=== PATIENT | female | born 1940 | race Caucasian/White ===

== ENCOUNTER 2017-12-15 16:22 | Inpatient (IN) | payer MEDICARE, SELFPAY ==
[2017-12-15] VITALS (8 sets, daily range): BP systolic 99–135; BP diastolic 55–122; PULSE 64–86; RESP 16–24; TEMP 37–38.5; O2SAT 93–96; BMI 28.8
--- NOTE | 2017-12-15 16:41 | CT_ITS ---
STUDY: CT BRAIN WITHOUT CONTRAST REASON FOR EXAM: Female, 77 years old. Altered mental status, tremors RADIATION DOSAGE (If Supplied By Facility): CTDIvol = ( 44.99 ) mGy, DLP = ( 762.36 ) mGycm TECHNIQUE: Transaxial CT imaging of the brain was performed without administration of intravenous contrast material. Individualized dose optimization techniques were used for this CT. COMPARISON: Previous study of June 01, 2017 FINDINGS: Normal soft tissue structures. There is mild hyperostosis frontalis interna of the inferior frontal bones. There is mild cerebral atrophy with widening of the extra-axial spaces and ventricular dilatation. There are areas of decreased attenuation within the white matter tracts of the supratentorial brain, consistent with microvascular disease changes. Normal basal ganglia and thalami. Normal brainstem. Normal cerebellum. There is no intracranial hemorrhage. There are no findings of an acute ischemic infarction. 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 CT/Brain/Head without Contrast IMPRESSION: Chronic involutional changes of the brain. 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 Findings are stable in the interval. Electronically Signed: Reinaldo Bloom MD at 17:43 EST , Service support ,
[2017-12-15] MEDS: 0.9% Normal Saline 1,000 ML 150 ML IV (16:54)
[2017-12-15] MEDS: DiphenhydrAMINE 50 MG/ML Syringe 25 MG IV ×2 (16:54→17:52)
[2017-12-15 17:26] LABS: Absolute Lymphocyte Count 1.43 X10^3/ul (0.83-4.51); Absolute Neutrophil Count 5.3 X10^3/uL (2.0-7.7); Basophil# 0.01 X10^3/uL; Basophil% 0.1 % (0-1); Hematocrit 39.8 % (37-47); Hemoglobin 13.2 g/dl (12.0-15.0); Lymphocyte # 1.43 X10^3/ul (4.0); Lymphocyte % 17.6 % (19-41); Mean Corp Hgb Conc 33.2 g/gl (32-36); Mean Corpuscular Hgb 29.9 pg (27.0-32.0); Mean Platelet Vol. 11.1 fl (6.2-12.0); Monocyte# 1.35 X10^3/uL; Monocyte% 16.6 % (0-10); Neutrophil # 5.32 X10^3/uL (2.7-7.7); Neutrophil % 65.6 % (47-70); Platelet Count 162 K/mm3 (150-450); RBC Distribution Width CV 14.6 % (11.6-14.6); RBC Distribution Width SD 47.9 fl (35.1-43.9); Red Blood Count 4.42 M/mm3 (4.2-5.4); White Blood Count 8.1 K/mm3 (4.4-11.0)
[2017-12-15 17:28] LABS: POSITIVE COUNT NO; POSITIVE DIFFERENTIAL NO; POSITIVE MORPHOLOGY NO
[2017-12-15 17:32] LABS: International Normalized Ratio 1.1; Partial Thromboplast Time 35.2 Seconds (24.1-36.2); Prothrombin Time (Protime)PT. 13.9 SECONDS (11.7-14.9)
[2017-12-15 17:39] LABS: Bacteria 0 SEEN /hpf (None Seen); Mucous, Urine 0 SEEN /hpf (<or=2+); Red Blood Cells-Urine 0 SEEN /hpf (0-5)
[2017-12-15 17:43] LABS: Color, Urine Yellow (Yellow); Glucose, Dipstick Normal (Normal); Ketone-Dipstick Negative (Negative); Leukocyte Esterase-Dipstick Negative /ul (Negative); Nitrite-Dipstick Negative (Negative); Occult Blood-Urine 10 /ul (Negative); Protein-Dipstick 15 mg/dl (Negative); Urine Bilirubin Dipstick Negative (Negative); Urine Clarity Clear (Clear); Urine Urobilinogen Normal (Normal)
[2017-12-15 17:49] LABS: ALB/GLOB Ratio 0.9 RATIO (0.9-2.4); AST(SGOT) 40 U/L (15-37); Alanine Aminotransfer ALT/SGPT 29 U/L (13-56); Albumin, Serum 3.4 g/dL (3.2-5.0); Alkaline Phosphatase 56 U/L (45-117); Anion Gap 11 (5-15); BUN 29 mg/dL (7-18); BUN/Creat Ratio 18.5 RATIO (10-20); Calcium,Total 9.1 mg/dL (8.5-10.1); Chloride 105 mmol/L (98-107); Creatinine, Serum 1.57 mg/dL (0.55-1.02); EST Glomerular Filtration Rate 34 mL/min (>60); Est Glom Filt Rate - Afr Amer 41 mL/min (>60); Estimated Creatinine Clearance 21.55 ml/min; Globulin 3.9 g/dL (2.2-4.2); Glucose 88 mg/dL (74-106); Potassium 3.6 mmol/L (3.5-5.1); Protein, Total 7.3 g/dL (6.4-8.2); Sodium Level 139 mmol/L (136-145); Thyroid Stim Hormone (TSH) 0.12 uIU/mL (0.358-3.74)
[2017-12-15 17:53] LABS: Squamous Epithelial Cells - UA 0-5 SEEN /hpf (5-10); White Blood Cells 0-5 SEEN /hpf (0-5)
[2017-12-15 18:03] LABS: Amphetamine Urine VISTA NEGATIVE (<1000 ng/mL); Barbiturate Urine VISTA NEGATIVE (< 200 ng/mL); Benzodiazepine Urine VISTA NEGATIVE (< 200 ng/mL); Cocaine Urine VISTA NEGATIVE (< 300 ng/mL); Ecstacy Urine VISTA NEGATIVE (< 500 ng/mL); Methadone Urine VISTA NEGATIVE (< 300 ng/mL); PCP Urine VISTA NEGATIVE (< 25 ng/mL); THC Urine VISTA NEGATIVE (< 50 ng/mL); Vista UDS pH Range 5
[2017-12-15 18:12] LABS: Alcohol, Blood (Medical)-Serum < 3.0 mg/dL
[2017-12-15 18:13] LABS: Lactic Acid 1.1 mmol/L (0.4-2.0)
[2017-12-15] MEDS: Ibuprofen 200 MG Tablet 800 MG PO (21:07)
--- NOTE | 2017-12-15 21:12 | ED.RN ---
POSITIVE FLU PER LAB. NOTIFIED.
[2017-12-15] MEDS: Oseltamivir Phosphate 75 MG Capsule PO (21:20)
[2017-12-15 21:40] LABS: Acetaminophen (Tylenol) Level < 2.0 ug/mL (10.0-30.0); Salicylate 2.5 mg/dL (2.8-20.0)
--- NOTE | 2017-12-15 21:43 | ED.VISSUMM ---
- ER Visit Summary Date of Service: 12/15/17 Chief Complaint: Sore throat History of Present Illness: The patient is a 77 F who states that she has had a sore throat for the past 2-3 days. Patient lives alone and today went to her neighbor's house to see if she can be taken to the doctor. The neighbor tells me she felt that she should come to the emergency room but they went to her primary care physician. After being seen at the primary care physician's office she was sent to the emergency department. Patient is unsure of her medications but does have a piece of paper with it listed. She adamantly denies any inrm-jyx-qzjeqgs medications. When family arrives and they adamantly deny that she has been taken any tswf-ogb-lbwllyh medicines. Patient was asked a total of 4 times if she takes any exhz-dzz-gykqjcf medications. It was not until over 4 hours into their stay and then they start mentioning that she has been taking a lot of aspirin. I asked if there has been any other rtca-bpm-ygmrexk medications and they say no. At the doctor's office the patient was noted to have significantly abnormal extrapyramidal like movements of the arms and legs. Physical Examination: Temperature 99 heart rate 126 respirations are 18 pulse ox 94% on room air blood pressure in triage was not accurate Gen: Well-nourished well-developed Head: Normocephalic atraumatic Eyes: Perrl EOMI ENT: TMs clear nasal congestion moist mucous membranes Neck: Supple no lymphadenopathy no JVD nontender no meningitic signs CVS: Regular rate rhythm no murmurs normal S1-S2 Respiratory: No distress clear to auscultation bilaterally chest nontender Abdomen: Soft nontender nondistended normal bowel sounds no masses Back: Nontender Extremity: Nontender no edema Skin: Normal color no rash Neuro: alert patient states that is 1918. She gets the wrong day of the week. She knows that it is December where she is at. Patient has jerking motion of the arms and legs independent of each other. She has occasional uncontrollable movement of her head. There is not appear to be any dystonia of the face of the neck. These movements do not appear to represent Rigors. Test Results: White count 8.1 creatinine 1.57 the BUN is 29 TSH 0.12 troponin negative liver enzymes total bili 1.2 normal coags urinalysis normal alcohol urine drugs abuse negative. CT of the brain negative influenza a positive. Salicylate 2.5. Acetaminophen less than 2 Emergency Department Course and Treatment: Patient received Benadryl which did not relieve her symptoms. She was given a milligram of Ativan and she fell asleep. When she woke patient was febrile at 101. She received Motrin Tamiflu was administered after she was influenza A positive identified. She is also been receiving IV fluids. After being notified that she has been taking significant amounts of aspirin salicylates and acetaminophen were added. Plan is admission. Impression: 1. Influenza A 2. Extraparametal movements-unknown etiology This note was generated with [employer] dictation software. It may contain incorrect words, spelling, and punctuation that were not noted in review of the chart prior to signing ED Disposition - Plan for ED Patient: Chief Complaint: General Illness Referrals: Tuan Luo DO [Primary Care Provider] -
--- NOTE | 2017-12-15 21:51 | ED.DCSUM_ITS ---
- ER Visit Summary Date of Service: 12/15/17 Chief Complaint: Sore throat History of Present Illness: The patient is a 77 F who states that she has had a sore throat for the past 2-3 days. Patient lives alone and today went to her neighbor's house to see if she can be taken to the doctor. The neighbor tells me she felt that she should come to the emergency room but they went to her primary care physician. After being seen at the primary care physician's office she was sent to the emergency department. Patient is unsure of her medications but does have a piece of paper with it listed. She adamantly denies any hjmb-mbz-hvvhrlu medications. When family arrives and they adamantly deny that she has been taken any kdyx-svp-rfvizhk medicines. Patient was asked a total of 4 times if she takes any bhyu-uvu-mhqtwpw medications. It was not until over 4 hours into their stay and then they start mentioning that she has been taking a lot of aspirin. I asked if there has been any other over- the-counter medications and they say no. At the doctor's office the patient was noted to have significantly abnormal extrapyramidal like movements of the arms and legs. Physical Examination: Temperature 99 heart rate 126 respirations are 18 pulse ox 94% on room air blood pressure in triage was not accurate Gen: Well-nourished well-developed Head: Normocephalic atraumatic Eyes: Perrl EOMI ENT: TMs clear nasal congestion moist mucous membranes Neck: Supple no lymphadenopathy no JVD nontender no meningitic signs CVS: Regular rate rhythm no murmurs normal S1-S2 Respiratory: No distress clear to auscultation bilaterally chest nontender Abdomen: Soft nontender nondistended normal bowel sounds no masses Back: Nontender Extremity: Nontender no edema Skin: Normal color no rash Neuro: alert patient states that is 1918. She gets the wrong day of the week. She knows that it is December where she is at. Patient has jerking motion of the arms and legs independent of each other. She has occasional uncontrollable movement of her head. There is not appear to be any dystonia of the face of the neck. These movements do not appear to represent Rigors. Test Results: White count 8.1 creatinine 1.57 the BUN is 29 TSH 0.12 troponin negative liver enzymes total bili 1.2 normal coags urinalysis normal alcohol urine drugs abuse negative. CT of the brain negative influenza a positive. Salicylate 2.5. Acetaminophen less than 2 Emergency Department Course and Treatment: Patient received Benadryl which did not relieve her symptoms. She was given a milligram of Ativan and she fell asleep. When she woke patient was febrile at 101. She received Motrin Tamiflu was administered after she was influenza A positive identified. She is also been receiving IV fluids. After being notified that she has been taking significant amounts of aspirin salicylates and acetaminophen were added. Plan is admission. Impression: 1. Influenza A 2. Extraparametal movements-unknown etiology This note was generated with [employer] dictation software. It may contain incorrect words, spelling, and punctuation that were not noted in review of the chart prior to signing ED Disposition - Plan for ED Patient: Chief Complaint: General Illness Referrals: Tuan Luo DO [Primary Care Provider] -
--- NOTE | 2017-12-15 22:23 | PCM.HP.STD ---
Problem List (1) HTN (hypertension) Status: Chronic (2) Abnormal involuntary movement Status: Acute (3) Influenza Status: Acute History of Present Illness Date of Admission: 12/15/17 Chief Complaint: Influenza A The patient is a 77 year old female w/ h/o HTN is admitted for influenza A. She is a poor historian. She had sore throat several days ago and went to neighbor's house to ask if the neighbor can take her to a doctor's office. She last spoke to her son last night and he said that she felt ill. Family noted abnormal extrapyramidal like movement this AM. Nothing appeared to make it movement better or worse. The movement was constant. She denies taking anything over the counter. Past Medical History Past Medical History (Chronic Problems): Chronic Problems HTN (hypertension) (Chronic) Allergies amlodipine besylate [From Norvasc] Adverse Reaction (Verified 12/15/17 16:28) Other clonidine Adverse Reaction (Verified 12/15/17 16:28) Unknown hydrochlorothiazide [From Zestoretic] Adverse Reaction (Verified 12/15/17 16:28) Other lisinopril [From Zestoretic] Adverse Reaction (Verified 12/15/17 16:28) Other prednisone Adverse Reaction (Verified 12/15/17 16:28) Other Home Medications: Ambulatory Orders Medication Instructions Recorded Aspirin [Aspirin, Baby] 81 mg PO DAILY@0800 06/01/17 Calcitriol [Rocaltrol] 0.25 mcg PO DAILY 06/01/17 Hydrochlorothiazide [Hctz] 12.5 mg PO DAILY 06/01/17 Levothyroxine [Synthroid] 88 mcg PO DAILY 06/01/17 Losartan Potassium [Cozaar] 100 mg PO DAILY 06/01/17 Pravastatin Sodium [Pravachol] 10 mg PO QHS 06/01/17 C,E,Zinc,Copper 11/Cthpa7i/Lut 1 each PO DAILY 12/15/17 [Ocuvite Adult 50 Plus Softgel] Multivitamin [Multiple Vitamins] 1 each PO DAILY 12/15/17 Lives: Alone Smoking Status: Never smoker Alcohol: None Drugs: None - *Family History Maternal History Items: No pertinent history Review of Systems Constitutional: Denies: Chills, Fever, Weight Change HEENT: Denies: Head Aches, Sinus Congestion, Sinus Drainage Cardiovascular: Denies: Chest Pain, Palpitations Respiratory: Reports: Shortness of Breath. Denies: Cough, Shortness of breath at rest, Sputum production Gastrointestinal: Denies: Abdominal Pain, Nausea, Vomiting Genitourinary: Denies: Dysuria Musculoskeletal: Denies: Joint Pain, Joint Tenderness Skin: Denies: Rash, Wounds Neurological: Reports: -. Denies: Focal weakness, Numbness, Tingling Psychiatric: Denies: Anxiety, Depression, Homicidal Ideations, Suicidal Ideations Hematologic/ Lymphatic: Denies: Easy Bruising, Easy Bleeding Comment: abnormal extrapyramidal like movement VTE Information - Inpt Only VTE Present on Admission: No VTE Mechan Device Prophylaxis: SCD's VTE Pharm Prophylaxis ordered?: Yes Patient Problems: Active and Suspected Problems Abnormal involuntary movement (Acute) Influenza (Acute) - Physical Exam General: Alert, Oriented x3, Cooperative HEENT: Atraumatic, PERRLA, EOMI, Normocephalic Neck: Supple, No JVD, Negative Carotid Bruits Lungs: Clear to auscultation, Normal air movement Cardiovascular: Regular rate, No murmurs Abdomen: Bowel Sounds Present, Soft, Non Tender Extremities: No edema, Capillary Refill Less than 3 Seconds Skin: No rashes, No breakdown Musculoskeletal: No Tenderness to Palpation of Joints or Extremities Neurological: Cranial nerves II-XII grossly intact, - - abnormal extrapyramidal like movement Psych/Mental Status: Normal Affect, Appropriate Vital Signs Temp Pulse Resp BP Pulse Ox 99.5 F H 80 16 114/59 L 96 12/15/17 22:14 12/15/17 21:07 12/15/17 21:07 12/15/17 20:51 12/15/17 21:07 Oxygen Flow Rate 2 Oxygen Delivery Method Room Air Weight: 67.1 kg Body Mass Index (BMI) 28.8 Finger Stick Blood Glucose 96 Microbiology Past 72 Hours 12/15/17 20:40 Influenza Types A,B Direct FA (JOVANY) - Final Mucosa - Nasopharyngeal Influenzae A Laboratory Tests Past 24 Hrs 12/15/17 12/15/17 12/15/17 16:57 16:57 16:57 WBC 8.1 RBC 4.42 Hgb 13.2 Hct 39.8 MCV 90.0 MCH 29.9 MCHC 33.2 RDW 14.6 RDW Differential 47.9 H Plt Count 162 MPV 11.1 Immature Gran % (Auto) 0.100 Neut % (Auto) 65.6 Lymph % (Auto) 17.6 L [place] % (Auto) 16.6 H Eos % (Auto) 0.0 Baso % (Auto) 0.1 Absolute Neuts (auto) 5.3 Absolute Lymphs (auto) 1.43 Total Counted Not Reportable PT 13.9 INR 1.1 APTT 35.2 Sodium 139 Potassium 3.6 Chloride 105 Carbon Dioxide 23.0 Anion Gap 11 BUN 29 H Creatinine 1.57 H Estim Creat Clear Calc 21.55 Est GFR (MDRD) Af Amer 41 L Est GFR (MDRD) Non-Af 34 L BUN/Creatinine Ratio 18.5 Glucose 88 Lactic Acid Calcium 9.1 Total Bilirubin 1.20 H AST 40 H ALT 29 Alkaline Phosphatase 56 Troponin I < 0.02 Total Protein 7.3 Albumin 3.4 Globulin 3.9 Albumin/Globulin Ratio 0.9 TSH 0.12 L Urine Color Urine Clarity Urine pH Ur Specific [place] Urine Protein Urine Glucose (UA) Urine Ketones Urine Occult Blood Urine Nitrite Urine Bilirubin Urine Urobilinogen Ur Leukocyte Esterase Urine RBC Urine WBC Ur Squamous Epith Cells Urine Bacteria Urine Mucus Salicylates Urine Opiates Screen Urine Methadone Screen Acetaminophen Ur Barbiturates Screen Ur Phencyclidine Scrn Ur Amphetamines Screen U Methamphetamin-MDMA U Benzodiazepines Scrn Urine Cocaine Screen U Cannabinoids Screen Ur Drug Screen Comment Ethyl Alcohol 12/15/17 12/15/17 12/15/17 16:57 16:57 16:59 WBC RBC Hgb Hct MCV MCH MCHC RDW RDW Differential Plt Count MPV Immature Gran % (Auto) Neut % (Auto) Lymph % (Auto) [place] % (Auto) Eos % (Auto) Baso % (Auto) Absolute Neuts (auto) Absolute Lymphs (auto) Total Counted PT INR APTT Sodium Potassium Chloride Carbon Dioxide Anion Gap BUN Creatinine Estim Creat Clear Calc Est GFR (MDRD) Af Amer Est GFR (MDRD) Non-Af BUN/Creatinine Ratio Glucose Lactic Acid 1.1 Calcium Total Bilirubin AST ALT Alkaline Phosphatase Troponin I Total Protein Albumin Globulin Albumin/Globulin Ratio TSH Urine Color Urine Clarity Urine pH Ur Specific [place] Urine Protein Urine Glucose (UA) Urine Ketones Urine Occult Blood Urine Nitrite Urine Bilirubin Urine Urobilinogen Ur Leukocyte Esterase Urine RBC Urine WBC Ur Squamous Epith Cells Urine Bacteria Urine Mucus Salicylates 2.5 L Urine Opiates Screen Urine Methadone Screen Acetaminophen < 2.0 L Ur Barbiturates Screen Ur Phencyclidine Scrn Ur Amphetamines Screen U Methamphetamin-MDMA U Benzodiazepines Scrn Urine Cocaine Screen U Cannabinoids Screen Ur Drug Screen Comment Ethyl Alcohol < 3.0 12/15/17 12/15/17 17:28 17:28 WBC RBC Hgb Hct MCV MCH MCHC RDW RDW Differential Plt Count MPV Immature Gran % (Auto) Neut % (Auto) Lymph % (Auto) [place] % (Auto) Eos % (Auto) Baso % (Auto) Absolute Neuts (auto) Absolute Lymphs (auto) Total Counted PT INR APTT Sodium Potassium Chloride Carbon Dioxide Anion Gap BUN Creatinine Estim Creat Clear Calc Est GFR (MDRD) Af Amer Est GFR (MDRD) Non-Af BUN/Creatinine Ratio Glucose Lactic Acid Calcium Total Bilirubin AST ALT Alkaline Phosphatase Troponin I Total Protein Albumin Globulin Albumin/Globulin Ratio TSH Urine Color Yellow Urine Clarity Clear Urine pH 5.0 Ur Specific [place] 1.020 Urine Protein 15 H Urine Glucose (UA) Normal Urine Ketones Negative Urine Occult Blood 10 H Urine Nitrite Negative Urine Bilirubin Negative Urine Urobilinogen Normal Ur Leukocyte Esterase Negative Urine RBC 0 SEEN Urine WBC 0-5 SEEN Ur Squamous Epith Cells 0-5 SEEN Urine Bacteria 0 SEEN Urine Mucus 0 SEEN Salicylates Urine Opiates Screen NEGATIVE Urine Methadone Screen NEGATIVE Acetaminophen Ur Barbiturates Screen NEGATIVE Ur Phencyclidine Scrn NEGATIVE Ur Amphetamines Screen NEGATIVE U Methamphetamin-MDMA NEGATIVE U Benzodiazepines Scrn NEGATIVE Urine Cocaine Screen NEGATIVE U Cannabinoids Screen NEGATIVE Ur Drug Screen Comment Ethyl Alcohol Assessment/Plan Active and Suspected Problems Abnormal involuntary movement (Acute) Influenza (Acute) 77 year old female w/ h/o HTN is admitted for influenza A. 1) Influenza A: Will start tamiflu. Will also cover with ceftriaxone and azithromycin concerning for bacteria infection. Low suspicion for resistant organism. Cultures pending. 2) Abnormal extrapyramidal like movement: CT negative. Will get B12, folate, ammonia, and RPR. Will also consult neuro. Will defer further workup to neuro. 3) HTN: Resume home meds. Monitor. 4) Prophylaxis: Heparin.
[2017-12-16] VITALS: O2SAT 94
[2017-12-16] MEDS: 0.9% Normal Saline 1,000 ML 100 ML IV ×3 (00:18→23:07)
[2017-12-16] MEDS: Ceftriaxone 1 GM/50 ML BAG IV (00:18)
[2017-12-16 01:01] LABS: Thyroid Stim Hormone (TSH) 0.11 uIU/mL (0.358-3.74)
[2017-12-16 03:54] LABS: Color, Urine Yellow (Yellow); Glucose, Dipstick Normal (Normal); Ketone-Dipstick 5 mg/dl (Negative); Leukocyte Esterase-Dipstick 100 /ul (Negative); Nitrite-Dipstick Negative (Negative); Occult Blood-Urine Negative /ul (Negative); Protein-Dipstick Negative (Negative); Specific Gravity, Urine 1.015 (1.002-1.030); Urine Bilirubin Dipstick Negative (Negative); Urine Clarity Clear (Clear); Urine Urobilinogen Normal (Normal)
[2017-12-16 04:00] VITALS: BP 117/69; PULSE 55; RESP 16; TEMP 36.6; O2SAT 95
[2017-12-16 07:30] LABS: Absolute Lymphocyte Count 1.59 X10^3/ul (0.83-4.51); Basophil# 0.02 X10^3/uL; Basophil% 0.3 % (0-1); Eosinophil# 0.04 X10^3/uL; Eosinophils% 0.7 % (0-5); Hematocrit 39.6 % (37-47); Lymphocyte # 1.59 X10^3/ul (4.0); Lymphocyte % 26.1 % (19-41); Mean Corp Hgb Conc 32.8 g/gl (32-36); Mean Corpuscular Volume 91.2 fL (81-99); Mean Platelet Vol. 11.4 fl (6.2-12.0); Monocyte# 1.46 X10^3/uL; Neutrophil # 2.96 X10^3/uL (2.7-7.7); Neutrophil % 48.6 % (47-70); Platelet Count 149 K/mm3 (150-450); RBC Distribution Width CV 15.1 % (11.6-14.6); RBC Distribution Width SD 49.2 fl (35.1-43.9); Red Blood Count 4.34 M/mm3 (4.2-5.4); White Blood Count 6.1 K/mm3 (4.4-11.0)
[2017-12-16 07:33] LABS: POSITIVE COUNT NO; POSITIVE DIFFERENTIAL NO; POSITIVE MORPHOLOGY NO
[2017-12-16 08:02] VITALS: BP 129/68; PULSE 55; RESP 18; TEMP 37; O2SAT 94
[2017-12-16 08:02] LABS: ALB/GLOB Ratio 0.8 RATIO (0.9-2.4); AST(SGOT) 47 U/L (15-37); Alanine Aminotransfer ALT/SGPT 29 U/L (13-56); Albumin, Serum 2.8 g/dL (3.2-5.0); Alkaline Phosphatase 46 U/L (45-117); Anion Gap 8 (5-15); BUN 33 mg/dL (7-18); BUN/Creat Ratio 21.2 RATIO (10-20); Calcium,Total 8.4 mg/dL (8.5-10.1); Chloride 110 mmol/L (98-107); Creatinine, Serum 1.56 mg/dL (0.55-1.02); EST Glomerular Filtration Rate 34 mL/min (>60); Est Glom Filt Rate - Afr Amer 41 mL/min (>60); Estimated Creatinine Clearance 21.69 ml/min; Globulin 3.5 g/dL (2.2-4.2); Glucose 78 mg/dL (74-106); Potassium 3.5 mmol/L (3.5-5.1); Protein, Total 6.3 g/dL (6.4-8.2); Sodium Level 143 mmol/L (136-145)
[2017-12-16] MEDS: Multivitamins,Therapeutic Tablet 1 TABLET PO (08:06)
[2017-12-16] MEDS: Aspirin 81 MG TAB.CHEW PO (08:06)
--- NOTE | 2017-12-16 08:38 | RAD_ITS ---
STUDY: X-RAY CHEST REASON FOR EXAM: Female, 77 years old. Cough TECHNIQUE: PA and lateral views of the chest. COMPARISON: 02/12/2013 FINDINGS: The lungs are clear and expanded. There is no demonstrated pleural abnormality. Normal size heart. Normal mediastinum and larisa. Normal visualized pulmonary arteries. There is mild calcification of the aortic arch. There are diffuse degenerative changes of the visualized thoracic spine. Normal visualized ribs, clavicles, and shoulders. Surgical clips project over the right side of the neck. There is no demonstrated abnormality of the visualized soft tissue structures of the upper abdomen. RAD/Chest PA and Lateral IMPRESSION: Degenerative changes, as described above. No demonstrated acute cardiopulmonary process. Electronically Signed: Alfredo Celis DO at 9:46 EST Tel , Service support ,
--- NOTE | 2017-12-16 09:24 | PN_ITS ---
Patient Problems: Active and Suspected Problems Abnormal involuntary movement (Acute) Influenza (Acute) Subjective: Patient notes feeling improved since initial presentation with less body aches, no marked dyspnea and less coughing. Upon initial evaluation she was noted to have abnormal movements however since admission to the floor nursing has not witnessed any irregularities. During examination patient also did not exhibit any irregular movements of the upper extremities. Patient denies fevers, chills , nausea, emesis, abdominal pain, chest pain or dyspnea. Objective: Physical Examination: General: awake, alert, oriented x 3 and cooperative, seated upright in bed in no apparent distress. Skin: normal color, turgor, no icterus, cyanosis. HEENT: AT/NC, EOMI, PERRLA, improved less dry MM. Lungs: Diminished bases, occasional expiratory wheeze, L>R mid-base, mild effort , some coughing but minimal. Heart: Regular rate and rhythm; no gallop, rub audible. Abdomen: soft, NTTP, ND, normal BS. Extremities: no cyanosis, clubbing, or edema. Neurological: patient awake, alert, oriented x 3; cognitive function intact; pupils equally reactive to light and accomodation; cranial nerves II-XII grossly normal, moving all 4 extremities, no focal deficits, strength moderately globally decreased, no abnormal extremity movements. Psychiatric: affect appears fatigued, no acute evidence of depressive or anxiety feelings. Vitals/I&O's: Vital Signs Temp Pulse Resp BP Pulse Ox 98.6 F 55 L 18 129/68 H 94 12/16/17 08:02 12/16/17 08:02 12/16/17 08:02 12/16/17 08:02 12/16/17 08:02 Oxygen Delivery Method Room Air Weight: 147 lb 6 oz Body Mass Index (BMI) 28.8 Intake and Output for Last 24 Hours 12/14/17 12/15/17 12/16/17 23:59 23:59 23:59 Intake Total 810 / 810 Output Total 300 / 300 Balance 510 / 510 Microbiology Past 72 Hours 12/16/17 02:50 Urine, Clean Catch Legionella Antigen - Final 12/16/17 02:50 Urine, Clean Catch Streptococcus pneumoniae Antigen (M - Final Laboratory Results 12/15/17 23:23: Vitamin B12 Pending, Cortisol Pending 12/15/17 23:23: Folate 74.40 H, TSH 0.11 L 12/15/17 23:23: Ammonia 12.0 12/15/17 23:23: RPR Pending 12/16/17 02:50: Urine Color Yellow, Urine Clarity Clear, Urine pH 6.0, Ur Specific [place] 1.015, Urine Protein Negative, Urine Glucose (UA) Normal, Urine Ketones 5 H, Urine Occult Blood Negative, Urine Nitrite Negative, Urine Bilirubin Negative, Urine Urobilinogen Normal, Ur Leukocyte Esterase 100 H 12/16/17 07:08: WBC 6.1, RBC 4.34, Hgb 13.0, Hct 39.6, MCV 91.2, MCH 30.0, MCHC 32.8, RDW 15.1 H, RDW Differential 49.2 H, Plt Count 149 L, MPV 11.4, Immature Gran % (Auto) 0.300, Neut % (Auto) 48.6, Lymph % (Auto) 26.1, [place] % (Auto) 24.0 H, Eos % (Auto) 0.7, Baso % (Auto) 0.3, Absolute Neuts (auto) 3.0, Absolute Lymphs (auto) 1.59, Total Counted Not Reportable 12/16/17 07:08: Sodium 143, Potassium 3.5, Chloride 110 H, Carbon Dioxide 25.0, Anion Gap 8, BUN 33 H, Creatinine 1.56 H, Estim Creat Clear Calc 21.69, Est GFR (MDRD) Af Amer 41 L, Est GFR (MDRD) Non-Af 34 L, BUN/Creatinine Ratio 21.2 H, Glucose 78, Calcium 8.4 L, Total Bilirubin 1.00, AST 47 H, ALT 29, Alkaline Phosphatase 46, Total Protein 6.3 L, Albumin 2.8 L, Globulin 3.5, Albumin/ Globulin Ratio 0.8 L Current Medications Aspirin (Aspirin, Baby) 81 mg PO DAILY@0800 [facility] Last Admin: 12/16/17 08:06 Dose: 81 mg Calcitriol (Rocaltrol) 0.25 mcg PO DAILY [facility] Diphenhydramine HCl (Benadryl) 25 mg IV Q4H PRN PRN PRN Reason: AGITATION Heparin Sodium (Porcine) (Heparin Na) 5,000 unit SC Q8 [facility] Last Admin: 12/16/17 05:08 Dose: 5,000 units Sodium Chloride () 1,000 mls @ 100 mls/hr IV .Q10H [facility] Last Admin: 12/16/17 00:18 Dose: 100 mls/hr Ceftriaxone Sodium (Rocephin) 1 gm in 50 mls @ 100 mls/hr IV Q24 [facility] Last Admin: 12/16/17 00:18 Dose: 100 mls/hr Azithromycin 500 mg/ Dextrose 255 mls @ 250 mls/hr IV Q24 [facility] Stop: 12/17/17 11:02 Last Admin: 12/16/17 01:21 Dose: 250 mls/hr Levothyroxine Sodium (Synthroid) 88 mcg PO DAILY@0600 [facility] Losartan Potassium (Cozaar) 100 mg PO DAILY [facility] Multivitamins (Multivitamin) 1 tablet PO DAILY@0800 [facility] Last Admin: 12/16/17 08:06 Dose: 1 tablet Multivitamins/Minerals (Ocuvite) 1 tablet PO DAILYCM [facility] Last Admin: 12/16/17 08:06 Dose: 1 tablet Pravastatin Sodium (Pravachol) 10 mg PO QHS [facility] Sodium Chloride () 5 - 30 ml IV UD PRN PRN Reason: SALINE FLUSH Assessment/Plan Active and Suspected Problems Abnormal involuntary movement (Acute) Influenza (Acute) The patient is a 77 y/o F w/ PMHx: HTN, Hypothyroidism, HLD, CKD stage III who presents to the [facility] ED on 12/15/17 with history of sore throat, cough, dyspnea, fever, myalgia, arthralgia x 2 days in addition to family reported irregular BL UE movements on day of ED presentation. (1) General Malaise, Cough, Fever, General Debility secondary to Influenza A Viral Syndrome: CXR in the ED w/ no acute process. Admission CBC w/ WBC 8.1 without L shift. Influenza A positive. Maintained on Tamiflu, initially administered in the ED and given sxs onset timeline continued inpatient given 48 hours. Admitted to [place], maintain on oxygen with wean as tolerated, continue ATC duonebs, PRN albuterol, HOB, IS parameters w/ pending Bld cx x 2 from ED, urine antigens negative, sputum culture obtained and pending. Initially on IV rocephin and azithromycin for possible PNA, but given influenza A positive and no obvious infiltrate on CXR, discontinued abx agents. (2) Unclear BL UE Irregular, ? 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 Patient irregular movements not present upon admission following ED evaluation, unclear etiology, neurology consulted upon admission, pending evaluation. (3) Hypertension: Continue home regimen including losartan, PRN hydralazine. (4) Hyperlipidemia: Continue home statin regimen. (5) Hypothyroidism: Continue home synthroid regimen, TSH 0.11, FT4 normal, subclinical encouraged repeat outpatient testing once clinical improved from current acute presentation. (6) Chronic Kidney Disease Stage III: Admission BUN/Cr 29/1.57, baseline renal function 1.4-1.6, stable, trend. (7) DVT, renally dosed lovenox. Code Visit Inpatient E&M: 75677 Subs Hosp L2
[2017-12-16 10:21] LABS: T4 Free Direct 1.22 ng/dL (0.76-1.46)
[2017-12-16] MEDS: Losartan Potassium 100 MG Tablet PO (10:55)
[2017-12-16] MEDS: Levothyroxine 88 MCG Tablet PO (10:55)
[2017-12-16] MEDS: Oseltamivir Phosphate 30 MG Capsule PO (11:49)
[2017-12-16 13:39] VITALS: BP 112/73; PULSE 74; RESP 18; TEMP 37.6; O2SAT 93
--- NOTE | 2017-12-16 13:56 | CASEMGMT ---
Attempted to see pt x2, unable to complete assessment @ this time. Lily BSN RN ACM
[2017-12-16 17:34] VITALS: TEMP 36.7
[2017-12-16 19:40] VITALS: BP 136/98; PULSE 74; RESP 18; TEMP 37.6; O2SAT 96
[2017-12-16] MEDS: Pravastatin 20 MG Tablet 10 MG PO (23:06)
[2017-12-17 01:40] VITALS: BP 139/81; PULSE 62; RESP 18; TEMP 37.3; O2SAT 96
[2017-12-17] MEDS: Levothyroxine 88 MCG Tablet PO (05:57)
[2017-12-17] MEDS: Enoxaparin 30 MG/0.3 ML Syringe SC (05:57)
[2017-12-17 07:40] VITALS: BP 145/85; PULSE 58; RESP 18; TEMP 37; O2SAT 96
[2017-12-17] MEDS: Aspirin 81 MG TAB.CHEW PO (07:45)
[2017-12-17] MEDS: Multivitamins,Therapeutic Tablet 1 TABLET PO (07:45)
--- NOTE | 2017-12-17 08:46 | PCM.PN.HOSP ---
Patient Problems: Active and Suspected Problems Abnormal involuntary movement (Acute) Influenza (Acute) Subjective: The patient is a 77 y/o F w/ PMHx: HTN, Hypothyroidism, HLD, CKD stage III who presents to the [facility] ED on 12/15/17 with history of sore throat, cough, dyspnea, fever, myalgia, arthralgia x 2 days in addition to family reported irregular BL UE movements on day of ED presentation. CXR in the ED w/ no acute process. Admission CBC w/ WBC 8.1 without L shift. Influenza A positive. Maintained on Tamiflu, initially administered in the ED and given sxs onset timeline continued inpatient given 48 hours. Admitted to [place], maintain on oxygen with wean as tolerated, continue ATC duonebs, PRN albuterol, HOB, IS parameters w/ pending Bld cx x 2 from ED, urine antigens negative, sputum culture obtained and pending. Initially on IV rocephin and azithromycin for possible PNA, but given influenza A positive and no obvious infiltrate on CXR, discontinued abx agents. Given improvement, less wheezing steroids deferred. Expect ability for discharge to home 12/18/17 AM pending Neurology evaluation today. Unclear BL UE Irregular, ? 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 Patient irregular movements not present upon admission following ED evaluation, unclear etiology, neurology consulted, awaiting their evaluation given atypical presentation would like to defer MRI if felt not necessary. Patient with no acute events overnight per self however per discussion with nursing when attempting to get vitals early this morning did have some abnormal movements of her arms but these appeared to be stopped with encouragement per nursing staff and did not appear extrapyramidal in nature. Upon evaluation this morning her physician there was no abnormal movements to the upper extremities or shoulders which nurses noted to have been involved as well. She states that she does feel improved but still having cough and some exertional dyspnea. Patient denies fevers, chills, nausea, emesis, abdominal pain, chest pain. Objective: Physical Examination: General: awake, alert, oriented x 3 and cooperative, seated upright in bedside chair, in no apparent distress. Skin: normal color, turgor, no icterus, cyanosis. HEENT: AT/NC, EOMI, PERRLA, improved less dry MM. Lungs: Improving, but still diminished BS, > bases, lessened but occasional wheezing, no coughing today with examination. Heart: Regular rate and rhythm; no gallop, rub audible. Abdomen: soft, NTTP, ND, normal BS. Extremities: no cyanosis, clubbing, or edema. Neurological: patient awake, alert, oriented x 3; cognitive function intact; pupils equally reactive to light and accomodation; cranial nerves II-XII grossly normal, moving all 4 extremities, no focal deficits, strength moderately globally decreased, no abnormal extremity movements. Psychiatric: affect appears improved, less fatigued, no acute evidence of depressive or anxiety feelings. Vitals/I&O's: Vital Signs Temp Pulse Resp BP Pulse Ox 98.6 F 58 L 18 145/85 H 96 12/17/17 07:40 12/17/17 07:40 12/17/17 07:40 12/17/17 07:40 12/17/17 07:40 Oxygen Delivery Method Room Air Weight: 147 lb 6 oz Body Mass Index (BMI) 28.8 Intake and Output for Last 24 Hours 12/15/17 12/16/17 12/17/17 23:59 23:59 23:59 Intake Total 2684 / 2684 1226 / 1226 Output Total 650 / 650 Balance 2034 / 2034 1226 / 1226 Microbiology Past 72 Hours 12/16/17 02:50 Sputum, Expectorated/Coughed Gram Stain - Final 12/16/17 02:50 Sputum, Expectorated/Coughed Respiratory Culture - Preliminary 12/16/17 02:50 Urine, Clean Catch Legionella Antigen - Final 12/16/17 02:50 Urine, Clean Catch Streptococcus pneumoniae Antigen (M - Final Laboratory Results 12/16/17 07:08: Free T4 1.22 Current Medications Aspirin (Aspirin, Baby) 81 mg PO DAILY@0800 [facility] Last Admin: 12/17/17 07:45 Dose: 81 mg Calcitriol (Rocaltrol) 0.25 mcg PO DAILY [facility] Last Admin: 12/16/17 10:55 Dose: Not Given Diphenhydramine HCl (Benadryl) 25 mg IV Q4H PRN PRN PRN Reason: AGITATION Enoxaparin Sodium (Lovenox) 30 mg SC DAILY@0600 [facility] Last Admin: 12/17/17 05:57 Dose: 30 mg Sodium Chloride () 1,000 mls @ 100 mls/hr IV .Q10H [facility] Last Admin: 12/16/17 23:07 Dose: 100 mls/hr Levothyroxine Sodium (Synthroid) 88 mcg PO DAILY@0600 [facility] Last Admin: 12/17/17 05:57 Dose: 88 mcg Losartan Potassium (Cozaar) 100 mg PO DAILY [facility] Last Admin: 12/16/17 10:55 Dose: 100 mg Multivitamins (Multivitamin) 1 tablet PO DAILY@0800 [facility] Last Admin: 12/17/17 07:45 Dose: 1 tablet Multivitamins/Minerals (Ocuvite) 1 tablet PO DAILYCM [facility] Last Admin: 12/17/17 07:45 Dose: 1 tablet Oseltamivir Phosphate (Tamiflu) 30 mg PO DAILY [facility] Stop: 12/19/17 10:01 Last Admin: 12/16/17 11:49 Dose: 30 mg Pravastatin Sodium (Pravachol) 10 mg PO QHS [facility] Last Admin: 12/16/17 23:06 Dose: 10 mg Sodium Chloride () 5 - 30 ml IV UD PRN PRN Reason: SALINE FLUSH Assessment/Plan Active and Suspected Problems Abnormal involuntary movement (Acute) Influenza (Acute) The patient is a 77 y/o F w/ PMHx: HTN, Hypothyroidism, HLD, CKD stage III who presents to the [facility] ED on 12/15/17 with history of sore throat, cough, dyspnea, fever, myalgia, arthralgia x 2 days in addition to family reported irregular BL UE movements on day of ED presentation. (1) General Malaise, Cough, Fever, General Debility secondary to Influenza A Viral Syndrome: CXR in the ED w/ no acute process. Admission CBC w/ WBC 8.1 without L shift. Influenza A positive. Maintained on Tamiflu, initially administered in the ED and given sxs onset timeline continued inpatient given 48 hours. Admitted to [place], maintain on oxygen with wean as tolerated, continue ATC duonebs, PRN albuterol, HOB, IS parameters w/ pending Bld cx x 2 from ED, urine antigens negative, sputum culture obtained and pending. Initially on IV rocephin and azithromycin for possible PNA, but given influenza A positive and no obvious infiltrate on CXR, discontinued abx agents. Given improvement, less wheezing steroids deferred. Expect ability for discharge to home 12/18/17 AM pending Neurology evaluation today. (2) Unclear BL UE Irregular, ? 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 Patient irregular movements not present upon admission following ED evaluation, unclear etiology, neurology consulted, awaiting their evaluation given atypical presentation would like to defer MRI if felt not necessary. (3) Hypertension: Continue home regimen including losartan, PRN hydralazine. (4) Hyperlipidemia: Continue home statin regimen. (5) Hypothyroidism: Continue home synthroid regimen, TSH 0.11, FT4 normal, subclinical encouraged repeat outpatient testing once clinical improved from current acute presentation. (6) Chronic Kidney Disease Stage III: Admission BUN/Cr 29/1.57, baseline renal function 1.4-1.6, stable, trend. 12/17/17 BUN/Cr 33/1.56. (7) DVT, renally dosed lovenox. Code Visit Inpatient E&M: 66404 Subs Hosp L2
--- NOTE | 2017-12-17 08:52 | PN_ITS ---
Patient Problems: Active and Suspected Problems Abnormal involuntary movement (Acute) Influenza (Acute) Subjective: The patient is a 77 y/o F w/ PMHx: HTN, Hypothyroidism, HLD, CKD stage III who presents to the [facility] ED on 12/15/17 with history of sore throat, cough, dyspnea, fever, myalgia, arthralgia x 2 days in addition to family reported irregular BL UE movements on day of ED presentation. CXR in the ED w/ no acute process. Admission CBC w/ WBC 8.1 without L shift. Influenza A positive. Maintained on Tamiflu, initially administered in the ED and given sxs onset timeline continued inpatient given 48 hours. Admitted to [place], maintain on oxygen with wean as tolerated, continue ATC duonebs, PRN albuterol, HOB, IS parameters w/ pending Bld cx x 2 from ED, urine antigens negative, sputum culture obtained and pending. Initially on IV rocephin and azithromycin for possible PNA, but given influenza A positive and no obvious infiltrate on CXR, discontinued abx agents. Given improvement, less wheezing steroids deferred. Expect ability for discharge to home 12/18/17 AM pending Neurology evaluation today. Unclear BL UE Irregular, ? 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 Patient irregular movements not present upon admission following ED evaluation, unclear etiology, neurology consulted, awaiting their evaluation given atypical presentation would like to defer MRI if felt not necessary. Patient with no acute events overnight per self however per discussion with nursing when attempting to get vitals early this morning did have some abnormal movements of her arms but these appeared to be stopped with encouragement per nursing staff and did not appear extrapyramidal in nature. Upon evaluation this morning her physician there was no abnormal movements to the upper extremities or shoulders which nurses noted to have been involved as well. She states that she does feel improved but still having cough and some exertional dyspnea. Patient denies fevers, chills, nausea, emesis, abdominal pain, chest pain. Objective: Physical Examination: General: awake, alert, oriented x 3 and cooperative, seated upright in bedside chair, in no apparent distress. Skin: normal color, turgor, no icterus, cyanosis. HEENT: AT/NC, EOMI, PERRLA, improved less dry MM. Lungs: Improving, but still diminished BS, > bases, lessened but occasional wheezing, no coughing today with examination. Heart: Regular rate and rhythm; no gallop, rub audible. Abdomen: soft, NTTP, ND, normal BS. Extremities: no cyanosis, clubbing, or edema. Neurological: patient awake, alert, oriented x 3; cognitive function intact; pupils equally reactive to light and accomodation; cranial nerves II-XII grossly normal, moving all 4 extremities, no focal deficits, strength moderately globally decreased, no abnormal extremity movements. Psychiatric: affect appears improved, less fatigued, no acute evidence of depressive or anxiety feelings. Vitals/I&O's: Vital Signs Temp Pulse Resp BP Pulse Ox 98.6 F 58 L 18 145/85 H 96 12/17/17 07:40 12/17/17 07:40 12/17/17 07:40 12/17/17 07:40 12/17/17 07:40 Oxygen Delivery Method Room Air Weight: 147 lb 6 oz Body Mass Index (BMI) 28.8 Intake and Output for Last 24 Hours 12/15/17 12/16/17 12/17/17 23:59 23:59 23:59 Intake Total 2684 / 2684 1226 / 1226 Output Total 650 / 650 Balance 2034 / 2034 1226 / 1226 Microbiology Past 72 Hours 12/16/17 02:50 Sputum, Expectorated/Coughed Gram Stain - Final 12/16/17 02:50 Sputum, Expectorated/Coughed Respiratory Culture - Preliminary 12/16/17 02:50 Urine, Clean Catch Legionella Antigen - Final 12/16/17 02:50 Urine, Clean Catch Streptococcus pneumoniae Antigen (M - Final Laboratory Results 12/16/17 07:08: Free T4 1.22 Current Medications Aspirin (Aspirin, Baby) 81 mg PO DAILY@0800 [facility] Last Admin: 12/17/17 07:45 Dose: 81 mg Calcitriol (Rocaltrol) 0.25 mcg PO DAILY [facility] Last Admin: 12/16/17 10:55 Dose: Not Given Diphenhydramine HCl (Benadryl) 25 mg IV Q4H PRN PRN PRN Reason: AGITATION Enoxaparin Sodium (Lovenox) 30 mg SC DAILY@0600 [facility] Last Admin: 12/17/17 05:57 Dose: 30 mg Sodium Chloride () 1,000 mls @ 100 mls/hr IV .Q10H [facility] Last Admin: 12/16/17 23:07 Dose: 100 mls/hr Levothyroxine Sodium (Synthroid) 88 mcg PO DAILY@0600 [facility] Last Admin: 12/17/17 05:57 Dose: 88 mcg Losartan Potassium (Cozaar) 100 mg PO DAILY [facility] Last Admin: 12/16/17 10:55 Dose: 100 mg Multivitamins (Multivitamin) 1 tablet PO DAILY@0800 [facility] Last Admin: 12/17/17 07:45 Dose: 1 tablet Multivitamins/Minerals (Ocuvite) 1 tablet PO DAILYCM [facility] Last Admin: 12/17/17 07:45 Dose: 1 tablet Oseltamivir Phosphate (Tamiflu) 30 mg PO DAILY [facility] Stop: 12/19/17 10:01 Last Admin: 12/16/17 11:49 Dose: 30 mg Pravastatin Sodium (Pravachol) 10 mg PO QHS [facility] Last Admin: 12/16/17 23:06 Dose: 10 mg Sodium Chloride () 5 - 30 ml IV UD PRN PRN Reason: SALINE FLUSH Assessment/Plan Active and Suspected Problems Abnormal involuntary movement (Acute) Influenza (Acute) The patient is a 77 y/o F w/ PMHx: HTN, Hypothyroidism, HLD, CKD stage III who presents to the [facility] ED on 12/15/17 with history of sore throat, cough, dyspnea, fever, myalgia, arthralgia x 2 days in addition to family reported irregular BL UE movements on day of ED presentation. (1) General Malaise, Cough, Fever, General Debility secondary to Influenza A Viral Syndrome: CXR in the ED w/ no acute process. Admission CBC w/ WBC 8.1 without L shift. Influenza A positive. Maintained on Tamiflu, initially administered in the ED and given sxs onset timeline continued inpatient given 48 hours. Admitted to [place], maintain on oxygen with wean as tolerated, continue ATC duonebs, PRN albuterol, HOB, IS parameters w/ pending Bld cx x 2 from ED, urine antigens negative, sputum culture obtained and pending. Initially on IV rocephin and azithromycin for possible PNA, but given influenza A positive and no obvious infiltrate on CXR, discontinued abx agents. Given improvement, less wheezing steroids deferred. Expect ability for discharge to home 12/18/17 AM pending Neurology evaluation today. (2) Unclear BL UE Irregular, ? 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 Patient irregular movements not present upon admission following ED evaluation, unclear etiology, neurology consulted, awaiting their evaluation given atypical presentation would like to defer MRI if felt not necessary. (3) Hypertension: Continue home regimen including losartan, PRN hydralazine. (4) Hyperlipidemia: Continue home statin regimen. (5) Hypothyroidism: Continue home synthroid regimen, TSH 0.11, FT4 normal, subclinical encouraged repeat outpatient testing once clinical improved from current acute presentation. (6) Chronic Kidney Disease Stage III: Admission BUN/Cr 29/1.57, baseline renal function 1.4-1.6, stable, trend. 12/17/17 BUN/Cr 33/1.56. (7) DVT, renally dosed lovenox. Code Visit Inpatient E&M: 71005 Subs Hosp L2
[2017-12-17] MEDS: 0.9% Normal Saline 1,000 ML 100 ML IV ×2 (08:59→18:38)
[2017-12-17] MEDS: Losartan Potassium 100 MG Tablet PO (09:01)
[2017-12-17] MEDS: Oseltamivir Phosphate 30 MG Capsule PO (09:01)
--- NOTE | 2017-12-17 10:33 | NURSING ---
Called [facility] answering service to confirm MD was notified of consult. States she will re-notify MD of consult this am.
[2017-12-17] MEDS: Hydrocortisone 2.5% Crm 1 APPLIC TOPICAL ×2 (12:23→23:10)
[2017-12-17 14:30] VITALS: BP 145/85; PULSE 75; RESP 18; TEMP 36.4; O2SAT 96
--- NOTE | 2017-12-17 15:00 | PCM.CONS.GEN ---
Problem List (1) Abnormal involuntary movement Status: Acute Reason for Consult Date of Consultation: 12/17/17 Reason for Consultation: Abnormal movements History of Present Illness: The patient is a 77 year old CF with PMH HTN, HLD, hypothyroidism, CKD admitted with sore throat, dyspnea, fever, myalgia found to have influenza A. Neurology consulted for abnormal movements present 2 days ago on Monday (12/15/17) when patient was admitted with influenza. Per son the movement was like moving the hands all over the body, may have had repetitive movements of the hands over her head and twitching/jerking of the extremities, patient was aware of the movement but could not stop the same, no witnessed seizures or LOC, no tongue bite or urinary incontinence, lasted for few hours on Monday, did not have these movements in the past, did not have the movements since admission. Denies any ARREDONDO, visual disturbances, sensory loss or focal motor weakness. Patient lives alone, denies any frequent falls, does have walker to ambulate, may use it intermittently, does not need any assistance with ADLs. [] Past Medical History Past Medical History (Chronic Problems): Chronic Problems HTN (hypertension) (Chronic) Allergies amlodipine besylate [From Norvasc] Adverse Reaction (Verified 12/15/17 16:28) Other clonidine Adverse Reaction (Verified 12/15/17 16:28) Unknown hydrochlorothiazide [From Zestoretic] Adverse Reaction (Verified 12/15/17 16:28) Other lisinopril [From Zestoretic] Adverse Reaction (Verified 12/15/17 16:28) Other prednisone Adverse Reaction (Verified 12/15/17 16:28) Other Home Medications: Ambulatory Orders Medication Instructions Recorded Aspirin [Aspirin, Baby] 81 mg PO DAILY@0800 06/01/17 Calcitriol [Rocaltrol] 0.25 mcg PO MOWEFR 06/01/17 Hydrochlorothiazide [Hctz] 12.5 mg PO DAILY 06/01/17 Levothyroxine [Synthroid] 88 mcg PO DAILY 06/01/17 Losartan Potassium [Cozaar] 100 mg PO DAILY 06/01/17 Pravastatin Sodium [Pravachol] 10 mg PO QHS 06/01/17 C,E,Zinc,Copper 11/Nibcc0f/Lut 1 each PO DAILY 12/15/17 [Ocuvite Adult 50 Plus Softgel] Multivitamin [Multiple Vitamins] 1 each PO DAILY 12/15/17 Lives: Alone Smoking Status: Never smoker Alcohol: None Drugs: None - *Family History Maternal History Items: No pertinent history Review of Systems Constitutional: Reports: - - complete ROS negative except as documented in HPI Patient Problems: Active and Suspected Problems Abnormal involuntary movement (Acute) Influenza (Acute) - Physical Exam General: Alert, Oriented x3, Cooperative HEENT: Atraumatic, PERRLA, EOMI, Normocephalic Neck: Supple, No JVD, Negative Carotid Bruits Lungs: Clear to auscultation, Normal air movement Cardiovascular: Regular rate, No murmurs Abdomen: Bowel Sounds Present, Soft, Non Tender Extremities: No edema, Capillary Refill Less than 3 Seconds Skin: No rashes, No breakdown Musculoskeletal: No Tenderness to Palpation of Joints or Extremities Neurological: Cranial nerves II-XII grossly intact, Deep Tendon Reflexes 2+/4 and Symmetrical, Neuro grossly intact, Motor Exam 5/5 strength throughout, Muscle tone normal, Sensory exam intact to light touch and pain, Coordination normal Psych/Mental Status: Normal Affect, Appropriate Vital Signs Temp Pulse Resp BP Pulse Ox 98.6 F 58 L 18 145/85 H 96 12/17/17 07:40 12/17/17 07:40 12/17/17 07:40 12/17/17 07:40 12/17/17 07:40 Oxygen Delivery Method Room Air Weight: 66.848 kg Body Mass Index (BMI) 28.8 Intake and Output for Last 24 Hours 12/15/17 12/16/17 12/17/17 23:59 23:59 23:59 Intake Total 2684 / 2684 1975 Output Total 650 / 650 Balance 2033 Microbiology Past 72 Hours 12/16/17 02:50 Gram Stain - Final Sputum, Expectorated/Coughed Respiratory Culture - Preliminary 12/16/17 02:50 Legionella Antigen - Final Urine, Clean Catch 12/16/17 02:50 Streptococcus pneumoniae Antigen (M - Final Urine, Clean Catch Assessment/Plan Active and Suspected Problems Abnormal involuntary movement (Acute) Influenza (Acute) The patient is a 77 year old CF with PMH HTN, HLD, hypothyroidism, CKD admitted with sore throat, dyspnea, fever, myalgia found to have influenza A. Neurology consulted for abnormal movements present 2 days ago on Monday (12/15/17) when patient was admitted with influenza. Per son the movement was like moving the hands all over the body, may have had repetitive movements of the hands over her head and twitching/jerking of the extremities, patient was aware of the movement but could not stop the same, no witnessed seizures or LOC, no tongue bite or urinary incontinence, lasted for few hours on Monday, did not have these movements in the past, did not have the movements since admission. Denies any ARREDONDO, visual disturbances, sensory loss or focal motor weakness. Patient lives alone, denies any frequent falls, does have walker to ambulate, may use it intermittently, does not need any assistance with ADLs. Impression Abnormal Involuntary movements-unclear at present what these were. ?Metabolic causes Plan -Recommend MRI brain w/o contrast -Recommend EEG -Labs [id number], creatinine 1.57, AST 47, UDS negative -Recommend Ammonia -Further medical management per primary team. -GI/DVT prophylaxis -PT/OT -Fall precautions -Follow up with movement d/o specialist if the abnormal movements recur -Please call with questions if any -Thank you for allowing us to participate in patient's care and management I spent 60 minutes taking history, doing physical examination, reviewing medical records, coordinating care and counseling the patient. Code Visit Inpatient E&M: 29502 Init Hosp L3
[2017-12-17 20:30] VITALS: BP 140/82; PULSE 60; RESP 18; TEMP 36.7; O2SAT 97
[2017-12-17] MEDS: Pravastatin 20 MG Tablet 10 MG PO (23:09)
[2017-12-18] VITALS (9 sets, daily range): BP systolic 142–187; BP diastolic 76–98; PULSE 54–79; RESP 16–18; TEMP 36.6–37.3; O2SAT 96–99
[2017-12-18] MEDS: 0.9% Normal Saline 1,000 ML 100 ML IV ×2 (04:36→16:12)
[2017-12-18] MEDS: Levothyroxine 88 MCG Tablet PO (05:52)
[2017-12-18] MEDS: Enoxaparin 30 MG/0.3 ML Syringe SC (05:52)
--- NOTE | 2017-12-18 07:11 | MRI_ITS ---
STUDY: MRI BRAIN WITHOUT CONTRAST REASON FOR EXAM: Female, 77 years old. cva, involuntary arm movements, influenza A. TECHNIQUE: Standardized multiplanar fat and water weighted pulse sequences were obtained. COMPARISON: 12/15/2017 FINDINGS: There is mild cerebral atrophy with widening of the extra-axial spaces and ventricular dilatation. There are a limited number of small white matter hyperintensities, distributed throughout the deep white matter tracts of the cerebral hemispheres, consistent with mild chronic white matter ischemic changes. Normal bilateral basal ganglia. Normal thalami. There is no extra-axial fluid accumulation. Normal flow voids within the major intracranial circulation suggesting patency by spin echo criteria. Normal sella turcica, pituitary gland, infundibular stalk, optic chiasm and hypothalamus. Normal tectal plate and pineal gland. Normal midbrain, fadi and medulla. Normal cerebellum. Normal basal cisterns. Normal bilateral temporal bones. Normal bilateral internal auditory canals. There is mild paranasal sinus disease with air-fluid levels most prominent at the maxillary sinus. MRI/Brain without Contrast IMPRESSION: No acute intracranial abnormality. Paranasal sinus disease. Electronically Signed: Johanna Massey MD at 9:15 EST Tel , Service support ,
[2017-12-18 09:54] LABS: Vitamin B12 714 pg/mL (211-911)
[2017-12-18] MEDS: Multivitamins,Therapeutic Tablet 1 TABLET PO (09:56)
[2017-12-18] MEDS: Calcitriol 0.25 MCG Capsule PO (09:56)
[2017-12-18] MEDS: Aspirin 81 MG TAB.CHEW PO (09:56)
[2017-12-18] MEDS: Hydrocortisone 2.5% Crm 1 APPLIC TOPICAL ×2 (09:56→21:39)
[2017-12-18] MEDS: Losartan Potassium 100 MG Tablet PO (09:56)
[2017-12-18] MEDS: 0.9% NaCl Peripheral Flush Adult/Peds IV ×2 (09:57→21:38)
[2017-12-18] MEDS: Oseltamivir Phosphate 30 MG Capsule PO (09:57)
--- NOTE | 2017-12-18 10:10 | CASEMGMT ---
ELDON LOAIZA Face to Face with patient for initial transition planning/care coordination assessment. RN JOSSE introduced self and role at [facility]. Patient sitting in chair, alert and oriented. Patient willing to participate in assessment and is able to answer all questions appropriately. Care providers, pharmacy, and demographics verified. See link attached. Patient wishes to discharge home, denies need for home health at this time. Patient states that she will see if her son can stay with her or she could stay with her son. Patient states she has no further needs or concerns at this time. CM to follow for discharge planning needs that may arise. Disposition Plan: Patient to discharge home with family support and follow-up plans in place.
--- NOTE | 2017-12-18 12:47 | PN_ITS ---
<Lauren Celis - Last Filed: 12/18/17 12:58> Patient Problems: Active and Suspected Problems Abnormal involuntary movement (Acute) Influenza (Acute) Subjective: Patient seen and examined. She denies any specific complaints but states she feels worse than yesterday. She states her stomach felt crampy overnight. Denies nausea, vomiting, diarrhea. Denies fever, chills. Discussed with patient the possibility of discharge this afternoon if further testing is negative. She prefers to stay until tomorrow due to not feeling well. Patient denies further upper extremity unusual movement. - Physical Exam General: Alert, Oriented x3, Cooperative, No apparent distress HEENT: Atraumatic, PERRLA, EOMI, Normocephalic Neck: Supple, No JVD, Negative Carotid Bruits Lungs: Clear to auscultation, Normal air movement Cardiovascular: Regular rate, Regular Rhythm, Normal S1, Normal S2, No murmurs Abdomen: Bowel Sounds Present, Soft, Non Tender Extremities: No clubbing, No cyanosis, No edema, Capillary Refill Less than 3 Seconds Skin: No rashes, No breakdown Musculoskeletal: No Tenderness to Palpation of Joints or Extremities Neurological: Cranial nerves II-XII grossly intact, Neuro grossly intact Psych/Mental Status: Normal Affect, Appropriate Vital Signs Temp Pulse Resp BP Pulse Ox 97.9 F 72 16 156/88 H 99 12/18/17 09:54 12/18/17 09:54 12/18/17 09:54 12/18/17 09:54 12/18/17 09:54 Oxygen Delivery Method Room Air Weight: 66.848 kg Body Mass Index (BMI) 28.8 Intake and Output for Last 24 Hours 12/16/17 12/17/17 12/18/17 23:59 23:59 23:59 Intake Total 2684 / 2684 2940 / 2940 1182 / 1182 Output Total 650 / 650 700 / 700 Balance 2033 / 203 2940 / 2940 482 / 482 Microbiology Past 72 Hours 12/16/17 02:50 Gram Stain - Final Sputum, Expectorated/Coughed Respiratory Culture - Final 12/15/17 23:23 Blood Culture - Preliminary Blood Culture (Wb) - Anticubital Right No growth in 48 hours. 12/16/17 02:50 Legionella Antigen - Final Urine, Clean Catch 12/16/17 02:50 Streptococcus pneumoniae Antigen (M - Final Urine, Clean Catch Laboratory Tests Past 24 Hrs 12/15/17 23:23 Vitamin B12 714 Cortisol 20.70 Assessment/Plan Active and Suspected Problems Abnormal involuntary movement (Acute) Influenza (Acute) Patient is a 77-year-old female admitted 12/15/17 due to sore throat, cough, dyspnea, fever, myalgia. Family also reported patients was noticed to have bilateral upper extremity unusual movements. She has a past medical history of hypertension, hypothyroidism, hyperlipidemia, chronic kidney disease stage III. 1. Acute influenza A viral syndrome-chest x-ray and ED negative. Influenza A positive. Continue Tamiflu. Albuterol and DuoNeb aerosols. Blood cultures show no growth in 48 hours. Sputum culture shows mixed normal respiratory chantell. Patient initially suspected to have pneumonia which was ruled out. 2. Irregular bilateral upper extremity extrapyramidal movements-neurology consulted. 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 No further abnormal movements have been noted since admission. MRI of the brain showed no acute abnormality. Ammonia level normal. Neurology recommending EEG which is pending. 3. Hypertension-stable, continue home regimen of losartan. 4. Hyperlipidemia-continue statin. 5. Hypothyroidism-continue Synthroid. 6. Chronic kidney disease stage III-stable, monitor BMP. DVT prophylax-Lovenox. Discharge planning: Possible discharge this afternoon or tomorrow morning pending EEG results. This patient was seen by ARABELLA Pyle under the supervision of Dr. Caruso. <Christina Caruso E - Last Filed: 12/18/17 14:37> - Physical Exam Vital Signs Temp Pulse Resp BP Pulse Ox 97.9 F 72 16 156/88 H 99 12/18/17 09:54 12/18/17 09:54 12/18/17 09:54 12/18/17 09:54 12/18/17 09:54 Oxygen Delivery Method Room Air Weight: 147 lb 5.994 oz Body Mass Index (BMI) 28.8 Intake and Output for Last 24 Hours 12/16/17 12/17/17 12/18/17 23:59 23:59 23:59 Intake Total 2684 / 2684 2940 / 2940 1928 / 1928 Output Total 650 / 650 700 / 700 Balance 2033 / 2033 2940 / 2940 1229 / 1229 Microbiology Past 72 Hours 12/16/17 02:50 Gram Stain - Final Sputum, Expectorated/Coughed Respiratory Culture - Final 12/15/17 23:23 Blood Culture - Preliminary Blood Culture (Wb) - Anticubital Right No growth in 48 hours. 12/16/17 02:50 Legionella Antigen - Final Urine, Clean Catch 12/16/17 02:50 Streptococcus pneumoniae Antigen (M - Final Urine, Clean Catch Laboratory Tests Past 24 Hrs 12/15/17 23:23 Vitamin B12 714 Cortisol 20.70 Assessment/Plan Hospitalist note: I am seeing this patient in conjunction with Lauren Celis. I independently seen and examined the patient. Progress note above reviewed and I agree with above treatment plan. Patient seen and examined. This morning, she complained of not feeling well and was done yesterday without specific symptoms but when I saw the patient later, she was eating and she said she feels better. She has no more abnormal movements of her upper extremities. Her vital signs are stable. - Physical Exam General: Alert, Oriented x3, Cooperative, No apparent distress. HEENT: Atraumatic, PERRLA, EOMI. Neck: Supple, No JVD, Negative Carotid Bruits, Trachea Midline, Thyroid Normal. Lungs: Clear to auscultation, Normal air movement, No rhonchi, No wheeze, No rales. Cardiovascular: Regular rate, Regular Rhythm, Normal S1, Normal S2, PMI Normal. Abdomen: Bowel Sounds Present, Soft, Non Tender, Non-Distended, No Hepato- splenomegaly. Extremities: No clubbing, No cyanosis, No edema Skin: No rashes, No breakdown Neurological: Cranial nerves are intact, grossly intact. Vital Signs are stable. Assessment and plan: #1 acute influenza A: On Tamiflu, stable. Cultures reviewed as above. Vital signs are stable, afebrile. #2 irregular bilateral upper extremity movements: Without clear etiology. CT scan brain showed no acute findings, showed mild hyperostosis frontalis of the inferior frontal bone. MRI of the brain showed no acute findings. Neurology consulted, recommended EEG which is pending at this time, recommended follow-up with movement disorder specialist as outpatient. #3 other chronic medical problems: Stable, continue current medications as above. This note was generated with [employer] software. It may contain incorrect words, spelling, and punctuation that were not noted in checking the note before signing.
[2017-12-18] MEDS: Metoprolol(XL)Succ 100 MG Tablet PO (18:08)
[2017-12-18] MEDS: Pravastatin 20 MG Tablet 10 MG PO (21:39)
--- NOTE | 2017-12-18 23:50 | NURSING ---
Lucy COLÓN reported that pt was seeing magnetic frequencies and wanted the physician contacted. She believes that this was due to the EEG that she had done. Lucy further reported that pt had appeared fixated on various aspects of her care: BP, temperature, rash, and that the electrodes that were on her chest from EKG ripped her skin. Lucy advised me that the rash was almost gone, that her skin on her chest was intact, hydralazine was given for her blood pressure, and she was now afebrile. When I entered the room the pt was sitting on the side of the bed. I introduced myself to the pt and indicated that Lucy said she wanted the doctor called since she was seeing magnetic frequencies. The pt reported that she only saw them when the lights were out in the room and she was not seeing them now that the lights were on. I advised her that the EEG would not harm her brain and that her tests were coming back negative and she was doing well. She states that she lives alone and is very independent. When discharged, she will be staying with her son. I ambulated the pt to the bathroom at her request and she was just a little weak. She said you must think I'm crazy. I told her that sometimes when people are in the hospital and under stress things can be a little confusing. Much reassurance given and pt returned to bed. She did not want the door closed, and I pulled her window blind up a little and left the curtain open for some light. She appears ready for sleep and anxious to be discharged. During my conversation with the pt, Lucy was in the hallway so she could hear what was being said.
--- NOTE | 2017-12-18 23:58 | NURSING ---
Addendum entered by Lucy Flannery 12/19/17 01:12: EEG not EGD, incorrectly entered by this RN Original Note: Patient calling out frequently for nurse through beginning of shift from [phone]. Had concerns regarding rash and during application of cream asked for extra to be applied. Has had c/o regarding Apresoline and that it will cause problems with her blood pressure (See Vitals-WNL) and also with the doctor who ordered Apresoline because they did not tell her about it. Patient had c/o about having a temperature (WNL) checked 2x within an hour per request. Patient then called out asking for nurse because she was seeing magnetic frequencies that were caused by the EGD. Light turned on in room and asked if it was a shadow, patient denied. Neuro checks normal, A/Ox3. Bed exit set as a precaution. About 5 minutes after this the patient called out demanding to see a doctor because that EGD did something to my brain that's not normal This nurse to charge nurse to explain situation. While talking with konrad Boss RN. MARANDA Andrews, came to report the patient had called out an additional time asking for a doctor. konrad Boss RN to see patient.
[2017-12-19] MEDS: 0.9% Normal Saline 1,000 ML 100 ML IV (00:12)
[2017-12-19 05:00] VITALS: BP 189/111; PULSE 61; RESP 16; TEMP 36.5; O2SAT 98
[2017-12-19 05:20] VITALS: BP 175/103
[2017-12-19 05:24] VITALS: BP 189/111; PULSE 65
[2017-12-19] MEDS: Enoxaparin 30 MG/0.3 ML Syringe SC (05:25)
[2017-12-19] MEDS: 0.9% NaCl Peripheral Flush Adult/Peds IV (05:25)
[2017-12-19] MEDS: Levothyroxine 88 MCG Tablet PO (05:25)
[2017-12-19 06:20] VITALS: BP 124/91
--- NOTE | 2017-12-19 08:23 | PCM.DC ---
- Discharge Diagnoses Current Active Problems: Current Active and Chronic Problems HTN (hypertension) (Chronic) Abnormal involuntary movement (Acute) Influenza (Acute) You will use the following diet at home:: Cardiac Discharge Activity: Return to Normal Activity Call your doctor if you observe: Fever of 101 or Higher, Shortness of breath, Dizziness, Fainting spells, Chest pain, Increased palpitations (irregular heartbeat) Allergies/Adverse Reactions: Allergies amlodipine besylate [From Norvas] Adverse Reaction (Verified 12/15/17 16:28) Other clonidine Adverse Reaction (Verified 12/15/17 16:28) Unknown hydrochlorothiazide [From Zestoretic] Adverse Reaction (Verified 12/15/17 16:28) Other lisinopril [From Zestoretic] Adverse Reaction (Verified 12/15/17 16:) Other prednisone Adverse Reaction (Verified 12/15/17 16:28) Other Medications to take at Discharge Aspirin [Aspirin, Baby] 81 mg PO DAILY@0800 06/01/17 Calcitriol [Rocaltrol] 0.25 mcg PO MOWEFR 06/01/17 Hydrochlorothiazide [Hctz] 12.5 mg PO DAILY 06/01/17 Levothyroxine [Synthroid] 88 mcg PO DAILY 06/01/17 Losartan Potassium [Cozaar] 50 mg PO DAILY 06/01/17 Pravastatin Sodium [Pravachol] 10 mg PO QHS 06/01/17 C,E,Zinc,Copper 11/Hmmnc3u/Lut [Ocuvite Adult 50 Plus Softgel] 1 each PO DAILY 12/15/17 Multivitamin [Multiple Vitamins] 1 each PO DAILY 12/15/17 Metoprolol Succinate 100 mg PO DAILY 12/18/17 Amox/Clavulanate Tablet [Augmentin Tablet] 500 mg PO Q12H #10 tab 12/19/17 Ondansetron HCl [Zofran] 4 mg PO Q6H PRN PRN #8 tab 12/19/17 The following prescriptions were given: Ondansetron HCl [Zofran] 4 mg PO Q6H PRN PRN #8 tab PRN Reason: Nausea Amox/Clavulanate Tablet [Augmentin Tablet] 500 mg PO Q12H #10 tab Primary Care Physician: Tuan Luo DO [Primary Care Provider] - Please follow up with your Primary Care Physician in: 1-2 Weeks Please Follow Up With: Jaimie Clay MD - Movement disorder specialist, [facility] When: Call to schedule if abnormal arm movements continue Proposed Discharge Date: 12/19/17
--- NOTE | 2017-12-19 08:29 | DCINST_ITS ---
- Discharge Diagnoses Current Active Problems: Current Active and Chronic Problems HTN (hypertension) (Chronic) Abnormal involuntary movement (Acute) Influenza (Acute) You will use the following diet at home:: Cardiac Discharge Activity: Return to Normal Activity Call your doctor if you observe: Fever of 101 or Higher, Shortness of breath, Dizziness, Fainting spells, Chest pain, Increased palpitations (irregular heartbeat) Allergies/Adverse Reactions: Allergies amlodipine besylate [From Norvas] Adverse Reaction (Verified 12/15/17 16:28) Other clonidine Adverse Reaction (Verified 12/15/17 16:28) Unknown hydrochlorothiazide [From Zestoretic] Adverse Reaction (Verified 12/15/17 16:28) Other lisinopril [From Zestoretic] Adverse Reaction (Verified 12/15/17 16:) Other prednisone Adverse Reaction (Verified 12/15/17 16:28) Other Medications to take at Discharge Aspirin [Aspirin, Baby] 81 mg PO DAILY@0800 06/01/17 Calcitriol [Rocaltrol] 0.25 mcg PO MOWEFR 06/01/17 Hydrochlorothiazide [Hctz] 12.5 mg PO DAILY 06/01/17 Levothyroxine [Synthroid] 88 mcg PO DAILY 06/01/17 Losartan Potassium [Cozaar] 50 mg PO DAILY 06/01/17 Pravastatin Sodium [Pravachol] 10 mg PO QHS 06/01/17 C,E,Zinc,Copper 11/Mdmdt5f/Lut [Ocuvite Adult 50 Plus Softgel] 1 each PO DAILY 12/15/17 Multivitamin [Multiple Vitamins] 1 each PO DAILY 12/15/17 Metoprolol Succinate 100 mg PO DAILY 12/18/17 Amox/Clavulanate Tablet [Augmentin Tablet] 500 mg PO Q12H #10 tab 12/19/17 Ondansetron HCl [Zofran] 4 mg PO Q6H PRN PRN #8 tab 12/19/17 The following prescriptions were given: Ondansetron HCl [Zofran] 4 mg PO Q6H PRN PRN #8 tab PRN Reason: Nausea Amox/Clavulanate Tablet [Augmentin Tablet] 500 mg PO Q12H #10 tab Primary Care Physician: Tuan Luo DO [Primary Care Provider] - Please follow up with your Primary Care Physician in: 1-2 Weeks Please Follow Up With: Jaimie Clay MD - Movement disorder specialist, [facility] When: Call to schedule if abnormal arm movements continue Proposed Discharge Date: 12/19/17
--- NOTE | 2017-12-19 08:29 | PCM.DC.SUM ---
<Lauren Celis - Last Filed: 12/19/17 08:40> Discharge Date and Diagnosis Date of Admission: 12/15/17 Date of Discharge: 12/19/17 - Primary Discharge Diagnosis Active and Suspected Problems 1. Acute influenza A viral syndrome 2. Irregular bilateral upper extremity extraforaminal movements-resolved, none present during admission. 3. Acute sinusitis - Secondary Discharge Diagnosis Chronic Problems HTN (hypertension) (Chronic) Hyperlipidemia Hypothyroidism Chronic kidney disease stage III Hospital Course and Treatment Imaging Results: Diagnostic Data Brain CT 12/15/17 16:41 IMPRESSION: Chronic involutional changes of the brain. 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 Findings are stable in the interval. Electronically Signed: Reinaldo Bloom MD at 17:43 EST , Service support , Chest X-Ray 12/16/17 08:38 IMPRESSION: Degenerative changes, as described above. No demonstrated acute cardiopulmonary process. Electronically Signed: Alfredo Celis DO at 9:46 EST Tel , Service support , Brain MRI 12/18/17 07:11 IMPRESSION: No acute intracranial abnormality. Paranasal sinus disease. Electronically Signed: Johanna Massey MD at 9:15 EST Tel , Service support , Dr. Alston-Neurology Operations: None Procedures: Electroencephalogram Summary of Care Provided: Patient is a 77-year-old female admitted 12/15/17 due to sore throat, cough, dyspnea, fever, myalgia. Family also reported patients was noticed to have bilateral upper extremity unusual movements. She has a past medical history of hypertension, hypothyroidism, hyperlipidemia, chronic kidney disease stage III. 1. Acute influenza A viral syndrome-chest x-ray and ED negative. Influenza A positive. Patient completed course of Tamiflu prior to discharge. Blood cultures show no growth in 48 hours. Sputum culture shows mixed normal respiratory chantell. Patient initially suspected to have pneumonia which was ruled out. Oxygen stable on room air. Patient is afebrile. No leukocytosis. Patient complains of mild nausea. Will discharged with Zofran as needed for nausea. 2. Irregular bilateral upper extremity extrapyramidal movements-neurology consulted. 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 No further abnormal movements have been noted since admission. MRI of the brain showed no acute abnormality. Ammonia level normal. EEG pending which will be reviewed prior to discharge. Recommend patient follow-up with movement specialist if abnormal movement continues. She was given a name for recommendation, Dr. Jaimie Clay MD who is a movement specialist at [facility]. 3. Acute sinusitis-patient complains of thick yellow nasal drainage, postnasal drainage and sinus pressure. MRI showed paranasal sinus disease. Will discharge patient on Augmentin 500 mg twice daily for 5 days. Other chronic medical conditions as noted above are stable at this time. Patient will continue previous home medication regimen. General: Alert, Oriented x3, Cooperative, No apparent distress HEENT: Atraumatic, PERRLA, EOMI, Normocephalic Neck: Supple, No JVD, Negative Carotid Bruits Lungs: Clear to auscultation, Normal air movement Cardiovascular: Regular rate, Regular Rhythm, Normal S1, Normal S2, No murmurs Abdomen: Bowel Sounds Present, Soft, Non Tender Extremities: No clubbing, No cyanosis, No edema, Capillary Refill Less than 3 Seconds Skin: No rashes, No breakdown Musculoskeletal: No Tenderness to Palpation of Joints or Extremities Neurological: Cranial nerves II-XII grossly intact, Neuro grossly intact Psych/Mental Status: Normal Affect, Appropriate Patient seen and examined prior to discharge. Physical assessment as noted above. Patient stable for discharge home with recommendations as noted above. This patient was seen by ARABELLA Pyle under the supervision of Dr. Caruso. Discharge Diet: Low fat/ Low Cholesterol Discharge Activity: Return to Normal Activity Call your doctor if you observe: Fever of 101 or Higher, Shortness of breath, Dizziness, Fainting spells, Chest pain, Increased palpitations (irregular heartbeat) Home Medications: Medications to take at Discharge Aspirin [Aspirin, Baby] 81 mg PO DAILY@0800 06/01/17 Calcitriol [Rocaltrol] 0.25 mcg PO MOWEFR 06/01/17 Hydrochlorothiazide [Hctz] 12.5 mg PO DAILY 06/01/17 Levothyroxine [Synthroid] 88 mcg PO DAILY 06/01/17 Losartan Potassium [Cozaar] 50 mg PO DAILY 06/01/17 Pravastatin Sodium [Pravachol] 10 mg PO QHS 06/01/17 C,E,Zinc,Copper 11/Gnbne5k/Lut [Ocuvite Adult 50 Plus Softgel] 1 each PO DAILY 12/15/17 Multivitamin [Multiple Vitamins] 1 each PO DAILY 12/15/17 Metoprolol Succinate 100 mg PO DAILY 12/18/17 Amox/Clavulanate Tablet [Augmentin Tablet] 500 mg PO Q12H #10 tab 12/19/17 Ondansetron HCl [Zofran] 4 mg PO Q6H PRN PRN #8 tab 12/19/17 Following Prescrptions Were Given to Patient: Ondansetron HCl [Zofran] 4 mg PO Q6H PRN PRN #8 tab PRN Reason: Nausea Amox/Clavulanate Tablet [Augmentin Tablet] 500 mg PO Q12H #10 tab Primary Care Physician: Tuan Luo DO [Primary Care Provider] - Please follow up with your Primary Care Physician in: 1-2 Weeks Please Follow Up With: Jaimie Clay MD - Movement disorder specialist, [facility] When: Call to schedule if abnormal arm movements continue Disposition: Home Minutes spent on discharge:: 35 Patient Condition:: Stable Meaningful Use Info Meaningful Use Diagnoses (Choose all that apply): None applicable <Christina Caruso E - Last Filed: 12/19/17 13:32> Discharge Date and Diagnosis - Secondary Discharge Diagnosis Chronic Problems HTN (hypertension) (Chronic) Hospital Course and Treatment Summary of Care Provided: Hospitalist note: Discharge summary above reviewed as well as physical examination and agree with above discharge and treatment plan. Patient was admitted for influenza A which was treated with Tamiflu. Also, she was admitted for a regular bilateral upper extremity movements without clear etiology. CT scan brain showed no acute findings, showed mild hyperostosis frontalis. MRI brain showed no acute infarction or hemorrhage. Neurology consulted and recommended EEG that was done and was normal. Patient has no more irregular or abnormal movements of her upper extremities since yesterday. Her routine blood work was unremarkable except for creatinine of 1.56 on discharge which is chronic. Her vital signs were stable and she remained afebrile. Also, she complains of sinus pain and discharge and she was discharged on Augmentin. Patient discharged home in a stable medical condition, discharged on Augmentin for sinusitis, she completed 5 days of Tamiflu, recommended follow-up with PCP in 1-2 weeks, recommended referral to movement disorder specialist at [facility] as outpatient. . Minutes spent on discharge:: 32 Code Visit Inpatient E&M: 23157 Disch Hosp
--- NOTE | 2017-12-19 08:39 | DS.PCM_ITS ---
<Lauren Celis - Last Filed: 12/19/17 08:40> Discharge Date and Diagnosis Date of Admission: 12/15/17 Date of Discharge: 12/19/17 - Primary Discharge Diagnosis Active and Suspected Problems 1. Acute influenza A viral syndrome 2. Irregular bilateral upper extremity extraforaminal movements-resolved, none present during admission. 3. Acute sinusitis - Secondary Discharge Diagnosis Chronic Problems HTN (hypertension) (Chronic) Hyperlipidemia Hypothyroidism Chronic kidney disease stage III Hospital Course and Treatment Imaging Results: Diagnostic Data Brain CT 12/15/17 16:41 IMPRESSION: Chronic involutional changes of the brain. 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 Findings are stable in the interval. Electronically Signed: Reinaldo Bloom MD at 17:43 EST , Service support , Chest X-Ray 12/16/17 08:38 IMPRESSION: Degenerative changes, as described above. No demonstrated acute cardiopulmonary process. Electronically Signed: Alfredo Celis DO at 9:46 EST Tel , Service support , Brain MRI 12/18/17 07:11 IMPRESSION: No acute intracranial abnormality. Paranasal sinus disease. Electronically Signed: Johanna Massey MD at 9:15 EST Tel , Service support , Dr. Alston-Neurology Operations: None Procedures: Electroencephalogram Summary of Care Provided: Patient is a 77-year-old female admitted 12/15/17 due to sore throat, cough, dyspnea, fever, myalgia. Family also reported patients was noticed to have bilateral upper extremity unusual movements. She has a past medical history of hypertension, hypothyroidism, hyperlipidemia, chronic kidney disease stage III. 1. Acute influenza A viral syndrome-chest x-ray and ED negative. Influenza A positive. Patient completed course of Tamiflu prior to discharge. Blood cultures show no growth in 48 hours. Sputum culture shows mixed normal respiratory chantell. Patient initially suspected to have pneumonia which was ruled out. Oxygen stable on room air. Patient is afebrile. No leukocytosis. Patient complains of mild nausea. Will discharged with Zofran as needed for nausea. 2. Irregular bilateral upper extremity extrapyramidal movements-neurology consulted. 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 No further abnormal movements have been noted since admission. MRI of the brain showed no acute abnormality. Ammonia level normal. EEG pending which will be reviewed prior to discharge. Recommend patient follow-up with movement specialist if abnormal movement continues. She was given a name for recommendation, Dr. Jaimie Clay MD who is a movement specialist at [facility]. 3. Acute sinusitis-patient complains of thick yellow nasal drainage, postnasal drainage and sinus pressure. MRI showed paranasal sinus disease. Will discharge patient on Augmentin 500 mg twice daily for 5 days. Other chronic medical conditions as noted above are stable at this time. Patient will continue previous home medication regimen. General: Alert, Oriented x3, Cooperative, No apparent distress HEENT: Atraumatic, PERRLA, EOMI, Normocephalic Neck: Supple, No JVD, Negative Carotid Bruits Lungs: Clear to auscultation, Normal air movement Cardiovascular: Regular rate, Regular Rhythm, Normal S1, Normal S2, No murmurs Abdomen: Bowel Sounds Present, Soft, Non Tender Extremities: No clubbing, No cyanosis, No edema, Capillary Refill Less than 3 Seconds Skin: No rashes, No breakdown Musculoskeletal: No Tenderness to Palpation of Joints or Extremities Neurological: Cranial nerves II-XII grossly intact, Neuro grossly intact Psych/Mental Status: Normal Affect, Appropriate Patient seen and examined prior to discharge. Physical assessment as noted above. Patient stable for discharge home with recommendations as noted above. This patient was seen by ARABELLA Pyle under the supervision of Dr. Caruso. Discharge Diet: Low fat/ Low Cholesterol Discharge Activity: Return to Normal Activity Call your doctor if you observe: Fever of 101 or Higher, Shortness of breath, Dizziness, Fainting spells, Chest pain, Increased palpitations (irregular heartbeat) Home Medications: Medications to take at Discharge Aspirin [Aspirin, Baby] 81 mg PO DAILY@0800 06/01/17 Calcitriol [Rocaltrol] 0.25 mcg PO MOWEFR 06/01/17 Hydrochlorothiazide [Hctz] 12.5 mg PO DAILY 06/01/17 Levothyroxine [Synthroid] 88 mcg PO DAILY 06/01/17 Losartan Potassium [Cozaar] 50 mg PO DAILY 06/01/17 Pravastatin Sodium [Pravachol] 10 mg PO QHS 06/01/17 C,E,Zinc,Copper 11/Umhca1p/Lut [Ocuvite Adult 50 Plus Softgel] 1 each PO DAILY 12/15/17 Multivitamin [Multiple Vitamins] 1 each PO DAILY 12/15/17 Metoprolol Succinate 100 mg PO DAILY 12/18/17 Amox/Clavulanate Tablet [Augmentin Tablet] 500 mg PO Q12H #10 tab 12/19/17 Ondansetron HCl [Zofran] 4 mg PO Q6H PRN PRN #8 tab 12/19/17 Following Prescrptions Were Given to Patient: Ondansetron HCl [Zofran] 4 mg PO Q6H PRN PRN #8 tab PRN Reason: Nausea Amox/Clavulanate Tablet [Augmentin Tablet] 500 mg PO Q12H #10 tab Primary Care Physician: Tuan Luo DO [Primary Care Provider] - Please follow up with your Primary Care Physician in: 1-2 Weeks Please Follow Up With: Jaimie Clay MD - Movement disorder specialist, [facility] When: Call to schedule if abnormal arm movements continue Disposition: Home Minutes spent on discharge:: 35 Patient Condition:: Stable Meaningful Use Info Meaningful Use Diagnoses (Choose all that apply): None applicable <Christina Caruso E - Last Filed: 12/19/17 13:32> Discharge Date and Diagnosis - Secondary Discharge Diagnosis Chronic Problems HTN (hypertension) (Chronic) Hospital Course and Treatment Summary of Care Provided: Hospitalist note: Discharge summary above reviewed as well as physical examination and agree with above discharge and treatment plan. Patient was admitted for influenza A which was treated with Tamiflu. Also, she was admitted for a regular bilateral upper extremity movements without clear etiology. CT scan brain showed no acute findings, showed mild hyperostosis frontalis. MRI brain showed no acute infarction or hemorrhage. Neurology consulted and recommended EEG that was done and was normal. Patient has no more irregular or abnormal movements of her upper extremities since yesterday. Her routine blood work was unremarkable except for creatinine of 1.56 on discharge which is chronic. Her vital signs were stable and she remained afebrile. Also, she complains of sinus pain and discharge and she was discharged on Augmentin. Patient discharged home in a stable medical condition, discharged on Augmentin for sinusitis, she completed 5 days of Tamiflu, recommended follow-up with PCP in 1-2 weeks, recommended referral to movement disorder specialist at [facility] as outpatient. . Minutes spent on discharge:: 32 Code Visit Inpatient E&M: 35665 Disch Hosp
[2017-12-19] MEDS: Multivitamins,Therapeutic Tablet 1 TABLET PO (10:13)
[2017-12-19] MEDS: Aspirin 81 MG TAB.CHEW PO (10:13)
[2017-12-19 10:14] VITALS: PULSE 65
[2017-12-19] MEDS: Metoprolol(XL)Succ 100 MG Tablet PO (10:14)
[2017-12-19] MEDS: Oseltamivir Phosphate 30 MG Capsule PO (10:15)
[2017-12-19] MEDS: Hydrocortisone 2.5% Crm 1 APPLIC TOPICAL (10:15)
[2017-12-19] MEDS: Losartan Potassium 50 MG Tablet PO (10:17)
[2017-12-19 10:25] VITALS: BP 149/74; PULSE 66; RESP 16; TEMP 36.8; O2SAT 97
--- NOTE | 2017-12-19 10:53 | EEG ---
- Electroencephalogram This is an 18 channel electroencephalogram performed on this 77-year-old female with repetitive movements noted by family members. 18 channel electron esophagram is performed utilizing the international 1020 electrode placement protocol. Hyperventilation, photic stimulation and EKG reference leads were also obtained. The patient experienced all stages of wakefulness and sleep during the recording without lateralizing or epileptiform changes. Background activity is 11 Hz symmetrically in the posterior leads which attenuates with eye opening. Hyperventilation is performed for 3 minutes with good effort with no lateralizing or epileptiform changes in the post hyperventilatory phase remarkable. KG rhythm was normal sinus throughout the recording and photic stimulation generates a normal symmetric driving response in the posterior leads. Impression: Normal awake and asleep electroencephalogram.
[2017-12-22 03:48] LABS: Rapid Plasmin Reagin (RPR) NONREACTIVE (NONREACTIVE)
== END 2017-12-19 12:18 | disposition home or self-care (01) | DRG 195 ==
LOC: ED 17:59 → MS3 22:31
PROVIDERS: Family Medicine; Admitting Provider Internal Medicine; Emergency Provider Emergency Medicine; Family Provider Student in an Organized Health Care Education/Training Program; PCP Student in an Organized Health Care Education/Training Program; Visit Provider Hospitalist
DX: J10.1 Influenza due to other identified influenza virus with other respiratory manifestations (principal); R25.9 Unspecified abnormal involuntary movements; J01.90 Acute sinusitis, unspecified; I12.9 Hypertensive chronic kidney disease with stage 1 through stage 4 chronic kidney disease, or unspecified chronic kidney disease; N18.3 Chronic kidney disease, stage 3 (moderate); E03.9 Hypothyroidism, unspecified; E78.5 Hyperlipidemia, unspecified; Z79.82 Long term (current) use of aspirin; Z79.899 Other long term (current) drug therapy
CPT/HCPCS: 36415; 70450; 70551; 71046; 80053; 80307; 80320; 80329; 81001; 81002; 82140; 82533; 82607; 82746; 83605; 84439; 84443; 84484; 85025; 85610; 85730; 86592; 87040; 87070; 87205; 87449; 87804; 95819; 97110; 97162; 97166; 99285; J7030; A4216; G0480

== ENCOUNTER → 2018-02-07 09:12 | Outpatient (CLI) | payer MEDICARE, SELFPAY ==
[2018-02-07 10:30] LABS: Hematocrit 42.4 % (37-47); Hemoglobin 13.8 g/dl (12.0-15.0); Mean Corp Hgb Conc 32.5 g/gl (32-36); Mean Corpuscular Hgb 29.6 pg (27.0-32.0); Mean Platelet Vol. 11.2 fl (6.2-12.0); Platelet Count 218 K/mm3 (150-450); RBC Distribution Width CV 14.5 % (11.6-14.6); RBC Distribution Width SD 47.9 fl (35.1-43.9); Red Blood Count 4.66 M/mm3 (4.2-5.4); White Blood Count 6.5 K/mm3 (4.4-11.0)
[2018-02-07 10:33] LABS: Scan Indicated on CBC? Y/N NO
[2018-02-07 10:56] LABS: Albumin, Serum 3.4 g/dL (3.2-5.0); BUN 36 mg/dL (7-18); BUN/Creat Ratio 23.8 RATIO (10-20); Calcium,Total 9.8 mg/dL (8.5-10.1); Chloride 103 mmol/L (98-107); Creatinine, Serum 1.51 mg/dL (0.55-1.02); EST Glomerular Filtration Rate 36 mL/min (>60); Est Glom Filt Rate - Afr Amer 43 mL/min (>60); Glucose 96 mg/dL (74-106); Phosphorus 3.1 mg/dL (2.5-4.9); Potassium 3.5 mmol/L (3.5-5.1); Sodium Level 139 mmol/L (136-145)
[2018-02-07 11:16] LABS: PTHIN 60.2 pg/mL (18.4-80.1)
== END ==
PROVIDERS: Family Provider Student in an Organized Health Care Education/Training Program; PCP Student in an Organized Health Care Education/Training Program; Visit Provider Internal Medicine Nephrology
DX: N18.3 Chronic kidney disease, stage 3 (moderate) (principal); N25.81 Secondary hyperparathyroidism of renal origin
CPT/HCPCS: 36415; 80069; 83970; 85027

== ENCOUNTER → 2018-08-23 12:49 | Outpatient (CLI) | payer MEDICARE, SELFPAY ==
[2018-08-23 13:46] LABS: Albumin, Serum 3.6 g/dL (3.2-5.0); BUN 32 mg/dL (7-18); BUN/Creat Ratio 20.6 RATIO (10-20); Calcium,Total 10.4 mg/dL (8.5-10.1); Chloride 106 mmol/L (98-107); Creatinine, Serum 1.55 mg/dL (0.55-1.02); EST Glomerular Filtration Rate 34 mL/min (>60); Est Glom Filt Rate - Afr Amer 42 mL/min (>60); Glucose 99 mg/dL (74-106); Phosphorus 3.4 mg/dL (2.5-4.9); Potassium 3.7 mmol/L (3.5-5.1); Sodium Level 141 mmol/L (136-145)
[2018-08-23 13:53] LABS: PTHIN 40.6 pg/mL (18.4-80.1)
== END ==
PROVIDERS: Family Provider Student in an Organized Health Care Education/Training Program; PCP Student in an Organized Health Care Education/Training Program; Referring Provider Internal Medicine Nephrology; Visit Provider Internal Medicine Nephrology
DX: N17.9 Acute kidney failure, unspecified (principal); N25.81 Secondary hyperparathyroidism of renal origin
CPT/HCPCS: 36415; 80069; 83970

== ENCOUNTER → 2019-02-26 11:35 | Outpatient (CLI) | payer MEDICARE, SELFPAY ==
[2017-12-15 23:09] VITALS: BMI 28.8
[2019-02-26 12:23] LABS: Hemoglobin 14.4 g/dl (12.0-15.0); Mean Corp Hgb Conc 33.5 g/gl (32-36); Mean Corpuscular Hgb 30.6 pg (27.0-32.0); Mean Corpuscular Volume 91.3 fL (81-99); Mean Platelet Vol. 11.4 fl (6.2-12.0); Platelet Count 214 K/mm3 (150-450); RBC Distribution Width CV 13.4 % (11.6-14.6); RBC Distribution Width SD 44.6 fl (35.1-43.9); Red Blood Count 4.71 M/mm3 (4.2-5.4); White Blood Count 7.6 K/mm3 (4.4-11.0)
[2019-02-26 12:28] LABS: Scan Indicated on CBC? Y/N NO
[2019-02-26 13:12] LABS: PTHIN 61.2 pg/mL (18.4-80.1)
[2019-02-26 13:26] LABS: Albumin, Serum 3.6 g/dL (3.2-5.0); BUN 27 mg/dL (7-18); BUN/Creat Ratio 19.3 RATIO (10-20); Chloride 107 mmol/L (98-107); EST Glomerular Filtration Rate 39 mL/min (>60); Est Glom Filt Rate - Afr Amer 47 mL/min (>60); Glucose 93 mg/dL (74-106); Phosphorus 3.4 mg/dL (2.5-4.9); Potassium 3.8 mmol/L (3.5-5.1); Sodium Level 138 mmol/L (136-145)
== END ==
PROVIDERS: Family Provider Student in an Organized Health Care Education/Training Program; PCP Student in an Organized Health Care Education/Training Program; Referring Provider Internal Medicine Nephrology; Visit Provider Internal Medicine Nephrology
DX: N25.81 Secondary hyperparathyroidism of renal origin (principal); N18.3 Chronic kidney disease, stage 3 (moderate)
CPT/HCPCS: 36415; 80069; 83970; 85027

== ENCOUNTER → 2020-08-25 11:08 | Outpatient (CLI) | payer MEDICARE, SELFPAY ==
[2017-12-15 23:09] VITALS: BMI 28.8
[2020-08-25 12:07] LABS: Albumin, Serum 3.5 g/dL (3.2-5.0); BUN 31 mg/dL (7-18); BUN/Creat Ratio 19.4 RATIO (10-20); Calcium,Total 10.1 mg/dL (8.5-10.1); Chloride 107 mmol/L (98-107); EST Glomerular Filtration Rate 33 mL/min (>60); Est Glom Filt Rate - Afr Amer 40 mL/min (>60); Glucose 99 mg/dL (74-106); Phosphorus 3.6 mg/dL (2.5-4.9); Potassium 4.1 mmol/L (3.5-5.1); Sodium Level 139 mmol/L (136-145)
[2020-08-25 12:31] LABS: PTHIN 54.4 pg/mL (18.4-80.1)
== END ==
PROVIDERS: PCP Student in an Organized Health Care Education/Training Program; Visit Provider Internal Medicine Nephrology
DX: N25.81 Secondary hyperparathyroidism of renal origin (principal)
CPT/HCPCS: 36415; 80069; 83970

== ENCOUNTER → 2020-09-24 12:04 | Outpatient (CLI) | payer MEDICARE, SELFPAY ==
[2017-12-15 23:09] VITALS: BMI 28.8
[2020-09-24 13:38] LABS: Anion Gap 5 (5-15); BUN 31 mg/dL (7-18); BUN/Creat Ratio 19.7 RATIO (10-20); Calcium,Total 10.2 mg/dL (8.5-10.1); Chloride 107 mmol/L (98-107); Creatinine, Serum 1.57 mg/dL (0.55-1.02); EST Glomerular Filtration Rate 34 mL/min (>60); Est Glom Filt Rate - Afr Amer 41 mL/min (>60); Glucose 102 mg/dL (74-106); Sodium Level 140 mmol/L (136-145)
== END ==
PROVIDERS: PCP Student in an Organized Health Care Education/Training Program; Referring Provider Internal Medicine Nephrology; Visit Provider Internal Medicine Nephrology
DX: N17.9 Acute kidney failure, unspecified (principal)
CPT/HCPCS: 36415; 80048

== ENCOUNTER 2021-01-14 14:40 | Outpatient (RCR) | payer MEDICARE, SELFPAY ==
[2017-12-15 23:09] VITALS: BMI 28.8
[2021-01-14] MEDS: COVID-19 VACC, MRNA(PFIZER)/PF 30 MCG/0.3 ML SYRINGE IM (15:45)
[2021-02-04] MEDS: COVID-19 VACC, MRNA(PFIZER)/PF 30 MCG/0.3 ML SYRINGE IM (15:00)
== END 2021-04-20 23:59 ==
LOC: IMMUN 14:40
PROVIDERS: PCP Student in an Organized Health Care Education/Training Program; Visit Provider Family Medicine
DX: Z23 Encounter for immunization (principal)
CPT/HCPCS: 0001A; 0002A; 91300

== ENCOUNTER → 2021-05-03 10:06 | Outpatient (CLI) | payer MEDICARE, SELFPAY ==
[2017-12-15 23:09] VITALS: BMI 28.8
[2021-05-03 12:45] LABS: Albumin, Serum 3.5 g/dL (3.2-5.0); BUN 35 mg/dL (7-18); Calcium,Total 9.9 mg/dL (8.5-10.1); Chloride 104 mmol/L (98-107); Creatinine, Serum 1.52 mg/dL (0.55-1.02); EST Glomerular Filtration Rate 35 mL/min (>60); Est Glom Filt Rate - Afr Amer 42 mL/min (>60); Glucose 100 mg/dL (74-106); Phosphorus 3.2 mg/dL (2.5-4.9); Potassium 3.7 mmol/L (3.5-5.1); Sodium Level 138 mmol/L (136-145)
[2021-05-03 12:47] LABS: PTHIN 114.9 pg/mL (18.4-80.1)
== END ==
PROVIDERS: PCP Student in an Organized Health Care Education/Training Program; Referring Provider Internal Medicine Nephrology; Visit Provider Internal Medicine Nephrology
DX: N25.81 Secondary hyperparathyroidism of renal origin (principal); N18.32 Chronic kidney disease, stage 3b
CPT/HCPCS: 36415; 80069; 83970

== ENCOUNTER 2021-07-13 10:00 | Outpatient (RCR) | payer MEDICARE, SELFPAY ==
[2017-12-15 23:09] VITALS: BMI 28.8
--- NOTE | 2021-06-04 07:40 | HP.OTEVAL ---
Patient's Visit Information RACHEAL EISENBERG is a 80 year old F, referred to Occupational Therapy by Dr. Eduard Lopez MD, with a diagnosis of Mallet finger of R RF. Date of Evaluation: 05/31/21 Occupational Therapist: Maria Teresa Spence, ENRRIQUER/L, CHT - Subjective This 80/F was seen today for eval for a R mallet finger of her RF. She fell while holding a hanging flower pot. She stated that her ADL and IADLs were fine. Pt states she would like to get her finger tip to straighten so she can use her hand for daily tasks. - ROM DIP: R RF: -45* extension ROM Comments: pt demo with mallet finger deformity- - Strength Cosmetology Teacher: R: 55# L: 40# - Quick DASH-Disab of Arm,Shoulder& Hand Quick DASH Score: 4.5450 - Goals Goal:: pt will demonstrate an decrease in extensor lag on her R RF at the PIP joint by at least 40* to return her to her leisure activities by d/c. Goal:: pt will demo ind donning/doffing of orthosis by end of 1st session. pt will demo understanding of skin care and precautions by end of 1st session. Goal:100% adherence to protocol: Yes Comment: mallet finger protocol Goal:ROM equal to unaffected hand: Yes Goal:Cosmetology Teacher/Pinch strength at least 75% of unaffected hand: Yes Goal:No pain with affected hand use: Yes Goal:Full use of affected hand in daily activities including: Yes - Rehabilitation General Assessment: Pt demonstrates extension of her R RF (-45*). pt demo positive mallet finger deformity and no ability to extend her DIP. Pt would benefit from skilled therapy services 1x a week for 6-8 weeks to educate pt on proper splint wearing and care. Today, therapist made several splints to place pt in DIP extension with slight Hyper-ext- of R RF, and educated pt on proper techniques to don and doff splints, and proper skin care techniques pt was Advised she needs to use orthosis for 6-8 weeks to ensure tendon repair. Pt understood and agreed with POC. Rehabilitation Potential: Good - Anticipated Interventions Orthoses, Joint Protection/Energy Conservation, Home Program - Visit Plan Frequency: 1x/Week Duration: 2 Months General Plan: continue education on proper don/doffing, and proper skin care. use of orthosis for 6-8 weeks and light transition to full ROM and use following if non sx protocol is successful TEXT: Thank you for the opportunity to evaluate your patient. For Medicare and Medicare HMO plans, please review the plan of care and approve it. It will need to be FAXED BACK to us at [phone] for Medicare purposes. Please let me know if there are questions or concerns regarding this plan of care. Physician Signature: Date:
--- NOTE | 2021-07-13 11:47 | HP.OTDCSUM_ITS ---
It has been my pleasure to treat RACHEAL EISENBERG under orders from Dr. Eduard Lopez MD, for the diagnosis of Mallet finger of R RF for a total of 3 visit(s). Please see the following information for a summary of their discharge status. % Improvement: 80 Objective/Function: pt demo with 35* of DIP flex following 7 weeks from mallet finger treatment-. pt demo composite fist Patient Goals: Regain Mobility, Decrease Swelling/Stiffness, Use Hand/Wrist/Arm Normally Again, Increase ROM Goal:: pt will demonstrate an decrease in extensor lag on her R RF at the PIP joint by at least 40* to return her to her leisure activities by d/c. Goal:: pt will demo ind donning/doffing of orthosis by end of 1st session. pt will demo understanding of skin care and precautions by end of 1st session. Goal:100% adherence to protocol: Yes Goal:ROM equal to unaffected hand: Yes Goal:Speech Language Specialist/Pinch strength at least 75% of unaffected hand: Yes Goal:No pain with affected hand use: Yes Goal:Full use of affected hand in daily activities including: Yes Plan: D/c Discharge Comments: pt was seen for 7 weeks undergoing mallet finger protocol- pt demo good ROM. pt has met OT goals and is d/c at this time. If there are questions or concerns regarding this patient's occupational therapy, please fell free to call me at [phone]. Thank you for the referral of this patient. Sincerely, Maria Teresa Spenec, OTR/L, CHT
== END 2021-07-13 19:00 | disposition home or self-care (01) ==
LOC: OT 10:00
PROVIDERS: PCP Student in an Organized Health Care Education/Training Program; Referring Provider Orthopaedic Surgery; Visit Provider Orthopaedic Surgery
DX: S69.91XD Unspecified injury of right wrist, hand and finger(s), subsequent encounter (principal); X58.XXXD Exposure to other specified factors, subsequent encounter; M20.011 Mallet finger of right finger(s)
CPT/HCPCS: 97166; 97530

== ENCOUNTER → 2022-04-21 | Outpatient (CLI) | payer MEDICARE, SELFPAY ==
[2017-12-15 23:09] VITALS: BMI 28.8
[2022-04-21 12:18] LABS: PTHIN 94.3 pg/mL (18.4-80.1)
[2022-04-21 12:19] LABS: Albumin, Serum 3.6 g/dL (3.2-5.0); BUN 27 mg/dL (7-18); BUN/Creat Ratio 20.5 RATIO (10-20); Calcium,Total 9.8 mg/dL (8.5-10.1); Chloride 111 mmol/L (98-107); Creatinine, Serum 1.32 mg/dL (0.55-1.02); EST Glomerular Filtration Rate 41 mL/min (>60); Est Glom Filt Rate - Afr Amer 50 mL/min (>60); Glucose 107 mg/dL (74-106); Phosphorus 3.4 mg/dL (2.5-4.9); Potassium 4.3 mmol/L (3.5-5.1); Sodium Level 143 mmol/L (136-145)
== END | disposition home or self-care (01) ==
LOC: LAB 11:09
PROVIDERS: PCP Student in an Organized Health Care Education/Training Program; Visit Provider Internal Medicine Nephrology
DX: N18.32 Chronic kidney disease, stage 3b (principal); N25.81 Secondary hyperparathyroidism of renal origin
CPT/HCPCS: 36415; 80069; 83970

== ENCOUNTER → 2022-04-28 | Outpatient (CLI) | payer MEDICARE, SELFPAY ==
[2022-04-28 18:09] LABS: Uric Acid 7.7 mg/dL (2.6-6.0)
== END | disposition home or self-care (01) ==
LOC: POLAB3 13:40
PROVIDERS: PCP Student in an Organized Health Care Education/Training Program; Visit Provider Internal Medicine Nephrology
DX: M10.9 Gout, unspecified (principal)
CPT/HCPCS: 36415; 84550

== ENCOUNTER → 2022-07-21 | Outpatient (CLI) | payer MEDICARE, SELFPAY ==
[2022-07-21 14:52] LABS: Albumin, Serum 3.3 g/dL (3.2-5.0); BUN 29 mg/dL (7-18); BUN/Creat Ratio 16.8 RATIO (10-20); Calcium,Total 9.8 mg/dL (8.5-10.1); Chloride 106 mmol/L (98-107); Creatinine, Serum 1.73 mg/dL (0.55-1.02); EST Glomerular Filtration Rate 30 mL/min (>60); Est Glom Filt Rate - Afr Amer 36 mL/min (>60); Glucose 91 mg/dL (74-106); Phosphorus 3.3 mg/dL (2.5-4.9); Potassium 4.1 mmol/L (3.5-5.1); Sodium Level 140 mmol/L (136-145); Uric Acid 6.5 mg/dL (2.6-6.0)
== END | disposition home or self-care (01) ==
LOC: LAB 14:23
PROVIDERS: PCP Student in an Organized Health Care Education/Training Program; Referring Provider Internal Medicine Nephrology; Visit Provider Internal Medicine Nephrology
DX: N18.32 Chronic kidney disease, stage 3b (principal); M10.9 Gout, unspecified
CPT/HCPCS: 36415; 80069; 84550

== ENCOUNTER 2022-07-23 13:24 | Emergency (ER) | payer MEDICARE, SELFPAY ==
[2022-07-23 13:26] VITALS: BP 166/138; PULSE 75; RESP 16; TEMP 36.1; O2SAT 97; BMI 28.7
--- NOTE | 2022-07-23 15:14 | ED.VIS.GI ---
HPI HPI - GI History of Present Illness Chief Complaint: Constipation Informant: patient Narrative Narrative: Presents concerns of constipation no bowel movement for days. Normal bowel moods every other day. Been using Colace twice a day in the last couple days. Difficulty urinating due to constipation there is no dysuria or urgency or frequency. Denies nausea or vomiting. History of appendectomy tubal ligation in the past. No changes in medications or diets. Colonoscopy few years ago. Denies any abdominal pain. Prior similar symptoms: Yes PFSH PFSH Home Medications aspirin 81 mg chewable tablet 81 mg PO DAILY@0800 heart 06/01/17 [History Last Taken 12/15/17 08:00 81 mg] calcitriol 0.25 mcg capsule 0.25 mcg PO MOWEFR vitamin 06/01/17 [History Last Taken 12/15/17 08:00 0.25mg] hydrochlorothiazide 25 mg tablet 12.5 mg PO DAILY bp 06/01/17 [History Last Taken 12/15/17 08:00 12.5mg] levothyroxine 88 mcg tablet 88 mcg PO DAILY thyroid 06/01/17 [History Last Taken 12/14/17 22:00 88 mcg] losartan 100 mg tablet 50 mg PO DAILY bp 06/01/17 [History Last Taken 12/15/17 08:00 100 mg] pravastatin 10 mg tablet 10 mg PO QHS cholesterol 06/01/17 [History Last Taken 12/14/17 22:00 10 mg] multivitamin (Multiple Vitamins tablet) 1 ea PO DAILY vitamin 12/15/17 [History Last Taken 12/15/17 08:00 1 tab] vit C,E,zinc,copper-dtrhi4z 250 mg-lutein 5 mg-zeaxanthin 1 mg capsule (Ocuvite Adult 50 Plus) 1 ea PO DAILY vitamin 12/15/17 [History Last Taken 12/15/17 08:00 1 cap] metoprolol succinate 100 mg tablet,extended release 24 hr 100 mg PO DAILY blood pressure 12/18/17 [History Last Taken Unknown] amoxicillin 500 mg-potassium clavulanate 125 mg tablet 500 mg PO Q12H #10 tabs 12/19/17 [Rx Last Taken Unknown] ondansetron HCl 4 mg tablet 4 mg PO Q6H PRN PRN Nausea #8 tabs 12/19/17 [Rx Last Taken Unknown] Allergy/AdvReac Type Severity Reaction Status Date / Time amlodipine besylate AdvReac Other Verified 07/23/22 13:25 [From Norvasc] clonidine AdvReac Unknown Verified 07/23/22 13:25 hydrochlorothiazide AdvReac Other Verified 07/23/22 13:25 [From Zestoretic] lisinopril [From Zestoretic] AdvReac Other Verified 07/23/22 13:25 prednisone AdvReac Other Verified 07/23/22 13:25 Social History Smoking Status: Never smoker ROS ROS ED Constitutional Constitutional ED: Denies chills, fever(s) or sweats Eyes Eyes: Denies change in vision ENT ENT ED: Denies dysphagia or sore throat Cardiovascular Cardiovascular: Denies chest pain, leg edema, palpitations or racing heartbeat Respiratory/Chest Respiratory/Chest: Denies cough, dyspnea or dyspnea on exertion Gastrointestinal Gastrointestinal: Reports constipation; Denies abdominal pain, diarrhea, nausea or vomiting Genitourinary Genitourinary ED: Denies dysuria, hematuria or urinary frequency Musculoskeletal Musculoskeletal: Denies back pain, extremity pain or neck pain Integumentary Denies rash or wounds Neurologic Neurologic: Denies headache(s), paresthesias or weakness EXAM Physical Exam Const Vital Signs: 07/23/22 13:26 Temperature 96.9 F L Temperature Source Temporal Pulse Rate 75 Respiratory Rate 16 Blood Pressure 166/138 H Blood Pressure Mean 147 Pulse Ox 97 Oxygen Delivery Method Room Air Positive well nourished and well developed General Appearance ED: well developed and NAD HEENT Reports moist mucous membranes normocephalic and atraumatic Eyes PERRL, EOMs intact bilaterally and conjunctivae normal General Eye ED: Yes normal appearance of both eyes Neck no lymphadenopathy and supple General: Negative for tenderness Chest Wall Chest: Negative for tenderness Resp normal respiratory effort and normal air movement Effort and Inspection: symmetric chest movement; Negative for respiratory distress Cardio regular rate, regular rhythm and no murmurs Peripheral Pulses: pulses 2+ throughout GI normal to inspection, nondistended, normoactive bowel sounds and non-tender GI Narrative: Negative Narayanan's McBurney's tenderness. No pain in left lower quadrant. Palpation: Negative for guarding or rebound tenderness present Back/Spine no CVA tenderness and no thoracic nor lumbar tenderness Extremity normal to inspection General Extremety ED: Negative for edema or tenderness General Extremity: Negative for edema Neuro oriented x3 and no sensory deficits noted Sensorium / Orientation: awake and alert Skin no rashes or lesions noted and no wounds MDM MDM MDM Narrative Medical decision making narrative: Patient presents with constipation no abdominal pain soft abdomen exam with normal bowel sounds. KUB is obtained and reviewed by myself read by radiology notes increasing stool there was distal stool buildup in her rectum. Discussed disimpaction for which she agreed, large amount of stools was disimpacted and was hard. Soapsuds enema as she is able to hold it briefly there is additional small stools however clinically was feeling much better. She will continue oral fluids at home she will continue her stool softeners currently. She will follow-up as an outpatient. All questions were answered. Radiography Diagnostic Testing: Clinical Impression(s) from Imaging Studies KUB X-Ray 07/23/22 15:24 IMPRESSION: Increased stool Electronically Signed: Marbin Meeks MD at 16:59 EDT Reading Location ID and State: [address] [place] [address] , Service support , Discharge Plan Triage Chief Complaint: Constipation ED Provider: Byron Saba Dx/Rx/DC Orders Clinical Impression: Constipation, Elevated blood pressure reading in office with diagnosis of hypertension Instructions: ED Constipation (Adult) Prescriptions: No Action levothyroxine 88 MCG tablet 88 mcg PO DAILY pravastatin 10 MG tablet 10 mg PO QHS aspirin 81 MG Tab.Chew 81 mg PO DAILY@0800 hydrochlorothiazide 25 MG tablet 12.5 mg PO DAILY losartan 100 MG tablet 50 mg PO DAILY calcitriol 0.25 MCG capsule 0.25 mcg PO MOWEFR multivitamin [Multiple Vitamins] 1 EACH tablet 1 ea PO DAILY C,E,zinc,copper [id number] [Ocuvite Adult 50 Plus] 1 EACH capsule 1 ea PO DAILY metoprolol succinate 100 MG Tab.Er.24h 100 mg PO DAILY amoxicillin-pot clavulanate 500 MG tablet 500 mg PO Q12H Qty: 10 0RF ondansetron HCl 4 MG tablet 4 mg PO Q6H PRN PRN (Reason: Nausea) Qty: 8 0RF Primary Care Provider: Tuan Luo Referrals: Tuan Luo DO [Primary Care Provider] - 3-5 Days if not improving Activity Restrictions/Additional Instructions: Continue oral fluids. Continue your stool softeners. Monitor symptoms and follow-up with your doctor. Return if any worsening symptoms. Disposition Disposition: Home, Self Care Discharge Date/Time: 07/23/22 17:41
--- NOTE | 2022-07-23 15:24 | RAD_ITS ---
STUDY: X-RAY - ABDOMEN/PELVIS REASON FOR EXAM: Female, 81 years old. consitpation TECHNIQUE: Single AP view of the abdomen / pelvis. COMPARISON: None. FINDINGS: Normal visualized lung bases. There is an unremarkable bowel gas pattern. Increased stool. The visualized liver, spleen and kidneys are grossly normal in size and morphology. Normal soft tissue structures. Bilateral total hip arthroplasties. Degenerative changes lumbar spine. RAD/Abdomen Single View IMPRESSION: Increased stool Electronically Signed: Marbin Meeks MD at 16:59 EDT ,
== END 2022-07-23 17:41 | disposition home or self-care (01) ==
PROVIDERS: Emergency Provider Emergency Medicine; PCP Student in an Organized Health Care Education/Training Program; Visit Provider Emergency Medicine
DX: K59.00 Constipation, unspecified (principal); I10 Essential (primary) hypertension; Z79.82 Long term (current) use of aspirin; Z79.899 Other long term (current) drug therapy
CPT/HCPCS: 74018; 99284

== ENCOUNTER → 2022-07-28 | Outpatient (CLI) | payer MEDICARE, SELFPAY ==
[2022-07-28 17:36] LABS: Albumin, Serum 3.4 g/dL (3.2-5.0); BUN 26 mg/dL (7-18); BUN/Creat Ratio 20.2 RATIO (10-20); Calcium,Total 9.8 mg/dL (8.5-10.1); Chloride 105 mmol/L (98-107); Creatinine, Serum 1.29 mg/dL (0.55-1.02); EST Glomerular Filtration Rate 42 mL/min (>60); Est Glom Filt Rate - Afr Amer 51 mL/min (>60); Glucose 95 mg/dL (74-106); Phosphorus 3.2 mg/dL (2.5-4.9); Potassium 3.8 mmol/L (3.5-5.1); Sodium Level 139 mmol/L (136-145)
== END | disposition home or self-care (01) ==
LOC: POLAB3 13:48
PROVIDERS: PCP Student in an Organized Health Care Education/Training Program; Visit Provider Internal Medicine Nephrology
DX: N17.9 Acute kidney failure, unspecified (principal)
CPT/HCPCS: 36415; 80069

== ENCOUNTER → 2022-10-12 | Outpatient (CLI) | payer MEDICARE, SELFPAY ==
[2022-10-12 13:04] LABS: Albumin, Serum 3.5 g/dL (3.2-5.0); BUN 29 mg/dL (7-18); BUN/Creat Ratio 21.6 RATIO (10-20); Calcium,Total 9.8 mg/dL (8.5-10.1); Chloride 106 mmol/L (98-107); Creatinine, Serum 1.34 mg/dL (0.55-1.02); EST Glomerular Filtration Rate 40 mL/min (>60); Est Glom Filt Rate - Afr Amer 49 mL/min (>60); Glucose 124 mg/dL (74-106); Phosphorus 3.4 mg/dL (2.5-4.9); Potassium 4.3 mmol/L (3.5-5.1); Sodium Level 139 mmol/L (136-145)
== END | disposition home or self-care (01) ==
LOC: LAB 12:07
PROVIDERS: PCP Student in an Organized Health Care Education/Training Program; Referring Provider Internal Medicine Nephrology; Visit Provider Internal Medicine Nephrology
DX: N18.32 Chronic kidney disease, stage 3b (principal)
CPT/HCPCS: 36415; 80069

== ENCOUNTER → 2023-06-22 | Outpatient (CLI) | payer MEDICARE, SELFPAY ==
[2023-06-22 10:24] LABS: Hemoglobin 14.6 g/dL (12.0-15.0); Mean Corp Hgb Conc 31.7 g/dL (32-36); Mean Corpuscular Hgb 29.9 pg (27.0-32.0); Mean Corpuscular Volume 94.3 fL (81-99); Mean Platelet Vol. 10.7 fl (6.2-12.0); Platelet Count 219 K/mm3 (150-450); RBC Distribution Width CV 13.5 % (11.6-14.6); RBC Distribution Width SD 47.3 fl (35.1-43.9); Red Blood Count 4.88 M/mm3 (4.2-5.4); White Blood Count 9.2 K/mm3 (4.4-11.0)
[2023-06-22 10:51] LABS: Albumin, Serum 3.5 g/dL (3.2-5.0); BUN 28 mg/dL (7-18); BUN/Creat Ratio 19.6 RATIO (10-20); Calcium,Total 9.7 mg/dL (8.5-10.1); Chloride 110 mmol/L (98-107); Creatinine, Serum 1.43 mg/dL (0.55-1.02); EST Glomerular Filtration Rate 37 mL/min (>60); Est Glom Filt Rate - Afr Amer 45 mL/min (>60); Glucose 121 mg/dL (74-106); Phosphorus 3.5 mg/dL (2.5-4.9); Potassium 4.2 mmol/L (3.5-5.1); Sodium Level 141 mmol/L (136-145)
[2023-06-22 10:52] LABS: PTHIN 104.2 pg/mL (18.4-80.1)
== END | disposition home or self-care (01) ==
PROVIDERS: PCP Student in an Organized Health Care Education/Training Program; Referring Provider Internal Medicine Nephrology; Visit Provider Internal Medicine Nephrology
DX: N18.32 Chronic kidney disease, stage 3b (principal)
CPT/HCPCS: 36415; 80069; 83970; 85027

== ENCOUNTER 2023-08-20 11:35 | Emergency (ER) | payer MEDICARE, SELFPAY ==
[2023-08-20 11:36] VITALS: BP 172/84; PULSE 55; RESP 16; TEMP 36.2; O2SAT 99; BMI 29.5
--- NOTE | 2023-08-20 11:51 | RAD_ITS ---
INDICATION: Injury/Pain EXAMINATION/TECHNIQUE: X-RAY - XR Hip Unilateral with Pelvis when performed; 2-3 Views COMPARISON: No relevant prior comparison study available FINDINGS: PELVIC BONES: No displaced fracture, destructive or sclerotic lesions. Note that overlapping bowel shadows may however obscure fine detail. Sacroiliac joints are unremarkable. No widening of the pubic symphysis. HIPS: Bilateral partial hip arthroplasty. No displaced fracture seen in this frontal view. SOFT TISSUES: No soft tissue swelling or gas. RAD/HIP, UNI W/ Pelvis 2-3 Views IMPRESSION: No evidence of displaced pelvic or hip fracture. Electronically Signed: Joshua Zaragoza MD at 13:33 EDT ,
--- NOTE | 2023-08-20 11:52 | EDS_ITS ---
<Statement entered by Oly Traylor MD - 08/20/23 14:02> I have personally performed a face to face assessment of the patient and have reviewed the JOE Note. Patient presents secondary to right hip pain. She developed pain after washing her car a week to 2 ago. She continues to have pain that starts in her low back, wraps around her buttock and down into her right thigh. She did take Tylenol prior to arrival and feels improved at this time. There was no fall or direct injury. Patient sitting at the side of the bed no acute distress. Head and neck examination unremarkable. Heart is regular rate and rhythm. Lung sounds are clear. Abdomen is soft and nontender. Back examination reveals tenderness in the right sciatic notch. Good range of motion of the hip. Strong distal pulses with normal sensation. Patient sent for x-rays that she has had prior hip replacement. Per my interpretation no evidence of acute abnormality. Radiology interpretation is reviewed and agrees. Patient does appear to have irritation of her sciatic nerve. Although she lists an allergy to prednisone, she does not remember what her reaction is and actually thinks that she might of gotten the flu after taking it. She agrees to take prednisone at this time and will be given discharge instructions for sciatica. HPI History of Present Illness Chief Complaint: Lower Extremity Injury Narrative Narrative: 83-year-old female states after washing her car a week and a half ago she is having pain in the right hip and buttock region. There was no fall or trauma. Pain is worse with walking and improves with Tylenol. It has not changed she is just here to see if we can determine what it is. No weakness or paresthesias. No saddle esthesia or bladder or bowel incontinence [facility] Home Medications aspirin 81 mg chewable tablet 81 mg PO DAILY@0800 heart 06/01/17 [History Last Taken 12/15/17 08:00 81 mg] calcitriol 0.25 mcg capsule 0.25 mcg PO MOWEFR vitamin 06/01/17 [History Last Taken 12/15/17 08:00 0.25mg] hydrochlorothiazide 25 mg tablet 12.5 mg PO DAILY bp 06/01/17 [History Last Taken 12/15/17 08:00 12.5mg] levothyroxine 88 mcg tablet 88 mcg PO DAILY thyroid 06/01/17 [History Last Taken 12/14/17 22:00 88 mcg] losartan 100 mg tablet 50 mg PO DAILY bp 06/01/17 [History Last Taken 12/15/17 08:00 100 mg] pravastatin 10 mg tablet 10 mg PO QHS cholesterol 06/01/17 [History Last Taken 12/14/17 22:00 10 mg] multivitamin (Multiple Vitamins tablet) 1 ea PO DAILY vitamin 12/15/17 [History Last Taken 12/15/17 08:00 1 tab] vit C,E,zinc,copper-grhnv1t 250 mg-lutein 5 mg-zeaxanthin 1 mg capsule (Ocuvite Adult 50 Plus) 1 ea PO DAILY vitamin 12/15/17 [History Last Taken 12/15/17 08:00 1 cap] metoprolol succinate 100 mg tablet,extended release 24 hr 100 mg PO DAILY blood pressure 12/18/17 [History Last Taken Unknown] amoxicillin 500 mg-potassium clavulanate 125 mg tablet 500 mg (0.8 x 500-125 mg) PO Q12H #10 tabs 12/19/17 [Rx Last Taken Unknown] ondansetron HCl 4 mg tablet 4 mg PO Q6H PRN PRN Nausea #8 tabs 12/19/17 [Rx Last Taken Unknown] prednisone 20 mg tablet 40 mg (2 x 20 mg) PO DAILY 5 days #10 tabs 08/20/23 [Rx Last Taken Unknown] Allergy/AdvReac Type Severity Reaction Status Date / Time amlodipine besylate AdvReac Other Verified 07/23/22 13:25 [From Norvasc] clonidine AdvReac Unknown Verified 07/23/22 13:25 hydrochlorothiazide AdvReac Other Verified 07/23/22 13:25 [From Zestoretic] lisinopril [From Zestoretic] AdvReac Other Verified 07/23/22 13:25 prednisone AdvReac Other Verified 07/23/22 13:25 Surgical History (Updated 08/20/23 @ 11:54 by Franny Coley) History of hip surgery Social History Smoking Status: Never smoker ROS ROS ED ROS Narrative Constitutional: Negative for fever, chills, malaise. Neuro: Negative for motor/sensory dysfunction. Musc: Positive for right hip pain. No swelling, trauma. EXAM Physical Exam Narrative Exam Narrative: CONST: Patient sitting in no acute distress. EYES: Normal inspection. NECK: Normal inspection. RESP: No respiratory distress, CTAB. CVS: Regular rate and rhythm, no murmur, no gallop. Back: Normal inspection, no midline tenderness or step-offs SKIN: Color normal, no rash, warm, dry, intact. EXTREMITIES: Normal appearance, no pedal edema. No tenderness of the lower extremities, full range of motion, 5/5 strength in bilateral hip flexion, knee flexion/extension, DF/PF. Normal sensation, 2+ PT pulses. NEURO: Oriented x4. PSYCH: Normal affect. Const Vital Signs: 08/20/23 11:36 Temperature 97.2 F L Temperature Source Temporal Pulse Rate 55 L Respiratory Rate 16 Blood Pressure 172/84 H Blood Pressure Mean 113 Pulse Ox 99 Oxygen Delivery Method Room Air MDM MDM MDM Narrative Medical decision making narrative: Patient has atraumatic right hip/buttock pain after washing her car a week and a half ago. She appears well and nontoxic. Vital signs stable. She is no reproducible tenderness of the back or lower extremities. She limps with walking. Extremities are neurovascularly intact. She has no red flag signs concerning for cauda equina syndrome. Since she had prior hip arthroplasty an x-ray was obtained and on my interpretation shows that hardware is intact with no evidence of hip or pelvic fractures. I suspect she could have musculoskeletal pain versus sciatica. She should continue Tylenol and I prescribed prednisone. This was listed as an allergy but she states she does not recall having a reaction to it and is comfortable trialing it. She was instructed to follow-up with her primary care doctor and was discharged in stable condition. Radiography Diagnostic Testing: Clinical Impression(s) from Imaging Studies Hip/Pelvis X-Ray 08/20/23 11:51 IMPRESSION: No evidence of displaced pelvic or hip fracture. Electronically Signed: Joshua Zaragoza MD at 13:33 EDT , Discharge Plan Triage Chief Complaint: Lower Extremity Injury ED Midlevel Provider: Anabelle Corea ED Provider: Oly Traylor Dx/Rx/DC Orders Clinical Impression: Right sided sciatica Instructions: Low Back Leg Pain Causes, ED Sciatica Prescriptions: New prednisone 20 mg tablet 40 mg PO DAILY 5 Days Qty: 10 0RF No Action levothyroxine 88 MCG tablet 88 mcg PO DAILY pravastatin 10 MG tablet 10 mg PO QHS aspirin 81 MG tablet,chewable 81 mg PO DAILY@0800 hydrochlorothiazide 25 MG tablet 12.5 mg PO DAILY losartan 100 MG tablet 50 mg PO DAILY calcitriol 0.25 MCG capsule 0.25 mcg PO MOWEFR multivitamin [Multiple Vitamins] 1 EACH tablet 1 ea PO DAILY C,E,zinc,copper [id number] [Ocuvite Adult 50 Plus] 1 EACH capsule 1 ea PO DAILY metoprolol succinate 100 MG tablet extended release 24 hr 100 mg PO DAILY amoxicillin-pot clavulanate 500 MG tablet 500 mg PO Q12H Qty: 10 0RF ondansetron HCl 4 MG tablet 4 mg PO Q6H PRN PRN (Reason: Nausea) Qty: 8 0RF Primary Care Provider: Tuan Luo Referrals: Tuan Luo DO [Primary Care Provider] - Activity Restrictions/Additional Instructions: Keep taking Tylenol every 6 hours as needed and trial the prednisone for 5 days. Follow-up with your primary care doctor. Disposition Disposition: Home, Self Care
[2023-08-20 14:22] VITALS: BP 141/98; PULSE 56; RESP 18; O2SAT 98
== END 2023-08-20 15:07 | disposition home or self-care (01) ==
PROVIDERS: Emergency Provider Emergency Medicine; PCP Student in an Organized Health Care Education/Training Program; Visit Provider Emergency Medicine
DX: M54.31 Sciatica, right side (principal)
CPT/HCPCS: 73502; 99282

== ENCOUNTER → 2024-04-16 | Outpatient (CLI) | payer MEDICARE, SELFPAY ==
[2024-04-16 13:57] LABS: Albumin, Serum 3.4 g/dL (3.2-5.0); BUN 32 mg/dL (7-18); Calcium,Total 9.8 mg/dL (8.5-10.1); Chloride 111 mmol/L (98-107); Creatinine, Serum 1.28 mg/dL (0.55-1.02); EST Glomerular Filtration Rate 42 mL/min (>60); Est Glom Filt Rate - Afr Amer 51 mL/min (>60); Glucose 103 mg/dL (74-106); Phosphorus 3.5 mg/dL (2.5-4.9); Sodium Level 139 mmol/L (136-145)
== END | disposition home or self-care (01) ==
LOC: LAB 12:12
PROVIDERS: PCP Student in an Organized Health Care Education/Training Program; Referring Provider Internal Medicine Nephrology; Visit Provider Internal Medicine Nephrology
DX: N18.32 Chronic kidney disease, stage 3b (principal)
CPT/HCPCS: 36415; 80069

== ENCOUNTER 2024-09-13 07:56 | Emergency (ER) | payer MEDICARE, SELFPAY ==
[2024-09-13 07:57] VITALS: BP 183/138; PULSE 69; RESP 16; TEMP 36.6; O2SAT 98; BMI 29.7
[2024-09-13 08:16] VITALS: BP 180/100
--- NOTE | 2024-09-13 08:16 | ED.RN ---
MANUAL BP TAKEN AFTER PT WAS SEATED FOR 5 MINUTES AFTER WALKING BACK TO ROOM. PT STATED SHE JUST TOOK HER BP MEDS THIS MORNING. SHE TAKES THEM ONCE A DAY IN THE AM. WILL REPEAT MANUAL IN ANOTHER 10 MINUTES. MADE AWARE OF BP READING
--- NOTE | 2024-09-13 08:19 | EX.ED.DYSGE1 ---
HPI History of Present Illness Chief Complaint: Constipation Narrative Narrative: Patient is a 84-year-old female who is presenting to the ER today with chief complaint of rectal pressure. Patient states that the last time she had a bowel movement was maybe 1 or 2 days ago after she took Colace, she cannot remember if it was yesterday or Monday. Patient states she has rectal pressure with intermittent cramping. No nausea or vomiting. No fever or chills. No chest pain or shortness of breath. Patient has no changes in her recent eating or drinking habits. Patient did take her blood pressure medication this morning. Patient initial machine reading was 183/138. Repeat manual blood pressure was 180/100. She has no headache chest pain or shortness of breath. Son is at bedside. No acute complaints at this time. [facility] Home Medications ?Medication ?Instructions ?Recorded ?Last Taken ?Type aspirin 81 mg chewable tablet 81 mg PO DAILY@0800 heart 06/01/17 12/15/17 08:00 History 81 mg calcitriol 0.25 mcg capsule 0.25 mcg PO MOWEFR vitamin 06/01/17 12/15/17 08:00 History 0.25mg hydrochlorothiazide 25 mg tablet 12.5 mg PO DAILY bp 06/01/17 12/15/17 08:00 History 12.5mg levothyroxine 88 mcg tablet 88 mcg PO DAILY thyroid 06/01/17 12/14/17 22:00 History 88 mcg losartan 100 mg tablet 50 mg PO DAILY bp 06/01/17 12/15/17 08:00 History 100 mg pravastatin 10 mg tablet 10 mg PO QHS cholesterol 06/01/17 12/14/17 22:00 History 10 mg multivitamin (Multiple Vitamins 1 ea PO DAILY vitamin 12/15/17 12/15/17 08:00 History tablet) 1 tab vit C,E,zinc,copper-rvegl8u 250 1 ea PO DAILY vitamin 12/15/17 12/15/17 08:00 History mg-lutein 5 mg-zeaxanthin 1 mg 1 cap capsule (Ocuvite Adult 50 Plus) metoprolol succinate 100 mg 100 mg PO DAILY blood pressure 12/18/17 Unknown History tablet,extended release 24 hr amoxicillin 500 mg-potassium 500 mg PO Q12H #10 tabs 12/19/17 Unknown Rx clavulanate 125 mg tablet ondansetron HCl 4 mg tablet 4 mg PO Q6H PRN PRN Nausea #8 tabs 12/19/17 Unknown Rx prednisone 20 mg tablet 40 mg (2 x 20 mg) PO DAILY 5 days 08/20/23 Unknown Rx #10 tabs dicyclomine 10 mg capsule 20 mg (2 x 10 mg) PO TIDAC PRN 09/13/24 Unknown Rx Abdominal Pain #8 CAPSULES ondansetron 4 mg disintegrating 4 mg PO Q8H PRN PRN Nausea #10 tabs 09/13/24 Unknown Rx tablet Allergy/AdvReac Type Severity Reaction Status Date / Time amlodipine besylate (From AdvReac Other Verified 09/13/24 08:01 Norvasc) clonidine AdvReac Unknown Verified 09/13/24 08:01 hydrochlorothiazide (From AdvReac Other Verified 09/13/24 08:01 Zestoretic) lisinopril (From Zestoretic) AdvReac Other Verified 09/13/24 08:01 Surgical History History of hip surgery Social History Smoking Status: Never smoker ROS ROS ED ROS Narrative REVIEW OF SYSTEMS: Unless otherwise stated in this report the patient's positive and negative responses for review of systems for constitutional, eyes, ENT, cardiovascular, respiratory, gastrointestinal, neurological, , musculoskeletal, and integument systems and related systems to the presenting problem are either stated in the history of present illness or were not pertinent or were negative for the symptoms and/or complaints related to the presenting medical problem. EXAM Physical Exam Narrative Exam Narrative: Vital signs reviewed and patient is not hypoxic. General: The patient appears well and in no apparent distress. Patient is resting comfortably on cart. Not toxic, lethargic, or listless. Sophie COLÓN was at bedside and the entire HPI and physical exam and rectal exam. Skin: Warm, dry, no pallor noted. There is no rash noted. Head: Normocephalic, atraumatic Eye: Normal conjunctiva, no drainage, EOMI. PERRL. Ears, Nose, Mouth, and Throat: oral mucosa is moist. Cardiovascular: Regular Rate and Rhythm, no murmurs, gallops, or rubs Respiratory: Patient is in no distress, no accessory muscle use, lungs are clear to auscultation, no wheezing, rales or rhonchi Back: non-tender, no CVA tenderness bilaterally to percussion. NO CTLS midline or paraspinal tenderness to palpation. GI: Soft, no tenderness to palpation, no masses appreciated. No rebound, guarding, or rigidity noted. Musculoskeletal: The patient has full range of motion of all extremities and joints with no difficulty. Patient has no motor, no sensory deficits. RECTAL: Sophie COLÓN was at bedside and the entire rectal exam. Patient has a cluster of small soft hemorrhoids that are nontender, nonthrombosed, not firm or hard, not painful around the entire anus. Patient has no signs of pilonidal cyst, perianal abscess, perirectal abscess, no signs of any other acute deformity. No pain around the soft tissues of the anus. Digital examination was done, patient has a baseball size somewhat firm piece of stool in the rectal vault, attempt at this fixation was done, I was able to break up the stool into smaller pieces but not able to running out. The right index finger was used. Patient Tolerated procedure without difficulty. Neurological: A&O x4, normal speech, no focal neurological deficits. Psychiatric: Cooperative Const Vital Signs: 09/13/24 07:57 09/13/24 08:16 Temperature 98 F Temperature Source Oral Pulse Rate 69 Respiratory Rate 16 Blood Pressure 183/138 H 180/100 H Blood Pressure Mean 153 126 Pulse Ox 98 Oxygen Delivery Method Room Air MDM MDM MDM Narrative Medical decision making narrative: Patient KUB x-ray shows no air-fluid levels, no obstruction, no other acute abnormalities at this time. Stool burden feces noted. Patient was sent home with prescription for Zofran, Bentyl. Patient was educated using MiraLAX and magnesium citrate [id number]. Patient will increase fluids at home. Attempt at disimpaction was done. I was able to deloculated and dislodge large rectal stool in the vault. Patient is somewhat educated on what to do at home. No questions at discharge. KUB shows no other acute abnormality Radiography Diagnostic Testing: Clinical Impression(s) from Imaging Studies KUB X-Ray 09/13/24 08:30 IMPRESSION: Large amount of fecal material is seen in the colon. Electronically Signed: Adam Sena MD at 9:30 EDT , Discharge Plan Triage Chief Complaint: Constipation ED Provider: Solo Car Dx/Rx/DC Orders Clinical Impression: Constipation Instructions: ED Abdominal Pain Unkn Cause Fem, ED Constipation (Adult) Prescriptions: New ondansetron 4 mg tablet,disintegrating 4 mg PO Q8H PRN PRN (Reason: Nausea) Qty: 10 0RF dicyclomine 10 mg capsule 20 mg PO TIDAC PRN (Reason: Abdominal Pain) Qty: 8 0RF No Action levothyroxine 88 MCG tablet 88 mcg PO DAILY pravastatin 10 MG tablet 10 mg PO QHS aspirin 81 MG tablet,chewable 81 mg PO DAILY@0800 hydrochlorothiazide 25 MG tablet 12.5 mg PO DAILY losartan 100 MG tablet 50 mg PO DAILY calcitriol 0.25 MCG capsule 0.25 mcg PO MOWEFR multivitamin [Multiple Vitamins] 1 EACH tablet 1 ea PO DAILY C,E,zinc,copper [id number] [Ocuvite Adult 50 Plus] 1 EACH capsule 1 ea PO DAILY metoprolol succinate 100 MG tablet extended release 24 hr 100 mg PO DAILY amoxicillin-pot clavulanate 500 MG tablet 500 mg PO Q12H Qty: 10 0RF ondansetron HCl 4 MG tablet 4 mg PO Q6H PRN PRN (Reason: Nausea) Qty: 8 0RF prednisone 20 mg tablet 40 mg PO DAILY 5 Days Qty: 10 0RF Primary Care Provider: Tuan Luo Referrals: Tuan Luo DO [Primary Care Provider] - Activity Restrictions/Additional Instructions: Use MiraLAX twice a day for the next 2 or 3 days, also drink 1 or 2 bottles of magnesium citrate today and tomorrow. Use Zofran as needed to help with nausea, use Bentyl as needed help with abdominal cramping. Increase fluids as well, Gatorade, Powerade, water, apple juice, prune juice. Follow-up with PCP Print Language: Japanese Disposition Disposition: Home, Self Care
--- NOTE | 2024-09-13 08:21 | ED.RN ---
PT HAS BEEN HAVING RECTAL PAIN. TAKING STOOL SOFTENERS BUT HAS NOT HAD A BM THIS WEEK, PER PT.
--- NOTE | 2024-09-13 08:30 | RAD_ITS ---
STUDY: X-RAY - ABDOMEN/PELVIS REASON FOR EXAM: Female, 84 years old. constipation TECHNIQUE: Single AP view of the abdomen / pelvis. COMPARISON: None. FINDINGS: There is an abundance of fecal material throughout the colon. The visualized liver, spleen and kidneys are grossly normal in size and morphology. Normal soft tissue structures. There are diffuse degenerative changes of the visualized lumbar spine. Status post bilateral hip replacement. RAD/Abdomen Single View IMPRESSION: Large amount of fecal material is seen in the colon. Electronically Signed: Adam Sena MD at 9:30 EDT ,
== END 2024-09-13 10:17 | disposition home or self-care (01) ==
PROVIDERS: Emergency Provider Emergency Medicine; PCP Student in an Organized Health Care Education/Training Program; Visit Provider Emergency Medicine
DX: K59.00 Constipation, unspecified (principal); I10 Essential (primary) hypertension; Z79.899 Other long term (current) drug therapy
CPT/HCPCS: 74018; 99282

== ENCOUNTER → 2024-11-25 | Outpatient (CLI) | payer MEDICARE, SELFPAY ==
--- NOTE | 2024-11-25 15:47 | MRI_ITS ---
STUDY: MRI LUMBAR SPINE WITHOUT CONTRAST REASON FOR EXAM: Female, 84 years old. LEFT LEG WEAKNESS TECHNIQUE: Standardized fat and water weighted pulse sequences were obtained in the sagittal and axial planes. Noncontrast images obtained. Contrast: No contrast administered COMPARISON: Plain film examination of 02/13/2024 FINDINGS: Vertebral bodies and alignment. 1. Vertebral body height is maintained, there however is a straightening of lumbar lordosis. Multilevel disc and endplate changes are present. 2. No deena marrow edema or acute destructive marrow replacement processes.. 3. Paraspinous soft tissue planes have normal appearance. Normal appearance of the muscular fascial planes of the erector spinae. 4. Normal appearance of the sacrum and sacroiliac joints. Intervertebral disks levels. T12-L1: No disc herniation canal or foraminal stenosis. No evidence of cord or nerve root impingement. Endplate: No focal endplate marrow changes or endplate deformity. L1-2: Mild disc desiccation, minimal disc bulge and facet hypertrophic changes. No evidence of canal stenosis or nerve root impingement. The neural foramina are widely patent. Endplate: No focal endplate marrow changes or endplate deformity. L2-3: Loss of disc height, extensive disc desiccation and broad-based posterior disc protrusion osteophyte complex with significant deformity the anterior epidural space. Narrowing of the central thecal sac to approximately 6 mm. There is posterior epidural lipomatosis. Significant compromise of lateral recesses due to concentric disc changes as well as facet and ligamentum flavum hypertrophic changes with expected nerve root impingement within the lateral recesses. Mild foraminal narrowing is noted. Significant crowding of nerve roots within the thecal sac. Endplate: Extensive Modic type II fatty marrow changes involving both endplates. No Modic type I edema. L3-4: Disc desiccation, broad-based posterior disc protrusion osteophyte complex with deformity the anterior epidural space. Central thecal sac narrowed to 5 mm. There is however compromise of lateral recesses bilaterally due to concentric disc changes and facet and ligamentum flavum hypertrophic changes. Additional LEFT foraminal stenosis with early impingement of the emerging LEFT L3 nerve root. Endplate: Mild endplate deformity. Scattered areas of Modic type II fatty marrow changes. No marrow edema. L4-5: Disc desiccation, broad-based a concentric disc protrusion and osteophyte that, narrowing of the thecal sac at 4 mm, significant compromise of lateral recesses with expected nerve root impingement. Additional foraminal stenosis greater on the RIGHT than LEFT with potential nerve root impingement. Endplate: While contour deformity the endplates and a significant Modic type II endplate changes. L5-S1: Disc desiccation, broad-based posterior disc bulge. No central canal stenosis. There is however narrowing of lateral recesses and early impingement of the S1 nerve roots bilaterally. Facet and ligament flavum hypertrophic changes are present. There is narrowing of neural foramina. Endplate: No focal endplate marrow changes or endplate deformity. Spinal cord: Normal appearance of the spinal cord and conus. Conus is located at L1. Significant crowding and clumping of nerve roots at the levels of canal stenosis particularly at L2-3, L3-4 and L4-5. Equina has normal appearance. No evidence of cord compression or edema. No intramedullary signal abnormality noted. Paraspinous soft tissues: Normal visualized paraspinous soft tissue structures. MRI/Spine Lumbar (Routine) IMPRESSION: 1. Straightening of lumbar lordosis and extensive multilevel lumbar spondylosis with disc space narrowing, Modic type II fatty marrow changes, and broad-based disc protrusion osteophyte complex at these levels with associated canal stenosis however more significantly compromise of lateral recesses with expected nerve root impingement, additional narrowing of neural foramina as detailed. 2. Clumping and crowding of nerve roots in the thecal sac as detailed most significant at the levels of canal or lateral recess narrowing. 3. Normal appearance of visualized spinal cord and conus. 4. No evidence of Modic type I endplate edema. No acute destructive marrow replacement process Electronically Signed: Wisam Wright MD at 20:21 EST ,
== END | disposition home or self-care (01) ==
PROVIDERS: PCP Student in an Organized Health Care Education/Training Program; Referring Provider Anesthesiology Pain Medicine; Visit Provider Anesthesiology Pain Medicine
DX: M62.81 Muscle weakness (generalized) (principal); M48.062 Spinal stenosis, lumbar region with neurogenic claudication
CPT/HCPCS: 72148

== ENCOUNTER → 2025-04-25 | Outpatient (CLI) | payer MEDICARE, SELFPAY ==
[2025-04-25 10:42] LABS: Hematocrit 39.6 % (37-47); Mean Corp Hgb Conc 32.8 g/dL (32-36); Mean Corpuscular Hgb 31.5 pg (27.0-32.0); Mean Corpuscular Volume 95.9 fL (81-99); Platelet Count 211 K/mm3 (150-450); RBC Distribution Width CV 13.4 % (11.6-14.6); RBC Distribution Width SD 47.6 fl (35.1-43.9); Red Blood Count 4.13 M/mm3 (4.2-5.4); White Blood Count 9.9 K/mm3 (4.4-11.0)
[2025-04-25 11:09] LABS: PTHIN 78 pg/mL (11-61)
[2025-04-25 14:36] LABS: Albumin, Serum 3.9 g/dL (3.4-4.8); Anion Gap 12 (5-15); BUN 23 mg/dL (4-19); BUN/Creat Ratio 18.2 RATIO (10-20); Calcium,Total 9.9 mg/dL (7.6-11.0); Chloride 109 mmol/L (98-108); Creatinine, Serum 1.28 mg/dL (0.70-1.20); EST Glomerular Filtration Rate 41 (>60); Glucose 102 mg/dL (70-99); Phosphorus 3.4 mg/dL (2.7-4.5); Potassium 4.3 mmol/L (3.3-5.1); Sodium Level 141 mmol/L (133-145)
== END | disposition home or self-care (01) ==
PROVIDERS: PCP Student in an Organized Health Care Education/Training Program; Referring Provider Internal Medicine Nephrology; Visit Provider Internal Medicine Nephrology
DX: N18.32 Chronic kidney disease, stage 3b (principal); N25.81 Secondary hyperparathyroidism of renal origin
CPT/HCPCS: 36415; 80069; 83970; 85027

== ENCOUNTER → 2025-07-03 | Outpatient (CLI) | payer MEDICARE, SELFPAY ==
[2025-07-03 11:03] LABS: Albumin, Serum 4.0 g/dL (3.4-4.8); Anion Gap 14 (5-15); BUN 25 mg/dL (4-19); BUN/Creat Ratio 19.2 RATIO (10-20); Calcium,Total 10.1 mg/dL (7.6-11.0); Carbon Dioxide 19.8 mmol/L (21.0-32.0); Chloride 106 mmol/L (98-108); Glucose 106 mg/dL (70-99); Potassium 4.2 mmol/L (3.3-5.1)
== END | disposition home or self-care (01) ==
LOC: POLAB3 09:46
PROVIDERS: PCP Student in an Organized Health Care Education/Training Program; Visit Provider Internal Medicine Nephrology
DX: N18.32 Chronic kidney disease, stage 3b (principal)
CPT/HCPCS: 36415; 80069

== ENCOUNTER 2025-07-13 08:25 | Emergency (ER) | payer MEDICARE, SELFPAY ==
[2025-07-13 08:28] VITALS: BP 208/91; PULSE 64; RESP 17; TEMP 35.8; O2SAT 100
[2025-07-13 08:30] VITALS: BMI 29.8
--- NOTE | 2025-07-13 08:46 | ED.RN ---
PT STATES SHE HAS PAIN IN THE LEFT HIP THAT RADIATES TO HER BACK AND DOWN THE LEG. SENSATION IN TACT. SON BROUGHT PT TODAY, NOT AT BEDSIDE
--- NOTE | 2025-07-13 08:49 | EDS_ITS ---
HPI History of Present Illness Chief Complaint: Lower Extremity Injury [facility] Home Medications ?Medication ?Instructions ?Recorded ?Last Taken ?Type aspirin 81 mg chewable tablet 81 mg PO DAILY@0800 hear t 06/01/17 12/15/17 08:00 History 81 mg calcitriol 0.25 mcg capsule 0.25 mcg PO MOWEFR vitamin 06/01/17 12/15/17 08:00 History 0.25mg hydrochlorothiazide 25 mg tablet 12.5 mg PO DAILY bp 0 06/01/17 12/15/17 08:00 History 12.5mg levothyroxine 88 mcg tablet 88 mcg PO DAILY thyroid 12/14/17 22:00 History 88 mcg losartan 100 mg tablet 50 mg PO DAILY bp 06/01/17 0 12/15/17 08:00 History 100 mg pravastatin 10 mg tablet 10 mg PO QHS cholesterol 12/14/17 22:00 History 10 mg multivitamin (Multiple Vitamins 1 ea PO DAILY vitamin 12/15/17 12/15/17 08:00 History tablet) 1 tab vit C,E,copper,zinc-[id number] 250 1 ea PO DAILY vitamin 12/15/17 12/15/17 08:00 History mg-lutein 5 mg-zeaxanthin 1 mg 1 cap capsule (Ocuvite Adult 50 Plus) metoprolol succinate 100 mg 100 mg PO DAILY blood pres sure 12/18/17 Unknown History tablet,extended release 24 hr amoxicillin 500 mg-potassium 500 mg PO Q12H #10 tabs 0 12/19/17 Unknown Rx clavulanate 125 mg tablet ondansetron HCl 4 mg tablet 4 mg PO Q6H PRN PRN Nausea #8 tabs 12/19/17 Unknown Rx prednisone 20 mg tablet 40 mg (2 x 20 mg) PO DAILY 5 days 08/20/23 Unknown Rx #10 tabs dicyclomine 10 mg capsule 20 mg (2 x 10 mg) PO TIDAC P RN 09/13/24 Unknown Rx Abdominal Pain #8 CAPSULES ondansetron 4 mg disintegrating 4 mg PO Q8H PRN PRN Na usea #10 tabs 09/13/24 Unknown Rx tablet oxycodone 5 mg tablet 5 mg PO Q6H PRN pain 3 days #12 07/13/25 Unknown Rx tabs Allergy/AdvReac Type Severity Reaction Status Date / Time amlodipine besylate (From AdvReac Other Verified 07/13/25 08:47 Norvasc) clonidine AdvReac Unknown Verified 07/13/25 08:47 hydrochlorothiazide (From AdvReac Other Verified 07/13/25 08:47 Zestoretic) lisinopril (From Zestoretic) AdvReac Other Verified 07/13/25 08:47 Surgical History History of hip surgery Social History Smoking Status: Never smoker EXAM Physical Exam Const Vital Signs: 07/13/25 08:28 Temperature 96.4 F L Temperature Source Temporal Pulse Rate 64 Respiratory Rate 17 Blood Pressure 208/91 H Blood Pressure Mean 130 Pulse Ox 100 Oxygen Delivery Method [place] [facility] [place] Medical decision making narrative: HISTORY OF PRESENT ILLNESS: Chief complaint: Hip pain 84-year-old female history of hypertension, hypothyroidism, hyperlipidemia presents with left hip pain. Denies injury. States has been hurting her for the last week or so. Notes history of 2 hip replacements. Denies back pain. Denies urinary complaints denies abdominal pain. Denies fever. Denies rash. REVIEW OF SYSTEMS: Pertinent positives: Hip pain Pertinent negatives: As per HPI PHYSICAL EXAM: Nursing triage notes reviewed, Vital signs reviewed Constitutional: [facility] Abdomen: Soft, there is no tenderness, rigidity, rebound or guarding, no obvious peritoneal signs, no palpable pulsatile abdominal masses, no auscultated abdominal bruit : No CVAT Extremities: No edema, TTP over left greater trochanter. Neuro: Intact sensation L1-S1 dermatomal distributions. Intact 5/5 strength in hip flexion (T12-L3). Knee extension (L2-L4). Ankle dorsiflexion (L4-L5). Ankle plantar flexion (S1). Great toe extension (L5). 2+ patellar and Achilles DTRs. Skin: No rash or lesions noted, surgical site appears well-healed on the left hip. No crepitus, bullae, erythema, no signs of shingles. MEDICAL DECISION MAKING: Chief Complaint: please see HPI External records reviewed: Reviewed prior imaging studies: Reviewed x-ray of the Reviewed right hip which showed no acute fracture or dislocation Factors affecting care: As per HPI Social determinants of health: none History obtained from others: none Consults: none [facility] Narrative: The patient was initially hypertensive with a blood pressure 208/91 otherwise afebrile and nontoxic-appearing. Exam with TTP over left greater trochanter and hip however there is no leg length discrepancy or focal neurologic deficit. I considered the following differential diagnosis: Hip fracture, dislocation, musculoskeletal pain I obtained an x-ray to further determine if the patient was suffering from a life-threatening etiology. Gave oral pain medication including ibuprofen and oxycodone ALL IMAGES (IF OBTAINED) HAVE BEEN PERSONALLY REVIEWED AND INTERPRETED BY MYSELF. X-ray of the left hip was read reviewed person myself show no evidence of obvious bony abnormality such as fracture dislocation or hardware failure. Patient ambulated well here in the emergency department after oxycodone and ibuprofen. Gave prescription for oxycodone for home-going. Encouraged Tylenol ibuprofen for baseline pain control with oxycodone as breakthrough. Gave bowel regimen/constipation instructions. Gave strict return precautions. The patient and/or family, caregivers express understanding. The patient and/or family, caregivers agrees with the plan. Shared decision making: I will have a discussion with the patient and or visitors regarding risk/benefits of further testing or admission. They will be made aware of of the risk/benefits inherent in this decision they will be given the opportunity to voice understanding. Total critical care time today provided was at least 0 minutes. This excludes separately billable procedures. Critical care time (if documented) is secondary to the patient having high probability of clinically significant/life threatening deterioration in the patient's condition which required my urgent intervention. Impression: 1. Left hip pain 2. History of hip arthroplasty Dispo: Discharge home This note was generated with [employer] dictation software. It may contain incorrect words, spelling, and punctuation that were not noted in review of the chart prior to signing. Radiography Diagnostic Testing: Clinical Impression(s) from Imaging Studies Hip/Pelvis X-Ray 07/13/25 09:20 IMPRESSION: No acute findings. Reading Location: [facility] Discharge Plan Triage Chief Complaint: Lower Extremity Injury ED Provider: Galileo Lou Dx/Rx/DC Orders Instructions: ED Hip Strain Prescriptions: New oxycodone 5 mg tablet 5 mg PO Q6H PRN (Reason: pain) 3 Days Qty: 12 0RF No Action levothyroxine 88 MCG tablet 88 mcg PO DAILY pravastatin 10 MG tablet 10 mg PO QHS aspirin 81 MG tablet,chewable 81 mg PO DAILY@0800 hydrochlorothiazide 25 MG tablet 12.5 mg PO DAILY losartan 100 MG tablet 50 mg PO DAILY calcitriol 0.25 MCG capsule 0.25 mcg PO MOWEFR multivitamin [Multiple Vitamins] 1 EACH tablet 1 ea PO DAILY C,E,copper,zinc [id number] [Ocuvite Adult 50 Plus] 1 EACH capsule 1 ea PO DAILY metoprolol succinate 100 MG tablet extended release 24 hr 100 mg PO DAILY amoxicillin-pot clavulanate 500 MG tablet 500 mg PO Q12H Qty: 10 0RF ondansetron HCl 4 MG tablet 4 mg PO Q6H PRN PRN (Reason: Nausea) Qty: 8 0RF prednisone 20 mg tablet 40 mg PO DAILY 5 Days Qty: 10 0RF ondansetron 4 mg tablet,disintegrating 4 mg PO Q8H PRN PRN (Reason: Nausea) Qty: 10 0RF dicyclomine 10 mg capsule 20 mg PO TIDAC PRN (Reason: Abdominal Pain) Qty: 8 0RF Primary Care Provider: Tuan Luo Referrals: Tuan Luo DO [Primary Care Provider] - Activity Restrictions/Additional Instructions: Thank you for trusting us with your care today! Your x-ray did not show evidence of a broken bone or dislocated joint. I suspect you are suffering from a muscle strain Please take Tylenol (2 pills, 650 mg), ibuprofen (2 pills, 400 mg) every 6 hours as needed for pain and fever control. Please take oxycodone for breakthrough pain. Please return to the emergency department if your symptoms change or worsen. If you begin taking oxycodone please eat more fiber, drink more fluids and start a bowel regimen consisting of MiraLAX, Colace or senna. These medicines and increase fiber and fluids will help keep your bowels regular as narcotics like oxycodone causes constipation Please follow with your primary care physician for further outpatient evaluation and management. Print Language: Vietnamese Disposition Disposition: Home, Self Care
--- OUTSIDE RECORDS SUMMARY | 2025-07-13 09:06 | XMS RPT_ITS | CCD ---
Author Organization [facility] Care Team Providers Care Channel Opener Outsoles Name Role Phone Tuan Luo DO Primary Care Provider Tuan Luo DO Primary Care Provider Heriberot DIRECTIONAL DRILL OPERATOR.NURSING SERVICES MANAGERDivina Unavailable Kelli DIRECTIONAL DRILL OPERATOR.Jayda CASTILLO Unavailable Dr. Tuan Luo DO Primary Care Provider Dr. Danni Jimenez DO Attending Provider Dr. Danni Jimenez DO Referring Provider Kiko DIRECTIONAL DRILL OPERATOR.Maty CASTILLO Unavailable TUAN LUO Primary Care Unavailable LUO, TUAN L Referring Unavailable LUO, TUAN L Attending Unavailable LUO, TUAN L Primary Care Unavailable LUO, TUAN L Primary Care Unavailable LUO, TUAN L Referring Unavailable LUO, TUAN L Attending Unavailable LUO, TUAN L Primary Care Unavailable LUO, TUAN L Referring Unavailable LUO, TUAN L Primary Care Unavailable LUO, TUAN L Attending Unavailable LUO, TUAN L Primary Care Unavailable LUO, TUAN L Referring Unavailable LUO, TUAN L Primary Care Unavailable SOLO REYES Referring Unavailable LUO, TUAN Kannan Primary Care Unavailable LUO, TUAN L Primary Care Unavailable LUO, TUAN L Referring Unavailable LUO, TUAN L Primary Care Unavailable LUO, TUAN L Attending Unavailable LUO, TUAN L Primary Care Unavailable LUO, TUAN L Primary Care Unavailable LUO, TUAN L Referring Unavailable LUO, TUAN L Primary Care Unavailable VALERIO, TUAN Kannan Referring Unavailable Danni Jimenez Referring Unavailable Danni Jimenez Attending Unavailable Tuan Luo Primary Care Unavailable Solo Dietrich Referring Unavailable Solo Dietrich Attending Unavailable Tuan Luo Primary Care Unavailable Solo Car Attending Unavailable Tuan Luo Primary Care Unavailable Tuan Luo Primary Care Unavailable Danni Jimenez Attending Unavailable Allergies Allergy Classification Reported Allergen(s) Allergy Type Date of Onset Reaction(s) Facility (20 sources) amLODIPine; Translations: [AMLODIPINE BESYLATE] Drug Allergy 07-15-20 11 Other: See Comments [facility] Work Phone: (20 sources) cloNIDine; Translations: [CLONIDINE] Drug Allergy 07-07-[address] [facility] Work Phone: (20 sources) predniSONE; Translations: [PREDNISONE] Drug Allergy 02-19-20 13 Other: See Comments [facility] Work Phone: (20 sources) ZESTERETIC [Other] Propensity to adverse reactions 07-07-[address] [facility] Work Phone: (7 sources) hydroCHLOROthiazide Drug Allergy 12-15-19 18 Other [facility] (7 sources) Lisinopril Drug Allergy 12-15-19 18 Other [facility] (1 source) amLODIPine Drug Allergy 09-13-20 24 [facility] Repository (1 source) cloNIDine Drug Allergy 09-13-20 24 [facility] (1 source) hydroCHLOROthiazide Drug Allergy 09-13-20 24 [facility] (1 source) Lisinopril Drug Allergy 09-13-20 24 [facility] Repository Medications Current Medications Medication Drug Class(es) Dates Sig (Normalized) Sig (Original) amoxicillin 875 mg / clavulanate 125 mg oral tablet (11 sources) Penicillin-class Antibacterial Start: 04-15-2025 take 1 tablet by mouth every twelve hours amoxicillin-clav ulanate potassium (AUGMENTIN) 875-125 mg per tablet Indications: Acute non-recurrent maxillary sinusitis Take 1 tablet by mouth every 12 hours. 20 tablet 04/15/2025 Active Start: 12-19-2017 take 1 tablet by franck th every twelve hours Amoxicillin-Pot Clavulanate 500 MG tablet Active 500 mg PO Q12H 10 0 December 19, 2017 1:00am aspirin 81 mg chewable tablet (20 sources) Platelet Aggregation Inhibitor, Nonsteroidal Anti-inflammatory Drug Start: 06-01-2017 take 1 tablet by mouth once daily Aspirin 81 MG tablet,chewable Active 81 mg PO DAILY@0800 June 01, 2017 12:00am heart Start: 07-07-2005 take 1 tablet by franck th once daily ASPIRIN 81 MG ORAL TAB Take one(1) tablet daily. 0 07/07/2005 Active Comment on above: Take one(1) tablet d aily. benzonatate 100 mg oral capsule (3 sources) Non-narcotic Antitussive Start: 4 End: 4 take 1 capsule by mouth every eight hours as needed benzonatate (TESSALON PERLE) 100 mg capsule Take 1 capsule by mouth three times a day as needed for cough for up to 7 days. 21 capsule 09/17/2024 09/24/2024 Active C,E,Copper,Zinc 33-[id number] (Ocuvite Adult 50 Plus) 1 EACH capsule (2 sources) Start: 8 C,E,Copper,Zinc 21-[id number]-[id number] (Ocuvite Adult 50 Plus) 1 EACH capsule Active 1 NMA PO DAILY December 15, 2017 1:00am vitamin Start: 12-15-2017 C,E,Copper,Zin c 98-[id number] (Ocuvite Adult 50 Plus) 1 EACH capsule Active 1 NMA PO DAILY December 15, 2017 1:00am C,E,Zinc,Copper 87-Onqfh6z-U ut (Ocuvite Adult 50 Plus) 1 EACH capsule (5 sources) Start: 12-15-2017 C,E,Zinc,Coppe r 50-Mptxs7e-Jgp (Ocuvite Adult 50 Plus) 1 EACH capsule Active 1 EACH PO DAILY December 15, 2017 5:39pm Start: 12-15-2017 C,E,Zinc,Coppe r 58-[id number]-Kga (Ocuvite Adult 50 Plus) 1 EACH capsule Active 1 EACH PO DAILY December 15, 2017 12:00am Start: 12-15-2017 C,E,Zinc,Coppe r 92-[id number]-[id number] (Ocuvite Adult 50 Plus) 1 EACH capsule Active 1 EACH PO DAILY December 15, 2017 1:00am calcitriol 0.27987 mg oral capsule (8 sources) Vitamin D3 Analog Start: 06-01-2017 End: 06-08-2021 Calcitriol 0.25 MCG capsule Active 0.25 ug PO MOWEFR June 01, 2017 12:00am vitamin dicyclomine hydrochloride 10 mg oral capsule (2 sources) Anticholinergic Start: 09-13-2024 take 2 capsules by mouth three times daily before mealtime as needed for pain Dicyclomine 10 mg capsule Active 20 mg PO THREE TIMES DAILY BEFORE MEALS as needed for Abdominal Pain 8 0 September 13, 2024 9:38am doxycycline hyclate 100 mg oral tablet (3 sources) Tetracycline-class Drug Start: 10-08-2024 End: 10-18-2024 take 1 tablet by mouth twice daily doxycycline (VIBRA-TABS) 100 mg tablet Indications: Acute bronchitis, unspecified organism , COVID-19 Take 1 tablet by mouth two times a day for 10 days. 20 tablet 10/08/2024 10/18/2024 Active Start: 12-20-2023 End: 12-30-2023 take 1 tablet by mouth twice daily doxycycline (VIBRA-TABS) 100 mg tablet Indications: Bacterial sinusitis Take 1 tablet by mouth two times a day for 10 days. 20 tablet 0 12/20/2023 12/30/2023 Active Comment on above: Take 1 tablet by [facility] two times a day for 10 days. 12 hr guaiFENesin 600 mg extended release oral tablet (3 sources) Start: 09-17-20 End: 09-24-20 take 1 tablet by mouth twice daily as needed guaiFENesin (MUCINEX) 600 mg 12 hr tablet Take 1 tablet by mouth two times a day as needed for cold/allergy symptoms (cough) for up to 7 days. 14 tablet 09/17/2024 09/24/2024 Active hydrALAZINE hydrochloride 25 mg oral tablet (20 sources) Arteriolar Vasodilator Start: 01-02-20 End: 04-15-20 take 1 tablet by mouth three times daily hydrALAZINE (APRESOLINE) 25 mg tablet Indications: Essential hypertension Take 1 tablet by mouth three times a day. Hold thismedication if BP less than 140 systolic 270 tablet 1 04/15/2025 Active Start: 01-02-2024 End: 01-02-2024 take 1 tablet by mouth three times daily hydrALAZINE (APRESOLINE) 50 mg tablet Indications: Essential hypertension Take 1 tablet by mouth three times a day. Hold hydralazine if BP less than 140 systolic 90 tablet 0 01/02/2024 01/02/2024 Discontinued Comment on above: Take 1 tablet by franck th three times a day. Hold hydralazine if BP less than 140 systolic levothyroxine sodium 0.1 mg oral tablet (20 sources) l-Thyroxine Start: 11-30-19 End: 11-27-19 take 1 tablet by mouth once daily levothyroxine (SYNTHROID) 100 mcg tablet Indications: Post-surgical hypothyroidism Take 1 tablet by mouth once daily. 90 tablet 3 11/27/2024 Active Start: 06-02-2023 take 1 tablet by franck th once daily levothyroxine (SYNTHROID) 100 mcg tablet Indications: Post-surgical hypothyroidism Take 1 tablet by mouth once daily. 90 tablet 1 06/02/2023 Active Start: 01-31-2023 take 1 tablet by franck th once daily levothyroxine (SYNTHROID) 100 mcg tablet Indications: Post-surgical hypothyroidism Take 1 tablet by mouth once daily. 90 tablet 1 01/31/2023 Active Start: 06-01-2017 End: 01-31-2023 take 1 tablet by mouth once daily Levothyroxine 88 MCG tablet Active 88 ug PO DAILY June 01, 2017 12:00am thyroid Comment on above: Take 1 tablet by franck th once daily. TAKE 1 TABLET EVERY DAY losartan potassium 50 mg oral tablet (20 sources) Angiotensin 2 Receptor Elian Start: End: take 1 tablet by mouth once daily losartan (COZAAR) 50 mg tablet Indications: Essential hypertension Take 1 tablet by mouth once daily. 90 tablet 3 01/13/2025 Active Start: 06-22-2022 losartan (COZA AR) 50 mg tablet Indications: Essential hypertension TAKE 1 AND 1/2 TABLETS EVERY DAY 135 tablet 3 06/22/2022 Active Start: 12-27-2021 End: 06-22-2022 take 2 tablets by mouth once daily losartan (COZAAR) 50 mg tablet Indications: Essential hypertension Take 2 tablets by mouth once daily. 135 tablet 3 12/27/2021 06/22/2022 Discontinued Start: 10-20-2020 End: 07-30-2021 take 1 tablet by mouth once daily losartan (COZAAR) 50 mg tablet Indications: Essential hypertension Take 1 tablet by mouth once daily. 90 tablet 3 10/20/2020 07/30/2021 Discontinued Start: 06-01-2017 Losartan 100 M G tablet Active 50 mg PO DAILY June 01, 2017 12:00am bp Start: 06-01-2017 take 50 mg by mouth once daily Losartan Active 50 MG PO DAILY June 01, 2017 12:00am Comment on above: Take 2 tablets by mo [facility] once daily. TAKE 1 AND 1/2 TABLE TS EVERY DAY Take 1 tablet by franck once daily. methylPREDNISolone (1 source) Corticosteroid Start: 2023 End: 2023 methylPREDNISolone (MEDROL, CHALO,) 4 mg Dose-Pack Indications: Acute bronchitis, unspecified organism , COVID-19 Follow dosing instructions, take with food. 21 tablet 10/08/2024 10/14/2024 Active 24 hr metoprolol succinate 25 mg extended release oral tablet (20 sources) beta-Adrenergic Elian Start: 2023 End: 2024 take 1 tablet by mouth once daily metoprolol succinate ER (TOPROL XL) 25 mg 24 hr tablet Take 1 tablet by mouth once daily. Take in addition to 100 mg XL once a day 90 tablet 3 01/13/2025 Active Start: 09-06-2023 metoprolol suc cinate ER (TOPROL XL) 25 mg 24 hr tablet Take 1 tablet by mouth once daily. In the morning if BLOOD PRESSURE is 140/90 or higher 90 tablet 1 09/06/2023 Active Start: 12-18-2017 End: 01-13-2025 take 1 tablet by mouth once daily Metoprolol Succinate 100 MG tablet extended release 24 hr Active 100 mg PO DAILY December 18, 2017 1:00am blood pressure Comment on above: Take 1 tablet by franck once daily. TAKE 1 TABLET EVERY DAY Take 1 tablet by franck once daily. In the morning if BLOOD PRESSURE is 140/90 or higher Multivitamin (Multiple Vitamins) 1 EACH tablet (7 sources) Start: 8 take 1 tablet by mouth once daily Multivitamin (Multiple Vitamins) 1 EACH tablet Active 1 EACH PO DAILY December 15, 2017 5:39pm Start: 12-15-2017 take 1 tablet by franck th once daily Multivitamin (Multiple Vitamins) 1 EACH tablet Active 1 NMA PO DAILY December 15, 2017 1:00am vitamin Start: 12-15-2017 take 1 tablet by franck th once daily Multivitamin (Multiple Vitamins) 1 EACH tablet Active 1 NMA PO DAILY December 15, 2017 1:00am Start: 12-15-2017 take 1 tablet by franck th once daily Multivitamin (Multiple Vitamins) 1 EACH tablet Active 1 EACH PO DAILY December 15, 2017 12:00am Start: 12-15-2017 take 1 tablet by franck th once daily Multivitamin (Multiple Vitamins) 1 EACH tablet Active 1 EACH PO DAILY December 15, 2017 1:00am MULTIVITAMIN WITH MINERALS (HAIR,SKIN & NAILS ORAL) (20 sources) take 1 tablet by franck th once daily MULTIVITAMIN WITH MINERALS (HAIR,SKIN & NAILS ORAL) Take 1 tablet by mouth once daily. Active take 1 tablet by mouth once yomaira y MULTIVITAMIN WITH MINERALS (HAIR,SKIN & NAILS ORAL) Take 1 tablet by mouth once daily. 0 Active Comment on above: Take 1 tablet by franck once daily. ondansetron 4 mg disintegrating oral tablet (9 sources) Serotonin-3 Receptor Antagonist Start: take 1 tablet by mouth every eight hours as needed for nausea Ondansetron 4 mg tablet,disintegrati ng Active 4 mg PO EVERY 8 HOURS NEEDED as needed for Nausea 10 0 September 13, 2024 12:00am Start: 12-19-2017 take 1 tablet by franck every six hours as needed for nausea Ondansetron Hcl 4 MG tablet Active 4 mg PO EVERY 6 HOURS NEEDED as needed for Nausea 8 0 December 19, 2017 9:21am pravastatin sodium 10 mg oral tablet (20 sources) HMG-CoA Reductase Inhibitor Start: 06-01-2017 End: 03-18-2025 take 1 tablet by mouth at bedtime Pravastatin 10 MG tablet Active 10 mg PO AT BEDTIME June 01, 2017 12:00am cholesterol Comment on above: Take 1 tablet by franck th daily at bedtime. predniSONE 20 mg oral tablet (2 sources) Start: 08-20-2023 take 2 tablets by mouth once daily Prednisone 20 mg tablet Active 40 mg PO DAILY 10 5 0 August 20, 2023 12:00am valACYclovir 500 mg oral tablet (20 sources) Herpesvirus Nucleoside Analog DNA Polymerase Inhibitor, Herpes Simplex Virus Nucleoside Analog DNA Polymerase Inhibitor, Herpes Zoster Virus Nucleoside Analog DNA Polymerase Inhibitor Start: 10-08-2024 End: 10-08-2024 take 1 tablet by mouth once daily valACYclovir (VALTREX) 500 mg tablet Take 1 tablet by mouth once daily. 90 tablet 1 10/08/2024 Active Start: 09-06-2023 End: 03-08-2024 take 1 tablet by mouth twice daily valACYclovir (VALTREX) 500 mg tablet Indications: Genital herpes simplex, unspecified site Take 1 tablet by mouth two times a day. 180 tablet 1 09/06/2023 03/08/2024 Discontinued Start: 10-20-2020 End: 05-06-2022 take 1 tablet by mouth twice daily valACYclovir (VALTREX) 500 mg tablet Indications: Genital herpes simplex, unspecified site Take 1 tablet by mouth twice daily. 180 tablet 1 10/20/2020 05/06/2022 Discontinued Comment on above: Take 1 tablet by franck th twice daily. Take 1 tablet by franck th two times a day. Completed/Discontinued Medications Medication Drug Class(es) Dates Sig (Normalized) Sig (Original) Ascorbic Acid / Beta Carotene / cuprous oxide / Lutein / sodium selenate / Vitamin E / Zinc Oxide (1 source) Vitamin C Start: 03-14-2006 End: 06-08-2021 OCUVITE TAB Take one(1) tablet daily. 0 0 03/14/2006 06/08/2021 Discontinued colchicine 0.6 mg oral tablet (20 sources) Start: 06-08-2021 End: 09-17-2024 take 1 tablet by mouth once colchicine 0.6 mg tablet Indications: Acute gout involving toe of left foot, unspecified cause Take 1 tablet by mouth one time only for 1 dose. 1 tablet 06/08/2021 09/17/2024 Discontinued Comment on above: Take 1 tablet by franck th one time only for 1 dose. 24 hr dilTIAZem hydrochloride 120 mg extended release oral tablet (12 sources) Calcium Channel Elian Start: 06-02-2023 take 1 tablet by mouth once daily dilTIAZem LA (CARDIZEM LA) 120 mg 24 hr tablet Take 1 tablet by mouth once daily. 90 tablet 1 06/02/2023 Active Start: 01-31-2023 take 1 tablet by franck th once daily dilTIAZem LA (CARDIZEM LA) 120 mg 24 hr tablet Take 1 tablet by mouth once daily. 90 tablet 1 01/31/2023 Active Comment on above: Take 1 tablet by franck th once daily. hydroCHLOROthiazide 12.5 mg oral capsule (12 sources) Thiazide Diuretic Start: 2023 End: 2023 take 1 capsule by mouth once daily hydroCHLOROthiazide 12.5 mg capsule Indications: Essential hypertension Take 1 capsule by mouth once daily. 30 capsule 12 12/20/2023 01/02/2024 Discontinued Start: 10-20-2020 End: 06-29-2021 take 1 capsule by mouth once daily hydroCHLOROthiazide 12.5 mg capsule Take 1 capsule by mouth once daily. 90 capsule 3 10/20/2020 06/29/2021 Discontinued (Other) Start: 06-01-2017 Hydrochlorothi azide 25 MG tablet Active 12.5 mg PO DAILY June 01, 2017 12:00am bp Start: 06-01-2017 take 12.5 mg by mout h once daily Hydrochlorothiazide Active 12.5 MG PO DAILY June 01, 2017 12:00am Comment on above: Take 1 capsule by mo [facility] once daily. hydrocortisone 25 mg/ml topical cream (2 sources) Corticosteroid Start: End: hydrocortisone (ANUSOL-HC) 2.5 % rectal cream Indications: External hemorrhoid by RECTAL route two times a day. As needed for hemorrhoids 56 g 1 07/08/2024 09/17/2024 Discontinued ketoconazole 20 mg/ml topical cream (20 sources) Azole Antifungal Start: End: ketoconazole (NIZORAL) 2 % cream Indications: Rash Apply 1 application to affected area twice daily. 30 g 0 12/27/2021 12/20/2023 Discontinued Comment on above: Apply 1 application to affected area twice daily. 24 hr verapamil hydrochloride 180 mg extended release oral capsule (8 sources) Calcium Channel Elian Start: End: take 1 capsule by mouth once daily at bedtime verapamil ER 180 mg 24 hr capsule Indications: Essential hypertension Take 1 capsule by mouth daily at bedtime. For Blood pressure 90 capsule 1 07/23/2022 01/31/2023 Discontinued Comment on above: Take 1 capsule by mo [facility] daily at bedtime. For Blood pressure Vitamin B Complex (1 source) End: 022 vitamin B complex (B COMPLEX 1 ORAL) Take by mouth. 01/03/2022 Discontinued Problems Active Problems Problem Classification Problem Date Documented Date Episodic/Chronic Asthma (20 sources) Unspecified asthma, uncomplicated; Translations: [Asthma, unspecified type, unspecified] Onset: 9 12-17-2008 Chronic Chronic kidney disease (20 sources) Chronic kidney disease stage 3; Translations: [CKD stage G3b/A1, GFR 30-44 and albumin creatinine ratio <30 mg/g] Onset: 0 Resolved: 0 04-17-2019 Chronic Chronic kidney disease (2 sources) Chronic kidney disease; Translations: [Chronic kidney disease, stage 3b (HCC)] Onset: 3 Complications of surgical procedures or medical care (20 sources) Postoperative hypothyroidism; Translations: [Postprocedural hypothyroidism] Onset: 5 08-24-2009 Chronic Conditions associated with dizziness or vertigo (7 sources) Dizziness; Translations: [Dizziness and giddiness] 12-17-2017 Episodic Disorders of lipid metabolism (20 sources) Hyperlipidemia; Translations: [Hyperlipidemia, unspecified] Onset: 0 11-08-2021 Chronic Diverticulosis and diverticulitis (20 sources) Diverticulosis of colon; Translations: [Diverticulosis of large intestine without perforation or abscess without bleeding] Onset: 6 04-05-2006 Chronic Essential hypertension (20 sources) Essential hypertension; Translations: [Essential (primary) hypertension] Onset: 1 04-20-2021 Chronic Genitourinary symptoms and ill-defined conditions (6 sources) Dysuria; Translations: [Dysuria] Onset: 5 04-15-2025 Episodic Gout and other crystal arthropathies (20 sources) Articular gout; Translations: [Gout, unspecified] Onset: 1 07-30-2021 Chronic Heart valve disorders (10 sources) Heart murmur; Translations: [Cardiac murmur, unspecified] Onset: 5 04-16-2025 Episodic Hypertension with complications and secondary hypertension (20 sources) Chronic kidney disease due to hypertension; Translations: [Hypertensive chronic kidney disease with stage 1 through stage 4 chronic kidney disease, or unspecified chronic kidney disease] Onset: 5 11-08-2021 Chronic Influenza (7 sources) Influenza; Translations: [Influenza due to unidentified influenza virus with other respiratory manifestations] 12-19-2017 Episodic Nutritional deficiencies (20 sources) Vitamin D deficiency; Translations: [Vitamin D deficiency, unspecified] Onset: 1 04-20-2021 Chronic Other circulatory disease (7 sources) Carotid bruit; Translations: [Other specified symptoms and signs involving the circulatory and respiratory systems] Onset: 5 04-16-2025 Episodic Other circulatory disease (1 source) Other specified symptoms and signs involving the circulatory and respiratory systems; Translations: [Right carotid bruit] Onset: 5 Episodic Other diseases of kidney and ureters (20 sources) Secondary hyperparathyroidism; Translations: [Secondary hyperparathyroidism of renal origin] Onset: 8 04-17-2018 Chronic Other diseases of kidney and ureters (1 source) Secondary hyperparathyroidism of renal origin; Translations: [Secondary hyperparathyroidism (HCC)] Onset: 8 Chronic Other gastrointestinal disorders (8 sources) Constipation; Translations: [Constipation, unspecified] 07-31-2022 Episodic Other lower respiratory disease (2 sources) Cough; Translations: [Acute cough] 09-17-2024 Episodic Other nervous system disorders (20 sources) Carpal tunnel syndrome; Translations: [Carpal tunnel syndrome, unspecified upper limb] Onset: 1 03-04-2011 Chronic Other nervous system disorders (5 sources) Abnormal involuntary movement; Translations: [Unspecified abnormal involuntary movements] 12-19-2017 Episodic Other nervous system disorders (2 sources) Involuntary movement; Translations: [Unspecified abnormal involuntary movements] 12-16-2017 Episodic Other nutritional; endocrine; and metabolic disorders (20 sources) Hypercalcemia; Translations: [Hypercalcemia] Onset: 4 03-08-2024 Chronic Other nutritional; endocrine; and metabolic disorders (1 source) Hypomagnesemia; Translations: [Hypomagnesemia] 01-13-2025 Chronic Other nutritional; endocrine; and metabolic disorders (1 source) Hypomagnesemia; Translations: [Hypomagnesemia] Onset: 5 Chronic Other nutritional; endocrine; and metabolic disorders (1 source) Hypercalcemia; Translations: [Hypercalcemia] Onset: 4 Chronic Other nutritional; endocrine; and metabolic disorders (20 sources) Hyperuricemia; Translations: [Hyperuricemia without signs of inflammatory arthritis and tophaceous disease] 04-26-2021 Episodic Other upper respiratory infections (1 source) Bacterial sinusitis; Translations: [Chronic sinusitis, unspecified] 12-20-2023 Chronic Other upper respiratory infections (3 sources) Acute maxillary sinusitis; Translations: [Acute maxillary sinusitis, unspecified] Onset: 5 12-20-2023 Episodic Spondylosis; intervertebral disc disorders; other back problems (10 sources) Disorder of joint of spine; Translations: [Other spondylosis with radiculopathy, lumbar region] Onset: 5 01-13-2025 Chronic Spondylosis; intervertebral disc disorders; other back problems (20 sources) Acute back pain with sciatica; Translations: [Lumbago with sciatica, left side] Onset: 9 Resolved: 9 04-20-2021 Episodic Thyroid disorders (20 sources) Non-toxic nodular goiter; Translations: [Nontoxic goiter, unspecified] Onset: 5 04-05-2006 Chronic Unclassified (1 source) Acute cough; Translations: [Acute cough] Onset: 4 Viral infection (20 sources) Genital herpes simplex; Translations: [Herpesviral infection of urogenital system, unspecified] Onset: 6 10-09-2017 Chronic Viral infection (2 sources) Viral disease; Translations: [Viral infection, unspecified] 09-17-2024 Episodic Viral infection (1 source) COVID-19; Translations: [COVID-19] Onset: 4 Past or Other Problems Problem Classification Problem Date Documented Date Episodic/Chronic Acute bronchitis (2 sources) Acute bronchitis; Translations: [Acute bronchitis, unspecified] Onset: 4 10-08-2024 Episodic Diabetes mellitus without complication (3 sources) Hyperglycemia; Translations: [Hyperglycemia, unspecified] Onset: 4 10-02-2024 Episodic Headache; including migraine (20 sources) Headache; Translations: [Headache] Onset: 9 Resolved: 7 05-09-2017 Episodic Hemorrhoids (20 sources) External hemorrhoids; Translations: [Residual hemorrhoidal skin tags] Onset: 6 Resolved: 9 01-14-2009 Episodic Nutritional deficiencies (20 sources) Cobalamin deficiency; Translations: [Deficiency of other specified B group vitamins] Onset: 4 07-08-2024 Episodic Other acquired deformities (20 sources) Mallet finger of right hand; Translations: [Mallet finger of right finger(s)] Onset: 1 04-20-2021 Episodic Other and unspecified benign neoplasm (20 sources) Benign neoplasm of colon; Translations: [Benign neoplasm of colon, unspecified] Onset: 6 04-05-2006 Episodic Other connective tissue disease (20 sources) Rotator cuff impingement syndrome; Translations: [Impingement syndrome of unspecified shoulder] Onset: 1 03-04-2011 Episodic Other connective tissue disease (20 sources) Pain in right foot; Translations: [Pain in right foot] Onset: 1 04-20-2021 Episodic Other connective tissue disease (20 sources) Weakness of back; Translations: [Other symptoms and signs involving the musculoskeletal system] Onset: 3 Episodic Other connective tissue disease (1 source) Muscle weakness (generalized); Translations: [Muscle weakness (generalized)] Onset: 5 Episodic Other endocrine disorders (20 sources) Secondary hyperparathyroidism of nonrenal origin; Translations: [Secondary hyperparathyroidism, not elsewhere classified] Onset: 6 Resolved: 0 11-08-2021 Chronic Other endocrine disorders (20 sources) Hyperparathyroidism; Translations: [Hyperparathyroidism, unspecified] Onset: 9 Resolved: 0 04-16-2020 Chronic Other gastrointestinal disorders (1 source) Constipation, unspecified; Translations: [Constipation, unspecified] Onset: 4 Episodic Other injuries and conditions due to external causes (20 sources) Injury of finger of right hand; Translations: [Unspecified injury of right wrist, hand and finger(s), initial encounter] Onset: 1 04-20-2021 Episodic Other nutritional; endocrine; and metabolic disorders (20 sources) Body mass index 25-29 - overweight; Translations: [Overweight] Onset: 8 04-17-2018 Episodic Other screening for suspected conditions (not mental disorders or infectious disease) (20 sources) Urogenital finding; Translations: [Abnormal findings on diagnostic imaging of other specified body structures] Onset: 6 Resolved: 7 05-09-2017 Chronic Other screening for suspected conditions (not mental disorders or infectious disease) (20 sources) Patient encounter status; Translations: [Encounter for other screening for malignant neoplasm of breast] Onset: 8 Resolved: 7 04-17-2019 Episodic Other skin disorders (20 sources) Actinic keratosis; Translations: [Actinic keratosis] Onset: 0 10-20-2020 Episodic Other skin disorders (20 sources) Localized swelling of right foot; Translations: [Localized swelling, mass and lump, right lower limb] Onset: 1 04-20-2021 Episodic Other skin disorders (20 sources) Lesion of skin of nose; Translations: [Disorder of the skin and subcutaneous tissue, unspecified] Onset: 4 03-08-2024 Episodic Other skin disorders (20 sources) Alopecia; Translations: [Nonscarring hair loss, unspecified] Onset: 8 Resolved: 9 01-14-2009 Episodic Results Test Name Value Interpretation Reference Range Facility Anion gap in Serum or Plasma Ordered By: Danni Jimenez on 07-03-2025 Anion gap [Moles/Vol] 14 mmol/L -15 [facility] BUN/creatinine ratioOrdered By: Danni Jimenez on 07-03-2025 Urea nitrogen/Creatinine [Mass ratio] 19.2 mg/mg - [facility] Carbon dioxide, total [Moles /volume] in Central venous bloodOrdered By: Danni Jimenez on 07-03-2025 CO2 [Moles/Vol] 19.8 mmol/L Low 21.0-32.0 [facility] Chloride assayOrdered By: My Jimenez on 07-03-2025 Chloride [Moles/Vol] 106 mmol/L 98-108 [facility] Glomerular filtration rate ( GFR) estimation/1.73 sq m using serum, plasma, or whole bOrdered By: Danni Jimenez on 07-03-2025 GFR/1.73 sq M.predicted among non-blacks MDRD (S/P/Bld) [Vol rate/Area] 41 mL/min/{1.73_m2} Low >60 [facility] Comment on above: mL/min/1.73m2 CKD-EP I Creatinine Equation (2020) Potassium measurement (mass/ volume)Ordered By: Danni Jimenez on 07-03-2025 Potassium (Unsp spec) [Mass/Vol] 4.2 mmol/L 3.3-5.1 [facility] Renal Profileon 07-03-2025 Albumin [Mass/Vol] 4.0 g/dL Normal 3.4-4.8 [facility] Comment on above: Performed By: #### L 500.3600 #### [facility] [address] [place], [address] BUN/CRE 19.2 RATIO Normal 10-20 [facility] Comment on above: Performed By: #### L 500.3600 #### [facility] [address] [place], [address] Calcium [Mass/Vol] 10.1 mg/dL Normal 7.6-11.0 [facility] Comment on above: Performed By: #### L 500.3600 #### [facility] [address] [place], [address] Chloride [Moles/Vol] 106 mmol/L Normal 98-108 [facility] Comment on above: Performed By: #### L 500.3600 #### [facility] [address] [place], [address] CO2 [Moles/Vol] 19.8 mmol/L Low 21.0-32.0 [facility] Comment on above: Performed By: #### L 500.3600 #### [facility] [address] [place], [address] Creatinine [Mass/Vol] 1.30 mg/dL High 0.70-1.20 [facility] Comment on above: Performed By: #### L 500.3600 #### [facility] [address] [place], [address] GAP 14 Normal 5-15 [facility] Comment on above: Performed By: #### L 500.3600 #### [facility] [address] [place], [address] GFR/1.73 sq M.predicted among non-blacks MDRD (S/P/Bld) [Vol rate/Area] 41 mL/min/{1.73_m2} Low >60 [facility] Comment on above: Result Comment: mL/m in/1.73m2 CKD-EPI Creatinine Equation (2020) Performed By: #### L 500.3600 #### [facility] [address] [place], [address] Glucose [Mass/Vol] 106 mg/dL High 70-99 [facility] Comment on above: Performed By: #### L 500.3600 #### [facility] [address] [place], [address] Phosphate [Mass/Vol] 3.3 mg/dL Normal 2.7-4.5 [facility] Comment on above: Performed By: #### L 500.3600 #### [facility] [address] [place], [address] Potassium [Moles/Vol] 4.2 mmol/L Normal 3.3-5.1 [facility] Comment on above: Performed By: #### L 500.3600 #### [facility] [address] [place], [address] Sodium [Moles/Vol] 140 mmol/L Normal 133-145 [facility] Comment on above: Performed By: #### L 500.3600 #### [facility] [address] [place], [place], [address] Urea nitrogen [Mass/Vol] 25 mg/dL High - [facility] Comment on above: Performed By: #### L 500.3600 #### [facility] [address] [place], [address] Serum creatinine measurement (mass/volume)Ordered By: Danni Jimenez on 07-03-2025 Creatinine [Mass/Vol] 1.30 mg/dL High 0.70-1.20 [facility] Serum glucose measurement (m ass/volume)Ordered By: Danni Jimenez on 07-03-2025 Glucose [Mass/Vol] 106 mg/dL High 70-99 [facility] Serum or plasma albumin tanmay urement (mass/volume)Ordered By: Danni Jimenez on 07-03-2025 Albumin [Mass/Vol] 4.0 g/dL 3.4-4.8 [facility] Serum or plasma calcium tanmay urement (mass/volume)Ordered By: Danni Jimenez on 07-03-2025 Calcium [Mass/Vol] 10.1 mg/dL 7.6-11.0 [facility] Serum or plasma urea nitroge n measurement (mass/volume)Ordered By: Danni Jimenez on 07-03-2025 Urea nitrogen [Mass/Vol] 25 mg/dL High 03-01 [facility] Sodium levelOrdered By: Lamin Jimenez on 07-03-2025 Sodium [Moles/Vol] 140 mmol/L 133-145 [facility] ECHOon 05-12-2025 Echocardiography Echocardiography Report: Transthoracic Echo [facility] Date of service: 05/12/2025 9:23:08 AM 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 Primary rhythm: sinus. Height: 157.50 cm BSA: 1.75 m Weight: 69.85 kg BMI: 28.2 kg/m Heart rate 57 bpm Blood pressure 201/99 mmHg Technically difficult exam due to body habitus. Color Doppler was utilized to interrogate the cardiac valves assessed and spectral Doppler was utilized to determine the flow velocities and pressure gradients reported in this exam. Myocardial strain analysis was performed in this exam to aid in the assessment of cardiac function. MEASUREMENTS: Value Indexed Normal Max aortic dimension 3.7 cm Ao < 3.8 Left atrial volume 29 ml (biplane A-L) 16 ml/m Gregorio <= 34 LV ID (diastole) 3.4 cm (2D) 1.94 cm/m LV ID (systole) 2.5 cm (2D) 1.42 cm/m IVS, leaflet tips 1.3 cm (2D) Posterior wall thickness 1.2 cm (2D) Left ventricular mass 141 g (2D) 80 g/m Global peak long strain -19.0 % LV stroke volume 38 ml (2D biplane) LV end diastolic volume 66 ml (2D biplane) 37.8 ml/m 29<=EDVi<62 LV end systolic volume 28 ml (2D biplane) 16.1 ml/m Ejection Fraction 57 % (2D biplane) EF > 54 FINDINGS: LEFT VENTRICLE The left ventricle is normal in size. There is mild concentric left ventricular hypertrophy. Left ventricular systolic function is normal. Global LV myocardial strain is normal. Grade I left ventricular diastolic dysfunction. Mitral annular lateral E/e': 13.1. Mitral annular septal E/e': 15.3. Wall Motion: All scored segments are normal. RIGHT VENTRICLE The right ventricle is normal in size. Right ventricular systolic function is normal. RV systolic tissue Doppler velocity is 7.0 cm/s. Estimated right ventricular systolic pressure is not reported due to an insufficient tricuspid regurgitation signal. Estimated right atrial pressure is 3 mmHg (although IVC not seen). LEFT ATRIUM The left atrial cavity is normal in size. RIGHT ATRIUM The right atrial cavity is normal in size. Inferior Vena Cava: The inferior vena cava appears normal measuring 1.3 cm. MITRAL VALVE The mitral valve leaflets are structurally normal. There is mild mitral annular calcification observed posterior. There is trace mitral valve regurgitation. The pressure half time is 45 msec. The peak mitral E/A ratio is 0.91. The average mitral E/e' ratio is 14.2. The mitral flow deceleration time is 154 msec. TRICUSPID VALVE The tricuspid valve leaflets are structurally normal. There is trace tricuspid valve regurgitation. AORTIC VALVE The aortic valve cusps are structurally normal. There is mild (1+) aortic valve regurgitation. Tricuspid aortic valve. The peak gradient is 8 mmHg (peak velocity = 145.2 cm/s). PULMONIC VALVE The pulmonic valve cusps are structurally normal. There is trace pulmonic valve regurgitation. AORTA The visualized aorta is normal in size. Measurements - Mid ascending aorta 3.7 cm. INTERATRIAL SEPTUM There is no evidence of intracardiac shunting as detected by Doppler. PERICARDIUM There is no pericardial effusion. There is an epicardial fat pad. CONCLUSIONS: - Technically difficult exam due to body habitus. - Exam indication: Shortness of Breath - The left ventricle is normal in size. There is mild concentric left ventricular hypertrophy. Left ventricular systolic function is normal. EF = 57 5% (2D biplane) Grade I left ventricular diastolic dysfunction. - The right ventricle is normal in size. Right ventricular systolic function is normal. - There are no significant valvular abnormalities. - The patient has not had a prior CC echocardiographic exam for comparison. * * * Final * * * [facility] : [id number] csSISUID Normal [facility] CAROTID ARTERIES [facility] 05-12-2025 CAROTID ARTERIES [facility] Non-Invasive Vascular Laboratory [facility] Carotid Duplex Bilateral/Complete Date of service/time: 05/12/2025 8:08:03 AM Name: MS. RACHEAL JAMES Date of : 1940 Age: 84 years Gender: F Clinical Indication Asymptomatic cervical bruit. TECHNIQUE -------- A carotid duplex ultrasound examination was performed, including grayscale imaging and color Doppler and spectral Doppler examination of the below mentioned arteries. FINDINGS -------- RIGHT SIDE Common carotid artery: Origin: PSV: 62 cm/s. EDV: 11 cm/s. Proximal: PSV: 81 cm/s. EDV: 14 cm/s. Mid: PSV: 68 cm/s. EDV: 17 cm/s. Distal: PSV: 83 cm/s. EDV: 20 cm/s. Internal carotid artery: Origin: PSV: 50 cm/s. EDV: 9 cm/s. Proximal: PSV: 62 cm/s. EDV: 19 cm/s. Mid: PSV: 70 cm/s. EDV: 18 cm/s. Distal: PSV: 67 cm/s. EDV: 24 cm/s. ICA/CCA Ratio: 0.7 External carotid artery: Proximal: PSV: 84 cm/s. EDV: 11 cm/s. Subclavian artery: Proximal: PSV: 146 cm/s. EDV: 0 cm/s. Innominate artery: PSV: 81 cm/s. EDV: 0 cm/s. Vertebral artery: PSV: 52 cm/s. EDV: 15 cm/s. LEFT SIDE Common carotid artery: Proximal: PSV: 87 cm/s. EDV: 18 cm/s. Mid: PSV: 85 cm/s. EDV: 21 cm/s. Distal: PSV: 78 cm/s. EDV: 23 cm/s. Internal carotid artery: Origin: PSV: 72 cm/s. EDV: 21 cm/s. Proximal: PSV: 65 cm/s. EDV: 21 cm/s. Mid: PSV: 61 cm/s. EDV: 21 cm/s. Distal: PSV: 64 cm/s. EDV: 23 cm/s. ICA/CCA Ratio: 0.9 External carotid artery: Proximal: PSV: 76 cm/s. EDV: 9 cm/s. Subclavian artery: Proximal: PSV: 78 cm/s. EDV: 0 cm/s. Vertebral artery: PSV: 47 cm/s. EDV: 9 cm/s. IMPRESSION Please note: the new carotid interpretation criteria are used as recommended by [employer]. RIGHT SIDE Common carotid artery: Patent. Internal carotid artery: Normal study. External carotid artery: Patent. Vertebral artery: Patent and antegrade flow noted. Innominate artery: Patent. Subclavian artery: Patent. LEFT SIDE Common carotid artery: Patent. Internal carotid artery: Normal study. External carotid artery: Patent. Vertebral artery: Patent and antegrade flow noted. Subclavian artery: Patent. Technologist: Felisha Peguero RVT Ordering physician: TUAN LUO Interpreting physician: RAMAN Bowers MD Final [facility] : [id number] csSISUID See Link below for Image Normal [facility] RENAL ARTERY [facility] n 05-12-2025 RENAL ARTERY [facility] Non-Invasive Vascular Laboratory [facility] Renal or Mesenteric Duplex Bilateral/Complete Date of service/time: 05/12/2025 8:24:42 AM Name: MS. RACHEAL JAMES Date of : 1940 Age: 84 years Gender: F Clinical Indication Hypertension not responding to medical management. TECHNIQUE -------- A visceral duplex ultrasound examination was performed, including grayscale imaging and color Doppler and spectral Doppler examination of the below mentioned arteries and veins. FINDINGS -------- Aorta at renals PSV: 84 cm/s. EDV: 0 cm/s. Right renal artery origin PSV: 101 cm/s. EDV: 14 cm/s. Right renal artery proximal PSV: 84 cm/s. EDV: 12 cm/s. Right renal artery mid PSV: 143 cm/s. EDV: 43 cm/s. Right renal artery distal PSV: 103 cm/s. EDV: 24 cm/s. Right renal artery to aortic ratio (RAR): 1.7 Right kidney: Size: 9.4 cm. Right parenchyma resistive index and acceleration time Upper pole RI: 0.67 AT: 32 msec. Mid pole RI: 0.67 AT: 20 msec. Lower pole RI: 0.80 AT: 40 msec. Right renal vein patent. Left renal artery origin PSV: 142 cm/s. EDV: 18 cm/s. Left renal artery proximal PSV: 66 cm/s. EDV: 7 cm/s. Left renal artery mid PSV: 111 cm/s. EDV: 17 cm/s. Left renal artery distal PSV: 101 cm/s. EDV: 25 cm/s. Left renal artery to aortic ratio (RAR): 1.7 Left kidney: Size: 8.5 cm. Left parenchyma resistive index and acceleration time Upper pole RI: 0.64 AT: 28 msec. Mid pole RI: 0.68 AT: 16 msec. Lower pole RI: 0.80 AT: 40 msec. Left renal vein patent. IMPRESSION AORTA Aorta is patent at level of the renals RIGHT RENAL Right renal artery: 0-59% stenosis. No evidence of hemodynamically significant stenosis. .9 cm exophytic hypoechoic lesion mid kidney. LEFT RENAL Left renal artery: 0-59% stenosis. No evidence of hemodynamically significant stenosis. Technologist: Felisha Peguero RVT Ordering physician: TUAN LUO Interpreting physician: RAMAN Bowers MD Final [facility] : [id number] csSISUID See Link below for Image Normal [facility] Anion gap in Serum or Plasma Ordered By: Danni Jimenez on 04-25-2025 Anion gap [Moles/Vol] 12 mmol/L - [facility] BUN/creatinine ratioOrdered By: Danni Jimenez on 04-25-2025 Urea nitrogen/Creatinine [Mass ratio] 18.2 mg/mg - [facility] CBC-Complete Blood Cnt No Di ffon 04-25-2025 Erythrocyte distribution width (RBC) [Ratio] 13.4 % Normal 11.6-14.6 [facility] Comment on above: Performed By: #### L 100.0500, L500.3600, L509.1000 #### [facility] [address] [place], [address] Hematocrit (Bld) [Volume fraction] 39.6 % Normal 37-47 [facility] Comment on above: Performed By: #### L 100.0500, L500.3600, [id number] #### [facility] [address] [place], [address] Hemoglobin (Bld) [Mass/Vol] 13.0 g/dL Normal 12.0-15.0 [facility] Comment on above: Performed By: #### L 100.0500, L500.3600, [id number] #### [facility] [address] [place], [address] MCH (RBC) [Entitic mass] 31.5 pg Normal 27.0-32.0 [facility] Comment on above: Performed By: #### L 100.0500, L500.3600, [id number] #### [facility] [address] [place], [address] MCHC (RBC) [Mass/Vol] 32.8 g/dL Normal 32-36 [facility] Comment on above: Performed By: #### L 100.0500, L500.3600, [id number] #### [facility] [address] [place], [address] MCV (RBC) [Entitic vol] 95.9 fL Normal 81-99 [facility] Comment on above: Performed By: #### L 100.0500, L500.3600, L509.1000 #### [facility] [address] [place], [address] Platelet mean volume (Bld) [Entitic vol] 11.0 fL Normal 6.2-12.0 [facility] Comment on above: Performed By: #### L 100.0500, L500.3600, L509.1000 #### [facility] [address] [place], [address] Platelets (Bld) [#/Vol] 211 10*3/uL Normal 150-450 [facility] Comment on above: Performed By: #### L 100.0500, L500.3600, [id number] #### [facility] [address] [place], [address] RBC (Bld) [#/Vol] 4.13 10*6/uL Low 4.2-5.4 [facility] Comment on above: Performed By: #### L 100.0500, L500.3600, L509.1000 #### [facility] [address] [place], [address] RDW SD 47.6 fl High 35.1-43.9 [facility] Comment on above: Performed By: #### L 100.0500, L500.3600, [id number] #### [facility] [address] [place], [address] WBC (Bld) [#/Vol] 9.9 10*3/uL Normal 4.4-11.0 [facility] Comment on above: Performed By: #### L 100.0500, L500.3600, L509.1000 #### [facility] [address] [place], [address] Carbon dioxide, total [Moles /volume] in Central venous bloodOrdered By: Danni Jimenez on 04-25-2025 CO2 [Moles/Vol] 20.0 mmol/L Low 21.0-32.0 [facility] Chloride assayOrdered By: My Jimenez on 04-25-2025 Chloride [Moles/Vol] 109 mmol/L High 98-108 [facility] Erythrocyte distribution wid th ratioOrdered By: Danni Jimenez on 04-25-2025 Erythrocyte distribution width (RBC) [Ratio] 13.4 % 11.6-14.6 [facility] Erythrocyte distribution wid th standard deviationOrdered By: Danni Jimenez on 04-25-2025 Erythrocyte distribution width (RBC) [Ratio] 47.6 fl High 35.1-43.9 [facility] Glomerular filtration rate ( GFR) estimation/1.73 sq m using serum, plasma, or whole bOrdered By: Danni Jimenez on 04-25-2025 GFR/1.73 sq M.predicted among non-blacks MDRD (S/P/Bld) [Vol rate/Area] 41 mL/min/{1.73_m2} Low >60 [facility] Comment on above: mL/min/1.73m2 CKD-EP I Creatinine Equation (2020) Hematocrit Auto (Bld) [Volum e fraction]Ordered By: Danni Jimenez on 04-25-2025 Hematocrit (Bld) [Volume fraction] 39.6 % 37-47 [facility] Hemoglobin measurementOrdere d By: Danni Jimenez on 04-25-2025 Hemoglobin (Bld) [Mass/Vol] 13.0 g/dL 12.0-15.0 [facility] MCV (mean corpuscular volume ) determinationOrdered By: Danni Jimenez on 04-25-2025 MCV (RBC) [Entitic vol] 95.9 fL 81-99 [facility] Mean corpuscular hemoglobin (MCH) determinationOrdered By: Danni Jimenez on 04-25-2025 MCH (RBC) [Entitic mass] 31.5 pg 27.0-32.0 [facility] Mean corpuscular hemoglobin concentration (MCHC) determinationOrdered By: Danni Jimenez on 04-25-2025 MCHC (RBC) [Mass/Vol] 32.8 g/dL 32-36 [facility] Mean platelet volume determi nationOrdered By: Danni Jimenez on 04-25-2025 Platelet mean volume (Bld) [Entitic vol] 11.0 fL 6.2-12.0 [facility] PTHINon 04-25-2025 PTH 78 pg/mL High 11-61 [facility] Comment on above: Performed By: #### L 100.0500, L500.3600, L509.1000 #### [facility] [address] [place], [address] Platelet countOrdered By: My Jimenez on 04-25-2025 Platelets (Bld) [#/Vol] 211 10*3/uL 150-450 [facility] Potassium measurement (mass/ volume)Ordered By: Danni Jimenez on 04-25-2025 Potassium (Unsp spec) [Mass/Vol] 4.3 mmol/L 3.3-5.1 [facility] RBC Auto (Bld) [#/Vol]Ordere d By: Danni Jimenez on 04-25-2025 RBC (Bld) [#/Vol] 4.13 10*6/uL Low 4.2-5.4 [facility] Renal Profileon 04-25-2025 Albumin [Mass/Vol] 3.9 g/dL Normal 3.4-4.8 [facility] Comment on above: Order Comment: CBC Performed By: #### L 100.0500, L500.3600, [id number] #### [facility] [address] [place], [address] BUN/CRE 18.2 RATIO Normal 10-20 [facility] Comment on above: Order Comment: CBC Performed By: #### L 100.0500, L500.3600, [id number] #### [facility] [address] [place], [address] Calcium [Mass/Vol] 9.9 mg/dL Normal 7.6-11.0 [facility] Comment on above: Order Comment: CBC Performed By: #### L 100.0500, L500.3600, [id number] #### [facility] [address] [place], [address] Chloride [Moles/Vol] 109 mmol/L High 98-108 [facility] Comment on above: Order Comment: CBC Performed By: #### L 100.0500, L500.3600, [id number] #### [facility] [address] [place], [address] CO2 [Moles/Vol] 20.0 mmol/L Low 21.0-32.0 [facility] Comment on above: Order Comment: CBC Performed By: #### L 100.0500, L500.3600, [id number] #### [facility] [address] [place], [address] Creatinine [Mass/Vol] 1.28 mg/dL High 0.70-1.20 [facility] Comment on above: Order Comment: CBC Performed By: #### L 100.0500, L500.3600, [id number] #### [facility] [address] [place], [address] GAP 12 Normal 5-15 [facility] Comment on above: Order Comment: CBC Performed By: #### L 100.0500, L500.3600, [id number] #### [facility] [address] [place], [address] GFR/1.73 sq M.predicted among non-blacks MDRD (S/P/Bld) [Vol rate/Area] 41 mL/min/{1.73_m2} Low >60 [facility] Comment on above: Order Comment: CBC Result Comment: mL/m in/1.73m2 CKD-EPI Creatinine Equation (2020) Performed By: #### L 100.0500, L500.3600, [id number] #### [facility] [address] [place], [address] Glucose [Mass/Vol] 102 mg/dL High 70-99 [facility] Comment on above: Order Comment: CBC Performed By: #### L 100.0500, L500.3600, [id number] #### [facility] [address] [place], [place], [address] Phosphate [Mass/Vol] 3.4 mg/dL Normal 2.7-4.5 [facility] Comment on above: Order Comment: CBC Performed By: #### L 100.0500, L500.3600, L509.1000 #### [facility] [address] [place], [address] Potassium [Moles/Vol] 4.3 mmol/L Normal 3.3-5.1 [facility] Comment on above: Order Comment: CBC Performed By: #### L 100.0500, L500.3600, L509.1000 #### [facility] [address] [place], [address] Sodium [Moles/Vol] 141 mmol/L Normal 133-145 [facility] Comment on above: Order Comment: CBC Performed By: #### L 100.0500, L500.3600, L509.1000 #### [facility] [address] [place], [address] Urea nitrogen [Mass/Vol] 23 mg/dL High 4-19 [facility] Comment on above: Order Comment: CBC Performed By: #### L 100.0500, L500.3600, L509.1000 #### [facility] [address] [place], [address] Serum creatinine measurement (mass/volume)Ordered By: Danni Jimenez on 04-25-2025 Creatinine [Mass/Vol] 1.28 mg/dL High 0.70-1.20 [facility] Serum glucose measurement (m ass/volume)Ordered By: Danni Jimenez on 04-25-2025 Glucose [Mass/Vol] 102 mg/dL High 70-99 [facility] Serum or plasma albumin tanmay urement (mass/volume)Ordered By: Danni Jimenez on 04-25-2025 Albumin [Mass/Vol] 3.9 g/dL 3.4-4.8 [facility] Serum or plasma calcium tanmay urement (mass/volume)Ordered By: Danni Jimenez on 04-25-2025 Calcium [Mass/Vol] 9.9 mg/dL 7.6-11.0 [facility] Serum or plasma urea nitroge n measurement (mass/volume)Ordered By: Danni Jimenez on 04-25-2025 Urea nitrogen [Mass/Vol] 23 mg/dL High 4-19 [facility] Sodium levelOrdered By: Lamin Jimenez on 04-25-2025 Sodium [Moles/Vol] 141 mmol/L 133-145 [facility] White blood cell (WBC) count Ordered By: Danni Jimenez on 04-25-2025 WBC (Bld) [#/Vol] 9.9 10*3/uL 4.4-11.0 [facility] CNOVon 04-15-2025 CNOV Office Visit (FAMPWS ) RACHEAL JAMES ([id number]) 1940 F NFR Date Time Provider Department 04/15/25 10:00 AM [facility] During your visit today, we recorded the following information about you: Temperature Pulse Respiration Blood pressure 97.3 degrees 60/minute 20/minute 190/90 Weight 69.9 kg Tuan Luo DO 04/16/2025 12:42 PM Signed CC: Racheal James is a 84 year old female who presents to the office for follow up HPI: Bronchitis, cough, chest congestion, mild yellow sputum the last few weeks, no hemoptysis, no fevers or chills. No ill contacts. Trying mucinex CKD stage 3, seeing Dr. Danni Jimenez [facility] on 04/30 for follow up Patient states hat she is going to [facility] office in April for follow up for whole skin check. Hx of skin cancers in the past. HPL, taking pravastatin medication HTN, taking medication as prescribed, still BLOOD PRESSURE seems to be elevated. She is asymptomatic. Denies any CP or dyspnea or dizziness/Lh or edema. She is wondering what else to do for this. 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 Byers COLONOSCOPY W/BIOPSY 05/31/16 diverticulosis, polyp COLONOSCOPY FLX DX W/COLLJ SPEC WHEN PFRMD 03/09/2001 Colonoscopy COLONOSCOPY FLX DX W/COLLJ SPEC WHEN PFRMD 04/05/2006 Colonoscopy COLONOSCOPY FLX DX W/COLLJ SPEC WHEN PFRMD 05/06/2011 Colonoscopy LIG/TRNSXJ FLP TUBE ABDL/VAG APPR UNI/BI Tubal ligation TOTAL THYROID LOBECTOMY UNI W/WO ISTHMUSECTOMY 04/01/08 RIGHT THYROID UNLISTED PROCEDURE HANDS/FINGERS 04/03/13 Right trigger finger Current Outpatient Medications Medication Sig amoxicillin-clavulanat e potassium (AUGMENTIN) 875-125 mg per tablet Take 1 tablet by mouth every 12 hours. hydrALAZINE (APRESOLINE) 25 mg tablet Take 1 tablet by mouth three times a day. Hold thismedication if BP less than 140 systolic pravastatin (PRAVACHOL) 10 mg tablet Take 1 tablet by mouth daily at bedtime. losartan (COZAAR) 50 mg tablet Take 1 tablet by mouth once daily. metoprolol succinate ER (TOPROL XL) 100 mg Take 1 tablet by mouth once daily. Take in addition to 25 mg XL once a day metoprolol succinate ER (TOPROL XL) 25 mg 24 hr tablet Take 1 tablet by mouth once daily. Take in addition to 100 mg XL once a day levothyroxine (SYNTHROID) 100 mcg tablet Take 1 tablet by mouth once daily. valACYclovir (VALTREX) 500 mg tablet Take 1 tablet by mouth once daily. MULTIVITAMIN WITH MINERALS (HAIR,SKIN AND NAILS ORAL) Take 1 tablet by mouth once daily. ASPIRIN 81 MG ORAL TAB Take one(1) tablet daily. No current facility-administered medications for this visit. ALLERGIES Allergen Reactions Clonidine Norvasc [Amlodipine* Other: See Comments Hair loss Prednisone Other: See Comments Elevated BP and nausea Social History Tobacco Use Smoking status: Never Smokeless tobacco: Never Vaping Use Vaping status: Never Used Substance Use Topics Alcohol use: No Drug use: No ROS: See HPI PE: BP 190/90[BP zaina 188/91[ Pulse 60 Temp (Src) 97.3 (Left Tympanic) Resp 20 Wt 154 lb (69.9kg) Gen: AANDOX3, NAD, non-toxic appearing, cooperative, well dressed HEENT: PERRLA, EOMs intact b/l, nares with posterior drainage, + sinus TTP maxillary b/l, pharynx without erythema, exudate, lesions, or drainage. Uvula midline. MMM, impaired / hearing deficit Neck: No LAD, no thyromegaly, no meningismus. ? Right carotid bruit CV: RRR, 1/6 HSM RUSB soft blowing murmur Lungs: CTA b/l, no wheezing Skin: + actinic keratosis left superior forehead at hair line No edema, normal peripheral pulses ASSESSMENT/PLAN: 1. Uncontrolled hypertension - ICD9: 401.9, ICD10: I10 (primary diagnosis) - Uncontrolled - Factors affecting control: diet adherence and lack of exercise - Recommend home blood pressure monitoring, to bring results to next (more content not included)... Normal [facility] ECG COMPLETEon 04-15-2025 ECG COMPLETE Ventricular Rate : 5 7 BPM Atrial Rate : 57 BPM P-R Interval : 206 ms QRS Duration : 90 ms Q-T Interval : 396 ms QTC Calculation(Bazett) : 385 ms Calculated P Lenoir : 26 degrees Calculated R Lenoir : -26 degrees Calculated T Lenoir : 11 degrees SINUS BRADYCARDIA Poor R-wave progression Confirmed by MD DANIELLE, QAGILES ([id number]) on 05/07/2025 1:31:47 PM NAME : RACHEAL JAMES PID : [id number] : 1940 Gender : Female Race : ORD : [id number] Procedure Date : Apr 15 2025 10:55:09 Edit Date : May 07 2025 13:31:51 Diagnosis: SINUS BRADYCARDIA Poor R-wave progression Confirmed by MD SANTOS QARAB ([id number]) on 05/07/2025 1:31:47 PM Test Reason : R01.1 Cardiac murmur, previously undiagnosed Location : 185 : [facility] Overread By : MD SANTOS QARAB Edited By : MD SANTOS QARAB Referred By : , Acquired by : shawn garcia, Normal [facility] UA DIP, URINE (POC)on 2024 BILIRUBIN UA (POCT) Negative Negative [facility] CLARITY UA (POCT) Clear [facility] COLOR UA (POCT) Yellow [facility] GLUCOSE UA (POCT) Negative Negative mg/dL [facility] Hemoglobin Ql (U) Negative Negative [facility] KETONE UA (POCT) Negative Negative mg/dL [facility] LEUKOCYTES UA (POCT) Negative Negative [facility] NITRITE UA (POCT) Negative Negative [facility] PH UA (POCT) 6.5 4.5 - 8.0 [facility] Protein Ql (U) Negative Negative mg/dL [facility] SPECIFIC GRAVITY UA (POCT) 1.01 1.005 - 1.030 [facility] UROBILINOGEN UA (POCT) 0.2 Mena l E.U./dL [facility] Location:[address], [address] [place] [address] [facility] CBC panel Auto (Bld)on 04-08 Erythrocyte distribution width (RBC) [Ratio] 13.1 % Normal 11.5-15.0 [facility] Comment on above: Order Comment: Speci men Type: BLOOD SPECIMENOrdering Facility: [facility] Address: [address] [place] [address] Performed By: #### 5 8410-2 ####[facility] LABCLIA [id number] [address] [place] Hematocrit (Bld) [Volume fraction] 41.7 % Normal 36.0-46.0 [facility] Comment on above: Order Comment: Speci men Type: BLOOD SPECIMENOrdering Facility: [facility] Address: [address] [place] [address] Performed By: #### 5 8410-2 ####[facility] LABIA [id number] [place] [address] [place] Hemoglobin (Bld) [Mass/Vol] 13.3 g/dL Normal 11.5-15.5 [facility] Comment on above: Order Comment: Speci men Type: BLOOD SPECIMENOrdering Facility: [facility] Address: [address] [place] [address] Performed By: #### 5 8410-2 ####[facility] LABIA [id number] [place] [address] [place] MCH (RBC) [Entitic mass] 31.2 pg Normal 26.0-34.0 [facility] Comment on above: Order Comment: Speci men Type: BLOOD SPECIMENOrdering Facility: [facility] Address: [address] [place] [address] Performed By: #### 5 8410-2 ####[facility] LABIA [id number] [place] [address] [place] MCHC (RBC) [Mass/Vol] 31.9 g/dL Normal 30.5-36.0 [facility] Comment on above: Order Comment: Speci men Type: BLOOD SPECIMENOrdering Facility: [facility] Address: [address] [place] [address] Performed By: #### 5 8410-2 ####[facility] LABIA [id number] [place] [address] [place] MCV (RBC) [Entitic vol] 97.9 fL Normal 80.0-100.0 [facility] Comment on above: Order Comment: Speci men Type: BLOOD SPECIMENOrdering Facility: [facility] Address: [address] [place] [address] Performed By: #### 5 8410-2 ####[facility] LABCLIA [id number] [place] [address] [place] Nucleated RBC (Bld) [#/Vol] 10*3/uL Normal <0.01 [facility] Comment on above: Order Comment: Speci men Type: BLOOD SPECIMENOrdering Facility: [facility] Address: [address] [place] [address] Performed By: #### 5 8410-2 ####[facility] LABCLIA [id number] [place] [address] [place] Platelet mean volume (Bld) [Entitic vol] 11.4 fL Normal 9.0-12.7 [facility] Comment on above: Order Comment: Speci men Type: BLOOD SPECIMENOrdering Facility: [facility] Address: [address] [place] [address] Performed By: #### 5 8410-2 ####[facility] LABCLIA [id number] [place] [address] [place] Platelets (Bld) [#/Vol] 201 10*3/uL Normal 150-400 [facility] Comment on above: Order Comment: Speci men Type: BLOOD SPECIMENOrdering Facility: [facility] Address: [address] [place] [address] Performed By: #### 5 8410-2 ####[facility] LABCLIA [id number] [place] [id number] [place] RBC (Bld) [#/Vol] 4.26 10*6/uL Normal 3.90-5.20 [facility] Comment on above: Order Comment: Speci men Type: BLOOD SPECIMENOrdering Facility: [facility] Address: [address] [place] [address] Performed By: #### 5 8410-2 ####[facility] LABCLIA [id number] [address] [address] [place] WBC (Bld) [#/Vol] 8.27 10*3/uL Normal 3.70-11.00 [facility] Comment on above: Order Comment: Speci men Type: BLOOD SPECIMENOrdering Facility: [facility] Address: [address] [place] [address] Performed By: #### 5 8410-2 ####[facility] LABCLIA [id number] [address] [address] [place] Comprehensive metabolic 2000 panelon 04-08-2025 Albumin [Mass/Vol] 4.1 g/dL Normal 3.9-4.9 [facility] Comment on above: Order Comment: Speci men Type: BLOOD SPECIMENOrdering Facility: [facility] Address: [address] [place] [address] Performed By: #### 1 9123-9, 82322-1, 3016-3 ####[facility] LABIA [id number] [address] [address] [place] ALP [Catalytic activity/Vol] 51 U/L Normal 34-123 [facility] Comment on above: Order Comment: Speci men Type: BLOOD SPECIMENOrdering Facility: [facility] Address: [address] [place] [address] Performed By: #### 1 9123-9, 94396-4, 3016-3 ####[facility] LABCLIA [id number] [address] [address] [place] ALT [Catalytic activity/Vol] 24 U/L Normal 7-38 [facility] Comment on above: Order Comment: Speci men Type: BLOOD SPECIMENOrdering Facility: [facility] Address: [address] [place] [address] Performed By: #### 1 9123-9, 13793-7, 3016-3 ####[facility] LABCLIA [id number] [place] [id number] [place] Anion gap [Moles/Vol] 10 mmol/L Normal 8-15 [facility] Comment on above: Order Comment: Speci men Type: BLOOD SPECIMENOrdering Facility: [facility] Address: [address] [place] [address] Performed By: #### 1 9123-9, 09168-8, 3016-3 ####[facility] LABCLIA [id number] [place] [id number] [place] AST [Catalytic activity/Vol] 30 U/L Normal 13-35 [facility] Comment on above: Order Comment: Speci men Type: BLOOD SPECIMENOrdering Facility: [facility] Address: [address] [place] [address] Performed By: #### 1 9123-9, 97609-1, 3016-3 ####[facility] LABCLIA [id number] [place] [address] [place] Bilirubin [Mass/Vol] 0.9 mg/dL Normal 0.2-1.3 [facility] Comment on above: Order Comment: Speci men Type: BLOOD SPECIMENOrdering Facility: [facility] Address: [address] [place] [address] Performed By: #### 1 9123-9, 35203-4, 3016-3 ####[facility] LABCLIA [id number] [place] [id number] [place] Calcium [Mass/Vol] 10.3 mg/dL High 8.5-10.2 [facility] Comment on above: Order Comment: Speci men Type: BLOOD SPECIMENOrdering Facility: [facility] Address: [address] [place] [address] Performed By: #### 1 9123-9, 26540-3, 3016-3 ####[facility] LABCLIA [id number] [place] [id number] [place] Chloride [Moles/Vol] 106 mmol/L Normal 98-107 [facility] Comment on above: Order Comment: Speci men Type: BLOOD SPECIMENOrdering Facility: [facility] Address: [address] [place] [address] Performed By: #### 1 9123-9, 45455-0, 3016-3 ####[facility] LABCLIA [id number] [place] [address] [place] CO2 [Moles/Vol] 25 mmol/L Normal 22-30 [facility] Comment on above: Order Comment: Speci men Type: BLOOD SPECIMENOrdering Facility: [facility] Address: [address] [place] [address] Performed By: #### 1 9123-9, 62247-6, 3016-3 ####[facility] LABCLIA [id number] [place] [address] [place] Creatinine [Mass/Vol] 1.36 mg/dL High 0.58-0.96 [facility] Comment on above: Order Comment: Speci men Type: BLOOD SPECIMENOrdering Facility: [facility] Address: [address] [place] [address] Performed By: #### 1 9123-9, 94306-2, 3016-3 ####[facility] LABCLIA [id number] [place] [address] [place] Creatinine and Glomerular filtration rate.predicted panel (S/P/Bld) 38 mL/min/1.73m??? Low >=60 [facility] Comment on above: Order Comment: Speci men Type: BLOOD SPECIMENOrdering Facility: [facility] Address: [address] [place] [address] Result Comment: Sugar mated Glomerular Filtration Rate (eGFR) is calculated using the 2020 CKD-EPI creatinine equation. This equation utilizes serum creatinine, sex, and age as parameters. The creatinine assay has traceable calibration to isotope dilution-mass spectrometry. Refer to KDIGO guidelines for clinical interpretation. In patients with unstable renal function, e.g. those with acute kidney injury, the eGFR may not accurately reflect actual GFR. Performed By: #### 1 9123-9, 33997-7, 3015-3 ####[facility] LABCLIA [id number] [address] [address] [place] Glucose [Mass/Vol] 92 mg/dL Normal 74-99 [facility] Comment on above: Order Comment: Og page Type: BLOOD SPECIMENOrdering Facility: [facility] Address: [address] [place] [address] Result Comment: The [place] [employer] (ADA) provides guidance for cutoff values for fasting glucose and random glucose. The ADA defines fasting as no caloric intake for at least 8 hours. Fasting plasma glucose results between 100 to 125 mg/dL indicate increased risk for diabetes (prediabetes). Fasting plasma glucose results greater than or equal to 126 mg/dL meet the criteria for diagnosis of diabetes. In the absence of unequivocal hyperglycemia, results should be confirmed by repeat testing. In a patient with classic symptoms of hyperglycemia or hyperglycemic crisis, random plasma glucose results greater than or equal to 200 mg/dL meet the criteria for diagnosis of diabetes. Reference: Standards of Medical Care in Diabetes 2016, [place] [employer]. Diabetes Care. 2016.39(Suppl 1). Performed By: #### 1 9123-9, , 3 ####[facility] LABCLIA [id number] [address] [address] [place] Potassium [Moles/Vol] 4.5 mmol/L Normal 3.7-5.1 [facility] Comment on above: Order Comment: Og page Type: BLOOD SPECIMENOrdering Facility: [facility] Address: [address] [place] [address] Performed By: #### 1 9123-9, 36453-9, 3 ####[facility] LABCLIA [id number] [facility] [id number] [place] [address] [place] Protein [Mass/Vol] 6.7 g/dL Normal 6.3-8.0 [facility] Comment on above: Order Comment: Speci men Type: BLOOD SPECIMENOrdering Facility: [facility] Address: [address] [place] [address] Performed By: #### 1 9123-9, 36189-8, 3016-3 ####[facility] LABCLIA [id number] [place] [id number] [place] Sodium [Moles/Vol] 141 mmol/L Normal 136-144 [facility] Comment on above: Order Comment: Speci men Type: BLOOD SPECIMENOrdering Facility: [facility] Address: [address] [place] [address] Performed By: #### 1 9123-9, 53652-0, 3016-3 ####[facility] LABCLIA [id number] [place] [address] [place] Urea nitrogen [Mass/Vol] 23 mg/dL High 7-21 [facility] Comment on above: Order Comment: Speci men Type: BLOOD SPECIMENOrdering Facility: [facility] Address: [address] [place] [address] Performed By: #### 1 9123-9, 56343-6, 3016-3 ####[facility] LABIA [id number] [place] [id number] [place] Magnesium SerPl-mCncon 04-08 Magnesium [Mass/Vol] 2.3 mg/dL Normal 1.7-2.3 [facility] Comment on above: Order Comment: Speci men Type: BLOOD SPECIMENOrdering Facility: [facility] Address: [address] [place], [place] [address] Performed By: #### 1 9123-9, 00329-2, 3016-3 ####[facility] LABCLIA [id number] [place] [id number] [place] TSH SerPl-aCncon 04-08-2025 TSH Qn 1.440 m[IU]/L Normal 0.270-4.200 [facility] Comment on above: Order Comment: Speci men Type: BLOOD SPECIMENOrdering Facility: [facility] Address: [address] [place] [address] Performed By: #### 1 9123-9, 00507-4, 3016-3 ####[facility] LABCLIA [id number] SAMIA MARQUEZ [address] [facility] CNOVon 01-13-2025 CNOV Office Visit (FAMPWS ) RACHEAL JAMES ([id number]) 1940 F NFR Date Time Provider Department 01/13/25 10:40 AM [facility] During your visit today, we recorded the following information about you: Temperature Pulse Respiration Blood pressure 96.2 degrees 64/minute 20/minute 144/88 Weight 69.9 kg Tuan Luo, 01/13/2025 12:15 PM Signed CC: Racheal Otilio James is a 84 year old female who presents to the office for follow up HPI: BLOOD PRESSURE seems overall to be better regulated. Typical range of 130s/80s. Lows of 120s / 80s. Monitors her BLOOD PRESSURE at home. Denies any CP or dyspnea or dizziness/Lh symptoms No CP or dyspnea or dizziness/Lh. No recent falls. She has her granddaughter helping her with mowing and outdoor work in the Spring and summer. Currently her son is also helping her with meals/food Low back pain, DJD and DDD lumbar spine. Has had an epidural injection in the lumbar spine by Dr. Bryson without relief. Then had an alternative type of injection with some relief which will be repeated upcoming. Avoids NSAIDs. She does take tylenol up to 500 mg twice a day for pain, no new bowel or bladder loss of control. She felt that the gabapentin given caused her to have insomnia. She has now been given rx for Tramadol by Dr. Bryson but hasn't started this yet. CKD stage 3, hypertensive kidney disease, has been seen in the past by Dr. Danni Jimenez Nephrology, levels are stable, asymptomatic Chronic intermittent constipation, overall has been stable Glucose (mg/dL) Date Value 01/09/2025 96 06/14/2021 102 Potassium (mmol/L) Date Value 01/09/2025 4.0 06/14/2021 4.3 Sodium (mmol/L) Date Value 01/09/2025 140 06/14/2021 138 Chloride (mmol/L) Date Value 01/09/2025 107 06/14/2021 104 CO2 (mmol/L) Date Value 01/09/2025 20 06/14/2021 21 Creatinine (mg/dL) Date Value 01/09/2025 1.22 06/14/2021 1.25 BUN (mg/dL) Date Value 01/09/2025 29 06/14/2021 23 Anion Gap (mmol/L) Date Value 01/09/2025 13 06/14/2021 13 Calcium (mg/dL) Date Value 06/14/2021 10.0 Calcium, Total (mg/dL) Date Value 01/09/2025 10.0 Protein, Total (g/dL) Date Value 01/09/2025 6.9 06/08/2021 7.5 Albumin (g/dL) Date Value 01/09/2025 4.1 06/08/2021 3.9 Bilirubin, Total (mg/dL) Date Value 01/09/2025 0.9 06/08/2021 1.0 Alkaline Phosphatase (U/L) Date Value 01/09/2025 53 06/08/2021 63 AST (U/L) Date Value 01/09/2025 23 06/08/2021 25 ALT (U/L) Date Value 01/09/2025 19 06/08/2021 14 Hemoglobin (g/dL) Date Value 01/09/2025 13.6 04/21/2021 14.3 Hematocrit (%) Date Value 01/09/2025 42.0 04/21/2021 42.6 WBC (k/uL) Date Value 01/09/2025 8.24 04/21/2021 7.06 PAST MEDICAL HISTORY Diagnosis Date Advance directive discussed with patient 01/28/2022 DPJOYCE Conor her son Benign neoplasm of colon FHx of colon cancer Carpal tunnel syndrome Chronic renal insufficiency stage 4 CKD stage G3b/A1, GFR 30-44 and albumin creatinine ratio <30 mg/g (HCC) Diverticulosis of colon (without mention of hemorrhage) Essential hypertension, benign White coat effect Hyperlipidemia Hyperuricemia 04/2021 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 Byers COLONOSCOPY W/BIOPSY 05/31/16 diverticulosis, polyp COLONOSCOPY FLX DX W/COLLJ SPEC WHEN PFRMD 03/09/2001 Colonoscopy COLONOSCOPY FLX DX W/COLLJ SPEC WHEN PFRMD 04/05/2006 Colonoscopy COLONOSCOPY FLX DX W/COLLJ SPEC WHEN PFRMD 05/06/2011 Colonoscopy LIG/TRNSXJ FLP TUBE ABDL/VAG APPR UNI/BI Tubal ligation TOTAL THYROID LOBECTOMY UNI W/WO ISTHMUSECTOMY 04/01/08 RIGHT THYROID UNLISTED PROCEDURE HANDS/FINGERS 04/03/13 Right trigger finger Social History: Social History Tobacco Use Smoking status: Never Smokeless tobacco: Never Vaping Use Vaping status: Never Used Substance Use Topics Alcohol use: No Drug use: No FAMILY HISTORY Problem Relation Age of Onset Colon Cancer Mother Hypertension Mother Cancer Sister thyroid Breast Cancer Sister Cancer Maternal Grandmother Stroke Paternal Grandfather Psychiatry Son suicide Current Outpatient prescriptions: losartan (COZAAR) 50 mg tablet Take 1 tablet by mouth once daily. metoprolol succinate ER (TOPROL XL) 100 mg Take 1 tablet by mouth once daily. Take in addition to 25 mg XL once a day metoprolol succinate ER (TOPROL XL) 25 mg 24 hr tablet Take 1 ta (more content not included)... Normal [facility] CBC panel Auto (Bld)on 01-09 Erythrocyte distribution width (RBC) [Ratio] 14.3 % Normal 11.5-15.0 [facility] Comment on above: Order Comment: Speci men Type: BLOOD SPECIMENOrdering Facility: [facility] Address: [address] [place] [address] Performed By: #### 5 8410-2 ####[facility] [id number] [place] [address] [place] Hematocrit (Bld) [Volume fraction] 42.0 % Normal 36.0-46.0 [facility] Comment on above: Order Comment: Speci men Type: BLOOD SPECIMENOrdering Facility: [facility] Address: [address] [place] [address] Performed By: #### 5 8410-2 ####[facility] [id number] [place] [address] [place] Hemoglobin (Bld) [Mass/Vol] 13.6 g/dL Normal 11.5-15.5 [facility] Comment on above: Order Comment: Speci men Type: BLOOD SPECIMENOrdering Facility: [facility] Address: [address] [place] [address] Performed By: #### 5 8410-2 ####[facility] [id number] [place] [address] [place] MCH (RBC) [Entitic mass] 31.6 pg Normal 26.0-34.0 [facility] Comment on above: Order Comment: Speci men Type: BLOOD SPECIMENOrdering Facility: [facility] Address: [address] [place] [address] Performed By: #### 5 8410-2 ####[facility] [id number] [place] [address] [place] MCHC (RBC) [Mass/Vol] 32.4 g/dL Normal 30.5-36.0 [facility] Comment on above: Order Comment: Speci men Type: BLOOD SPECIMENOrdering Facility: [facility] Address: [address] [place] [address] Performed By: #### 5 8410-2 ####[facility] SENAITATLANTAPRIMITIVO [id number] [place] [address] [place] MCV (RBC) [Entitic vol] 97.7 fL Normal 80.0-100.0 [facility] Comment on above: Order Comment: Speci men Type: BLOOD SPECIMENOrdering Facility: [facility] Address: [address] [place] [address] Performed By: #### 5 8410-2 ####[facility] [id number] [place] [address] [place] Nucleated RBC (Bld) [#/Vol] 10*3/uL Normal <0.01 [facility] Comment on above: Order Comment: Speci men Type: BLOOD SPECIMENOrdering Facility: [facility] Address: [address] [place] [address] Performed By: #### 5 8410-2 ####[facility] [id number] [place] [address] [place] Platelet mean volume (Bld) [Entitic vol] 11.0 fL Normal 9.0-12.7 [facility] Comment on above: Order Comment: Speci men Type: BLOOD SPECIMENOrdering Facility: [facility] Address: [address] [place] [address] Performed By: #### 5 8410-2 ####[facility]ITALNCLI [id number] [place] [address] [place] Platelets (Bld) [#/Vol] 224 10*3/uL Normal 150-400 [facility] Comment on above: Order Comment: Speci men Type: BLOOD SPECIMENOrdering Facility: [facility] Address: [address] [place] [address] Performed By: #### 5 8410-2 ####[facility] FLORIDAWNCLIA [id number] [place] [address] [place] RBC (Bld) [#/Vol] 4.30 10*6/uL Normal 3.90-5.20 [facility] Comment on above: Order Comment: Speci men Type: BLOOD SPECIMENOrdering Facility: [facility] Address: [address] [place] [address] Performed By: #### 5 8410-2 ####[facility]ITALNCLIA [id number] [place] [address] [place] WBC (Bld) [#/Vol] 8.24 10*3/uL Normal 3.70-11.00 [facility] Comment on above: Order Comment: Speci men Type: BLOOD SPECIMENOrdering Facility: [facility] Address: [address] [place] [address] Performed By: #### 5 8410-2 ####[facility] [id number] [place] [address] [place] Comprehensive metabolic 2000 panelon 01-09-2025 Albumin [Mass/Vol] 4.1 g/dL Normal 3.9-4.9 [facility] Comment on above: Order Comment: Speci men Type: BLOOD SPECIMENOrdering Facility: [facility] Address: [address] [place] [address] Performed By: #### 1 9123-9, 20379-9 ####[facility]ITALNCLIA [id number] [place] [address] [place]#### 80244-2 ####[facility] LABCLIA [id number] [address] [address] [place]#### 04631-8 ####[facility] LABCLIA [id number] [address] [address] [place] [facility]ENTERWNCLIA [id number] [place] [address] [place] ALP [Catalytic activity/Vol] 53 U/L Normal 34-123 [facility] Comment on above: Order Comment: Speci men Type: BLOOD SPECIMENOrdering Facility: [facility] Address: [address] [place] [address] Performed By: #### 1 9123-9, 24400-9 ####[facility] MILLWNCLIA [id number] [place] [address] [place]#### 54216-9 ####[facility] LABCLIA [id number] [place] [address] [place]#### 03049-7 ####[facility] LABCLIA [id number] [place] [address] [place] [facility]AD[facility] [id number] [place] [address] [place] ALT [Catalytic activity/Vol] 19 U/L Normal 7-38 [facility] Comment on above: Order Comment: Speci men Type: BLOOD SPECIMENOrdering Facility: [facility] Address: [address] [place], [place] [address] Performed By: #### 1 9123-9, 71137-5 ####[facility] MILLTOWNCLIA [id number] [place] [address] [place]#### 45684-1 ####[facility] LABCLIA [id number] [place] [address] [place]#### 66561-9 ####[facility] LABCLIA [id number] [place] [address] [place] AMERICAHCA [facility]OSPITALA [id number] [place] [address] [place] Anion gap [Moles/Vol] 13 mmol/L Normal 8-15 [facility] Comment on above: Order Comment: Speci men Type: BLOOD SPECIMENOrdering Facility: [facility] Address: [address] [place] [address] Performed By: #### 1 9123-9, 20799-4 ####[facility] MILLTOWNCLIA [id number] [place] [address] [place]#### 14832-2 ####[facility] LABCLIA [id number] [place] [address] [place]#### 33404-8 ####[facility] LABCLIA [id number] [place] [address] [place] AMERICAHCA [facility]OSPITALA [id number] [place] [address] [place] AST [Catalytic activity/Vol] 23 U/L Normal 13-35 [facility] Comment on above: Order Comment: Speci men Type: BLOOD SPECIMENOrdering Facility: [facility] Address: [address] [place] [address] Performed By: #### 1 9123-9, 51116-4 ####[facility] MILLTOWNCLIA [id number] [place] [address] [place]#### 28140-0 ####[facility] LABCLIA [id number] [place] [address] [place]#### 69588-8 ####[facility] LABCLIA [id number] [place] [address] [place] AMERICAKETTERING HEALTH W[facility] DONAKERBS MEMORIAL HOSPITALWNCLIA [id number] [place] [address] [place] Bilirubin [Mass/Vol] 0.9 mg/dL Normal 0.2-1.3 [facility] Comment on above: Order Comment: Speci men Type: BLOOD SPECIMENOrdering Facility: [facility] Address: [address] [place] [address] Performed By: #### 1 9123-9, 18703-9 ####[facility] MILLTOWNCLIA [id number] [place] [address] [place]#### 97603-0 ####[facility] LABCLIA [id number] [place] [address] [place]#### 02396-9 ####[facility] LABCLIA [id number] [place] [address] [place] AMERICAHCA [facility]OSPITALA [id number] [place] [address] [place] Calcium [Mass/Vol] 10.0 mg/dL Normal 8.5-10.2 [facility] Comment on above: Order Comment: Speci men Type: BLOOD SPECIMENOrdering Facility: [facility] Address: [address] [place] [address] Performed By: #### 1 9123-9, 06898-3 ####[facility] MILLWNCLIA [id number] [place] [address] [place]#### 36315-7 ####[facility] LABCLIA [id number] [place] [address] [place]#### 58480-2 ####[facility] LABCLIA [id number] [place] [address] [place] AMERICAST. JOSEPH'S CHILDREN'S HOSPITALNCLIA [id number] [place] [address] [place] Chloride [Moles/Vol] 107 mmol/L Normal 98-107 [facility] Comment on above: Order Comment: Speci men Type: BLOOD SPECIMENOrdering Facility: [facility] Address: [address] [place] [address] Performed By: #### 1 9123-9, 39289-0 ####[facility] FLORIDAWNCLIA [id number] [place] [address] [place]#### 04933-5 ####[facility] LABCLIA [id number] [place] [address] [place]#### 74440-9 ####[facility] LABCLIA [id number] [place] [address] [place] [facility] [id number] [place] [address] [place] CO2 [Moles/Vol] 20 mmol/L Low 22-30 [facility] Comment on above: Order Comment: Speci men Type: BLOOD SPECIMENOrdering Facility: [facility] Address: [address] [place] [address] Performed By: #### 1 9123-9, 49478-1 ####[facility] FLORIDAWNCLIA [id number] [place] [address] [place]#### 54537-8 ####[facility] LABCLIA [id number] [place] [address] [place]#### 48738-1 ####[facility] LABCLIA [id number] [place] [address] [place] AMERICAREGENCY HOSPITAL [facility]LEVEL[facility] EASTLIA [id number] [place] [address] [place] Creatinine [Mass/Vol] 1.22 mg/dL High 0.58-0.96 [facility] Comment on above: Order Comment: Og page Type: BLOOD SPECIMENOrdering Facility: [facility] Address: [address] [place] [address] Performed By: #### 1 9123-9, ####[facility] EASTLIA [id number] [place] [address] [place]#### 86784-1 ####[facility] LABCLIA [id number] [address]#### 64069-1 ####[facility] LABIA [id number] [address] STATES [facility] [id number] [place] [address] [place] [facility] Creatinine and Glomerular filtration rate.predicted panel (S/P/Bld) 44 mL/min/1.73m??? Low >=60 [facility] Comment on above: Order Comment: Og page Type: BLOOD SPECIMENOrdering Facility: [facility] Address: [address] [place] [address] Result Comment: Sugar mated Glomerular Filtration Rate (eGFR) is calculated using the 2020 CKD-EPI creatinine equation. This equation utilizes serum creatinine, sex, and age as parameters. The creatinine assay has traceable calibration to isotope dilution-mass spectrometry. Refer to KDIGO guidelines for clinical interpretation. In patients with unstable renal function, e.g. those with acute kidney injury, the eGFR may not accurately reflect actual GFR. Performed By: #### 1 239, ####[facility]A [id number] [place] [address] [place]#### 77417-7 ####[facility] LABCLIA [id number] [address] [place]#### 69388-9 ####[facility] LABCLIA [id number] [place] [address] [place] [facility] [id number] [place] [address] [place] Glucose [Mass/Vol] 96 mg/dL Normal 74-99 [facility] Comment on above: Order Comment: Speci men Type: BLOOD SPECIMENOrdering Facility: [facility] Address: [address] [place] [address] Result Comment: The [place] Diabetes Association (ADA) provides guidance for cutoff values for fasting glucose and random glucose. The ADA defines fasting as no caloric intake for at least 8 hours. Fasting plasma glucose results between 100 to 125 mg/dL indicate increased risk for diabetes (prediabetes). Fasting plasma glucose results greater than or equal to 126 mg/dL meet the criteria for diagnosis of diabetes. In the absence of unequivocal hyperglycemia, results should be confirmed by repeat testing. In a patient with classic symptoms of hyperglycemia or hyperglycemic crisis, random plasma glucose results greater than or equal to 200 mg/dL meet the criteria for diagnosis of diabetes. Reference: Standards of Medical Care in Diabetes 2016, [place] Diabetes Association. Diabetes Care. 2016.39(Suppl 1). Performed By: #### 1 9123-9, 29163-9 ####[facility] [id number] [place] [address] [place]#### 46853-4 ####[facility] LABIA [id number] [place] [id number] [place]#### 47439-0 ####[facility] LABIA [id number] [place] [address] [place] [facility]AD[facility] [id number] [place] [address] [place] Potassium [Moles/Vol] 4.0 mmol/L Normal 3.7-5.1 [facility] Comment on above: Order Comment: Speci men Type: BLOOD SPECIMENOrdering Facility: [facility] Address: [address] [place] [address] Performed By: #### 1 9123-9, 88308-7 ####[facility] FLORIDAWNCLIA [id number] [place] [address] [place]#### 07213-5 ####[facility] LABCLIA [id number] [place] [id number] [place]#### 51071-6 ####[facility] LABCLIA [id number] [place] [address] [place] [facility] [id number] [place] [address] [place] Protein [Mass/Vol] 6.9 g/dL Normal 6.3-8.0 [facility] Comment on above: Order Comment: Speci men Type: BLOOD SPECIMENOrdering Facility: [facility] Address: [address] [place] [address] Performed By: #### 1 9123-9, 12511-9 ####[facility] [id number] [place] [address] [place]#### 84132-8 ####[facility] LABCLIA [id number] [place] [address] [place]#### 72156-5 ####[facility] LABCLIA [id number] [place] [address] [place] AMERICAKINDRED HOSPITAL NORTH FLORIDAWPALIA [id number] [place] [address] [place] Sodium [Moles/Vol] 140 mmol/L Normal 136-144 [facility] Comment on above: Order Comment: Speci men Type: BLOOD SPECIMENOrdering Facility: [facility] Address: [address] [place] [address] Performed By: #### 1 9123-9, 50784-8 ####[facility] MILLWNCLIA [id number] [place] [address] [place]#### 48661-2 ####[facility] LABCLIA [id number] [place] [address] [place]#### 02933-8 ####[facility] LABCLIA [id number] [place] [address] [place] [facility] [id number] [place] [address] [place] Urea nitrogen [Mass/Vol] 29 mg/dL High 7-21 [facility] Comment on above: Order Comment: Speci men Type: BLOOD SPECIMENOrdering Facility: [facility] Address: [address] [place] [address] Performed By: #### 1 9123-9, 77573-6 ####[facility] H[facility]ITALNCLIA [id number] [place] [address] [place]#### 82049-9 ####[facility] LABCLIA [id number] [place] [address] [place]#### 64154-9 ####[facility] LABCLIA [id number] [place] [address] [place] AMERICAHCA [facility]OSPITALA [id number] [place] [address] [place] Iron and Iron binding capaci ty panelon 01-09-2025 Iron [Mass/Vol] 84 ug/dL Normal 41-186 [facility] Comment on above: Order Comment: Speci men Type: BLOOD SPECIMENOrdering Facility: [facility] Address: [address] [place] [address] Performed By: #### 1 9123-9, 44114-0 ####[facility] FL[facility]IDAWNCLIA [id number] [place] [address] [place]#### 53433-6 ####[facility] LABCLIA [id number] [place] [address] [place]#### 95529-9 ####[facility] LABCLIA [id number] [place] [address] [place] [facility] [id number] [place] [address] [place] Iron binding capacity [Mass/Vol] 276 ug/dL Normal 232-386 [facility] Comment on above: Order Comment: Speci men Type: BLOOD SPECIMENOrdering Facility: [facility] Address: [address] [place] [address] Performed By: #### 1 9123-9, 38615-5 ####[facility] EASTLIA [id number] [place] [address] [place]#### 89798-0 ####[facility] LABCLIA [id number] [place] [address] [place]#### 92928-6 ####[facility] LABCLIA [id number] [place] [address] [place] [facility] [id number] [place] [address] [place] Iron/TIBC [Molar ratio] 30.4 % Normal 15.0-57.0 C [facility] Comment on above: Order Comment: Speci men Type: BLOOD SPECIMENOrdering Facility: [facility] Address: [address] [place] [id number] Performed By: #### 1 9123-9, 07314-4 ####[facility] MILLWNCLIA [id number] [place] [address] [place]#### 50657-3 ####[facility] LABCLIA [id number] [place] [id number] [place]#### 22064-7 ####[facility] LABCLIA [id number] [place] [id number] [place] [facility] [id number] [place] [address] [place] Lipid 1996 panelon 5 Cholesterol [Mass/Vol] 170 mg/dL Normal <200 [facility] Comment on above: Order Comment: Speci men Type: BLOOD SPECIMENOrdering Facility: [facility] Address: [address] [place] [address] Result Comment: <200 mg/dL, Desirable 200-239 mg/dL, Borderline high >239 mg/dL, High Performed By: #### 1 9123-9, 28978-4 ####[facility] [id number] [place] [address] [place]#### 99409-6 ####[facility] LABCLIA [id number] [place] [id number] [place]#### 54291-6 ####[facility] LABCLIA [id number] [address] [address] [place] [facility] [id number] [place] [address] [place] Cholesterol in HDL [Mass/Vol] 40 mg/dL Normal >39 [facility] Comment on above: Order Comment: Speci men Type: BLOOD SPECIMENOrdering Facility: [facility] Address: [address] [place] [address] Result Comment: 40-5 9 mg/dL, Acceptable >59 mg/dL, High: Negative risk factor for coronary heart disease <40 mg/dL, Low: Positive risk factor for coronary heart disease Performed By: #### 1 9123-9, 37767-9 ####[facility] MILLWNCLIA [id number] [place] [address] [place]#### 71291-3 ####[facility] LABCLIA [id number] [place] [address] [place]#### 02625-7 ####[facility] LABCLIA [id number] [place] [address] [place] AMERICAREGENCY HOSPITAL [facility] EASTLIA [id number] [place] [address] [place] Cholesterol in LDL [Mass/Vol] 84 mg/dL Normal <100 [facility] Comment on above: Order Comment: Speci men Type: BLOOD SPECIMENOrdering Facility: [facility] Address: [address] [place] [address] Result Comment: <100 mg/dL, Optimal 100-129 mg/dL, Near optimal/above optimal 130-159 mg/dL, Borderline high 160-189 mg/dL, High >189 mg/dL, Very high Secondary prevention optimal LDL Cholesterol levels are recommended to be < 70 mg/dL Performed By: #### 1 9123-9, ####[facility]AWNCLIA [id number] [place] [address] [place]#### 65188-4 ####[facility] LABCLIA [id number] [place] [address] [place]#### 10806-8 ####[facility] LABCLIA [id number] [id number] [address] [place] Cholesterol in LDL/Cholesterol in HDL [Mass ratio] 2.10 {ratio} Normal <2.54 [facility] Comment on above: Order Comment: Speci men Type: BLOOD SPECIMENOrdering Facility: [facility] Address: [address] [place] [address] Result Comment: Refe daniella: 1. National Cholesterol Education Program ATP III Guideline At-A-Glance Quick Desk Reference: National Heart, Lung, and Blood [place]. National Institutes of Health. 2001: NIH Publication No. 01-3305. 2. An International Atherosclerosis Society position paper: global recommendations for the management of dyslipidemia: executive summary, Atherosclerosis. 2014: 232(2):410-413. Performed By: #### 1 9123-9, 06270-8 ####[facility] [id number] [place] [address] [place]#### 34339-3 ####[facility] LABCLIA [id number] [address] [place]#### 71157-6 ####[facility] LABIA [id number] [address] STATES OF [facility] [id number] [place] [address] [place] Cholesterol in VLDL [Mass/Vol] 46 mg/dL High <30 [facility] Comment on above: Order Comment: Speci men Type: BLOOD SPECIMENOrdering Facility: [facility] Address: [address] [place] [address] Performed By: #### 1 9123-9, 06800-2 ####[facility] [id number] [place] [address] [place]#### 54725-1 ####[facility] LABCLIA [id number] [address] OF [place]#### 52171-5 ####[facility] LABCLIA [id number] [address] [facility] [id number] [address] [place] Cholesterol non HDL [Mass/Vol] 130 mg/dL High <130 [facility] Comment on above: Order Comment: Speci men Type: BLOOD SPECIMENOrdering Facility: [facility] Address: [address] [place] [address] Result Comment: <130 mg/dL, Optimal 130-159 mg/dL, Near optimal/above optimal 160-189 mg/dL, Borderline high 190-219 mg/dL, High >219 mg/dL, Very high Secondary prevention optimal non HDL Cholesterol levels are recommended to be <100 mg/dL Performed By: #### 1 9123-9, 50981-7 ####[facility] [id number] [address] [place]#### 50577-4 ####[facility] LABCLIA [id number] [address] [place]#### 07673-1 ####[facility]CLIA [id number] [address], [address] [facility] [id number] [address] [place] Cholesterol.total/Choles terol in HDL [Mass ratio] 4.25 {ratio} Normal <5.10 [facility] Comment on above: Order Comment: Speci men Type: BLOOD SPECIMENOrdering Facility: [facility] Address: [address] [place] [address] Performed By: #### 1 9123-9, 38093-2 ####[facility] MILLTOWNCLIA [id number] [place] [address] [place]#### 60792-8 ####[facility] LABCLIA [id number] [facility] [place] [address] [place]#### 60717-8 ####[facility]CLIA [id number] [facility] [place] [id number] [place] [facility] [id number] [place] [address] [place] FASTING TIME 12 hrs Normal [facility] Comment on above: Order Comment: Speci men Type: BLOOD SPECIMENOrdering Facility: [facility] Address: [address] [place] [address] Performed By: #### 1 9123-9, 90979-8 ####[facility] MILLTOWNCLIA [id number] [place] [address] [place]#### 08777-0 ####[facility] LABCLIA [id number] [place] [address] [place]#### 71392-4 ####[facility] LABCLIA [id number] [place] [address] [place] [facility] [id number] [place] [address] [place] Triglyceride [Mass/Vol] 228 mg/dL High <150 C [facility] Comment on above: Order Comment: Speci men Type: BLOOD SPECIMENOrdering Facility: [facility] Address: [address] [place] [id number] Result Comment: <150 mg/dL, Normal 150-199 mg/dL, Borderline high 200-499 mg/dL, High >499 mg/dL, Very high Performed By: #### 1 9123-9, 05473-2 ####[facility] MILLATLANTANCLIA [id number] [place] [address] [place]#### 27308-5 ####[facility]CLIA [id number] [place] [address] [place]#### 06771-2 ####[facility] LABCLIA [id number] [place] [address] [place] [facility] [id number] [place] [address] [place] Magn[facility] Magnesium [Mass/Vol] 2.4 mg/dL High 1.7-2.3 [facility] Comment on above: Order Comment: Speci men Type: BLOOD SPECIMENOrdering Facility: [facility] Address: [address] [place] [address] Performed By: #### 1 9123-9, 05106-4 ####[facility] [id number] [place] [address] [place]#### 76985-9 ####[facility] LABCLIA [id number] [place] [address] [place]#### 59538-1 ####[facility] LABIA [id number] [place] [address] [place] [facility] [id number] [place] [address] [place] Vit B12 SerPl-mCncon 025 Cobalamin (Vitamin B12) [Mass/Vol] 739 pg/mL Normal 232-1245 [facility] Comment on above: Order Comment: Speci men Type: BLOOD SPECIMENOrdering Facility: [facility] Address: [address] [place] [address] Performed By: #### 2 132-9 ####[facility] LABORATORYCLIA [id number] [place] [address] [place] Spine Lumbar (Routine)on Spine Lumbar (Routine) [facility] [address] [place] [address] Spine Lumbar (Routine) MR#: [id number] Acct: [id number] Name: RACHEAL JAMES Rep #: [id number] : 1940 F 84 From: Wisam Guajardo PCP: Dr. Tuan Luo, DO Status: REG CLI Study: Spine Lumbar (Routine) Date of Exam: 11/25/24 Exam# [id number] Ordering Dr: Solo Dietrich [place] [id number] STUDY: MRI LUMBAR SPINE WITHOUT CONTRAST REASON FOR EXAM: Female, 84 years old. LEFT LEG WEAKNESS TECHNIQUE: Standardized fat and water weighted pulse sequences were obtained in the sagittal and axial planes. Noncontrast images obtained. Contrast: No contrast administered COMPARISON: Plain film examination of 02/13/2024 FINDINGS: Vertebral bodies and alignment. 1. Vertebral body height is maintained, there however is a straightening of lumbar lordosis. Multilevel disc and endplate changes are present. 2. No deena marrow edema or acute destructive marrow replacement processes.. 3. Paraspinous soft tissue planes have normal appearance. Normal appearance of the muscular fascial planes of the erector spinae. 4. Normal appearance of the sacrum and sacroiliac joints. Intervertebral disks levels. T12-L1: No disc herniation canal or foraminal stenosis. No evidence of cord or nerve root impingement. Endplate: No focal endplate marrow changes or endplate deformity. L1-2: Mild disc desiccation, minimal disc bulge and facet hypertrophic changes. No evidence of canal stenosis or nerve root impingement. The neural foramina are widely patent. Endplate: No focal endplate marrow changes or endplate deformity. L2-3: Loss of disc height, extensive disc desiccation and broad-based posterior disc protrusion osteophyte complex with significant deformity the anterior epidural space. Narrowing of the central thecal sac to approximately 6 mm. There is posterior epidural lipomatosis. Significant compromise of lateral recesses due to concentric disc changes as well as facet and ligamentum flavum hypertrophic changes with expected nerve root impingement within the lateral recesses. Mild foraminal narrowing is noted. Significant crowding of nerve roots within the thecal sac. Endplate: Extensive Modic type II fatty marrow changes involving both endplates. No Modic type I edema. L3-4: Disc desiccation, broad-based posterior disc protrusion osteophyte complex with deformity the anterior epidural space. Central thecal sac narrowed to 5 mm. There is however compromise of lateral recesses bilaterally due to concentric disc changes and facet and ligamentum flavum hypertrophic changes. Additional LEFT foraminal stenosis with early impingement of the emerging LEFT L3 nerve root. Endplate: Mild endplate deformity. Scattered areas of Modic type II fatty marrow changes. No marrow edema. L4-5: Disc desiccation, broad-based a concentric disc protrusion and osteophyte that, narrowing of the thecal sac at 4 mm, significant compromise of lateral recesses with expected nerve root impingement. Additional foraminal stenosis greater on the RIGHT than LEFT with potential nerve root impingement. Endplate: While contour deformity the endplates and a significant Modic type II endplate changes. L5-S1: Disc desiccation, broad-based posterior disc bulge. No central canal stenosis. There is however narrowing of lateral recesses and early impingement of the S1 nerve roots bilaterally. Facet and ligament flavum hypertrophic changes are present. There is narrowing of neural foramina. Endplate: No focal endplate marrow changes or endplate deformity. Spinal cord: Normal appearance of the spinal cord and conus. Conus is located at L1. Significant crowding and clumping of nerve roots at the levels of canal stenosis particularly at L2-3, L3-4 and L4-5. Equina has normal appearance. No evidence of cord compression or edema. No intramedullary signal abnormality noted. Paraspinous soft tissues: Normal visualized paraspinous soft tissue structures. MRI/Spine Lumbar (Routine) IMPRESSION: 1. Straightening of lumbar lordosis and extensive multilevel lumbar spondylosis with disc space narrowing, Modic type II fatty marrow changes, and broad-based disc protrusion osteophyte complex at these levels with associated canal stenosis however more significantly compromise of lateral recesses with expected nerve root impingement, additional narrowing of neural foramina as detailed. 2. Clumping and crowding of nerve roots in the thecal sac as detailed most significant at the levels of canal or lateral recess narrowing. 3. Normal appearance of visualized spinal cord and conus. 4. No evidence of Modic type I endplate edema. No acute destructive marrow replacement proces (more content not included)... Normal [facility] 10-08-2024 [facility] Office Visit (FAMPWS ) RACHEAL JAMES ([id number]) 1940 F NFR Date Time Provider Department 10/08/24 10:[address] [facility] During your visit today, we recorded the following information about you: Temperature Pulse Respiration Blood pressure 97 degrees 72/minute 16/minute 154/90 Weight 71 kg Tuan Luo, 10/08/2024 10:47 AM Signed CC: Racheal James is a 84 year old female who presents to the office for follow up HPI: BLOOD PRESSURE seems overall to be better regulated. Typical range of 130s/80s. Lows of 120s / 80s. No CP or dyspnea or dizziness/Lh. No recent falls. She has her granddaughter helping her with mowing and outdoor work in the Spring and summer. Currently her son is also helping her with meals/food Low back pain, DJD and DDD lumbar spine. Has had an epidural injection in the lumbar spine by Dr. Bryson without relief. Then had an alternative type of injection with some relief. Avoids NSAIDs. She does take tylenol up to 500 mg twice a day for pain, no new bowel or bladder loss of control CKD stage 3, hypertensive kidney disease, has been seen in the past by Dr. Danni Jimenez Nephrology, levels are stable, asymptomatic Chronic intermittent constipation, overall has been stable Recently diagnosed on 09/17 with acute covid 19 infection. She was treated with mucinex and rest and increased fluid intake and tessalon perles. She is still struggling with fatigue, intermittent hot and cold feeling and sweats in the middle of the night. This is getting a little better but her cough and chest congestion continues with increased mucous production and sputum of a yellow discoloration. No obvious fevers. 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 Byers COLONOSCOPY W/BIOPSY 05/31/16 diverticulosis, polyp COLONOSCOPY FLX DX W/COLLJ SPEC WHEN PFRMD 03/09/2001 Colonoscopy COLONOSCOPY FLX DX W/COLLJ SPEC WHEN PFRMD 04/05/2006 Colonoscopy COLONOSCOPY FLX DX W/COLLJ SPEC WHEN PFRMD 05/06/2011 Colonoscopy LIG/TRNSXJ FLP TUBE ABDL/VAG APPR UNI/BI Tubal ligation TOTAL THYROID LOBECTOMY UNI W/WO ISTHMUSECTOMY 04/01/08 RIGHT THYROID UNLISTED PROCEDURE HANDS/FINGERS 04/03/13 Right trigger finger Current Outpatient Medications Medication Sig valACYclovir (VALTREX) 500 mg tablet Take 1 tablet by mouth once daily. doxycycline (VIBRA-TABS) 100 mg tablet Take 1 tablet by mouth two times a day for 10 days. methylPREDNISolone (MEDROL, CHALO,) 4 mg Dose-Pack Follow dosing instructions, take with food. hydrALAZINE (APRESOLINE) 25 mg tablet Take 1 tablet by mouth three times a day. Hold hydralazine if BP less than 140 systolic losartan (COZAAR) 50 mg tablet Take 1 tablet by mouth once daily. pravastatin (PRAVACHOL) 10 mg tablet Take 1 tablet by mouth daily at bedtime. metoprolol succinate ER (TOPROL XL) 25 mg 24 hr tablet Take 1 tablet by mouth once daily. Take in addition to 100 mg XL once a day metoprolol succinate ER (TOPROL XL) 100 mg Take 1 tablet by mouth once daily. Take in addition to 25 mg XL once a day levothyroxine (SYNTHROID) 100 mcg tablet Take 1 tablet by mouth once daily. MULTIVITAMIN WITH MINERALS (HAIR,SKIN AND NAILS ORAL) Take 1 tablet by mouth once daily. ASPIRIN 81 MG ORAL TAB Take one(1) tablet daily. No current facility-administered medications for this visit. ALLERGIES Allergen Reactions Clonidine Norvasc [Amlodipine* Other: See Comments Hair loss Prednisone Other: See Comments Elevated BP and nausea Social History Tobacco Use Smoking status: Never Smokeless tobacco: Never Vaping Use Vaping status: Never Used Substance Use Topics Alcohol use: No Drug use: No ROS: See HPI PE: BP 154/90 Pulse 72 Temp (Src) 97 (Left Tympanic) Resp 16 Wt 156 lb 8.4 oz (71.0kg) Gen: AANDOX3, NAD, non-toxic appearing, hard of hearing HEENT: PERRLA, EOMs intact b/l, nares without drainage, pharynx without erythema, exudate, lesions, or drainage. Uvula midli (more content not included)... Normal [facility] 25([facility]3 [facility] 25-hydroxyvitamin D3 [Mass/Vol] 41.5 ng/mL Normal 31.0-80.0 [facility] Comment on above: Order Comment: Speci men Type: BLOOD SPECIMENOrdering Facility: [facility] Address: [address] [place] [address] Result Comment: Clas sification of 25 [place] Vitamin D status: Deficiency/Insufficiency: < or = 30 ng/ml. Sufficiency/Optimal Levels: 31-80 ng/mL Toxicity: > 100 ng/mL. Test performed by chemiluminescent immunoassay. Performed By: #### 1 989-3 ####[facility] LABCLIA [id number] [place] [address] [place] CBC W Auto Differential pane l (Bld)on 10-03-2024 Basophils (Bld) [#/Vol] 0.06 10*3/uL Normal <0.11 [facility] Comment on above: Order Comment: Speci men Type: BLOOD SPECIMEN [facility] Address: [address] [place] [address] Performed By: #### 5 5454-3 #### [facility] CLIA [id number] [address] [place] [address] [place] Basophils/100 WBC (Bld) 0.7 % Normal [facility] Comment on above: Order Comment: Speci men Type: BLOOD SPECIMEN [facility] Address: [address] [place] [address] Performed By: #### 5 5454-3 #### [facility] CLIA [id number] [address] [place] [address] [place] Differential cell count method Nom (Bld) Auto Normal [facility] Comment on above: Order Comment: Speci men Type: BLOOD SPECIMEN [facility] Address: [address] [place] [address] Performed By: #### 5 5454-3 #### [facility] CLIA [id number] [address] [place] [address] [place] Eosinophils (Bld) [#/Vol] 0.16 10*3/uL Normal <0.46 [facility] Comment on above: Order Comment: Speci men Type: BLOOD SPECIMEN [facility] Address: [address] [place] [address] Performed By: #### 5 5454-3 #### [facility] CLIA [id number] [address] [place] [address] [place] Eosinophils/100 WBC (Bld) 1.8 % Normal [facility] Comment on above: Order Comment: Speci men Type: BLOOD SPECIMEN [facility] Address: [address] [place] [address] Performed By: #### 5 5454-3 #### [facility] CLIA [id number] [address] [place] [address] [place] Erythrocyte distribution width (RBC) [Ratio] 14.4 % Normal 11.5-15.0 [facility] Comment on above: Order Comment: Speci men Type: BLOOD SPECIMEN [facility] Address: [address] [place] [address] Performed By: #### 5 5454-3 #### [facility] CLIA [id number] [address] [place] [address] [place] Hematocrit (Bld) [Volume fraction] 42.2 % Normal 36.0-46.0 [facility] Comment on above: Order Comment: Speci men Type: BLOOD SPECIMEN [facility] Address: [address] [place] [address] Performed By: #### 5 5454-3 #### [facility] CLIA [id number] [address] [place] [address] [place] Hemoglobin (Bld) [Mass/Vol] 13.3 g/dL Normal 11.5-15.5 [facility] Comment on above: Order Comment: Speci men Type: BLOOD SPECIMEN [facility] Address: [address] [place] [address] Performed By: #### 5 5454-3 #### [facility] CLIA [id number] [address] [place] [address] [place] Immature granulocytes (Bld) [#/Vol] 0.04 10*3/uL Normal <0.10 [facility] Comment on above: Order Comment: Speci men Type: BLOOD SPECIMEN [facility] Address: [address] [place] [address] Performed By: #### 5 5454-3 #### [facility] CLIA [id number] [address] [place] [address] [place] Immature granulocytes/100 WBC (Bld) 0.5 % Normal [facility] Comment on above: Order Comment: Speci men Type: BLOOD SPECIMEN [facility] Address: [address] [place] [address] Performed By: #### 5 5454-3 #### [facility] CLIA [id number] [address] [place] [address] [place] Lymphocytes (Bld) [#/Vol] 2.68 10*3/uL Normal 1.00-4.00 [facility] Comment on above: Order Comment: Speci men Type: BLOOD SPECIMEN [facility] Address: [address] [place] [address] Performed By: #### 5 5454-3 #### [facility] CLIA [id number] [address] [place] [address] [place] Lymphocytes/100 WBC (Bld) 30.8 % Normal [facility] Comment on above: Order Comment: Speci men Type: BLOOD SPECIMEN [facility] Address: [address] [place] [address] Performed By: #### 5 5454-3 #### [facility] CLIA [id number] [address] [place] [address] [place] MCH (RBC) [Entitic mass] 29.9 pg Normal 26.0-34.0 [facility] Comment on above: Order Comment: Speci men Type: BLOOD SPECIMEN [facility] Address: [address] [place] [address] Performed By: #### 5 5454-3 #### [facility] CLIA [id number] [address] [place] [address] [place] MCHC (RBC) [Mass/Vol] 31.5 g/dL Normal 30.5-36.0 [facility] Comment on above: Order Comment: Speci men Type: BLOOD SPECIMEN [facility] Address: [address] [place] [address] Performed By: #### 5 5454-3 #### [facility] CLIA [id number] [address] [place] [address] [place] MCV (RBC) [Entitic vol] 94.8 fL Normal 80.0-100.0 [facility] Comment on above: Order Comment: Speci men Type: BLOOD SPECIMEN [facility] Address: [address] [place] [address] Performed By: #### 5 5454-3 #### [facility] CLIA [id number] [address] [place] [address] [place] Monocytes (Bld) [#/Vol] 1.02 10*3/uL High <0.87 [facility] Comment on above: Order Comment: Speci men Type: BLOOD SPECIMEN [facility] Address: [address] [place] [address] Performed By: #### 5 5454-3 #### [facility] CLIA [id number] [address] [place] [address] [place] Monocytes/100 WBC (Bld) 11.7 % Normal [facility] Comment on above: Order Comment: Speci men Type: BLOOD SPECIMEN [facility] Address: [address] [place] [address] Performed By: #### 5 5454-3 #### [facility] CLIA [id number] [address] [place] [address] [place] Neutrophils (Bld) [#/Vol] 4.73 10*3/uL Normal 1.45-7.50 [facility] Comment on above: Order Comment: Speci men Type: BLOOD SPECIMEN [facility] Address: [address] [place] [address] Performed By: #### 5 5454-3 #### [facility] CLIA [id number] [address] [place] [address] [place] Neutrophils/100 WBC (Bld) 54.5 % Normal [facility] Comment on above: Order Comment: Speci men Type: BLOOD SPECIMEN [facility] Address: [address] [place] [address] Performed By: #### 5 5454-3 #### [facility] CLIA [id number] [address] [place] [address] [place] Nucleated RBC (Bld) [#/Vol] 10*3/uL Normal <0.01 [facility] Comment on above: Order Comment: Speci men Type: BLOOD SPECIMEN [facility] Address: [address] [place] [address] Performed By: #### 5 5454-3 #### [facility] CLIA [id number] [address] [place] [address] [place] Nucleated RBC/100 WBC (Bld) [Ratio] 0.0 /100 WBC Normal [facility] Comment on above: Order Comment: Speci men Type: BLOOD SPECIMEN [facility] Address: [address] [place] [address] Performed By: #### 5 5454-3 #### [facility] CLIA [id number] [address] [place] [address] [place] Platelet mean volume (Bld) [Entitic vol] 11.0 fL Normal 9.0-12.7 [facility] Comment on above: Order Comment: Speci men Type: BLOOD SPECIMEN [facility] Address: [address] [place] [address] Performed By: #### 5 5454-3 #### [facility] CLIA [id number] [address] [place] [address] [place] Platelets (Bld) [#/Vol] 274 10*3/uL Normal 150-400 [facility] Comment on above: Order Comment: Speci men Type: BLOOD SPECIMEN [facility] Address: [address] [place] [address] Performed By: #### 5 5454-3 #### [facility] CLIA [id number] [address] [place] [address] [place] RBC (Bld) [#/Vol] 4.45 10*6/uL Normal 3.90-5.20 [facility] Comment on above: Order Comment: Speci men Type: BLOOD SPECIMEN [facility] Address: [address] [place] [address] Performed By: #### 5 5454-3 #### [facility] CLIA [id number] [address] [place] [address] [place] WBC (Bld) [#/Vol] 8.69 10*3/uL Normal 3.70-11.00 [facility] Comment on above: Order Comment: Speci men Type: BLOOD SPECIMEN [facility] Address: [address] [place] [address] Performed By: #### 5 5454-3 #### [facility] CLIA [id number] [address] [place] [address] [place] Comprehensive metabolic 2000 panelon 10-03-2024 Albumin [Mass/Vol] 3.9 g/dL Normal 3.9-4.9 [facility] Comment on above: Order Comment: Speci men Type: BLOOD SPECIMEN [facility] Address: [address] [place] [address] Performed By: #### 5 5454-3 #### [facility] CLIA [id number] [address] [place] [address] [place] ALP [Catalytic activity/Vol] 70 U/L Normal 34-123 [facility] Comment on above: Order Comment: Speci men Type: BLOOD SPECIMEN [facility] Address: [address] [place] [address] Performed By: #### 5 5454-3 #### [facility] CLIA [id number] [address] [place] [id number] [place] ALT [Catalytic activity/Vol] 18 U/L Normal 7-38 [facility] Comment on above: Order Comment: Speci men Type: BLOOD SPECIMEN Ordering Facility: [facility] Address: [address] [place] [address] Performed By: #### 5 5454-3 #### [facility] CLIA [id number] [address] [place] [address] [place] Anion gap [Moles/Vol] 12 mmol/L Normal 8-15 [facility] Comment on above: Order Comment: Speci men Type: BLOOD SPECIMEN Ordering Facility: [facility] Address: [address] [place] [address] Performed By: #### 5 5454-3 #### [facility] CLIA [id number] [address] [place] [address] [place] AST [Catalytic activity/Vol] 26 U/L Normal 13-35 [facility] Comment on above: Order Comment: Speci men Type: BLOOD SPECIMEN Ordering Facility: [facility] Address: [address] [place] [address] Performed By: #### 5 5454-3 #### [facility] CLIA [id number] [address] [place] [address] [place] Bilirubin [Mass/Vol] 0.7 mg/dL Normal 0.2-1.3 [facility] Comment on above: Order Comment: Speci men Type: BLOOD SPECIMEN Ordering Facility: [facility] Address: [address] [place] [address] Performed By: #### 5 5454-3 #### [facility] CLIA [id number] [address] [place] [address] [place] Calcium [Mass/Vol] 10.0 mg/dL Normal 8.5-10.2 [facility] Comment on above: Order Comment: Speci men Type: BLOOD SPECIMEN Ordering Facility: [facility] Address: [address] [place] [address] Performed By: #### 5 5454-3 #### [facility] CLIA [id number] [address] [place] [address] [place] Chloride [Moles/Vol] 107 mmol/L Normal 98-107 [facility] Comment on above: Order Comment: Speci men Type: BLOOD SPECIMEN Ordering Facility: [facility] Address: [address] [place] [address] Performed By: #### 5 5454-3 #### [facility] CLIA [id number] [address] [place] [address] [place] CO2 [Moles/Vol] 23 mmol/L Normal 22-30 [facility] Comment on above: Order Comment: Speci men Type: BLOOD SPECIMEN Ordering Facility: [facility] Address: [address] [place] [address] Performed By: #### 5 5454-3 #### [facility] CLIA [id number] [address] [place] [address] [place] Creatinine [Mass/Vol] 1.39 mg/dL High 0.58-0.96 [facility] Comment on above: Order Comment: Speci men Type: BLOOD SPECIMEN Ordering Facility: [facility] Address: [address] [place] [address] Performed By: #### 5 5454-3 #### [facility] CLIA [id number] [address] [place] [address] [place] Creatinine and Glomerular filtration rate.predicted panel (S/P/Bld) 37 mL/min/1.73m??? Low >=60 [facility] Comment on above: Order Comment: Og page Type: BLOOD SPECIMEN Ordering Facility: [facility] Address: [address] [place] [address] Result Comment: Sugar mated Glomerular Filtration Rate (eGFR) is calculated using the 2020 CKD-EPI creatinine equation. This equation utilizes serum creatinine, sex, and age as parameters. The creatinine assay has traceable calibration to isotope dilution-mass spectrometry. Refer to KDIGO guidelines for clinical interpretation. In patients with unstable renal function, e.g. those with acute kidney injury, the eGFR may not accurately reflect actual GFR. Performed By: #### 5 5454-3 #### [facility] CLIA [id number] [address] [place] [address] [place] Glucose [Mass/Vol] 100 mg/dL High 74-99 [facility] Comment on above: Order Comment: Og page Type: BLOOD SPECIMEN Ordering Facility: [facility] Address: [address] [place] [address] Result Comment: The [place] Diabetes Association (ADA) provides guidance for cutoff values for fasting glucose and random glucose. The ADA defines fasting as no caloric intake for at least 8 hours. Fasting plasma glucose results between 100 to 125 mg/dL indicate increased risk for diabetes (prediabetes). Fasting plasma glucose results greater than or equal to 126 mg/dL meet the criteria for diagnosis of diabetes. In the absence of unequivocal hyperglycemia, results should be confirmed by repeat testing. In a patient with classic symptoms of hyperglycemia or hyperglycemic crisis, random plasma glucose results greater than or equal to 200 mg/dL meet the criteria for diagnosis of diabetes. Reference: Standards of Medical Care in Diabetes 2016, [place] Diabetes Association. Diabetes Care. 2016.39(Suppl 1). Performed By: #### 5 5454-3 #### [facility] CLIA [id number] [address] [place] [address] [place] Potassium [Moles/Vol] 4.5 mmol/L Normal 3.7-5.1 [facility] Comment on above: Order Comment: Speci men Type: BLOOD SPECIMEN Ordering Facility: [facility] Address: [address] [place] [address] Performed By: #### 5 5454-3 #### [facility] CLIA [id number] [address] [place] [address] [place] Protein [Mass/Vol] 6.3 g/dL Normal 6.3-8.0 [facility] Comment on above: Order Comment: Speci men Type: BLOOD SPECIMEN Ordering Facility: [facility] Address: [address] [place] [address] Performed By: #### 5 5454-3 #### [facility] CLIA [id number] [address] [place] [address] [place] Sodium [Moles/Vol] 142 mmol/L Normal 136-144 [facility] Comment on above: Order Comment: Speci men Type: BLOOD SPECIMEN Ordering Facility: [facility] Address: [address] [place] [address] Performed By: #### 5 5454-3 #### [facility] CLIA [id number] [address] [place] [address] [place] Urea nitrogen [Mass/Vol] 19 mg/dL Normal - [facility] Comment on above: Order Comment: Speci men Type: BLOOD SPECIMEN Ordering Facility: [facility] Address: [address] [place], [place] [address] Performed By: #### 5 5454-3 #### [facility] CLIA [id number] [address] [place] [address] [place] HbA1c (Bld)on 10-03-2024 Average glucose Estimated from glycated hemoglobin (Bld) [Mass/Vol] 131 mg/dL Normal [facility] Comment on above: Order Comment: Speci men Type: BLOOD SPECIMEN Ordering Facility: [facility] Address: [address] [place] [address] Result Comment: eAG: (Estimated average glucose) is a calculated value from HgbA1c and is surgical sales representative of the average blood glucose level in the last 2-3 month period. Performed By: #### 5 5454-3 #### [facility] CLIA [id number] [address] [place] [address] [place] HbA1c (Bld) [Mass fraction] 6.2 % High 4.3-5.6 [facility] Comment on above: Order Comment: Og men Type: BLOOD SPECIMEN Ordering Facility: [facility] Address: [address] [place] [address] Result Comment: [place] Diabetes Association guidelines indicate that patients with HgbA1c in the range 5.7-6.4% are at increased risk for development of diabetes, and intervention by lifestyle modification may be beneficial. HgbA1c greater or equal to 6.5% is considered diagnostic of diabetes. Performed By: #### 5 5454-3 #### [facility] CLIA [id number] [address] [place] [address] [place] PTH-Intact SerPl-mCncon - Parathyrin.intact [Mass/Vol] 65 pg/mL Normal 15-65 [facility] Comment on above: Order Comment: Og men Type: BLOOD SPECIMENOrdering Facility: [facility] Address: [address] [place] [address] Performed By: #### 3 016-3, 08849-8, 2731-8 ####[facility] [id number] [place] [address] [place] TSH SerPl-aCncon 10-03-2024 TSH Qn 2.330 m[IU]/L Normal 0.270-4.200 [facility] Comment on above: Order Comment: Kati men Type: BLOOD SPECIMEN Ordering Facility: [facility] Address: [address] [place] [address] Performed By: #### 5 5454-3 #### [facility] CLIA [id number] [address] [place] [address] [place] [id number] [facility] Adrien 10-02-2024 CNPN Telephone (FAMPWS) RACHEAL JAMES ([id number]) 1940 F NFR Date Time Provider Department 10/02/24 [facility] During your visit today, we recorded the following information about you: Molly Duncan MA 10/02/2024 8:39 AM Signed Pt requesting lab orders. Reports she was supposed to have labs rechecked. Nothing ordered. Please advise. Contact patient when ordered. BLAKE See Jordan L, DO 10/02/2024 8:34 PM Signed Orders placed for labs Please notify patient DO Claudia Phelps Beth, LPN 10/03/2024 9:48 AM Signed Phoned patient went over notes below from Dr Luo. Patient said she may not get the labs done to the morning of her appt since it is difficult for her to get around. Advised she did not have to be fasting to get the lab work done. 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 - hydrALAZINE (APRESOLINE) 25 mg tablet Take 1 tablet by mouth three times a day. Hold hydralazine if BP less than 140 systolic - losartan (COZAAR) 50 mg tablet Take 1 tablet by mouth once daily. - pravastatin (PRAVACHOL) 10 mg tablet Take 1 tablet by mouth daily at bedtime. - metoprolol succinate ER (TOPROL XL) 25 mg 24 hr tablet Take 1 tablet by mouth once daily. Take in addition to 100 mg XL once a day - metoprolol succinate ER (TOPROL XL) 100 mg Take 1 tablet by mouth once daily. Take in addition to 25 mg XL once a day - levothyroxine (SYNTHROID) 100 mcg tablet Take 1 tablet by mouth once daily. - MULTIVITAMIN WITH MINERALS (HAIR,SKIN AND NAILS ORAL) Take 1 tablet by mouth once daily. - ASPIRIN 81 MG ORAL TAB Take one(1) tablet daily. 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 TRACT [R93.89] 01/24/2006 05/09/2017 Secondary hyperparathyroidism, non-renal (HCC) *04/04/2006 04/16/2020 BENIGN NEOPLASM LG BOWEL [D12.6] 04/05/2006 DIVERTICULOSIS OF COLON W/O BLEED [K57.30] 04/05/2006 EXT HEMORRHOID W/O COMPL [K64.4] 04/05/2006 01/14/2009 Genital herpes [A60.00] 04/12/2006 ABNORMAL PAP SMEAR OF CERVIX NEC AND HPV [R89.6]07/07/2008 2015 ALOPECIA NOS [L65.9] 08/20/2008 01/14/2009 ASTHMA UNSPECIFIED [J45.909] 12/17/2008 Hyperparathyroidism, unspecified (HCC) [E21.3] 01/14/2009 04/16/2020 Headache(784.0) [R51] 01/14/2009 05/09/2017 LUMBAGO [M54.50] 04/14/2009 05/04/2009 Hyperlipidemia [E78.5] 02/09/2010 Chronic renal insufficiency [N18.9] 03/12/2010 04/16/2020 Rotator cuff impingement syndrome [M75.40] 03/04/2011 Carpal tunnel syndrome [G56.00] 03/04/2011 Abnormal mammogram [R92.8] 08/28/2014 05/09/2017 Chronic kidney disease, stage 4, severely decre*09/23/2015 04/16/2020 Secondary hyperparathyroidism (HCC) [N25.81] 04/17/2018 Other hyperlipidemia [E78.49] 04/17/2018 Chronic renal impairment, stage 4 (severe) (HCC*04/17/2018 04/16/2020 Overweight (BMI 25.0-29.9) [E66.3] 04/17/2018 Screening for breast cancer [Z12.39] 04/17/2019 Chronic kidney disease, stage 3b (HCC) [N18.32] 04/17/2019 Actinic keratosis [L57.0] 10/20/2020 Mallet finger of right finger(s) [M20.011] 04/20/2021 Essential hypertension [I10] 04/20/2021 Localized swelling of right foot [R22.41] 04/20/2021 Foot pain, right [M79.671] 04/20/2021 Acute bilateral low back pain with bilateral sc*04/20/2021 Finger injury, right, initial encounter [S69.91*04/20/2021 Vitamin D deficiency [E55.9] 04/20/2021 Hyperuricemia [E79.0] Gout of foot [M10.9] 07/30/2021 Weakness of low back due to inactivity [R29.898]02/01/2023 CKD stage G3b/A1, GFR 30-44 and albumin creatin*06/07/2023 Hypercalcemia [E83.52] 03/08/2024 (more content not included)... Normal [facility] CNPNon 09-18-2024 CNPN Telephone (UCTR) RACHEAL JAMES ([id number]) 1940 F NFR Date Time Provider Department 09/18/24 CANDELARIA NINA [facility] During your visit today, we recorded the following information about you: Candelaria Nina APRN.NURSING SERVICES MANAGER 09/18/2024 7:16 AM Signed Patient is positive for COVID. Please treat symptoms and do supportive care at home. And is negative for flu and RSV please notify Ida Ayala MA 09/18/2024 9:02 AM Signed Left message for patient to return call. BLAKE Vasquez Ashley 09/18/2024 9:06 AM Signed Son returned missed call on behalf of patient who was sleeping. Unable to disclose provider's message due to no documentation in chart of patient authorizing others to receive medical information. PSS requested son to advise patient to call back. Please ask patient to list who is authorized to receive medical information/schedule appointments on her behalf then document in patient's demographics. Burke Mathur, ELDON 09/18/2024 1:17 PM Signed Pt returned call and given provider's message below with verbalized understanding. Per pt permission also given message to sonConor. Both agreeable. Allergies As of Date: 09/18/2024 Noted Allergy Reaction CLONIDINE 07/07/2005 NORVASC (AMLODIPINE BESYLATE) 07/15/2011 14 - Other: See Comments Comments: Hair loss PREDNISONE 02/18/2013 14 - Other: See Comments Comments: Elevated BP and nausea Date Reviewed: 09/17/2024 Reviewed by: Solo Reyes APRN.NURSING SERVICES MANAGER - Fully Assessed Reason for Visit: Results [95] Prescriptions as of 09/18/2024 - valACYclovir (VALTREX) 500 mg tablet Take 1 tablet by mouth once daily. - guaiFENesin (MUCINEX) 600 mg 12 hr tablet Take 1 tablet by mouth two times a day as needed for cold/allergy symptoms (cough) for up to 7 days. - benzonatate (TESSALON PERLE) 100 mg capsule Take 1 capsule by mouth three times a day as needed for cough for up to 7 days. - hydrALAZINE (APRESOLINE) 25 mg tablet Take 1 tablet by mouth three times a day. Hold hydralazine if BP less than 140 systolic - losartan (COZAAR) 50 mg tablet Take 1 tablet by mouth once daily. - pravastatin (PRAVACHOL) 10 mg tablet Take 1 tablet by mouth daily at bedtime. - metoprolol succinate ER (TOPROL XL) 25 mg 24 hr tablet Take 1 tablet by mouth once daily. Take in addition to 100 mg XL once a day - metoprolol succinate ER (TOPROL XL) 100 mg Take 1 tablet by mouth once daily. Take in addition to 25 mg XL once a day - levothyroxine (SYNTHROID) 100 mcg tablet Take 1 tablet by mouth once daily. - MULTIVITAMIN WITH MINERALS (HAIR,SKIN AND NAILS ORAL) Take 1 tablet by mouth once daily. - ASPIRIN 81 MG ORAL TAB Take one(1) tablet daily. 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 TRACT [R93.89] 01/24/2006 05/09/2017 Secondary hyperparathyroidism, non-renal (HCC) *04/04/2006 04/16/2020 BENIGN NEOPLASM LG BOWEL [D12.6] 04/05/2006 DIVERTICULOSIS OF COLON W/O BLEED [K57.30] 04/05/2006 EXT HEMORRHOID W/O COMPL [K64.4] 04/05/2006 01/14/2009 Genital herpes [A60.00] 04/12/2006 ABNORMAL PAP SMEAR OF CERVIX NEC AND HPV [R89.6]07/07/2008 2015 ALOPECIA NOS [L65.9] 08/20/2008 01/14/2009 ASTHMA UNSPECIFIED [J45.909] 12/17/2008 Hyperparathyroidism, unspecified (HCC) [E21.3] 01/14/2009 04/16/2020 Headache(784.0) [R51] 01/14/2009 05/09/2017 LUMBAGO [M54.50] 04/14/2009 05/04/2009 Hyperlipidemia [E78.5] 02/09/2010 Chronic renal insufficiency [N18.9] 03/12/2010 04/16/2020 Rotator cuff impingement syndrome [M75.40] 03/04/2011 Carpal tunnel syndrome [G56.00] 03/04/2011 Abnormal mammogram [R92.8] 08/28/2014 05/09/2017 Chronic kidney disease, stage 4, severely decre*09/23/2015 04/16/2020 Secondary hyperparathyroidism (HCC) [N25.81] 04/17/2018 Other hyperlipidemia [E78.49] 04/17/2018 Chronic renal impairment, stage 4 (severe) (HCC*04/17/2018 04/16/2020 Overweight (BMI 25.0-29.9) [E66.3] 04/17/2018 Screening for breast cancer [Z12.39] 04/17/2019 Chronic kidney disease, stage 3b (HCC) [N18.32] 04/17/2019 Actinic keratosis [L57.0] 10/20/2020 Mallet finger of right finger(s) [M20.011] 04/20/2021 Essential hypertension [I10] 04/20/2021 Localized swelling of right foot [R22.41] 04/20/2021 Foot pain, right [M79.671] 04/20/2021 Acute bilateral low back pain with bilateral sc*04/20/2021 Finger injury, right, initial encounter [S69.91*04/20/2021 Vitamin D deficiency [E55.9] 04/20/2021 Hyperuricemia [E79.0] Gout of foot [M10.9] 07/30/2021 Weakness of low back due to inactivity [R29.898]02/01/2023 CKD stage G3b/A1, GFR 30-44 and albumin creatin*06/07/2023 Hypercalcemia [E83.52] 03/08/2024 Non-healing skin lesion of nose [L98.9] 04 (more content not included)... Normal [facility] CNOVon 09-17-2024 CNOV Office Visit (UCWSTR ) RACHEAL JAMES ([id number]) 1940 F NFR Date Time Provider Department 09/17/24 10:30 AM SOLO REYES [facility] During your visit today, we recorded the following information about you: Temperature Pulse Respiration Blood pressure 99.5 degrees 72/minute 22/minute 168/92 Weight 71 kg Solo Reyes APRN.NURSING SERVICES MANAGER 09/17/2024 12:13 PM Signed Subjective HPI Nontoxic-appearing female presents urgent care chief plaint flulike symptoms. Duration of symptoms 3 days. Associated symptoms sore throat fever headache body aches chills fatigue cough. Most prominent symptom today is cough. Son sick similar signs symptoms OTC medication use none. Denies any chest pain hemoptysis high fevers vomiting abdominal pain. Past medical history prescription medications allergies reviewed. 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 Byers COLONOSCOPY W/BIOPSY 05/31/16 diverticulosis, polyp COLONOSCOPY FLX DX W/COLLJ SPEC WHEN PFRMD 03/09/2001 Colonoscopy COLONOSCOPY FLX DX W/COLLJ SPEC WHEN PFRMD 04/05/2006 Colonoscopy COLONOSCOPY FLX DX W/COLLJ SPEC WHEN PFRMD 05/06/2011 Colonoscopy LIG/TRNSXJ FLP TUBE ABDL/VAG APPR UNI/BI Tubal ligation TOTAL THYROID LOBECTOMY UNI W/WO ISTHMUSECTOMY 04/01/08 RIGHT THYROID UNLISTED PROCEDURE HANDS/FINGERS 04/03/13 Right trigger finger ALLERGIES Clonidine, Norvasc [Amlodipine Besylate], and Prednisone MEDICATIONS valACYclovir (VALTREX) 500 mg tablet Take 1 tablet by mouth once daily. hydrALAZINE (APRESOLINE) 25 mg tablet Take 1 tablet by mouth three times a day. Hold hydralazine if BP less than 140 systolic losartan (COZAAR) 50 mg tablet Take 1 tablet by mouth once daily. pravastatin (PRAVACHOL) 10 mg tablet Take 1 tablet by mouth daily at bedtime. metoprolol succinate ER (TOPROL XL) 25 mg 24 hr tablet Take 1 tablet by mouth once daily. Take in addition to 100 mg XL once a day metoprolol succinate ER (TOPROL XL) 100 mg Take 1 tablet by mouth once daily. Take in addition to 25 mg XL once a day levothyroxine (SYNTHROID) 100 mcg tablet Take 1 tablet by mouth once daily. MULTIVITAMIN WITH MINERALS (HAIR,SKIN AND NAILS ORAL) Take 1 tablet by mouth once daily. ASPIRIN 81 MG ORAL TAB Take one(1) tablet daily. FAMILY HISTORY Problem Relation Age of Onset Colon Cancer Mother Hypertension Mother Cancer Sister thyroid Breast Cancer Sister Cancer Maternal Grandmother Stroke Paternal Grandfather Psychiatry Son suicide Social History Tobacco Use Smoking status: Never Smokeless tobacco: Never Vaping Use Vaping status: Never Used Substance Use Topics Alcohol use: No Drug use: No BP 168/92 Pulse 72 Temp 37.5 ?C (99.5 ?F) Resp 22 Wt 71 kg (156 lb 8.4 oz) SpO2 96% BMI 28.63 kg/m? Resp 18 Review of Systems Constitutional: Positive for chills, fever and malaise/fatigue. HENT: Positive for congestion and sore throat. Negative for ear discharge, ear pain and sinus pain. Eyes: Negative for blurred vision, pain, discharge and redness. Respiratory: Positive for cough and shortness of breath. Negative for hemoptysis, sputum production, wheezing and stridor. Cardiovascular: Negative for chest pain. Gastrointestinal: Negative for abdominal pain, diarrhea, nausea and vomiting. Musculoskeletal: Positive for myalgias. Skin: Negative for itching and rash. Neurological: Negative for dizziness and headaches. Objective Physical Exam Constitutional: General: She is not in acute distress. Appearance: She is not diaphoretic. HENT: Head: Normocephalic. Jaw: No trismus, tenderness, swelling or pain on movement. Nose: Congestion present. Mouth/Throat: Mouth: Mucous membranes are moist. Pharynx: Oropharynx is clear. Uvula midline. No pharyngeal swelling, oropharyngeal exudate, posterior oropharyngeal erythema or uvula swelling. Eyes: Conjunc (more content not included)... Normal [facility] COVID AND INFLUENZA A/B AND RSV PCR, ROUTINEon 09-17-2024 SARS-CoV-2 (COVID-19) RNA DOMI+probe Ql (Unsp spec) SARS-COV-2 (AGENT OF COVID-19) RNA: Detected INFLUENZA A RNA: Not detected INFLUENZA B RNA: Not detected RESPIRATORY SYNCYTIAL VIRUS (RSV) RNA: Not detected Abnormal [facility] Comment on above: Performed By: #### C VFLRS ####[facility] [id number] [place] [address] [place] XR CHEST 2V FRONTAL/LATon XR CHEST 2V FRONTAL/LAT * * *Final Repor t* * * DATE OF EXAM: Sep 17 2024 11:59AM WOX [id number] - XR CHEST 2V FRONTAL/LAT / PROCEDURE REASON: Acute cough * * * * Physician Interpretation * * * * EXAMINATION: CHEST RADIOGRAPH (2 VIEW FRONTAL and LATERAL) CLINICAL HISTORY: Acute cough MQ: [id number] EXAM DATE/TIME: 09/17/2024 11:59 AM COMPARISON: Chest x-ray dated 01/10/2012 RESULT: Lines, tubes, and devices: None. Lungs and pleura: Limited evaluation of the left perihilar region due to significant leftward patient rotation. Mild linear opacity at the right base, likely atelectasis. Cardiomediastinal silhouette: Heart is normal in size when accounting for leftward patient rotation. Atherosclerotic calcification of the vasculature. Bones and soft tissues: Degenerative changes are present within the thoracic spine. IMPRESSION: Limited evaluation due to leftward patient rotation as described. Mild linear opacity at the right base, likely atelectasis. Engine Generator Assembler: SEMAJ Transcribe Date/Time: Sep 17 2024 12:01P Dictated by : SRAVAN THORNTON MD This examination was interpreted and the report reviewed and electronically signed by: SRAVAN THORNTON MD on Sep 17 2024 12:02PM EST [id number] Normal [facility] XR Chest PA and Lateralon * * *Final Report* * * DATE OF EXAM: Sep 17 2024 11:59AM WOX 5291 - XR CHEST 2V FRONTAL/LAT / PROCEDURE REASON: Acute cough * * * * Physician Interpretation * * * * EXAMINATION: CHEST RADIOGRAPH (2 VIEW FRONTAL & LATERAL) CLINICAL HISTORY: Acute cough MQ: XC2_6 EXAM DATE/TIME: 09/17/2024 11:59 AM COMPARISON: Chest x-ray dated 01/10/2012 RESULT: Lines, tubes, and devices: None. Lungs and pleura: Limited evaluation of the left perihilar region due to significant leftward patient rotation. Mild linear opacity at the right base, likely atelectasis. Cardiomediastinal silhouette: Heart is normal in size when accounting for leftward patient rotation. Atherosclerotic calcification of the vasculature. Bones and soft tissues: Degenerative changes are present within the thoracic spine. DIVISION OF RADIOLOGY Provider, [facility] - 09/17/2024 * * *Final Report* * * DATE OF EXAM: Sep 17 2024 11:59AM WOX 5291 - XR CHEST 2V FRONTAL/LAT / PROCEDURE REASON: Acute cough * * * * Physician Interpretation * * * * EXAMINATION: CHEST RADIOGRAPH (2 VIEW FRONTAL & LATERAL) CLINICAL HISTORY: Acute cough MQ: XC2_6 EXAM DATE/TIME: 09/17/2024 11:59 AM COMPARISON: Chest x-ray dated 01/10/2012 RESULT: Lines, tubes, and devices: None. Lungs and pleura: Limited evaluation of the left perihilar region due to significant leftward patient rotation. Mild linear opacity at the right base, likely atelectasis. Cardiomediastinal silhouette: Heart is normal in size when accounting for leftward patient rotation. Atherosclerotic calcification of the vasculature. Bones and soft tissues: Degenerative changes are present within the thoracic spine. IMPRESSION IMPRESSION: Limited evaluation due to leftward patient rotation as described. Mild linear opacity at the right base, likely atelectasis. Engine Generator Assembler: [email or web address] Transcribe Date/Time: Sep 17 2024 12:01P Dictated by : SRAVAN THORNTON MD This examination was interpreted and the report reviewed and electronically signed by: SRAVAN THORNTON MD on Sep 17 2024 12:02PM EST [facility] Radiology Study observation (narrative) Michael guajardo [facility] XR Chest PA and LateralOrder ed By: [facility] Provider on 09-17-2024 [facility] Abdomen Single Viewon 2023 Abdomen Single View [facility] [address] [place] [address] [id number] Abdomen Single View MR#: [id number] Acct: [id number] Name: RACHEAL JAMES Rep #: [id number] : 1940 F 84 From: Adam clark MD PCP: Dr. Tuan Luo, Status: REG ER Study: Abdomen Single View Date of Exam: 09/13/24 Exam# [id number] Ordering Dr: Solo Car DO [id number] STUDY: X-RAY - ABDOMEN/PELVIS REASON FOR EXAM: Female, 84 years old. constipation TECHNIQUE: Single AP view of the abdomen / pelvis. COMPARISON: None. FINDINGS: There is an abundance of fecal material throughout the colon. The visualized liver, spleen and kidneys are grossly normal in size and morphology. Normal soft tissue structures. There are diffuse degenerative changes of the visualized lumbar spine. Status post bilateral hip replacement. RAD/Abdomen Single View IMPRESSION: Large amount of fecal material is seen in the colon. Electronically Signed: Adam Sena MD at 9:30 EDT Reading Location ID and State: [facility] / [place] , Service support , CC: Dr. Solo Car DO; Dr. Tuan Luo DO Engine Generator Assembler: Signed Normal [facility] Emergency Department Summary on 09-13-2024 Emergency Department Summary [facility] Medical Records Department [address] [place] [id number] Emergency Department Summary 09/13/24 MR#: [id number] Acct: [id number] Name: RACHEAL JAMES Rep #: [id number] : 1940 84 From: Solo Car DO PCP: Dr. Tuan Luo DO Status:REG ER Location: ED HPI History of Present Illness Chief Complaint: Constipation Narrative Narrative: Patient is a 84-year-old female who is presenting to the ER today with chief complaint of rectal pressure. Patient states that the last time she had a bowel movement was maybe 1 or 2 days ago after she took Colace, she cannot remember if it was yesterday or Monday. Patient states she has rectal pressure with intermittent cramping. No nausea or vomiting. No fever or chills. No chest pain or shortness of breath. Patient has no changes in her recent eating or drinking habits. Patient did take her blood pressure medication this morning. Patient initial machine reading was 183/138. Repeat manual blood pressure was 180/100. She has no headache chest pain or shortness of breath. Son is at bedside. No acute complaints at this time. [facility] Home Medications ???Medication ???Instructions ???Recorded ???Last Taken ???Type aspirin 81 mg chewable tablet 81 mg PO DAILY@0800 heart 06/01/17 12/15/17 08:00 History 81 mg calcitriol 0.25 mcg capsule 0.25 mcg PO MOWEFR vitamin 06/01/17 12/15/17 08:00 History 0.25mg hydrochlorothiazide 25 mg tablet 12.5 mg PO DAILY bp 06/01/17 12/15/17 08:00 History 12.5mg levothyroxine 88 mcg tablet 88 mcg PO DAILY thyroid 06/01/17 12/14/17 22:00 History 88 mcg losartan 100 mg tablet 50 mg PO DAILY bp 06/01/17 12/15/17 08:00 History 100 mg pravastatin 10 mg tablet 10 mg PO QHS cholesterol 06/01/17 12/14/17 22:00 History 10 mg multivitamin (Multiple Vitamins 1 ea PO DAILY vitamin 12/15/17 12/15/17 08:00 History tablet) 1 tab vit C,E,zinc,copper-omega3 s 250 1 ea PO DAILY vitamin 12/15/17 12/15/17 08:00 History mg-lutein 5 mg-zeaxanthin 1 mg 1 cap capsule (Ocuvite Adult 50 Plus) metoprolol succinate 100 mg 100 mg PO DAILY blood pressure 12/18/17 Unknown History tablet,extended release 24 hr amoxicillin 500 mg-potassium 500 mg PO Q12H #10 tabs 12/19/17 Unknown Rx clavulanate 125 mg tablet ondansetron HCl 4 mg tablet 4 mg PO Q6H PRN PRN Nausea #8 tabs 12/19/17 Unknown Rx prednisone 20 mg tablet 40 mg (2 x 20 mg) PO DAILY 5 days 08/20/23 Unknown Rx #10 tabs dicyclomine 10 mg capsule 20 mg (2 x 10 mg) PO TIDAC PRN 09/13/24 Unknown Rx Abdominal Pain #8 CAPSULES ondansetron 4 mg disintegrating 4 mg PO Q8H PRN PRN Nausea #10 tabs 09/13/24 Unknown Rx tablet Allergy/AdvReac Type Severity Reaction Status Date / Time amlodipine besylate (From AdvReac Other Verified 09/13/24 08:01 Norvasc) clonidine AdvReac Unknown Verified 09/13/24 08:01 hydrochlorothiazide (From AdvReac Other Verified 09/13/24 08:01 Zestoretic) lisinopril (From Zestoretic) AdvReac Other Verified 09/13/24 08:01 Surgical History History of hip surgery Social History Smoking Status: Never smoker ROS ROS ED ROS Narrative REVIEW OF SYSTEMS: Unless otherwise stated in this report the patient's positive and negative responses for review of systems for constitutional, eyes, ENT, cardiovascular, respiratory, gastrointestinal, neurological, , musculoskeletal, and integument systems and related systems to the presenting problem are either stated in the history of present illness or were not pertinent or were negative for the symptoms and/or complaints related to the presenting medical problem. EXAM Physical Exam Narrative Exam Narrative: Vital signs reviewed and patient is not hypoxic. General: The patient appears well and in no apparent distress. Patient is resting comfortably on cart. Not toxic, lethargic, or listless. Sophie RN was at bedside and the entire HPI and physical exam and rectal exam. Skin: Warm, dry, no pallor noted. There is no rash noted. Head: Normocephalic, atraumatic Eye: Normal conjunctiva, no drainage, EOMI. PERRL. Ears, Nose, Mouth, and Throat: oral mucosa is moist. Cardiovascular: Regular Rate and Rhythm, no murmurs, gallops, or rubs Respiratory: Patient is in no distress, no accessory muscle use, lungs are clear to auscultation, no wheezing, rales or rhonchi Back: non-tender, no CVA tenderness bilaterally to percussion. NO CTLS midline or paraspinal tenderness to palpation. GI: Soft, no tenderness to palpation, no masses appreciated. No rebound, guarding, or rigidity noted. Musculoskeletal: The patient has full range of motion of all extremities and joints with no difficulty. Patient has no motor, no sensory deficits. RECTAL: Sophie (more content not included)... Normal [facility] CBC W Auto Differential pane l (Bld)on 07-08-2024 Basophils (Bld) [#/Vol] 0.06 10*3/uL [facility] Basophils/100 WBC (Bld) 0.8 % [facility] Differential cell count method Nom (Bld) Auto [facility] Eosinophils (Bld) [#/Vol] 0.18 10*3/uL [facility] Eosinophils/100 WBC (Bld) 2.3 % [facility] Erythrocyte distribution width (RBC) [Ratio] 14.1 % 11.5 - 15.0 % [facility] Hematocrit (Bld) [Volume fraction] 46.1 % High 36.0 - 46.0 % [facility] Hemoglobin (Bld) [Mass/Vol] 14.3 g/dL 11.5 - 15.5 g/dL [facility] Immature granulocytes (Bld) [#/Vol] [facility] Immature granulocytes/100 WBC (Bld) 0.3 % [facility] Interpretation and review of laboratory results Abnormal [facility] Lymphocytes (Bld) [#/Vol] 2.40 10*3/uL [facility] Lymphocytes/100 WBC (Bld) 30.4 % [facility] MCH (RBC) [Entitic mass] 29.8 pg 26. 0 - 34.[address] [facility] MCHC (RBC) [Mass/Vol] 31.0 g/dL 30.5 - 36.0 g/dL [facility] MCV (RBC) [Entitic vol] 96.0 fL 80.0 - 100.[address] [facility] Monocytes (Bld) [#/Vol] 0.96 10*3/uL High [facility] Monocytes/100 WBC (Bld) 12.2 % [facility] Neutrophils (Bld) [#/Vol] 4.27 10*3/uL [facility] Neutrophils/100 WBC (Bld) 54.0 % [facility] Nucleated RBC (Bld) [#/Vol] [facility] Nucleated RBC/100 WBC (Bld) [Ratio] 0.0 % /[address] [facility] Platelet mean volume (Bld) [Entitic vol] 12.0 fL 9.0 - 12.[address] [facility] Platelets (Bld) [#/Vol] 215 10*3/uL [facility] RBC (Bld) [#/Vol] 4.80 10*6/uL 3.90 - 5.2 0 m/uL [facility] WBC (Bld) [#/Vol] 7.89 10*3/uL [facility] Basophils (Bld) [#/Vol] 0.06 10*3/uL Normal <0.11 [facility] Comment on above: Order Comment: Speci men Type: BLOOD SPECIMEN Ordering Facility: [facility] Address: [address] [place] [address] Performed By: #### 5 5454-3 #### [facility] CLIA [id number] [address] [place] [address] [place] Basophils/100 WBC (Bld) 0.8 % Normal C [facility] Comment on above: Order Comment: Speci men Type: BLOOD SPECIMEN Ordering Facility: [facility] Address: [address] [place] [address] Performed By: #### 5 5454-3 #### [facility] CLIA [id number] [address] [place] [address] [place] Differential cell count method Nom (Bld) Auto Normal [facility] Comment on above: Order Comment: Speci men Type: BLOOD SPECIMEN Ordering Facility: [facility] Address: [address] [place] [address] Performed By: #### 5 5454-3 #### [facility] CLIA [id number] [address] [place] [address] [place] Eosinophils (Bld) [#/Vol] 0.18 10*3/uL Normal <0.46 [facility] Comment on above: Order Comment: Speci men Type: BLOOD SPECIMEN Ordering Facility: [facility] Address: [address] [place] [address] Performed By: #### 5 5454-3 #### [facility] CLIA [id number] [address] [place] [address] [place] Eosinophils/100 WBC (Bld) 2.3 % Normal [facility] Comment on above: Order Comment: Speci men Type: BLOOD SPECIMEN Ordering Facility: [facility] Address: [address] [place] [address] Performed By: #### 5 5454-3 #### [facility] CLIA [id number] [address] [place] [address] [place] Erythrocyte distribution width (RBC) [Ratio] 14.1 % Normal 11.5-15.0 [facility] Comment on above: Order Comment: Speci men Type: BLOOD SPECIMEN Ordering Facility: [facility] Address: [address] [place] [address] Performed By: #### 5 5454-3 #### [facility] CLIA [id number] [address] [place] [address] [place] Hematocrit (Bld) [Volume fraction] 46.1 % High 36.0-46.0 [facility] Comment on above: Order Comment: Speci men Type: BLOOD SPECIMEN Ordering Facility: [facility] Address: [address] [place] [address] Performed By: #### 5 5454-3 #### [facility] CLIA [id number] [address] [place] [address] [place] Hemoglobin (Bld) [Mass/Vol] 14.3 g/dL Normal 11.5-15.5 [facility] Comment on above: Order Comment: Speci men Type: BLOOD SPECIMEN Ordering Facility: [facility] Address: [address] [place] [address] Performed By: #### 5 5454-3 #### [facility] CLIA [id number] [address] [place] [address] [place] Immature granulocytes (Bld) [#/Vol] 10*3/uL Normal <0.10 [facility] Comment on above: Order Comment: Speci men Type: BLOOD SPECIMEN Ordering Facility: [facility] Address: [address] [place] [address] Performed By: #### 5 5454-3 #### [facility] CLIA [id number] [address] [place] [address] [place] Immature granulocytes/100 WBC (Bld) 0.3 % Normal [facility] Comment on above: Order Comment: Speci men Type: BLOOD SPECIMEN Ordering Facility: [facility] Address: [address] [place] [address] Performed By: #### 5 5454-3 #### [facility] CLIA [id number] [address] [place] [address] [place] Lymphocytes (Bld) [#/Vol] 2.40 10*3/uL Normal 1.00-4.00 [facility] Comment on above: Order Comment: Speci men Type: BLOOD SPECIMEN Ordering Facility: [facility] Address: [address] [place] [address] Performed By: #### 5 5454-3 #### [facility] CLIA [id number] [address] [place] [address] [place] Lymphocytes/100 WBC (Bld) 30.4 % Normal [facility] Comment on above: Order Comment: Speci men Type: BLOOD SPECIMEN Ordering Facility: [facility] Address: [address] [place] [address] Performed By: #### 5 5454-3 #### [facility] CLIA [id number] [address] [place] [address] [place] MCH (RBC) [Entitic mass] 29.8 pg Normal 26.0-34.0 [facility] Comment on above: Order Comment: Speci men Type: BLOOD SPECIMEN Ordering Facility: [facility] Address: [address] [place] [address] Performed By: #### 5 5454-3 #### [facility] CLIA [id number] [address] [place] [address] [place] MCHC (RBC) [Mass/Vol] 31.0 g/dL Normal 30.5-36.0 [facility] Comment on above: Order Comment: Speci men Type: BLOOD SPECIMEN Ordering Facility: [facility] Address: [address] [place] [address] Performed By: #### 5 5454-3 #### [facility] CLIA [id number] [address] [place] [address] [place] MCV (RBC) [Entitic vol] 96.0 fL Normal 80.0-100.0 C [facility] Comment on above: Order Comment: Speci men Type: BLOOD SPECIMEN Ordering Facility: [facility] Address: [address] [place] [address] Performed By: #### 5 5454-3 #### [facility] CLIA [id number] [address] [place] [address] [place] Monocytes (Bld) [#/Vol] 0.96 10*3/uL High <0.87 [facility] Comment on above: Order Comment: Speci men Type: BLOOD SPECIMEN Ordering Facility: [facility] Address: [address] [place] [address] Performed By: #### 5 5454-3 #### [facility] CLIA [id number] [address] [place] [address] [place] Monocytes/100 WBC (Bld) 12.2 % Normal C [facility] Comment on above: Order Comment: Speci men Type: BLOOD SPECIMEN Ordering Facility: [facility] Address: [address] [place] [address] Performed By: #### 5 5454-3 #### [facility] CLIA [id number] [address] [place] [address] [place] Neutrophils (Bld) [#/Vol] 4.27 10*3/uL Normal 1.45-7.50 [facility] Comment on above: Order Comment: Speci men Type: BLOOD SPECIMEN Ordering Facility: [facility] Address: [address] [place] [address] Performed By: #### 5 5454-3 #### [facility] CLIA [id number] [address] [place] [address] [place] Neutrophils/100 WBC (Bld) 54.0 % Normal [facility] Comment on above: Order Comment: Speci men Type: BLOOD SPECIMEN Ordering Facility: [facility] Address: [address] [place] [address] Performed By: #### 5 5454-3 #### [facility] CLIA [id number] [address] [place] [address] [place] Nucleated RBC (Bld) [#/Vol] 10*3/uL Normal <0.01 [facility] Comment on above: Order Comment: Speci men Type: BLOOD SPECIMEN Ordering Facility: [facility] Address: [address] [place] [address] Performed By: #### 5 5454-3 #### [facility] CLIA [id number] [address] [place] [address] [place] Nucleated RBC/100 WBC (Bld) [Ratio] 0.0 /100 WBC Normal [facility] Comment on above: Order Comment: Speci men Type: BLOOD SPECIMEN Ordering Facility: [facility] Address: [address] [place] [address] Performed By: #### 5 5454-3 #### [facility] CLIA [id number] [address] [place] [address] [place] Platelet mean volume (Bld) [Entitic vol] 12.0 fL Normal 9.0-12.7 [facility] Comment on above: Order Comment: Speci men Type: BLOOD SPECIMEN Ordering Facility: [facility] Address: [address] [place] [address] Performed By: #### 5 5454-3 #### [facility] CLIA [id number] [address] [place] [address] [place] Platelets (Bld) [#/Vol] 215 10*3/uL Normal 150-400 [facility] Comment on above: Order Comment: Speci men Type: BLOOD SPECIMEN Ordering Facility: [facility] Address: [address] [place] [address] Performed By: #### 5 5454-3 #### [facility] CLIA [id number] [address] [place] [address] [place] RBC (Bld) [#/Vol] 4.80 10*6/uL Normal 3.90-5.20 [facility] Comment on above: Order Comment: Speci men Type: BLOOD SPECIMEN Ordering Facility: [facility] Address: [address] [place] [address] Performed By: #### 5 5454-3 #### [facility] CLIA [id number] [address] [place] [address] [place] WBC (Bld) [#/Vol] 7.89 10*3/uL Normal 3.70-11.00 [facility] Comment on above: Order Comment: Speci men Type: BLOOD SPECIMEN Ordering Facility: [facility] Address: [address] [place] [address] Performed By: #### 5 5454-3 #### [facility] CLIA [id number] [address] [place] [address] [place] CNOVon 07-08-2024 CNOV Office Visit (FAMPWS ) RACHEAL JAMES ([id number]) 1940 F NFR Date Time Provider Department 07/08/24 10:40 AM TUAN LUO FAMPWS During your visit today, we recorded the following information about you: Temperature Pulse Respiration Blood pressure 98.7 degrees 68/minute 16/minute 128/78 Weight 73 kg Luo, Tuan Brunner, DO 07/08/2024 4:47 PM Signed CC: Racheal James is a 83 year old female who presents to the office for follow up HPI: BLOOD PRESSURE seems overall to be better regulated. Typical range of 130s/80s. Lows of 120s / 80s. No CP or dyspnea or dizziness/Lh. No recent falls. She has her granddaughter helping her with mowing and outdoor work Low back pain, DJD and DDD lumbar spine. Has had an epidural injection in the lumbar spine by Dr. Bryson without relief. Then had an alternative type of injection with some relief. Avoids NSAIDs. She does take tylenol up to 500 mg twice a day for pain, no new bowel or bladder loss of control CKD stage 3, hypertensive kidney disease, has been seen recently by Dr. Danni Jimenez Nephrology, levels are stable, asymptomatic Occasional blood when wiping after having a bowel movement. No obvious blood in stool . No abdominal pain PAST MEDICAL HISTORY 01/28/2022: Advance directive discussed with patient Comment: DPJOYCE Conor her son No date: Benign neoplasm of colon Comment: FHx of colon cancer No date: Carpal tunnel syndrome No date: Chronic renal insufficiency Comment: stage 4 No date: CKD stage G3b/A1, GFR 30-44 and albumin creatinine ratio <30 mg/g (HCC) No date: Diverticulosis of colon (without mention of hemorrhage) No date: Essential hypertension, benign Comment: White coat effect No date: Hyperlipidemia 04/2021: Hyperuricemia 10/20/2005: Post-surgical hypothyroidism No date: SEC HYPERPARATHYROID, NON-RENAL No date: Trigger finger No date: Unspecified nontoxic nodular goiter PAST SURGICAL HISTORY No date: APPENDECTOMY 08/2003, 2009: ARTHRP ACETBLR/PROX FEM PROSTC AGRFT/ALGRFT Comment: Hip replacement, total x2 05/28/15: BIOPSY BREAST OPEN INCISIONAL Comment: Bx of breast, left 08/28/14: BX BREAST W/DEVICE 1ST LESION STEREOTACTIC GUID Comment: right, benign 04/03/13: CARPAL TUNNEL Comment: right No date: CATARACT EXT; EYEONICS IOL SYS Comment: Dr. Modesta rinaldi 05/31/16: COLONOSCOPY W/BIOPSY Comment: diverticulosis, polyp 03/09/2001: COLONOSCOPY FLX DX W/COLLJ SPEC WHEN PFRMD Comment: Colonoscopy 04/05/2006: COLONOSCOPY FLX DX W/COLLJ SPEC WHEN PFRMD Comment: Colonoscopy 05/06/2011: COLONOSCOPY FLX DX W/COLLJ SPEC WHEN PFRMD Comment: Colonoscopy No date: LIG/TRNSXJ FLP TUBE ABDL/VAG APPR UNI/BI Comment: Tubal ligation 04/01/08: TOTAL THYROID LOBECTOMY UNI W/WO ISTHMUSECTOMY Comment: RIGHT THYROID 04/03/13: UNLISTED PROCEDURE HANDS/FINGERS Comment: Right trigger finger Current Outpatient Medications Medication Sig hydrALAZINE (APRESOLINE) 25 mg tablet Take 1 tablet by mouth three times a day. Hold hydralazine if BP less than 140 systolic hydrocortisone (ANUSOL-HC) 2.5 % rectal cream by RECTAL route two times a day. As needed for hemorrhoids losartan (COZAAR) 50 mg tablet Take 1 tablet by mouth once daily. pravastatin (PRAVACHOL) 10 mg tablet Take 1 tablet by mouth daily at bedtime. metoprolol succinate ER (TOPROL XL) 25 mg 24 hr tablet Take 1 tablet by mouth once daily. Take in addition to 100 mg XL once a day metoprolol succinate ER (TOPROL XL) 100 mg Take 1 tablet by mouth once daily. Take in addition to 25 mg XL once a day levothyroxine (SYNTHROID) 100 mcg tablet Take 1 tablet by mouth once daily. colchicine 0.6 mg tablet Take 1 tablet by mouth one time only for 1 dose. MULTIVITAMIN WITH MINERALS (HAIR,SKIN AND NAILS ORAL) Take 1 tablet by mouth once daily. ASPIRIN 81 MG ORAL TAB Take one(1) tablet daily. No current facility-administered medications for this visit. ALLERGIES Allergen Reactions Clonidine Norvasc [Amlodipine* Other: See Comments Hair loss Prednisone Other: See Comments Elevated BP and nausea Social History Tobacco Use Smoking status: Never Smokeless tobacco: Never Vaping Use Vaping status: Never Used Substance Use Topics Alcohol use: No Drug use: No ROS: See HPI PE: BP 128/78 Pulse 68 Temp (Src) 98.7 (Left Tympanic) Resp 16 Wt 161 lb (73.0kg) Gen: AANDOX3, NAD, non-toxic appearing, hard of hearing HEENT: PERRLA, EOMs intact b/l, nares without drainage, pharynx without erythema, exudate, lesions, or drainage. Uvula midline. MMM Neck: No LAD, no thyromegaly, no meningismus. CV: RRR, no murmur, normal S1S2 Lungs: CTA b/l, no wheezing No edema, normal pulses Reduced ROM lumbar spine secondary to pain and muscle tension Normal pulses Skin: scattered angiomas and solar lentigos External hemorrhoids with inflammation without signs (more content not included)... Normal [facility] Comprehensive metabolic 2000 panelon 07-08-2024 Albumin [Mass/Vol] 4.5 g/dL Normal 3.9-4.9 [facility] Comment on above: Order Comment: Speci men Type: BLOOD SPECIMEN Ordering Facility: [facility] Address: [address] [place] [address] Performed By: #### 5 5454-3 #### [facility] CLIA [id number] [address] [place] [address] [place] ALP [Catalytic activity/Vol] 63 U/L Normal 34-123 [facility] Comment on above: Order Comment: Speci men Type: BLOOD SPECIMEN Ordering Facility: [facility] Address: [address] [place] [address] Performed By: #### 5 5454-3 #### [facility] CLIA [id number] [address] [place] [address] [place] ALT [Catalytic activity/Vol] 18 U/L Normal 7-38 [facility] Comment on above: Order Comment: Speci men Type: BLOOD SPECIMEN Ordering Facility: [facility] Address: [address] [place] [address] Performed By: #### 5 5454-3 #### [facility] CLIA [id number] [address] [place] [address] [place] Anion gap [Moles/Vol] 10 mmol/L Normal 8-15 [facility] Comment on above: Order Comment: Speci men Type: BLOOD SPECIMEN Ordering Facility: [facility] Address: [address] [place] [address] Performed By: #### 5 5454-3 #### [facility] CLIA [id number] [address] [place] [address] [place] AST [Catalytic activity/Vol] 28 U/L Normal 13-35 [facility] Comment on above: Order Comment: Speci men Type: BLOOD SPECIMEN Ordering Facility: [facility] Address: [address] [place] [address] Performed By: #### 5 5454-3 #### [facility] CLIA [id number] [address] [place] [address] [place] Bilirubin [Mass/Vol] 1.0 mg/dL Normal 0.2-1.3 [facility] Comment on above: Order Comment: Speci men Type: BLOOD SPECIMEN Ordering Facility: [facility] Address: [address] [place] [address] Performed By: #### 5 5454-3 #### [facility] CLIA [id number] [address] [place] [address] [place] Calcium [Mass/Vol] 10.4 mg/dL High 8.5-10.2 [facility] Comment on above: Order Comment: Speci men Type: BLOOD SPECIMEN Ordering Facility: [facility] Address: [address] [place] [address] Performed By: #### 5 5454-3 #### [facility] CLIA [id number] [address] [place] [address] [place] Chloride [Moles/Vol] 104 mmol/L Normal 98-107 [facility] Comment on above: Order Comment: Speci men Type: BLOOD SPECIMEN Ordering Facility: [facility] Address: [address] [place] [address] Performed By: #### 5 5454-3 #### [facility] CLIA [id number] [address] [place] [address] [place] CO2 [Moles/Vol] 25 mmol/L Normal 22-30 [facility] Comment on above: Order Comment: Speci men Type: BLOOD SPECIMEN Ordering Facility: [facility] Address: [address] [place] [address] Performed By: #### 5 5454-3 #### [facility] CLIA [id number] [address] [place] [address] [place] Creatinine [Mass/Vol] 1.30 mg/dL High 0.58-0.96 [facility] Comment on above: Order Comment: Speci men Type: BLOOD SPECIMEN Ordering Facility: [facility] Address: [address] [place] [address] Performed By: #### 5 5454-3 #### [facility] CLIA [id number] [address] [place] [address] [place] Creatinine and Glomerular filtration rate.predicted panel (S/P/Bld) 41 mL/min/1.73m??? Low >=60 [facility] Comment on above: Order Comment: Speci men Type: BLOOD SPECIMEN Ordering Facility: [facility] Address: [address] [place] [address] Result Comment: Sugar mated Glomerular Filtration Rate (eGFR) is calculated using the 2020 CKD-EPI creatinine equation. This equation utilizes serum creatinine, sex, and age as parameters. The creatinine assay has traceable calibration to isotope dilution-mass spectrometry. Refer to KDIGO guidelines for clinical interpretation. In patients with unstable renal function, e.g. those with acute kidney injury, the eGFR may not accurately reflect actual GFR. Performed By: #### 5 5454-3 #### [facility] CLIA [id number] [address] [place] [address] [place] Glucose [Mass/Vol] 97 mg/dL Normal 74-99 [facility] Comment on above: Order Comment: Speci men Type: BLOOD SPECIMEN Ordering Facility: [facility] Address: [address] [place] [address] Result Comment: The [place] Diabetes Association (ADA) provides guidance for cutoff values for fasting glucose and random glucose. The ADA defines fasting as no caloric intake for at least 8 hours. Fasting plasma glucose results between 100 to 125 mg/dL indicate increased risk for diabetes (prediabetes). Fasting plasma glucose results greater than or equal to 126 mg/dL meet the criteria for diagnosis of diabetes. In the absence of unequivocal hyperglycemia, results should be confirmed by repeat testing. In a patient with classic symptoms of hyperglycemia or hyperglycemic crisis, random plasma glucose results greater than or equal to 200 mg/dL meet the criteria for diagnosis of diabetes. Reference: Standards of Medical Care in Diabetes 2016, [place] [employer]. Diabetes Care. 2016.39(Suppl 1). Performed By: #### 5 5454-3 #### [facility] CLIA [id number] [address] [place] [address] [place] Potassium [Moles/Vol] 4.3 mmol/L Normal 3.7-5.1 [facility] Comment on above: Order Comment: Speci men Type: BLOOD SPECIMEN Ordering Facility: [facility] Address: [address] [place] [address] Performed By: #### 5 5454-3 #### [facility] CLIA [id number] [address] [place] [address] [place] Protein [Mass/Vol] 7.4 g/dL Normal 6.3-8.0 [facility] Comment on above: Order Comment: Speci men Type: BLOOD SPECIMEN Ordering Facility: [facility] Address: [address] [place] [address] Performed By: #### 5 5454-3 #### [facility] CLIA [id number] [address] [place] [address] [place] Sodium [Moles/Vol] 139 mmol/L Normal 136-144 [facility] Comment on above: Order Comment: Speci men Type: BLOOD SPECIMEN Ordering Facility: [facility] Address: [address] [place] [address] Performed By: #### 5 5454-3 #### [facility] CLIA [id number] [address] [place] [address] [place] Urea nitrogen [Mass/Vol] 24 mg/dL High 7-21 [facility] Comment on above: Order Comment: Speci men Type: BLOOD SPECIMEN Ordering Facility: [facility] Address: [address] [place] [address] Performed By: #### 5 5454-3 #### [facility] CLIA [id number] [address] [place] [address] [place] T4 Free SerPl-mCncon 024 Free T4 [Mass/Vol] 1.4 ng/dL Normal 0.9-1.7 [facility] Comment on above: Order Comment: Speci men Type: BLOOD SPECIMEN Ordering Facility: [facility] Address: [address] [place] [address] Performed By: #### 5 5454-3 #### [facility] IA [id number] [address] [place] [address] [place] TSH SerPl-aCncon 07-08-2024 TSH Qn 0.539 m[IU]/L Normal 0.270-4.200 [facility] Comment on above: Order Comment: Speci men Type: BLOOD SPECIMEN Ordering Facility: [facility] Address: [address] [place] [address] Performed By: #### 5 5454-3 #### [facility] CLIA [id number] [address] [place], [place] [id number] [place] Vit B12 SerPl-mCncon 024 Cobalamin (Vitamin B12) [Mass/Vol] 860 pg/mL Normal 232-1245 [facility] Comment on above: Order Comment: Speci men Type: BLOOD SPECIMEN Ordering Facility: [facility] Address: [address] [place] [address] Performed By: #### 5 5454-3 #### [facility] CLIA [id number] [address] [place] [address] [place] 25-hydroxyvitamin D3 [Mass/V ol]on 03-08-2024 Interpretation and review of laboratory results Normal [facility] CBC W Auto Differential pane l (Bld)on 03-08-2024 Basophils (Bld) [#/Vol] 0.05 10*3/uL [facility] Basophils/100 WBC (Bld) 0.6 % [facility] Differential cell count method Nom (Bld) Auto [facility] Eosinophils (Bld) [#/Vol] 0.14 10*3/uL [facility] Eosinophils/100 WBC (Bld) 1.7 % [facility] Erythrocyte distribution width (RBC) [Ratio] 13.6 % 11.5 - 15.0 % [facility] Hematocrit (Bld) [Volume fraction] 44.1 % 36.0 - 46.0 % [facility] Hemoglobin (Bld) [Mass/Vol] 14.2 g/dL 11.5 - 15.5 g/dL [facility] Immature granulocytes (Bld) [#/Vol] [facility] Immature granulocytes/100 WBC (Bld) 0.2 % [facility] Interpretation and review of laboratory results Abnormal [facility] Lymphocytes (Bld) [#/Vol] 2.58 10*3/uL [facility] Lymphocytes/100 WBC (Bld) 31.1 % [facility] MCH (RBC) [Entitic mass] 30.8 pg 26. 0 - 34.[address] [facility] MCHC (RBC) [Mass/Vol] 32.2 g/dL 30.5 - 36.0 g/dL [facility] MCV (RBC) [Entitic vol] 95.7 fL 80.0 - 100.[address] [facility] Monocytes (Bld) [#/Vol] 0.97 10*3/uL High [facility] Monocytes/100 WBC (Bld) 11.7 % [facility] Neutrophils (Bld) [#/Vol] 4.54 10*3/uL [facility] Neutrophils/100 WBC (Bld) 54.7 % [facility] Nucleated RBC (Bld) [#/Vol] [facility] Nucleated RBC/100 WBC (Bld) [Ratio] 0.0 % /[address] [facility] Platelet mean volume (Bld) [Entitic vol] 11.8 fL 9.0 - 12.[address] [facility] Platelets (Bld) [#/Vol] 220 10*3/uL [facility] RBC (Bld) [#/Vol] 4.61 10*6/uL 3.90 - 5.2 0 m/uL [facility] WBC (Bld) [#/Vol] 8.30 10*3/uL [facility] Comprehensive metabolic 2000 panelon 03-08-2024 Albumin [Mass/Vol] 4.1 g/dL 3.9 - 4.9 g/dL [facility] ALP [Catalytic activity/Vol] 65 U/L 34 - 123 U/L [facility] ALT [Catalytic activity/Vol] 24 U/L 7 - 38 U/L [facility] Anion gap [Moles/Vol] 12 mmol/L 9 - 18 mmol/L [facility] AST [Catalytic activity/Vol] 36 U/L High 13 - 35 U/L [facility] Bilirubin [Mass/Vol] 0.9 mg/dL 0.2 - 1 .3 mg/dL [facility] Calcium [Mass/Vol] 10.7 mg/dL High 8.5 - 10. 2 mg/dL [facility] Chloride [Moles/Vol] 106 mmol/L High 97 - 10 5 mmol/L [facility] CO2 [Moles/Vol] 23 mmol/L 22 - 30 mmol/L [facility] Creatinine [Mass/Vol] 1.29 mg/dL High 0.58 - 0.96 mg/dL [facility] GFR/1.73 sq M.predicted among non-blacks MDRD (S/P/Bld) [Vol rate/Area] 41 mL/min/{1.73_m2} Low - PINF [facility] Comment on above: Estimated Glomerular Filtration Rate (eGFR) is calculated using the 2020 CKD-EPI creatinine equation. This equation utilizes serum creatinine, sex, and age as parameters. The creatinine assay has traceable calibration to isotope dilution-mass spectrometry. Refer to KDIGO guidelines for clinical interpretation. In patients with unstable renal function, e.g. those with acute kidney injury, the eGFR may not accurately reflect actual GFR. Glucose [Mass/Vol] 89 mg/dL 74 - 99 mg/dL [facility] Comment on above: The [place] Diab[employer] s Association (ADA) provides guidance for cutoff values for fasting glucose and random glucose. The ADA defines fasting as no caloric intake for at least 8 hours. Fasting plasma glucose results between 100 to 125 mg/dL indicate increased risk for diabetes (prediabetes). Fasting plasma glucose results greater than or equal to 126 mg/dL meet the criteria for diagnosis of diabetes. In the absence of unequivocal hyperglycemia, results should be confirmed by repeat testing. In a patient with classic symptoms of hyperglycemia or hyperglycemic crisis, random plasma glucose results greater than or equal to 200 mg/dL meet the criteria for diagnosis of diabetes. Reference: Standards of Medical Care in Diabetes 2016, [place] [employer]. Diabetes Care. 2016.39(Suppl 1). Interpretation and review of laboratory results Abnormal [facility] Potassium [Moles/Vol] 4.3 mmol/L 3.7 - 5.1 mmol/L [facility] Protein [Mass/Vol] 7.2 g/dL 6.3 - 8.0 g/dL [facility] Sodium [Moles/Vol] 141 mmol/L 136 - 144 mmol/L [facility] Urea nitrogen [Mass/Vol] 29 mg/dL High 7 - 21 mg/d L [facility] No Panel Informationon 03-08 Interpretation and review of laboratory results Normal [facility] PTH INTACTon 03-08-2024 Parathyrin.intact [Mass/Vol] 42 pg/mL 15 - 65 pg/mL [facility] Parathyrin.intact [Mass/Vol] on 03-08-2024 Interpretation and review of laboratory results Normal [facility] T3, FREEon 03-08-2024 Free T3 [Mass/Vol] 3.0 pg/mL 2.3 - 4.1 pg/mL [facility] T4 FREE/FREE THYROXINEon Free T4 [Mass/Vol] 1.5 ng/dL 0.9 - 1.7 ng/dL [facility] THYROID STIMULATING HORMONEo n 03-08-2024 TSH Qn 0.382 m[IU]/L [facility] VITAMIN D 25 HYDROXYon 03-08 25-hydroxyvitamin D3 [Mass/Vol] 38.7 ng/mL 31.0 - 80.0 ng/mL [facility] CBC W Auto Differential pane l (Bld)on 01-02-2024 Basophils (Bld) [#/Vol] 0.05 10*3/uL <0.11 k/uL [facility] Basophils/100 WBC (Bld) 0.5 % [facility] Differential cell count method Nom (Bld) Auto [facility] Eosinophils (Bld) [#/Vol] 0.11 10*3/uL <0.46 k/uL [facility] Eosinophils/100 WBC (Bld) 1.2 % [facility] Erythrocyte distribution width (RBC) [Ratio] 13.0 % 11.5 - 15.0 % [facility] Hematocrit (Bld) [Volume fraction] 45.4 % 36.0 - 46.0 % [facility] Hemoglobin (Bld) [Mass/Vol] 15.0 g/dL 11.5 - 15.5 g/dL [facility] Immature granulocytes (Bld) [#/Vol] 0.04 10*3/uL <0.10 k/uL [facility] Immature granulocytes/100 WBC (Bld) 0.4 % [facility] Lymphocytes (Bld) [#/Vol] 2.76 10*3/uL 1.00 - 4.00 k/uL [facility] Lymphocytes/100 WBC (Bld) 30.3 % [facility] MCH (RBC) [Entitic mass] 30.2 pg 26. 0 - 34.[address] [facility] MCHC (RBC) [Mass/Vol] 33.0 g/dL 30.5 - 36.0 g/dL [facility] MCV (RBC) [Entitic vol] 91.5 fL 80.0 - 100.[address] [facility] Monocytes (Bld) [#/Vol] 0.88 10*3/uL High <0.87 k/uL [facility] Monocytes/100 WBC (Bld) 9.6 % [facility] Neutrophils (Bld) [#/Vol] 5.28 10*3/uL 1.45 - 7.50 k/uL [facility] Neutrophils/100 WBC (Bld) 58.0 % [facility] Nucleated RBC (Bld) [#/Vol] <0.01 k/uL [facility] Nucleated RBC/100 WBC (Bld) [Ratio] 0.0 /[address] [facility] Platelet mean volume (Bld) [Entitic vol] 11.5 fL 9.0 - 12.[address] [facility] Platelets (Bld) [#/Vol] 212 10*3/uL 150 - 400 k/uL [facility] RBC (Bld) [#/Vol] 4.96 10*6/uL 3.90 - 5.2 0 m/uL [facility] WBC (Bld) [#/Vol] 9.12 10*3/uL 3.70 - 11. 00 k/uL [facility] Comprehensive metabolic 2000 panelon 01-02-2024 Albumin [Mass/Vol] 4.0 g/dL 3.9 - 4.9 g/dL [facility] ALP [Catalytic activity/Vol] 66 U/L 34 - 123 U/L [facility] ALT [Catalytic activity/Vol] 27 U/L 7 - 38 U/L [facility] Anion gap [Moles/Vol] 9 mmol/L 9 - 18 mmol/L [facility] AST [Catalytic activity/Vol] 31 U/L 13 - 35 U/L [facility] Bilirubin [Mass/Vol] 0.9 mg/dL 0.2 - 1 .3 mg/dL [facility] Calcium [Mass/Vol] 10.5 mg/dL High 8.5 - 10. 2 mg/dL [facility] Chloride [Moles/Vol] 102 mmol/L 97 - 10 5 mmol/L [facility] CO2 [Moles/Vol] 25 mmol/L 22 - 30 mmol/L [facility] Creatinine [Mass/Vol] 1.32 mg/dL High 0.58 - 0.96 mg/dL [facility] Estimated Glomerular Filtration Rate 40 mL/min/1.73m Low >=60 mL/min/1.73m [facility] Glucose [Mass/Vol] 109 mg/dL High 74 - 99 mg/dL [facility] Potassium [Moles/Vol] 4.6 mmol/L 3.7 - 5.1 mmol/L [facility] Protein [Mass/Vol] 6.9 g/dL 6.3 - 8.0 g/dL [facility] Sodium [Moles/Vol] 136 mmol/L 136 - 144 mmol/L [facility] Urea nitrogen [Mass/Vol] 28 mg/dL High 7 - 21 mg/d L [facility] Basophil percentageOrdered B y: Danni Jimenez on 06-22-2023 Basophil percentage 3.5 mg/dL 2.5-4.9 [facility] Chloride [Moles/Vol] 110 mmol/L 98-107 [facility] Glucose [Mass/Vol] 121 mg/dL 74-106 [facility] Comment on above: Fasting Glucose resu lt from 100 to 125 mg/dL suggests IMPAIRED HOMEOSTASIS per A.D.A. criteria. Potassium [Moles/Vol] 4.2 mmol/L 3.5-5.1 [facility] Sodium [Moles/Vol] 141 mmol/L 136-145 [facility] WBC (Bld) [#/Vol] 9.2 10*3/uL 4.4-11.0 [facility] Blood erythrocytes count (nu mber/volume)Ordered By: Danni Jimenez on 06-22-2023 RBC (Bld) [#/Vol] 4.88 10*6/uL 4.2-5.4 [facility] Blood hemoglobin measurement (mass/volume)Ordered By: Danni Jimenez on 06-22-2023 Hemoglobin (Bld) [Mass/Vol] 14.6 g/dL 12.0-15.0 [facility] Blood platelet mean volumeOr dered By: Danni Jimenez on 06-22-2023 Platelet mean volume (Bld) [Entitic vol] 10.7 fL 6.2-12.0 [facility] Determination of erythrocyte mean corpuscular volume (MCV)Ordered By: Danni Jimenez on 06-22-2023 MCV (RBC) [Entitic vol] 94.3 fL 81-99 [facility] Hematocrit Auto (Bld) [Volum e fraction]Ordered By: Danni Jimenez on 06-22-2023 Hematocrit (Bld) [Volume fraction] 46.0 % 37-47 [facility] Laboratory - Chemistry and C hemistry - challengeOrdered By: Danni Jimenez on 06-22-2023 CO2 [Moles/Vol] 26.0 mmol/L 21.0-32.0 [facility] Urea nitrogen/Creatinine [Mass ratio] 19.6 mg/mg 10-20 [facility] Laboratory - Hematology and Cell countsOrdered By: Danni Jimenez on 06-22-2023 Erythrocyte distribution width (RBC) [Entitic vol] 47.3 fL 35.1-43.9 [facility] Erythrocyte distribution width (RBC) [Ratio] 13.5 % 11.6-14.6 [facility] MCH (RBC) [Entitic mass] 29.9 pg 27.0-32.0 [facility] MCHC Auto (RBC) [Mass/Vol]Or dered By: Danni Jimenez on 06-22-2023 MCHC (RBC) [Mass/Vol] 31.7 g/dL 32-36 [facility] No Panel InformationOrdered By: Danni Jimenez on 06-22-2023 Estimated GFR (MDRD) Amer 45 mL/min >60 [facility] Comment on above: GFR Calc Estimated GFR (MDRD) Non-Af Amer 37 mL/min >60 [facility] Comment on above: Non- GFR Calc Parathyroid Hormone (Intact) 104.2 pg/mL 18.4-80.1 [facility] Platelets bldOrdered By: Matthias Jimenez on 06-22-2023 Platelets (Bld) [#/Vol] 219 10*3/uL 150-450 [facility] Serum or plasma albumin tanmay urement (mass/volume)Ordered By: Danni Jimenez on 06-22-2023 Albumin [Mass/Vol] 3.5 g/dL 3.2-5.0 [facility] Serum or plasma calcium tanmay urement (mass/volume)Ordered By: Danni Jimenez on 06-22-2023 Calcium [Mass/Vol] 9.7 mg/dL 8.5-10.1 [facility] Serum or plasma creatinine m easurement (mass/volume)Ordered By: Danni Jimenez on 06-22-2023 Creatinine [Mass/Vol] 1.43 mg/dL 0.55-1.02 [facility] Comment on above: The validity of the calculated GFR & GFRAA in patients over 70 years has not been determined. Clinical correlation is essential. Serum or plasma urea nitroge n measurement (mass/volume)Ordered By: Danni Jimenez on 06-22-2023 Urea nitrogen [Mass/Vol] 28 mg/dL 7-18 [facility] Basophil percentageon 2021 Basophil percentage 3.4 mg/dL 2.5-4.9 [facility] Work Phone: Chloride [Moles/Vol] 106 mmol/L 98-107 [facility] Work Phone: Glucose [Mass/Vol] 124 mg/dL 74-106 [facility] Work Phone: Comment on above: Fasting Glucose resu lt from 100 to 125 mg/dL suggests IMPAIRED HOMEOSTASIS per A.D.A. criteria. Potassium [Moles/Vol] 4.3 mmol/L 3.5-5.1 [facility] Work Phone: Sodium [Moles/Vol] 139 mmol/L 136-145 [facility] Work Phone: Laboratory - Chemistry and C hemistry - challengeon 10-12-2022 CO2 [Moles/Vol] 27.0 mmol/L 21.0-32.0 [facility] Work Phone: Urea nitrogen/Creatinine [Mass ratio] 21.6 mg/mg 10-20 [facility] Work Phone: No Panel Informationon 10-12 Estimated GFR (MDRD) Amer 49 mL/min >60 [facility] Work Phone: Comment on above: GFR Calc Estimated GFR (MDRD) Non-Af Amer 40 mL/min >60 [facility] Work Phone: Comment on above: Non- GFR Calc Serum or plasma albumin tanmay urement (mass/volume)on 10-12-2022 Albumin [Mass/Vol] 3.5 g/dL 3.2-5.0 [facility] Work Phone: Serum or plasma calcium tanmay urement (mass/volume)on 10-12-2022 Calcium [Mass/Vol] 9.8 mg/dL 8.5-10.1 [facility] Work Phone: [phone] Serum or plasma creatinine m easurement (mass/volume)on 10-12-2022 Creatinine [Mass/Vol] 1.34 mg/dL 0.55-1.02 [facility] Work Phone: Comment on above: The validity of the calculated GFR & GFRAA in patients over 70 years has not been determined. Clinical correlation is essential. Serum or plasma urea nitroge n measurement (mass/volume)on 10-12-2022 Urea nitrogen [Mass/Vol] 29 mg/dL 7-18 [facility] Work Phone: Basophil percentageon 2021 Basophil percentage 3.2 mg/dL 2.5-4.9 [facility] Work Phone: Chloride [Moles/Vol] 105 mmol/L 98-[address] [facility] [address] [facility] Work Phone: Glucose [Mass/Vol] 95 mg/dL 74-106 [facility] Work Phone: Potassium [Moles/Vol] 3.8 mmol/L 3.5-5.1 [facility] Work Phone: Sodium [Moles/Vol] 139 mmol/L 136-145 [facility] Work Phone: Laboratory - Chemistry and C hemistry - challengeon 07-28-2022 CO2 [Moles/Vol] 26.0 mmol/L 21.0-32.0 [facility] Work Phone: Urea nitrogen/Creatinine [Mass ratio] 20.2 mg/mg 10-20 [facility] Work Phone: No Panel Informationon 07-28 Estimated GFR (MDRD) Amer 51 mL/min >60 [facility] Work Phone: Comment on above: GFR Calc Estimated GFR (MDRD) Non-Af Amer 42 mL/min >60 [facility] Work Phone: Comment on above: Non- GFR Calc Serum or plasma albumin tanmay urement (mass/volume)on 07-28-2022 Albumin [Mass/Vol] 3.4 g/dL 3.2-5.0 [facility] Work Phone: Serum or plasma calcium tanmay urement (mass/volume)on 07-28-2022 Calcium [Mass/Vol] 9.8 mg/dL 8.5-10.1 [facility] Work Phone: Serum or plasma creatinine m easurement (mass/volume)on 07-28-2022 Creatinine [Mass/Vol] 1.29 mg/dL 0.55-1.02 [facility] Work Phone: Comment on above: The validity of the calculated GFR & GFRAA in patients over 70 years has not been determined. Clinical correlation is essential. Serum or plasma urea nitroge n measurement (mass/volume)on 07-28-2022 Urea nitrogen [Mass/Vol] 26 mg/dL 7-18 [facility] Work Phone: Basophil percentageon 2021 Basophil percentage 3.3 mg/dL 2.5-4.9 [facility] Work Phone: Chloride [Moles/Vol] 106 mmol/L 98-107 [facility] Work Phone: Glucose [Mass/Vol] 91 mg/dL 74-106 [facility] Work Phone: Potassium [Moles/Vol] 4.1 mmol/L 3.5-5.1 [facility] Work Phone: Sodium [Moles/Vol] 140 mmol/L 136-145 [facility] Work Phone: Laboratory - Chemistry and C hemistry - challengeon 07-21-2022 CO2 [Moles/Vol] 27.0 mmol/L 21.0-32.0 [facility] Work Phone: Urea nitrogen/Creatinine [Mass ratio] 16.8 mg/mg 10-20 [facility] Work Phone: No Panel Informationon 07-21 Estimated GFR (MDRD) Amer 36 mL/min >60 [facility] Work Phone: Comment on above: GFR Calc Estimated GFR (MDRD) Non-Af Amer 30 mL/min >60 [facility] Work Phone: Comment on above: Non- GFR Calc Serum or plasma albumin tanmay urement (mass/volume)on 07-21-2022 Albumin [Mass/Vol] 3.3 g/dL 3.2-5.0 [facility] Work Phone: Serum or plasma calcium tanmay urement (mass/volume)on 07-21-2022 Calcium [Mass/Vol] 9.8 mg/dL 8.5-10.1 [facility] Work Phone: Serum or plasma creatinine m easurement (mass/volume)on 07-21-2022 Creatinine [Mass/Vol] 1.73 mg/dL 0.55-1.02 [facility] Work Phone: Comment on above: The validity of the calculated GFR & GFRAA in patients over 70 years has not been determined. Clinical correlation is essential. Serum or plasma urea nitroge n measurement (mass/volume)on 07-21-2022 Urea nitrogen [Mass/Vol] 29 mg/dL 7-18 [facility] Work Phone: Serum or plasma uric acid me asurement (mass/volume)on 07-21-2022 Urate [Mass/Vol] 6.5 mg/dL 2.6-6.0 [facility] Work Phone: Comment on above: The drugs N-Acetylcy steine and Metamizole may falsely depress this assay. Serum or plasma uric acid me asurement (mass/volume)on 04-28-2022 Urate [Mass/Vol] 7.7 mg/dL 2.6-6.0 [facility] Work Phone: Comment on above: The drugs N-Acetylcy steine and Metamizole may falsely depress this assay. Basophil percentageon 2021 Basophil percentage 3.4 mg/dL 2.5-4.9 [facility] Work Phone: Chloride [Moles/Vol] 111 mmol/L 98-107 [facility] Work Phone: Glucose [Mass/Vol] 107 mg/dL 74-106 [facility] Work Phone: Comment on above: Fasting Glucose resu lt from 100 to 125 mg/dL suggests IMPAIRED HOMEOSTASIS per A.D.A. criteria. Potassium [Moles/Vol] 4.3 mmol/L 3.5-5.1 [facility] Work Phone: Sodium [Moles/Vol] 143 mmol/L 136-145 [facility] Work Phone: Laboratory - Chemistry and C hemistry - challengeon 04-21-2022 CO2 [Moles/Vol] 26.0 mmol/L 21.0-32.0 [facility] Work Phone: Urea nitrogen/Creatinine [Mass ratio] 20.5 mg/mg 10-20 [facility] Work Phone: No Panel Informationon 04-21 Estimated GFR (MDRD) Amer 50 mL/min >60 [facility] Work Phone: Comment on above: GFR Calc Estimated GFR (MDRD) Non-Af Amer 41 mL/min >60 [facility] Work Phone: Comment on above: Non- GFR Calc Parathyroid Hormone (Intact) 94.3 pg/mL 18.4-80.1 [facility] Work Phone: Serum or plasma albumin tanmay urement (mass/volume)on 04-21-2022 Albumin [Mass/Vol] 3.6 g/dL 3.2-5.0 [facility] Work Phone: Serum or plasma calcium tanmay urement (mass/volume)on 04-21-2022 Calcium [Mass/Vol] 9.8 mg/dL 8.5-10.1 [facility] Work Phone: [phone] Serum or plasma creatinine m easurement (mass/volume)on 04-21-2022 Creatinine [Mass/Vol] 1.32 mg/dL 0.55-1.02 [facility] Work Phone: Comment on above: The validity of the calculated GFR & GFRAA in patients over 70 years has not been determined. Clinical correlation is essential. Serum or plasma urea nitroge n measurement (mass/volume)on 06-09-2022 Urea nitrogen [Mass/Vol] 27 mg/dL 7-18 [facility] Work Phone: No Panel InformationOrdered By: [facility] Provider on 04-20-2021 [facility] No Panel Informationon 04-20 Radiology Study observation (narrative) [facility] XR Hand - right PA and Later al and Obliqueon 04-20-2021 IMPRESSION: No acute pathology. Degenerative changes Engine Generator Assembler: [email or web address] Transcribe Date/Time: Apr 20 2021 12:37P Dictated by : RAKEL SO DO This examination was interpreted and the report reviewed and electronically signed by: RAKEL SO DO on Apr 20 2021 12:38PM [facility] DIVISION OF RADIOLOGY * * *Final Report* * * DATE OF EXAM: Apr 20 2021 12:31PM [id number] - XR HAND 3V PA/LAT/OBL RT / PROCEDURE REASON: Finger injury, right, initial encounter * * * * Physician Interpretation * * * * RIGHT hand EXAM DATE/TIME: 04/20/2021 12:31 PM HISTORY: 80 years old Clinical information: Finger injury, right, initial encounter Right ring finger DIP joint pain and flexion deformity following a fall x 3 days ago. TECHNIQUE: Images: XR HAND 3V PA/LAT/OBL RT Comparison: None. RESULT: Findings: Moderate narrowing of the interphalangeal joints. Bone density appears well-preserved. No fractures or dislocations are seen. DIVISION OF RADIOLOGY Provider, [facility] - 04/20/2021 * * *Final Report* * * DATE OF EXAM: Apr 20 2021 12:31PM WOX [id number] - XR HAND 3V PA/LAT/OBL RT / PROCEDURE REASON: Finger injury, right, initial encounter * * * * Physician Interpretation * * * * RIGHT hand EXAM DATE/TIME: 04/20/2021 12:31 PM HISTORY: 80 years old Clinical information: Finger injury, right, initial encounter Right ring finger DIP joint pain and flexion deformity following a fall x 3 days ago. TECHNIQUE: Images: XR HAND 3V PA/LAT/OBL RT Comparison: None. RESULT: Findings: Moderate narrowing of the interphalangeal joints. Bone density appears well-preserved. No fractures or dislocations are seen. IMPRESSION IMPRESSION: No acute pathology. Degenerative changes Engine Generator Assembler: [email or web address] Transcribe Date/Time: Apr 20 2021 12:37P Dictated by : RAKEL SO DO This examination was interpreted and the report reviewed and electronically signed by: RAKEL SO DO on Apr 20 2021 12:38PM [facility] XR Lumbar spine 3 Viewson IMPRESSION: Negative exam. Marked degenerative changes in the spine Engine Generator Assembler: [email or web address] Transcribe Date/Time: Apr 20 2021 12:35P Dictated by : RAKEL SO DO This examination was interpreted and the report reviewed and electronically signed by: RAKEL SO DO on Apr 20 2021 12:38PM EST DIVISION OF RADIOLOGY * * *Final Report* * * DATE OF EXAM: Apr 20 2021 12:31PM WOX [id number] - XR LUMBAR 3V AP/LAT/L5-S1 / PROCEDURE REASON: multiple diagnoses * * * * Physician Interpretation * * * * LUMBAR SPINE: EXAM DATE/TIME: 04/20/2021 12:31 PM HISTORY: 80 years old Indication: Acute bilateral low back pain with bilateral sciatica Chronic lower back pain that radiates down both legs without injury TECHNIQUE: Views obtained: XR LUMBAR 3V AP/LAT/L5-S1 Comparison: None. RESULT: Findings: Marked disc space narrowing L4-5 and L2-3. Extensive and severe degenerative changes in the posterior elements throughout the lumbar spine. Mild S-shaped scoliosis. No fractures or dislocations are seen. The visualized components of the bilateral total hip arthroplasties are in good alignment with the respective bones and each other. DIVISION OF RADIOLOGY Provider, [facility]20/[facility]21 * * *Final Report* * * DATE OF EXAM: Apr 20 2021 12:31PM WOX [id number] - XR LUMBAR 3V AP/LAT/L5-S1 / PROCEDURE REASON: multiple diagnoses * * * * Physician Interpretation * * * * LUMBAR SPINE: EXAM DATE/TIME: 04/20/2021 12:31 PM HISTORY: 80 years old Indication: Acute bilateral low back pain with bilateral sciatica Chronic lower back pain that radiates down both legs without injury TECHNIQUE: Views obtained: XR LUMBAR 3V AP/LAT/L5-S1 Comparison: None. RESULT: Findings: Marked disc space narrowing L4-5 and L2-3. Extensive and severe degenerative changes in the posterior elements throughout the lumbar spine. Mild S-shaped scoliosis. No fractures or dislocations are seen. The visualized components of the bilateral total hip arthroplasties are in good alignment with the respective bones and each other. IMPRESSION IMPRESSION: Negative exam. Marked degenerative changes in the spine Engine Generator Assembler: PSCB Transcribe Date/Time: Apr 20 2021 12:35P Dictated by : RAKEL SO DO This examination was interpreted and the report reviewed and electronically signed by: RAKEL SO DO on Apr 20 2021 12:38PM [facility] Vital Signs Date Time Vital Sign Value Performing Clinician Facility 04-15-2025 10:01-0400 Body mass index (BMI) [Ratio] 28.17 kg/m2 Tuan Luo DO Work Phone: [facility] 04-15-2025 10:01-0400 Body temperature 97.3 [degF] Tuan Luo DO Work Phone: [facility] 04-15-2025 10:01-0400 Body weight 69.85 kg Tuan Luo DO Work Phone: [facility] 04-15-2025 10:01-0400 Diastolic blood pressure 90 mm[Hg] Tuan Luo DO Work Phone: [facility] Comment on above: BP zaina 188/91 04-15-2025 10:01-0400 Heart rate 60 /min Tuan Luo DO Work Phone: [facility] 04-15-2025 10:01-0400 Respiratory rate 20 /min Tuan Luo DO Work Phone: [facility] 04-15-2025 10:01-0400 Systolic blood pressure 190 mm[Hg] Tuan Luo DO Work Phone: [facility] Comment on above: BP zaina 188/91 01-13-2025 10:37-0500 Body mass index (BMI) [Ratio] 28.17 kg/m2 Tuan Luo DO Work Phone: [facility] 03-03-2025 10:37-0500 Body temperature 96.21 [degF] Tuan Luo DO Work Phone: [facility] 01-13-2025 10:37-0500 Body weight 69.85 kg Tuan Luo DO Work Phone: [facility] 01-13-2025 10:37-0500 Diastolic blood pressure 88 mm[Hg] Tuan Luo DO Work Phone: [facility] 01-13-2025 10:37-0500 Heart rate 64 /min Tuan Luo DO Work Phone: [facility] 01-13-2025 10:37-0500 Respiratory rate 20 /min Tuan Luo DO Work Phone: [facility] 01-13-2025 10:37-0500 Systolic blood pressure 144 mm[Hg] Tuan Luo DO Work Phone: [facility] 10-08-2024 09:59-0500 Body mass index (BMI) [Ratio] 28.63 kg/m2 Tuan Luo DO Work Phone: [facility] 10-08-2024 09:59-0500 Body temperature 97 [degF] Tuan Luo DO Work Phone: [facility] 10-08-2024 09:59-0500 Body weight 71 kg Tuan Luo DO Work Phone: [facility] 10-08-2024 09:59-0500 Diastolic blood pressure 90 mm[Hg] Tuan Luo DO Work Phone: [facility] 10-08-2024 09:59-0500 Heart rate 72 /min Tuan Luo DO Work Phone: [facility] 10-08-2024 09:59-0500 Respiratory rate 16 /min Tuan Luo DO Work Phone: [facility] 10-08-2024 09:59-0500 Systolic blood pressure 154 mm[Hg] Tuan Luo DO Work Phone: [facility] 09-17-2024 10:44-0500 Body mass index (BMI) [Ratio] 28.63 kg/m2 [facility] DIRECTIONAL DRILL OPERATOR.NURSING SERVICES MANAGER Work Phone: [facility] 09-17-2024 10:44-0500 Body temperature 99.5 [degF] [facility] DIRECTIONAL DRILL OPERATOR.NURSING SERVICES MANAGER Work Phone: [facility] 09-17-2024 10:44-0500 Body weight 71 kg [facility] DIRECTIONAL DRILL OPERATOR.NURSING SERVICES MANAGER Work Phone: [facility] 09-17-2024 10:44-0500 Diastolic blood pressure 92 mm[Hg] [facility] DIRECTIONAL DRILL OPERATOR.NURSING SERVICES MANAGER Work Phone: [facility] 09-17-2024 10:44-0500 Heart rate 72 /min [facility] DIRECTIONAL DRILL OPERATOR.NURSING SERVICES MANAGER Work Phone: [facility] 09-17-2024 10:44-0500 Respiratory rate 22 /min [facility] DIRECTIONAL DRILL OPERATOR.NURSING SERVICES MANAGER Work Phone: [facility] 09-17-2024 10:44-0500 SaO2% (BldA) [Mass fraction] 96 % [facility] DIRECTIONAL DRILL OPERATOR.NURSING SERVICES MANAGER Work Phone: [facility] 09-17-2024 10:44-0500 Systolic blood pressure 168 mm[Hg] [facility] DIRECTIONAL DRILL OPERATOR.NURSING SERVICES MANAGER Work Phone: [facility] 07-08-2024 10:49-0400 Diastolic blood pressure 78 mm[Hg] Tuan Luo DO Work Phone: [facility] 07-08-2024 10:49-0400 Systolic blood pressure 128 mm[Hg] Tuan Luo DO Work Phone: [facility] 07-08-2024 10:29-0400 Body mass index (BMI) [Ratio] 29.45 kg/m2 Tuan Luo DO Work Phone: [facility] 07-08-2024 10:29-0400 Body temperature 98.71 [degF] Tuan Luo DO Work Phone: [facility] 07-08-2024 10:29-0400 Body weight 73.03 kg Tuan Luo DO Work Phone: [facility] 07-08-2024 10:29-0400 Heart rate 68 /min Tuan Luo DO Work Phone: [facility] 07-08-2024 10:29-0400 Respiratory rate 16 /min Tuan Luo DO Work Phone: [facility] 03-08-2024 11:27-0400 Diastolic blood pressure 80 mm[Hg] Tuan Luo DO Work Phone: [facility] 03-08-2024 11:27-0400 Systolic blood pressure 138 mm[Hg] Tuan Luo DO Work Phone: [facility] 03-08-2024 10:36-0400 Body mass index (BMI) [Ratio] 29.63 kg/m2 Tuan Luo DO Work Phone: [facility] 03-08-2024 10:36-0400 Body temperature 97.59 [degF] Tuan Luo DO Work Phone: [facility] 03-08-2024 10:36-0400 Body weight 73.48 kg Tuan Luo DO Work Phone: [facility] 03-08-2024 10:36-0400 Heart rate 64 /min Tuan Luo DO Work Phone: [facility] 03-08-2024 10:36-0400 Respiratory rate 20 /min Tuan Luo DO Work Phone: [facility] 01-17-2024 10:41-0500 Diastolic blood pressure 86 mm[Hg] Divina Louis DIRECTIONAL DRILL OPERATOR.NURSING SERVICES MANAGER Work Phone: [facility] 01-17-2024 10:41-0500 Systolic blood pressure 146 mm[Hg] Divina Louis DIRECTIONAL DRILL OPERATOR.NURSING SERVICES MANAGER Work Phone: [facility] 01-17-2024 10:04-0500 Body weight 73.66 kg Divina Louis DIRECTIONAL DRILL OPERATOR.NURSING SERVICES MANAGER Work Phone: [facility] 01-17-2024 10:04-0500 Heart rate 68 /min Divina Louis DIRECTIONAL DRILL OPERATOR.NURSING SERVICES MANAGER Work Phone: [facility] 01-17-2024 10:04-0500 Respiratory rate 16 /min Divina Louis DIRECTIONAL DRILL OPERATOR.NURSING SERVICES MANAGER Work Phone: [facility] 01-02-2024 11:36-0500 Diastolic blood pressure 98 mm[Hg] Fatoumata Gloria DIRECTIONAL DRILL OPERATOR.NURSING SERVICES MANAGER Work Phone: [facility] 01-02-2024 11:36-0500 Systolic blood pressure 168 mm[Hg] Fatoumata Gloria DIRECTIONAL DRILL OPERATOR.NURSING SERVICES MANAGER Work Phone: [facility] 01-02-2024 11:18-0500 Body weight 72.12 kg Fatoumata Gloria DIRECTIONAL DRILL OPERATOR.NURSING SERVICES MANAGER Work Phone: [facility] 01-02-2024 11:18-0500 Heart rate 66 /min Fatoumata Gloria DIRECTIONAL DRILL OPERATOR.NURSING SERVICES MANAGER Work Phone: [facility] 01-02-2024 11:18-0500 Respiratory rate 14 /min Fatoumata Gloria DIRECTIONAL DRILL OPERATOR.NURSING SERVICES MANAGER Work Phone: [facility] 01-02-2024 11:18-0500 SaO2% (BldA) [Mass fraction] 98 % Fatoumata Gloria DIRECTIONAL DRILL OPERATOR.NURSING SERVICES MANAGER Work Phone: [facility] 12-20-2023 09:47-0500 Diastolic blood pressure 90 mm[Hg] Divina Louis DIRECTIONAL DRILL OPERATOR.NURSING SERVICES MANAGER Work Phone: [facility] 12-20-2023 09:47-0500 Systolic blood pressure 150 mm[Hg] Divina Louis DIRECTIONAL DRILL OPERATOR.NURSING SERVICES MANAGER Work Phone: [facility] 12-20-2023 09:10-0500 Body weight 72.48 kg Divina Louis DIRECTIONAL DRILL OPERATOR.NURSING SERVICES MANAGER Work Phone: [facility] 12-20-2023 09:10-0500 Heart rate 64 /min Divina Louis DIRECTIONAL DRILL OPERATOR.NURSING SERVICES MANAGER Work Phone: [facility] 12-20-2023 09:10-0500 Respiratory rate 14 /min Divina Louis NURSING SERVICES MANAGER Work Phone: [facility] 02-22-2023 10:00-0400 Diastolic blood pressure 98 mm[Hg] Bernardino Golias PT Work Phone: [facility] 02-22-2023 10:00-0400 Systolic blood pressure 190 mm[Hg] Bernardino Golias PT Work Phone: [facility] 01-31-2023 10:39-0400 Body temperature 97.3 [degF] Tuan Luo DO Work Phone: [facility] 01-31-2023 10:39-0400 Body weight 72.12 kg Tuan Luo DO Work Phone: [facility] 01-31-2023 10:39-0400 Diastolic blood pressure 84 mm[Hg] Tuan Luo DO Work Phone: [facility] 01-31-2023 10:39-0400 Heart rate 76 /min Tuan Luo DO Work Phone: [facility] 01-31-2023 10:39-0400 Respiratory rate 20 /min Tuan Luo DO Work Phone: [facility] 01-31-2023 10:39-0400 Systolic blood pressure 138 mm[Hg] Tuan Luo DO Work Phone: [facility] 07-23-2022 13:26-0400 Body height 157.48 cm [facility] Work Phone: 07-23-2022 13:26-0400 Body mass index (BMI) [Ratio] 28.7 kg/m2 [facility] Work Phone: 07-23-2022 13:26-0400 Body temperature 96.9 [degF] [facility] Work Phone: 07-23-2022 13:26-0400 Body weight 71.3 kg [facility] Work Phone: 07-23-2022 13:26-0400 Diastolic blood pressure 138 mm[Hg] [facility] Work Phone: 07-23-2022 13:26-0400 Heart rate 75 /min [facility] Work Phone: 07-23-2022 13:26-0400 Respiratory rate 16 /min [facility] Work Phone: 07-23-2022 13:26-0400 SaO2% (BldA) [Mass fraction] 97 % [facility] Work Phone: 07-23-2022 13:26-0400 Systolic blood pressure 166 mm[Hg] [facility] Work Phone: 12-15-2017 23:09-0500 Body mass index (BMI) [Ratio] 28.8 kg/m2 [facility] Work Phone: 12-15-2017 22:09-0500 Body mass index (BMI) [Ratio] 28.8 kg/m2 [facility] Work Phone: Encounters Encounter Date Encounter Type Care Provider Facility Start: 07-04-2025 End: 07-04-2025 ambulatory Tuan Luo DO Work Phone: [email or web address] Comment on above: Allied Health Visit (Medication Adherence Outreach/) Start: 07-03-2025 End: 07-03-[address] Tuan Luo DO Work Phone: -Laboratory Phy Office 3rd Flr Start: 07-03-2025 End: 07-03-[address] Danni Jimenez DO -Laboratory Phy Office 3rd Flr Start: 07-03-2025 End: 07-03-2025 ambulatory Tuan Luo Facility:[facility] Start: 06-16-2025 End: 06-16-2025 ambulatory Tuan Luo DO Work Phone: [email or web address] Comment on above: Allied Health Visit (Medication Adherence Outreach/) Start: 05-14-2025 End: 05-14-2025 Follow-up encounter Divina Louis APRN.NURSING SERVICES MANAGER Work Phone: [facility] Start: 05-12-2025 End: 05-12-2025 ambulatory TUAN LUO Facility:[facility] Start: 05-12-2025 End: 05-12-2025 ambulatory TUAN LUO Facility:[facility] Start: 04-25-2025 End: 04-25-[address] Tuan Luo DO Work Phone: [facility] Work Phone: Start: 04-25-2025 End: 04-25-[address] Danni Jimenez DO -Laboratory Work Phone: Start: 04-25-2025 End: 04-25-2025 ambulatory Danni Jimenez Facility:[facility] Start: 04-15-2025 End: 04-15-2025 Patient encounter procedure Tuan Luo DO Work Phone: [facility] Comment on above: Uncontrolled hyperte nsion (Primary Dx); Acute non-recurrent maxillary sinusitis; Essential hypertension; Cardiac murmur, previously undiagnosed; Right carotid bruit; Dysuria; Actinic keratosis; Secondary hyperparathyroidism (HCC); Chronic kidney disease, stage 3b (HCC); Post-surgical hypothyroidism Start: 04-15-2025 End: 04-15-2025 ambulatory TUAN LUO Facility:[facility] Start: 04-08-2025 End: 04-08-2025 ambulatory TUAN LUO Facility:[facility] Start: 03-18-2025 End: 03-18-2025 ambulatory Tuan Luo DO Work Phone: [facility] Comment on above: Allied Health Visit (Medication Adherence Outreach/) Refill Request Start: 02-24-2025 End: 02-24-2025 Refill Tuan Luo DO Work Phone: [facility] Comment on above: Refill Request Start: 01-13-2025 End: 01-13-2025 ambulatory TUAN LUO Facility:[facility] Start: 01-13-2025 End: 01-13-2025 Patient encounter procedure Tuan L Luo DO Work Phone: [facility] Comment on above: Essential hypertensi on (Primary Dx); Post-surgical hypothyroidism; Vitamin B12 deficiency; Chronic kidney disease, stage 3b (HCC); Other hyperlipidemia; Secondary hyperparathyroidism (HCC); Vitamin D deficiency; Osteoarthritis of spine with radiculopathy, lumbar region; Hypomagnesemia Refill Request Start: 01-09-2025 End: 01-09-2025 ambulatory TUAN LUO Facility:[facility] Start: 11-27-2024 End: 11-27-2024 Refill Tuan Waiteon DO Work Phone: [facility] Comment on above: Refill Request Start: 11-25-2024 End: 11-25-2024 ambulatory Solo Karlo Facility:[facility] Start: 10-08-2024 End: 10-08-2024 Patient encounter procedure Tuan Waiteon DO Work Phone: [facility] Comment on above: Acute bronchitis, un specified organism (Primary Dx); COVID-19; Secondary hyperparathyroidism (HCC); Vitamin D deficiency; Post-surgical hypothyroidism; Vitamin B12 deficiency; Chronic kidney disease, stage 3b (HCC); Essential hypertension; Hyperglycemia; Hypercalcemia; Other hyperlipidemia Start: 10-08-2024 End: 10-08-2024 ambulatory TUAN LAZORISON Facility:[facility] Start: 10-03-2024 End: 10-03-2024 ambulatory TUAN L LUO Facility:[facility] Start: 10-02-2024 End: 10-03-2024 Telephone encounter Tuan Luo DO Work Phone: [facility] Comment on above: Lab Orders Start: 09-18-2024 End: 09-18-2024 Telephone encounter Candelaria Nina APRN.CNP Work Phone: [facility] Comment on above: Results Start: 09-17-2024 End: 09-17-2024 Patient encounter procedure Luis Reyes RN Work Phone: [employer] Comment on above: CIRO WHITNEY RN ( ED Utilization Review per request of payor/) Start: 09-17-2024 End: 09-17-2024 Subsequent hospital visit by physician [facility] Work Phone: Radiology Comment on above: Acute cough [R05.1] Start: 09-17-2024 End: 09-17-2024 ambulatory Luis Reyes RN Work Phone: [employer] [employer] Start: 09-17-2024 End: 09-17-2024 Office outpatient visit 15 minutes Solo Reyes APRN.CNP Work Phone: [facility] Comment on above: Acute cough (Primary Dx); Viral illness Start: 09-13-2024 End: 09-13-2024 Emergency department patient visit Solo Car Facility:[facility] Start: 07-08-2024 End: 07-08-2024 ambulatory TUAN LUO Facility:[facility] Start: 07-08-2024 End: 07-08-2024 Patient encounter procedure Tuan Lu[facility] DO [facility] Comment on above: Essential hypertensi on (Primary Dx); Post-surgical hypothyroidism; Vitamin B12 deficiency; External hemorrhoid; Other hyperlipidemia; Hypertensive chronic kidney disease with stage 1 through stage 4 chronic kidney disease, or unspecified chronic kidney disease Start: 05-15-2024 Refill Tuan Queen son DO Work Phone: [facility] [place] Comment on above: Refill Request Start: 04-15-2024 Telephone encounter Tuan phoenix DO Work Phone: [facility] [place] Start: 03-20-2024 Refill Tuan Queen son DO [facility] Comment on above: Refill Request Start: 03-12-2024 Telephone encounter Belkys Silva PA-C Work Phone: [facility] Comment on above: Results Start: 03-08-2024 End: 03-08-2024 Patient encounter procedure Tuan Luo DO Work Phone: [facility] Comment on above: Post-surgical hypoth yroidism (Primary Dx); Essential hypertension; Hypercalcemia; Non-healing skin lesion of nose; CKD stage G3b/A1, GFR 30-44 and albumin creatinine ratio <30 mg/g (HCC); Vitamin D deficiency; Acute bilateral low back pain with bilateral sciatica; Secondary hyperparathyroidism (HCC) Start: 02-06-2024 Refill Tuan goodman DO Work Phone: [facility] [place] Comment on above: Refill Request Start: 02-01-2024 Telephone encounter Tuan phoenix DO Work Phone: [facility] [place] Comment on above: blood pressure readi ngs Start: 01-17-2024 Telephone encounter Divina goodman DIRECTIONAL DRILL OPERATOR.NURSING SERVICES MANAGER Work Phone: [facility] [place] Comment on above: Chiropractor Informa tion Start: 01-17-2024 End: 01-17-2024 Patient encounter procedure Divina Louis DIRECTIONAL DRILL OPERATOR.NURSING SERVICES MANAGER Work Phone: [facility] [place] Comment on above: Essential hypertensi on (Primary Dx); Acute bilateral low back pain with bilateral sciatica Start: 01-02-2024 Telephone encounter Fatoumata son DIRECTIONAL DRILL OPERATOR.NURSING SERVICES MANAGER Work Phone: [facility] [place] Comment on above: Results Start: 01-02-2024 End: 01-02-2024 Patient encounter procedure Fatoumata Gloria DIRECTIONAL DRILL OPERATOR.NURSING SERVICES MANAGER Work Phone: [facility] [place] Comment on above: Essential hypertensi on (Primary Dx); Medication management Start: 01-01-2024 ambulatory Tuan Queen son DO Work Phone: [facility] [place] Comment on above: Dizziness Start: 12-22-2023 Telephone encounter Divina goodman DIRECTIONAL DRILL OPERATOR.NURSING SERVICES MANAGER Work Phone: [facility] [place] Comment on above: Results Start: 12-20-2023 End: 12-20-2023 Patient encounter procedure Divina Louis DIRECTIONAL DRILL OPERATOR.NURSING SERVICES MANAGER Work Phone: [facility] [place] Comment on above: Essential hypertensi on (Primary Dx); Post-surgical hypothyroidism; CKD stage G3b/A1, GFR 30-44 and albumin creatinine ratio <30 mg/g ([facility]); Vitamin D deficiency; Bacterial sinusitis; Acute non-recurrent maxillary sinusitis; Hyperuricemia Start: 10-23-2023 Refill Tuan Queen son DO Work Phone: [facility] [place] Comment on above: Refill Request Start: 10-17-2023 Refill Tuan goodman DO Work Phone: [facility] [place] Comment on above: Refill Request Start: 07-27-2023 Refill Tuan Queen son DO Work Phone: [facility] [place] Comment on above: Refill Request Start: 06-22-2023 End: 06-22-2023 ambulatory [facility] Work Phone: Start: 06-22-2023 End: 06-22-2023 Patient encounter procedure [facility] Work Phone: Start: 03-23-2023 End: 03-23-2023 ambulatory [employer] PT Work Phone: [facility] Comment on above: Acute bilateral low back pain with bilateral sciatica (Primary Dx); Weakness of low back due to inactivity Start: 03-20-2023 End: 03-20-2023 ambulatory [employer] CYCLE LIAISON Work Phone: [facility] Comment on above: Acute bilateral low back pain with bilateral sciatica (Primary Dx); Weakness of low back due to inactivity Start: 03-16-2023 End: 03-16-2023 ambulatory Bernardino Golias PT Work Phone: [facility] Comment on above: Acute bilateral low back pain with bilateral sciatica (Primary Dx); Weakness of low back due to inactivity Start: 03-14-2023 End: 03-14-2023 ambulatory Sandra Kashuba CYCLE LIAISON Work Phone: [facility] Comment on above: Acute bilateral low back pain with bilateral sciatica (Primary Dx); Weakness of low back due to inactivity Start: 03-10-2023 End: 03-10-2023 ambulatory Bernardino Golias PT Work Phone: [facility] Comment on above: Acute bilateral low back pain with bilateral sciatica (Primary Dx); Weakness of low back due to inactivity Start: 03-07-2023 End: 03-07-2023 ambulatory Sandra Reece CYCLE LIAISON Work Phone: [facility] Comment on above: Acute bilateral low back pain with bilateral sciatica (Primary Dx); Weakness of low back due to inactivity Start: 03-03-2023 End: 03-03-2023 ambulatory Sandra Reece CYCLE LIAISON Work Phone: [facility] Comment on above: Acute bilateral low back pain with bilateral sciatica (Primary Dx); Weakness of low back due to inactivity Start: 02-27-2023 End: 02-27-2023 ambulatory Bernardino [email or web address] PT Work Phone: [facility] Comment on above: Acute bilateral low back pain with bilateral sciatica (Primary Dx); Weakness of low back due to inactivity Start: 02-22-2023 End: 02-22-2023 ambulatory Bernardino [email or web address] PT Work Phone: [facility] Comment on above: Acute bilateral low back pain with bilateral sciatica; Weakness of low back due to inactivity Start: 02-06-2023 Refill Tuan goodman DO Work Phone: [facility] Comment on above: Opened In Error Start: 01-31-2023 End: 01-31-2023 Patient encounter procedure Tuan Luo DO Work Phone: [facility] Comment on above: Acute bilateral low back pain with bilateral sciatica (Primary Dx); Essential hypertension; Post-surgical hypothyroidism; Weakness of low back due to inactivity; Secondary hyperparathyroidism (HCC); Chronic kidney disease, stage 3b (HCC); Vitamin D deficiency; Other hyperlipidemia Start: 11-10-2022 Refill Tuan goodman DO Work Phone: [facility] Comment on above: Refill Request Start: 10-26-2022 Refill Divina yeung APRN.NURSING SERVICES MANAGER Work Phone: [facility] Comment on above: Refill Request Start: 10-12-2022 End: 10-12-2022 [facility] Work Phone: Start: 10-12-2022 End: 10-12-2022 [facility] Start: 07-28-2022 End: 07-28-2022 ambulatory [facility] Work Phone: Start: 07-28-2022 End: 07-28-2022 [facility] 3rd Flr Start: 07-23-2022 End: 07-23-2022 [facility] Start: 07-22-2022 Refill Tuan Kannan goodman DO Work Phone: [facility] Comment on above: Refill Request Start: 07-21-2022 End: 07-21-2022 [facility] Work Phone: Start: 07-21-2022 End: 07-21-2022 [facility] Start: 06-21-2022 Refill Divina yeung APRN.NURSING SERVICES MANAGER Work Phone: [facility] Comment on above: Refill Request Start: 05-06-2022 Refill Tuan Kannan goodman DO Work Phone: [facility] [place] Comment on above: Refill Request Start: 04-28-2022 End: 04-28-2022 [facility] 3rd Flr Start: 04-21-2022 End: 04-21-2022 [facility] Start: 03-01-2022 Telephone encounter Tuan phoenix DO Work Phone: [facility] [place] Comment on above: Opened In Error Start: 04-20-2021 End: 04-20-2021 Subsequent hospital visit by physician [facility] Work Phone: Radiology Comment on above: Acute bilateral low back pain with bilateral sciatica [M54.42, M54.41] Procedures Date Procedure Procedure Detail Performing Clinician Start: 07-03-2025 Serum inorganic phos phate measurement Dr. Tuan Luo DO Work Phone: Start: 04-25-[address] Tuan Luo DO Work Phone: Start: 04-25-2025 Serum inorganic phos phate measurement Dr. Tuan Luo DO Work Phone: Start: 04-15-2025 Urnls dip stick/tabl et rgnt auto w/o microscopy Tuan Luo DO Work Phone: Start: 09-17-2024 Radiologic exam ches t 2 views Solo Amy DIRECTIONAL DRILL OPERATOR.NURSING SERVICES MANAGER Work Phone: Start: 07-23-2022 Diagnostic radiograp hy of abdomen Start: 04-20-2021 Radex hand minimum 3 views Tuan Luo DO Work Phone: Plan of Treatment Date Care Activity Detail Author Start: 07-09-2034 Urine microalbumin profile DTaP,Tdap,Td Vaccine (4 - Td or Tdap) [facility] Start: 04-08-2028 Diabetes Screening Diabetes Screening [facility] Start: 01-09-2028 Diabetes Screening Diabetes Screening [facility] Start: 10-03-2027 Diabetes Screening Diabetes Screening [facility] Start: 07-08-2027 Diabetes Screening Diabetes Screening [facility] Start: 04-11-2027 Diabetes Screening Diabetes Screening [facility] Start: 03-08-2027 Diabetes Screening Diabetes Screening [facility] Start: 01-02-2027 Diabetes Screening Diabetes Screening [facility] Start: 12-21-2026 Diabetes Screening Diabetes Screening [facility] Start: 05-25-2026 Diabetes Screening Diabetes Screening [facility] Start: 01-25-2026 DIABETES SCREEN DIABETES SCREEN [facility] Start: 07-28-2025 DIABETES SCREEN DIABETES SCREEN [facility] Start: 07-28-2025 End: 07-28-2025 Patient encounter procedure 07/28/2025 10:00 AM EDT Office Visit Family [facility] [place] [address] [place] [id number] Tuan Luo DO [address] [place] [id number] 3 month follow up [facility] Comment on above: 3 month follow up Start: 07-14-2025 [facility] Start: 05-12-2025 End: 05-12-2025 Patient encounter procedure [facility] Comment on above: Essential hypertension [I10]; Uncontroll ed hypertension [I10]; Cardiac murmur, previously undiagnosed [R01.1] Start: 04-15-2025 End: 07-15-2025 CBC panel - Blood by Automated count COMPLETE BLOOD COUNT Lab Routine Post-surgical hypothyroidism Expected: 04/15/2025, Expires: 07/15/2025 [facility] Comment on above: Expected: 04/15/2025, Expires: Start: 04-15-2025 End: 07-15-2025 Comprehensive metabolic 2000 panel - Serum or Plasma COMPREHENSIVE METABOLIC PANEL Lab Routine Post-surgical hypothyroidism Expected: 04/15/2025, Expires: 07/15/2025 [facility] Work Phone: Comment on above: Expected: 04/15/2025, Expires: Start: 04-15-2025 End: 07-15-2025 Magnesium [Mass/volume] in Serum or Plasma MAGNESIUM Lab Routine Hypomagnesemia Expected: 04/15/2025, Expires: 07/15/2025 [facility] Comment on above: Expected: 04/15/2025, Expires: Start: 04-15-2025 End: 07-15-2025 Thyrotropin [Units/volume] in Serum or Plasma THYROID STIMULATING HORMONE Lab Routine Post-surgical hypothyroidism Expected: 04/15/2025, Expires: 07/15/2025 [facility] Comment on above: Expected: 04/15/2025, Expires: Start: 04-15-2025 End: 04-15-2025 Patient encounter procedure 04/15/2025 10:00 AM EDT Office Visit Family [facility] [place] [address] [place] [address] Tuan Luo DO [address] [place] [address] 3 month follow up Family [facility] [place] Comment on above: 3 month follow up Start: 01-13-2025 End: 01-13-2025 Patient encounter procedure 01/13/2025 10:40 AM EST Office Visit Family [facility] [place] [address] [place] [address] Tuan Luo DO [address] [place] [address] 3 month follow up [facility] [place] Comment on above: 3 month follow up Start: 01-09-2025 Covid-19 Vaccine () Covid-19 Vacc[address] () [facility] Start: 01-08-2025 End: 04-09-2025 CBC panel - Blood by Automated count COMPLETE BLOOD COUNT Lab Routine Hypercalcemia Other hyperlipidemia Expected: 01/08/2025, Expires: 04/09/2025 [facility] Comment on above: Expected: 01/08/2025, Expires: Start: 01-08-2025 End: 04-09-2025 Cobalamin (Vitamin B12) [Mass/volume] in Serum or Plasma VITAMIN B12 Lab Routine Chronic kidney disease, stage 3b (HCC) Expected: 01/08/2025, Expires: 04/09/2025 [facility] Comment on above: Expected: 01/08/2025, Expires: Start: 01-08-2025 End: 04-09-2025 Comprehensive metabolic 2000 panel - Serum or Plasma COMPREHENSIVE METABOLIC PANEL Lab Routine Hypercalcemia Other hyperlipidemia Expected: 01/08/2025, Expires: 04/09/2025 [facility] Comment on above: Expected: 01/08/2025, Expires: Start: 01-08-2025 End: 04-09-2025 Iron and Iron binding capacity panel - Serum or Plasma IRON AND TIBC Lab Routine Chronic kidney disease, stage 3b (HCC) Expected: 01/08/2025, Expires: 04/09/2025 [facility] Comment on above: Expected: 01/08/2025, Expires: Start: 01-08-2025 End: 04-09-2025 Lipid 1996 panel - Serum or Plasma LIPID PANEL BASIC Lab Routine Other hyperlipidemia Expected: 01/08/2025, Expires: 04/09/2025 [facility] Work Phone: Comment on above: Expected: 01/08/2025, Expires: Start: 01-08-2025 End: 04-09-2025 Magnesium [Mass/volume] in Serum or Plasma MAGNESIUM Lab Routine Chronic kidney disease, stage 3b (HCC) Hypercalcemia Expected: 01/08/2025, Expires: 04/09/2025 [facility] Comment on above: Expected: 01/08/2025, Expires: Start: 12-20-2024 RSV Vaccine (1 - 1-dose 60+ series) RSV Vaccine (1 - 1-dose 60+ series) [facility] Comment on above: Postponed from 2000 (Declined at t his time) Start: 12-20-2024 Shingrix Vaccine (1 of 2) Shingrix Vaccine (1 of 2) [facility] Comment on above: Postponed from 1990 (Declined at t his time) Start: 11-13-2024 Medicare Advantage Annual Wellness Visit Medicare Advantage Annual Wellness Visit [facility] Start: 11-12-2024 Behavioral Health Screening Behavioral Health Screening [facility] Comment on above: Postponed from 11/13/2023 (Postponed To Appropriate Date) Start: 11-12-[address] Depression [address] [facility] Comment on above: Postponed from 11/13/2023 (Postponed To Appropriate Date) Start: 10-08-2024 End: 10-08-2024 Patient encounter procedure 10/08/2024 10:00 AM EST Office Visit [facility] [place] [address] [place] [address] Tuan Luo DO [address] [place] [address] 3 month follow up Family [facility] [place] Comment on above: 3 month follow up Start: 10-02-2024 End: 01-01-2025 25-hydroxyvitamin D3 [Mass/volume] in Serum or Plasma VITAMIN D 25 HYDROXY Lab Routine Vitamin D deficiency Expected: 10/02/2024, Expires: 01/01/2025 [facility] Comment on above: Expected: 10/02/2024, Expires: Start: 10-02-2024 End: 01-01-2025 CBC W Auto Differential panel - Blood COMPLETE BLOOD COUNT AND DIFFERENTIAL Lab Routine Essential hypertension Chronic kidney disease, stage 3b (HCC) Expected: 10/02/2024, Expires: 01/01/2025 [facility] Comment on above: Expected: 10/02/2024, Expires: Start: 10-02-2024 End: 01-01-2025 Comprehensive metabolic 2000 panel - Serum or Plasma COMPREHENSIVE METABOLIC PANEL Lab Routine Essential hypertension Chronic kidney disease, stage 3b (HCC) Expected: 10/02/2024, Expires: 01/01/2025 [facility] Work Phone: Comment on above: Expected: 10/02/2024, Expires: Start: 10-02-2024 End: 01-01-2025 Hemoglobin A1c in Blood HEMOGLOBIN A1C Lab Routine Hyperglycemia Expected: 10/02/2024, Expires: 01/01/2025 [facility] Comment on above: Expected: 10/02/2024, Expires: Start: 10-02-2024 End: 01-01-2025 Parathyrin.intact [Mass/volume] in Serum or Plasma PTH INTACT Lab Routine Secondary hyperparathyroidism (HCC) Expected: 10/02/2024, Expires: 01/01/2025 [facility] Comment on above: Expected: 10/02/2024, Expires: Start: 10-02-2024 End: 01-01-2025 Thyrotropin [Units/volume] in Serum or Plasma THYROID STIMULATING HORMONE Lab Routine Post-surgical hypothyroidism Expected: 10/02/2024, Expires: 01/01/2025 [facility] Comment on above: Expected: 10/02/2024, Expires: Start: 07-14-2024 Covid-19 Vaccine () Covid-19 Vacc[address] () [facility] Start: 07-14-2024 Influenza vaccination Influenza Vaccine (#1) [facility] Start: 07-08-2024 End: 10-07-2024 Cobalamin (Vitamin B12) [Mass/volume] in Serum or Plasma [facility] Comment on above: Expected: 07/08/2024, Expires: Start: 07-08-2024 End: 10-07-2024 Comprehensive metabolic 2000 panel - Serum or Plasma [facility] Work Phone: Comment on above: Expected: 07/08/2024, Expires: Start: 07-08-2024 End: 10-07-2024 Thyrotropin [Units/volume] in Serum or Plasma [facility] Comment on above: Expected: 07/08/2024, Expires: Start: 07-08-2024 End: 10-07-2024 Thyroxine (T4) free [Mass/volume] in Serum or Plasma [facility] Comment on above: Expected: 07/08/2024, Expires: Start: 07-08-2024 End: 07-08-2024 Patient encounter procedure 07/08/2024 10:40 AM EDT Office Visit [facility] [place] [address], [place] [id number] Tuan Luo DO [address] [place] [address] 3 month follow up [facility] [place] Comment on above: 3 month follow up Start: 06-14-2024 DIABETES SCREEN DIABETES SCREEN [facility] Start: 06-02-[address] [facility] Start: 03-12-2024 End: 06-11-2024 Comprehensive metabolic 2000 panel - Serum or Plasma COMPREHENSIVE METABOLIC PANEL Lab Routine Hypercalcemia Expected: 03/12/2024, Expires: 06/11/2024 [facility] Work Phone: Comment on above: Expected: 03/12/2024, Expires: Start: 01-07-2024 Covid-19 Vaccine () Covid-19 Vaccine () [facility] Start: 12-20-2023 End: 03-20-2024 25-hydroxyvitamin D3 [Mass/volume] in Serum or Plasma VITAMIN D 25 HYDROXY Lab Routine Vitamin D deficiency Expected: 12/20/2023, Expires: 03/20/2024 [facility] Work Phone: Comment on above: Expected: 12/20/2023, Expires: Start: 12-20-2023 End: 03-20-2024 CBC W Auto Differential panel - Blood CBC + DIFF Lab Routine Essential hypertension Expected: 12/20/2023, Expires: 03/20/2024 [facility] Work Phone: Comment on above: Expected: 12/20/2023, Expires: Start: 12-20-2023 End: 03-20-2024 Comprehensive metabolic 2000 panel - Serum or Plasma COMP METABOLIC PANEL Lab Routine Essential hypertension Expected: 12/20/2023, Expires: 03/20/2024 [facility] Work Phone: Comment on above: Expected: 12/20/2023, Expires: Start: 12-20-2023 End: 03-20-2024 Hemoglobin A1c in Blood HGB A1C Lab Routine Essential hypertension Expected: 12/20/2023, Expires: 03/20/2024 [facility] Work Phone: Comment on above: Expected: 12/20/2023, Expires: Start: 12-20-2023 End: 03-20-2024 Lipid 1996 panel - Serum or Plasma LIPID PANEL BASIC Lab Routine Essential hypertension Expected: 12/20/2023, Expires: 03/20/2024 [facility] Work Phone: Comment on above: Expected: 12/20/2023, Expires: Start: 12-20-2023 End: 03-20-2024 Thyrotropin [Units/volume] in Serum or Plasma TSH BLD Lab Routine Post-surgical hypothyroidism Expected: 12/20/2023, Expires: 03/20/2024 [facility] Work Phone: Comment on above: Expected: 12/20/2023, Expires: 4 Start: 12-20-2023 End: 03-20-2024 Thyroxine (T4) free [Mass/volume] in Serum or Plasma T4 FREE/FREE THYROX Lab Routine Post-surgical hypothyroidism Expected: 12/20/2023, Expires: 03/20/2024 [facility] Work Phone: Comment on above: Expected: 12/20/2023, Expires: 4 Start: 12-20-2023 End: 03-20-2024 Urate [Mass/volume] in Serum or Plasma URIC ACID BLOOD Lab Routine Essential hypertension Hyperuricemia Expected: 12/20/2023, Expires: 03/20/2024 [facility] Work Phone: Comment on above: Expected: 12/20/2023, Expires: Start: 07-14-2023 Influenza [facility] Start: 05-04-2023 End: 07-04-2023 25-hydroxyvitamin D3 [Mass/volume] in Serum or Plasma VITAMIN D 25 HYDROXY Lab Routine Vitamin D deficiency Expected: 05/04/2023, Expires: 07/04/2023 [facility] Work Phone: Comment on above: Expected: 05/04/2023, Expires: 3 Start: 05-04-2023 End: 07-04-2023 CBC panel - Blood by Automated count CBC Lab Routine Essential hypertension Vitamin D deficiency Expected: 05/04/2023, Expires: 07/04/2023 [facility] Work Phone: Comment on above: Expected: 05/04/2023, Expires: 3 Start: 05-04-2023 End: 07-04-2023 Cobalamin (Vitamin B12) [Mass/volume] in Serum or Plasma VITAMIN B12 BLOOD Lab Routine Essential hypertension Post-surgical hypothyroidism Vitamin D deficiency Expected: 05/04/2023, Expires: 07/04/2023 [facility] Work Phone: Comment on above: Expected: 05/04/2023, Expires: 3 Start: 05-04-2023 End: 07-04-2023 Comprehensive metabolic 2000 panel - Serum or Plasma COMP METABOLIC PANEL Lab Routine Essential hypertension Vitamin D deficiency Expected: 05/04/2023, Expires: 07/04/2023 [facility] Work Phone: Comment on above: Expected: 05/04/2023, Expires: 3 Start: 05-04-2023 End: 07-04-2023 Lipid 1996 panel - Serum or Plasma LIPID PANEL BASIC Lab Routine Other hyperlipidemia Expected: 05/04/2023, Expires: 07/04/2023 [facility] Work Phone: Comment on above: Expected: 05/04/2023, Expires: 3 Start: 05-04-2023 End: 07-04-2023 Thyrotropin [Units/volume] in Serum or Plasma TSH BLD Lab Routine Essential hypertension Post-surgical hypothyroidism Expected: 05/04/2023, Expires: 07/04/2023 [facility] Work Phone: Comment on above: Expected: 05/04/2023, Expires: 3 Start: 12-01-2022 Covid-19 Vaccine (5 - Pfizer series) Covid-19 Vaccine (5 - Pfizer series) [facility] Start: 11-13-2022 DEPRESSION ASSESSMENT DEPRESSION ASSESSMENT [facility] Start: 07-14-2022 Influenza vaccination INFLUENZA (#1) [facility] Start: 01-20-2022 COVID-19 VACCINE (4 - Booster for Pfizer series) COVID-19 VACCINE (4 - Booster for Pfizer series) [facility] Start: 11-13-2021 DEPRESSION ASSESSMENT DEPRESSION ASSESSMENT [facility] Start: 2000 RSV Vaccine (1 - 1-dose 60+ series) RSV Vaccine (1 - 1-dose 60+ series) [facility] Start: 1990 SHINGRIX VACCINE (1 of 2) SHINGRIX VACCINE (1 of 2) [facility] Start: 1958 Anxiety Screening Anxiety Screening [facility] [facility] Start: 1958 Depression Screening Depression Screening [facility] 25-hydroxyvitamin D3 [Mass/volume] in Serum or Plasma VITAMIN D 25 HYDROXY Lab Routine Vitamin D deficiency 10/03/2024 11:22 AM [facility] CBC W Auto Different ial panel - Blood COMPLETE BLOOD COUNT AND DIFFERENTIAL Lab Routine Essential hypertension Chronic kidney disease, stage 3b (HCC) 10/03/2024 11:22 AM [facility] Comprehensive metabo lic 2000 panel - Serum or Plasma COMPREHENSIVE METABOLIC PANEL Lab Routine Essential hypertension Chronic kidney disease, stage 3b (HCC) 10/03/2024 11:22 AM [facility] COVID & INFLUENZA A/ B & RSV PCR, ROUTINE COVID & INFLUENZA A/B & RSV PCR, ROUTINE Microbiology Routine Viral illness 09/17/2024 12:[address] [facility] Work Phone: ECG COMPLETE ECG COMPLETE ECG Routine Cardiac murmur, previously undiagnosed Right carotid bruit Ordered: 04/15/2025 [facility] Comment on above: Ordered: 04/15/2025 End: 04-15-2026 Echocardiography ECHO Cardiology Routine Essential hypertension Uncontrolled hypertension Cardiac murmur, previously undiagnosed 1 Occurrences starting 04/15/2025 until 04/15/2026 [facility] Work Phone: Comment on above: 1 Occurrences starting 04/15/2025 until 04/15/2026 Hemoglobin A1c in Blood HEMOGLOB IN A1C Lab Routine Hyperglycemia 10/03/2024 11:22 AM [facility] Parathyrin.intact [Mass/volume] in Serum or Plasma PTH INTACT Lab Routine Secondary hyperparathyroidism (HCC) 10/03/2024 11:22 AM [facility] Patient Education ED Constipation (Adult) [facility] Work Phone: Patient referral [facility] Work Phone: PT PLAN OF CARE CERTIFICATION PT PLAN OF CARE CERTIFICATION Procedures Routine Acute bilateral low back pain with bilateral sciatica Weakness of low back due to inactivity Ordered: 02/22/2023 [facility] Work Phone: Comment on above: Ordered: 02/22/2023 Thyrotropin [Units/volume] in Serum or Plasma THYROID STIMULATING HORMONE Lab Routine Post-surgical hypothyroidism 10/03/2024 11:22 AM [facility] End: 04-15-2026 US Carotid arteries - bilateral US CAROTID ARTERIES [facility] Vascular Lab Routine Essential hypertension Uncontrolled hypertension Cardiac murmur, previously undiagnosed Right carotid bruit 1 Occurrences starting 04/15/2025 until 04/15/2026 [facility] Comment on above: 1 Occurrences starting 04/15/2025 until 04/15/2026 End: 04-15-2026 US Renal artery US RENAL ARTERY [facility] Vascular Lab Routine Essential hypertension Uncontrolled hypertension Cardiac murmur, previously undiagnosed 1 Occurrences starting 04/15/2025 until 04/15/2026 [facility] Comment on above: 1 Occurrences starting 04/15/2025 until 04/15/2026 [facility] Immunizations Immunization Date Immunization Notes Care Provider Beau shaikh 08-14-2024 influenza, high dose seasonal, preservative-free Solo Reyes DIRECTIONAL DRILL OPERATOR.NURSING SERVICES MANAGER Work Phone: [facility] 08-14-2024 influenza virus vacc ine, unspecified formulation Divina Louis DIRECTIONAL DRILL OPERATOR.NURSING SERVICES MANAGER Work Phone: [facility] 07-09-2024 COVID-19 vaccine, ag e 12+ yr (PFIZER-BIONTECH COMIRNATY) Solo Reyes DIRECTIONAL DRILL OPERATOR.NURSING SERVICES MANAGER Work Phone: [facility] 07-09-2024 tetanus toxoid, redu robert diphtheria toxoid, and acellular pertussis vaccine, adsorbed Solo Reyes DIRECTIONAL DRILL OPERATOR.NURSING SERVICES MANAGER Work Phone: [facility] 02-01-2024 respiratory syncytia l virus (RSV) vaccine, adjuvanted (AREXVY) Tuan Luo DO Work Phone: [facility] 09-06-2023 COVID-19 vaccine, ag e 12+ yr, 2022- season ([employer]) Tuan Luo DO Work Phone: [facility] Work Phone: 09-06-2023 influenza (HD-IIV4) vaccine, age 65+ yr, high dose, quadrivalent, PF (FLUZONE HIGH-DOSE) Tuan Luo DO Work Phone: [facility] Work Phone: 09-06-2023 influenza virus vacc ine, unspecified formulation Tuan Luo DO Work Phone: [facility] 06-06-2023 pneumococcal (PCV20) vaccine, 20 valent (PREVNAR 20) Tuan Luo DO Work Phone: [facility] Work Phone: 08-01-2022 COVID-19 booster vaccine, age 12+ yr, bivalent (PFIZER-BIONTECH) Divinaclement Reed DIRECTIONAL DRILL OPERATOR.NURSING SERVICES MANAGER Work Phone: [facility] Work Phone: 08-01-2022 influenza, high-dose , quadrivalent vaccine (FLUZONE HIGH DOSE QUADRIVALENT) Divina Reed DIRECTIONAL DRILL OPERATOR.NURSING SERVICES MANAGER Work Phone: [facility] Work Phone: 08-01-2022 influenza virus vacc ine, unspecified formulation Tuan Luo DO Work Phone: [facility] 07-30-2021 influenza, high-dose , quadrivalent vaccine (FLUZONE HIGH DOSE QUADRIVALENT) Tuan Luo DO Work Phone: [facility] 02-04-2021 Covid (Pfizer) [facility] 01-14-2021 Covid (Pfizer) [facility] 08-17-2020 influenza, seasonal, injectable Tuan Luo DO Work Phone: [facility] Work Phone: 09-03-2019 influenza, high dose seasonal, preservative-free Tuan Luo DO Work Phone: [facility] 08-17-2018 influenza, high dose seasonal, preservative-free Utan Luo DO Work Phone: [facility] Work Phone: 09-11-2017 influenza, high dose seasonal, preservative-free Tuan Luo DO Work Phone: [facility] Work Phone: 08-21-2017 Influenza virus vaccine [facility] 09-26-2016 influenza, high dose seasonal, preservative-free Tuan Luo DO Work Phone: [facility] Work Phone: 09-23-2015 influenza, high dose seasonal, preservative-free Tuan Luo DO Work Phone: [facility] Work Phone: 06-19-2015 pneumococcal conjuga te vaccine, 13 valent Tuan Luo DO Work Phone: [facility] 08-18-2014 influenza, high dose seasonal, preservative-free Tuan Luo DO Work Phone: [facility] 06-02-2014 tetanus and diphther ia toxoids, adsorbed, preservative free, for adult use (2 Lf of tetanus toxoid and 2 Lf of diphtheria toxoid) Tuan Luo DO Work Phone: [facility] Work Phone: 08-13-2013 influenza virus vacc ine, unspecified formulation Tuan Luo DO Work Phone: [facility] Work Phone: 08-06-2012 influenza virus vacc ine, unspecified formulation Tuan Luo DO Work Phone: [facility] Work Phone: 09-28-2011 influenza virus vacc ine, unspecified formulation Tuan Luo DO Work Phone: [facility] Work Phone: 08-30-2010 influenza virus vacc ine, unspecified formulation Tuan Luo DO Work Phone: [facility] Work Phone: 08-13-2009 influenza virus vacc ine, unspecified formulation Tuan Luo DO Work Phone: [facility] Work Phone: 08-20-2008 influenza virus vacc ine, unspecified formulation Tuan Luo DO Work Phone: [facility] Work Phone: 10-23-2007 influenza virus vacc ine, unspecified formulation Tuan Lazorison DO Work Phone: [facility] Work Phone: 10-23-2007 pneumococcal polysaccharide vaccine, 23 valent Tuan Lazorison DO Work Phone: [facility] Work Phone: 10-20-2005 diphtheria and tetan us toxoids, adsorbed for pediatric use Tuan Luo DO Work Phone: [facility] Work Phone: 10-20-2005 influenza virus vacc ine, whole virus Tuan Luo DO Work Phone: [facility] Work Phone: 09-13-2002 pneumococcal polysaccharide vaccine, 23 valent Tuan Lazorison DO Work Phone: [facility] Work Phone: Payers Date Payer Category Payer Self-pay [id number] 2021 Medicare HUMANA MEDICARE HU[employer]NA MEDICARE PPO [id number] 2021-Present [phone] [place] [address] PPO [id number] 2019 Medicare (Managed Care) TAINA MACDONALD [id number] 2019 Medicare [id number] 2019 Medicare [id number] Medicare [id number] Unknown [id number] Unknown [id number] Unknown [id number] Unknown [id number] Social History Date Type Detail Facility Start: 09-28-2011 End: 09-13-2024 Tobacco smoking status NHIS Never smoked tobacco [facility] Work Phone: Start: 01-28-2022 End: 04-15-2025 Alcohol intake Current non-drinker of alcohol (finding) [facility] Start: 04-19-2020 End: 04-14-2021 History SDOH Alcohol Frequency 1 [facility] Start: 04-19-2020 History SDOH Social Connections Phone 5 [facility] Start: 10-16-2020 History SDOH Social Connections Get Together 98 [facility] Start: 04-19-2020 End: 04-14-2021 History SDOH Social Connections Membership 2 [facility] Start: 10-16-2020 History SDOH Physica l Activity DPW 0 [facility] Start: 04-19-[address] [facility] Start: 1940 Sex Assigned At Female C [facility] Work Phone: Start: 12-17-2017 End: 07-23-2022 Tobacco smoking status NHIS Unknown if ever smoked [facility] Start: 12-17-2017 None [facility] Start: 12-17-2017 Alone [facility] Start: 09-28-2011 End: 01-31-2023 Tobacco use and exposure Smokeless tobacco non-user [facility] Work Phone: Start: 10-16-2020 End: 03-16-2023 History of Social function [facility] Start: 10-16-2020 End: 03-16-2023 Social connection and isolation panel [facility] Start: 10-14-2012 Frequency of Communication with Friends and Family Not on file [facility] How often to you hav e a drink containing alcohol? Never [facility] Do you feel stress - tense, restless, nervous, or anxious, or unable to sleep at night because your mind is troubled all the time - these days [OSQ] Not at all [facility] (I/We) worried wheth er (my/our) food would run out before (I/we) got money to buy more. Never true [facility] In the past 12 month s, was there a time when you were not able to pay the mortgage or rent on time? No [facility] Start: 05-09-2017 Gender identity Identifies as female gender (finding) [facility] Work Phone: Start: 03-21-2021 End: 04-20-2021 Exposure to SARS-CoV-2 (event) Not sure [facility] Medical Equipment Procedure Code Equipment Code Equipment Origin al Text Equipment Identifier Dates Mrkr 8ga Site Id Mamrk Tiss - [id number] Start: 08-28-2014 Functional Status Date Assessment Result Facility 06-19-2015 Are you deaf, or do you have serious difficulty hearing No 06/19/2015 10:19 AM Karla Morales LPN No [facility] 06-19-2015 Are you blind, or do you have serious difficulty seeing, even when wearing glasses No 06/19/2015 10:19 AM Karla Morales LPN No [facility] 06-19-2015 Do you have serious difficulty walking or climbing stairs No 06/19/2015 10:19 AM Karla Morales LPN No [facility] 06-19-2015 Do you have difficul ty dressing or bathing No 06/19/2015 10:19 AM Karla Morales LPN No [facility] 06-19-2015 Because of a physica l, mental, or emotional condition, do you have difficulty doing errands alone such as visiting a physician's office or shopping No 06/19/2015 10:19 AM EDT Karla Mauro LPN No [facility] Mental Status Date Assessment Result Facility 06-19-2015 Because of a physica l, mental, or emotional condition, do you have serious difficulty concentrating, remembering, or making decisions No 06/19/2015 10:19 AM EDT Karla Mauro LPN No [facility] Clinical Notes 04-17-2018 to 07-04-2025 Juan Gallegos CPhT - 07/04/2025 2:41 PM EDTCJuan sosa - 06/16/2025 9:45 AM EDTTelephone Encounter - Saida Wise LPN - 05/14/2025 12:36 PM EDTGTuan phoenix DO - 04/15/2025 10:26 AM EDT Note Date & Type Note Facility 07-04-2025 History of Present illness Narrative Patient is identified through a medication adherence outreach initiative based on pharmacy claims data from: [facility] Medication Adherence Category: Statins Second Attempt Medication(s) Pravastatin 10 mg Last Filled 5/7 for 90DS, Next fill due 8 Medication Status per portal/Epic Reconcile Dispense: Filled late - Greater than 7 days after next fill date Date Filled (MM/DD): 07/02 Day Supply: 90 Medication Status per Profile Review: No issues per profile review Patient identified by name and Outreach to patient: No outreach required, patient filled medication Juan Gallegos CPhT [facility] Pharmacy Team documented in this encounter [facility] 07-04-2025 Note HNO ID: [id number] Author: JUAN GALLEGOS CPhT Service: ? Author Type: Sleep Technician Type: Progress Notes Filed: 07/04/2025 14:43 Note Text: Patient is identified through a medication adherence outreach initiative based on pharmacy claims data from: [facility] Medication Adherence Category: Statins Second Attempt Medication(s) Pravastatin 10 mg Last Filled 5/7 for 90DS, Next fill due 8/4 Medication Status per portal/Epic Reconcile Dispense: Filled late - Greater than 7 days after next fill date Date Filled (MM/DD): 07/02 Day Supply: 90 Medication Status per Profile Review: No issues per profile review Patient identified by name and Outreach to patient: No outreach required, patient filled medication Juan Gallegos CPhT [facility] 07-04-2025 Note Patient Outreach ( POHE) RACHEAL JAMES ([id number]) 1940 F NFR Date Time Provider Department 07/04/25 TUAN LUO [facility] During your visit today, we recorded the following information about you: Juan Gallegos CPhT 07/04/2025 2:43 PM Signed Patient is identified through a medication adherence outreach initiative based on pharmacy claims data from: [facility] Medication Adherence Category: Statins Second Attempt Medication(s) Pravastatin 10 mg Last Filled 03/19 for 90DS, Next fill due 06/16 Medication Status per portal/Epic Reconcile Dispense: Filled late - Greater than 7 days after next fill date Date Filled (MM/DD): 07/02 Day Supply: 90 Medication Status per Profile Review: No issues per profile review Patient identified by name and Outreach to patient: No outreach required, patient filled medication Juan Gallegos CPhT [facility] Allergies As of Date: 07/04/2025 Noted Allergy Reaction CLONIDINE 07/07/2005 NORVASC (AMLODIPINE BESYLATE) 07/15/2011 14 - Other: See Comments Comments: Hair loss PREDNISONE 02/18/2013 14 - Other: See Comments Comments: Elevated BP and nausea Date Reviewed: 04/15/2025 Reviewed by: Luis Koch LPN - Fully Assessed Reason for Visit: Allied Health Visit [5] Cmt: Medication Adherence Outreach Prescriptions as of 07/04/2025 - amoxicillin-clavulanate potassium (AUGMENTIN) 875-125 mg per tablet Take 1 tablet by mouth every 12 hours. - hydrALAZINE (APRESOLINE) 25 mg tablet Take 1 tablet by mouth three times a day. Hold thismedication if BP less than 140 systolic - pravastatin (PRAVACHOL) 10 mg tablet Take 1 tablet by mouth daily at bedtime. - losartan (COZAAR) 50 mg tablet Take 1 tablet by mouth once daily. - metoprolol succinate ER (TOPROL XL) 100 mg Take 1 tablet by mouth once daily. Take in addition to 25 mg XL once a day - metoprolol succinate ER (TOPROL XL) 25 mg 24 hr tablet Take 1 tablet by mouth once daily. Take in addition to 100 mg XL once a day - levothyroxine (SYNTHROID) 100 mcg tablet Take 1 tablet by mouth once daily. - valACYclovir (VALTREX) 500 mg tablet Take 1 tablet by mouth once daily. - MULTIVITAMIN WITH MINERALS (HAIR,SKIN AND NAILS ORAL) Take 1 tablet by mouth once daily. - ASPIRIN 81 MG ORAL TAB Take one(1) tablet daily. 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 TRACT [R93.89] 01/24/2006 05/09/2017 Secondary hyperparathyroidism, non-renal (HCC) *04/04/2006 04/16/2020 BENIGN NEOPLASM LG BOWEL [D12.6] 04/05/2006 DIVERTICULOSIS OF COLON W/O BLEED [K57.30] 04/05/2006 EXT HEMORRHOID W/O COMPL [K64.4] 04/05/2006 01/14/2009 Genital herpes [A60.00] 04/12/2006 ABNORMAL PAP SMEAR OF CERVIX NEC AND HPV [R89.6]07/07/2008 2015 ALOPECIA NOS [L65.9] 08/20/2008 01/14/2009 ASTHMA UNSPECIFIED [J45.909] 12/17/2008 Hyperparathyroidism, unspecified (HCC) [E21.3] 01/14/2009 04/16/2020 Headache(784.0) [R51] 01/14/2009 05/09/2017 LUMBAGO [M54.50] 04/14/2009 05/04/2009 Hyperlipidemia [E78.5] 02/09/2010 Chronic renal insufficiency [N18.9] 03/12/2010 04/16/2020 Rotator cuff impingement syndrome [M75.40] 03/04/2011 Carpal tunnel syndrome [G56.00] 03/04/2011 Abnormal mammogram [R92.8] 08/28/2014 05/09/2017 Chronic kidney disease, stage 4, severely decre*09/23/2015 04/16/2020 Secondary hyperparathyroidism (HCC) [N25.81] 04/17/2018 Other hyperlipidemia [E78.49] 04/17/2018 Chronic renal impairment, stage 4 (severe) (HCC*04/17/2018 04/16/2020 Overweight (BMI 25.0-29.9) [E66.3] 04/17/2018 Screening for breast cancer [Z12.39] 04/17/2019 Chronic kidney disease, stage 3b (HCC) [N18.32] 04/17/2019 Actinic keratosis [L57.0] 10/20/2020 Mallet finger of right finger(s) [M20.011] 04/20/2021 Essential hypertension [I10] 04/20/2021 Localized swelling of right foot [R22.41] 04/20/2021 Foot pain, right [M79.671] 04/20/2021 Acute bilateral low back pain with bilateral sc*04/20/2021 Finger injury, right, initial encounter [S69.91*04/20/2021 Vitamin D deficiency [E55.9] 04/20/2021 Hyperuricemia [E79.0] Gout of foot [M10.9] 07/30/2021 Weakness of low back due to inactivity [R29.898]02/01/2023 CKD stage G3b/A1, GFR 30-44 and albumin creatin*06/07/2023 Hypercalcemia [E83.52] 03/08/2024 Non-healing skin lesion of nose [L98.9] 03/08/2024 External hemorrhoid [K64.4] 07/08/2024 Vitamin B12 deficiency [E53.8] 07/08/2024 Osteoarthritis of spine with radiculopathy, lum*01/13/2025 Uncontrolled hypertension [I10] 04/16/2025 Cardiac murmur, previously undiagnosed [R01.1] 04/16/2025 Right carotid bruit [R09.89] 04/16/2025 Dysuria [R30.0] 04/16/2025 Encounter Statu (more content not included)... [facility] 06-16-2025 History of Present illness Narrative Patient is identified through a medication adherence outreach initiative based on pharmacy claims data from: [facility] Medication Adherence Category: Statins First Review Attribution Status: Correct attribution Medication(s) Pravastatin 10 mg Medication Status per portal/Epic Reconcile Dispense: Not filled Medication Status per Profile Review: No issues per profile review Patient/provider appropriate for outreach? Yes Patient identified by name and Outreach to patient: Spoke to patient Med Adherence Concern: Patient has overstock What was primary intervention? 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 Also states she is compliant and takes daily. Juan Gallegos [facility] Pharm[facility] Team documented in this encounter [facility] 06-16-2025 Note HNO ID: [id number] Author: ?, ?, ? Service: ? Author Type: ? Type: Progress Notes Filed: 06/16/2025 09:57 Note Text: Patient is identified through a medication adherence outreach initiative based on pharmacy claims data from: [facility] Medication Adherence Category: Statins First Review Attribution Status: Correct attribution Medication(s) Pravastatin 10 mg Medication Status per portal/Epic Reconcile Dispense: Not filled Medication Status per Profile Review: No issues per profile review Patient/provider appropriate for outreach? Yes Patient identified by name and Outreach to patient: Spoke to patient Med Adherence Concern: Patient has overstock What was primary intervention? 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 Also states she is compliant and takes daily. Juan Gallegos [facility] 06-16-2025 Note Patient Outreach ( POHE) RACHEAL JAMES ([id number]) 1940 F NFR Date Time Provider Department 06/16/25 [facility] During your visit today, we recorded the following information about you: Juan Gallegos 06/16/2025 9:57 AM Signed Patient is identified through a medication adherence outreach initiative based on pharmacy claims data from: [facility] Medication Adherence Category: Statins First Review Attribution Status: Correct attribution Medication(s) Pravastatin 10 mg Medication Status per portal/Epic Reconcile Dispense: Not filled Medication Status per Profile Review: No issues per profile review Patient/provider appropriate for outreach? Yes Patient identified by name and Outreach to patient: Spoke to patient Med Adherence Concern: Patient has overstock What was primary intervention? 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 Also states she is compliant and takes daily. Juan Gallegos [facility] Pharmacy Team Allergies As of Date: 06/16/2025 Noted Allergy Reaction CLONIDINE 07/07/2005 NORVASC (AMLODIPINE BESYLATE) 07/15/2011 14 - Other: See Comments Comments: Hair loss PREDNISONE 02/18/2013 14 - Other: See Comments Comments: Elevated BP and nausea Date Reviewed: 04/15/2025 Reviewed by: Luis Koch LPN - Fully Assessed Reason for Visit: Allied Health Visit [5] Cmt: Medication Adherence Outreach Prescriptions as of 06/16/2025 - amoxicillin-clavulanate potassium (AUGMENTIN) 875-125 mg per tablet Take 1 tablet by mouth every 12 hours. - hydrALAZINE (APRESOLINE) 25 mg tablet Take 1 tablet by mouth three times a day. Hold thismedication if BP less than 140 systolic - pravastatin (PRAVACHOL) 10 mg tablet Take 1 tablet by mouth daily at bedtime. - losartan (COZAAR) 50 mg tablet Take 1 tablet by mouth once daily. - metoprolol succinate ER (TOPROL XL) 100 mg Take 1 tablet by mouth once daily. Take in addition to 25 mg XL once a day - metoprolol succinate ER (TOPROL XL) 25 mg 24 hr tablet Take 1 tablet by mouth once daily. Take in addition to 100 mg XL once a day - levothyroxine (SYNTHROID) 100 mcg tablet Take 1 tablet by mouth once daily. - valACYclovir (VALTREX) 500 mg tablet Take 1 tablet by mouth once daily. - MULTIVITAMIN WITH MINERALS (HAIR,SKIN AND NAILS ORAL) Take 1 tablet by mouth once daily. - ASPIRIN 81 MG ORAL TAB Take one(1) tablet daily. 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 TRACT [R93.89] 01/24/2006 05/09/2017 Secondary hyperparathyroidism, non-renal (HCC) *04/04/2006 04/16/2020 BENIGN NEOPLASM LG BOWEL [D12.6] 04/05/2006 DIVERTICULOSIS OF COLON W/O BLEED [K57.30] 04/05/2006 EXT HEMORRHOID W/O COMPL [K64.4] 04/05/2006 01/14/2009 Genital herpes [A60.00] 04/12/2006 ABNORMAL PAP SMEAR OF CERVIX NEC AND HPV [R89.6]07/07/2008 2015 ALOPECIA NOS [L65.9] 08/20/2008 01/14/2009 ASTHMA UNSPECIFIED [J45.909] 12/17/2008 Hyperparathyroidism, unspecified (HCC) [E21.3] 01/14/2009 04/16/2020 Headache(784.0) [R51] 01/14/2009 05/09/2017 LUMBAGO [M54.50] 04/14/2009 05/04/2009 Hyperlipidemia [E78.5] 02/09/2010 Chronic renal insufficiency [N18.9] 03/12/2010 04/16/2020 Rotator cuff impingement syndrome [M75.40] 03/04/2011 Carpal tunnel syndrome [G56.00] 03/04/2011 Abnormal mammogram [R92.8] 08/28/2014 05/09/2017 Chronic kidney disease, stage 4, severely decre*09/23/2015 04/16/2020 Secondary hyperparathyroidism (HCC) [N25.81] 04/17/2018 Other hyperlipidemia [E78.49] 04/17/2018 Chronic renal impairment, stage 4 (severe) (HCC*04/17/2018 04/16/2020 Overweight (BMI 25.0-29.9) [E66.3] 04/17/2018 Screening for breast cancer [Z12.39] 04/17/2019 Chronic kidney disease, stage 3b (HCC) [N18.32] 04/17/2019 Actinic keratosis [L57.0] 10/20/2020 Mallet finger of right finger(s) [M20.011] 04/20/2021 Essential hypertension [I10] 04/20/2021 Localized swelling of right foot [R22.41] 04/20/2021 Foot pain, right [M79.671] 04/20/2021 Acute bilateral low back pain with bilateral sc*04/20/2021 Finger injury, right, initial encounter [S69.91*04/20/2021 Vitamin D deficiency [E55.9] 04/20/2021 Hyperuricemia [E79.0] Gout of foot [M10.9] 07/30/2021 Weakness of low back due to inactivity [R29.898]02/01/2023 CKD stage G3b/A1, GFR 30-44 and albumin creatin*06/07/2023 Hypercalcemia [E83.52] 03/08/2024 Non-healing skin lesion of nose [L98.9] 03/08/2024 External hemorrhoid [K64.4] 07/08/2024 Vitamin B12 deficiency [E53.8] 07/08/2024 Osteoarthritis of spine with radiculopathy, lum*01/13/2025 Uncontrolled hypertension [I10 (more content not included)... [facility] 05-14-2025 Telephone encounter Note Spoke with pt gave information provided. Pt voices understanding. [facility] 05-14-2025 Miscellaneous Notes Spoke with pt gave information provided. Pt voices understanding. ----- Message from Divina Louis APRN.NURSING SERVICES MANAGER sent at 05/14/2025 10:53 AM EDT ----- Please also let patient know that US renal arteries were also normal without any significant stenosis. Thank you, Divina Louis APRN.NURSING SERVICES MANAGER Spoke with pt gave information provided. Pt voices understanding. ----- Message from Divina Louis APRN.NURSING SERVICES MANAGER sent at 05/14/2025 10:15 AM EDT ----- Please call patient and let her know that carotid artery ultrasound looks good, normal, and patent with no concerns Thank you, Divina Louis APRN.NURSING SERVICES MANAGER documented in this encounter [facility] 05-14-2025 Telephone encounter Note ----- Message from Divina Louis APRN.NURSING SERVICES MANAGER sent at 05/14/2025 10:53 AM EDT ----- Please also let patient know that US renal arteries were also normal without any significant stenosis. Thank you, Divina Louis APRN.NURSING SERVICES MANAGER [facility] 05-14-2025 Telephone encounter Note Spoke with pt gave information provided. Pt voices understanding. [facility] 05-14-2025 Telephone encounter Note ----- Message from Divina Louis APRN.NURSING SERVICES MANAGER sent at 05/14/2025 10:15 AM EDT ----- Please call patient and let her know that carotid artery ultrasound looks good, normal, and patent with no concerns Thank you, Divina Louis APRN.NURSING SERVICES MANAGER [facility] 04-15-2025 Note HNO ID: [id number] Author: TUAN LUO, DO Service: ? Author Type: Physician Type: Progress Notes Filed: 04/16/2025 12:42 Note Text: CC: Racheal James is a 84 year old female who presents to the office for follow up HPI: Bronchitis, cough, chest congestion, mild yellow sputum the last few weeks, no hemoptysis, no fevers or chills. No ill contacts. Trying mucinex CKD stage 3, seeing Dr. Danni Jimenez [facility] on 04/30 for follow up Patient states hat she is going to [facility] office in April for follow up for whole skin check. Hx of skin cancers in the past. HPL, taking pravastatin medication HTN, taking medication as prescribed, still BLOOD PRESSURE seems to be elevated. She is asymptomatic. Denies any CP or dyspnea or dizziness/Lh or edema. She is wondering what else to do for this. 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 Byers COLONOSCOPY W/BIOPSY 05/31/16 diverticulosis, polyp COLONOSCOPY FLX DX W/COLLJ SPEC WHEN PFRMD 03/09/2001 Colonoscopy COLONOSCOPY FLX DX W/COLLJ SPEC WHEN PFRMD 04/05/2006 Colonoscopy COLONOSCOPY FLX DX W/COLLJ SPEC WHEN PFRMD 05/06/2011 Colonoscopy LIG/TRNSXJ FLP TUBE ABDL/VAG APPR UNI/BI Tubal ligation TOTAL THYROID LOBECTOMY UNI W/WO ISTHMUSECTOMY 04/01/08 RIGHT THYROID UNLISTED PROCEDURE HANDS/FINGERS 04/03/13 Right trigger finger Current Outpatient Medications Medication Sig amoxicillin-clavulanate potassium (AUGMENTIN) 875-125 mg per tablet Take 1 tablet by mouth every 12 hours. hydrALAZINE (APRESOLINE) 25 mg tablet Take 1 tablet by mouth three times a day. Hold thismedication if BP less than 140 systolic pravastatin (PRAVACHOL) 10 mg tablet Take 1 tablet by mouth daily at bedtime. losartan (COZAAR) 50 mg tablet Take 1 tablet by mouth once daily. metoprolol succinate ER (TOPROL XL) 100 mg Take 1 tablet by mouth once daily. Take in addition to 25 mg XL once a day metoprolol succinate ER (TOPROL XL) 25 mg 24 hr tablet Take 1 tablet by mouth once daily. Take in addition to 100 mg XL once a day levothyroxine (SYNTHROID) 100 mcg tablet Take 1 tablet by mouth once daily. valACYclovir (VALTREX) 500 mg tablet Take 1 tablet by mouth once daily. MULTIVITAMIN WITH MINERALS (HAIR,SKIN AND NAILS ORAL) Take 1 tablet by mouth once daily. ASPIRIN 81 MG ORAL TAB Take one(1) tablet daily. No current facility-administered medications for this visit. ALLERGIES Allergen Reactions Clonidine Norvasc [Amlodipine* Other: See Comments Hair loss Prednisone Other: See Comments Elevated BP and nausea Social History Tobacco Use Smoking status: Never Smokeless tobacco: Never Vaping Use Vaping status: Never Used Substance Use Topics Alcohol use: No Drug use: No ROS: See HPI PE: BP 190/90[BP zaina 188/91[ Pulse 60 Temp (Src) 97.3 (Left Tympanic) Resp 20 Wt 154 lb (69.9kg) Gen: AANDOX3, NAD, non-toxic appearing, cooperative, well dressed HEENT: PERRLA, EOMs intact b/l, nares with posterior drainage, + sinus TTP maxillary b/l, pharynx without erythema, exudate, lesions, or drainage. Uvula midline. MMM, impaired / hearing deficit Neck: No LAD, no thyromegaly, no meningismus. ? Right carotid bruit CV: RRR, 1/6 HSM RUSB soft blowing murmur Lungs: CTA b/l, no wheezing Skin: + actinic keratosis left superior forehead at hair line No edema, normal peripheral pulses ASSESSMENT/PLAN: 1. Uncontrolled hypertension - ICD9: 401.9, ICD10: I10 (primary diagnosis) - Uncontrolled - Factors affecting control: diet adherence and lack of exercise - Recommend home blood pressure monitoring, to bring results to next visit - Encouraged sodium restriction, DASH or Mediterranean diet - Recommend regular aerobic exercise Check metoprolol 100 mg to Am and 25 mg to PM, take losartan in AM, take hydralazine 3 times a day (she has only been intermittently taking the hydralazine). Need for secondary work up with testi (more content not included)... [facility] 04-15-2025 History of Present illness Narrative CC: Racheal James is a 84 year old female who presents to the office for follow up HPI: Bronchitis, cough, chest congestion, mild yellow sputum the last few weeks, no hemoptysis, no fevers or chills. No ill contacts. Trying mucinex CKD stage 3, seeing Dr. Danni Jimenez [facility] on 04/30 for follow up Patient states hat she is going to [facility] office in April for follow up for whole skin check. Hx of skin cancers in the past. HPL, taking pravastatin medication HTN, taking medication as prescribed, still BLOOD PRESSURE seems to be elevated. She is asymptomatic. Denies any CP or dyspnea or dizziness/Lh or edema. She is wondering what else to do for this. 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 Byers COLONOSCOPY W/BIOPSY 05/31/16 diverticulosis, polyp COLONOSCOPY FLX DX W/COLLJ SPEC WHEN PFRMD 03/09/2001 Colonoscopy COLONOSCOPY FLX DX W/COLLJ SPEC WHEN PFRMD 04/05/2006 Colonoscopy COLONOSCOPY FLX DX W/COLLJ SPEC WHEN PFRMD 05/06/2011 Colonoscopy LIG/TRNSXJ FLP TUBE ABDL/VAG APPR UNI/BI Tubal ligation TOTAL THYROID LOBECTOMY UNI W/WO ISTHMUSECTOMY 04/01/08 RIGHT THYROID UNLISTED PROCEDURE HANDS/FINGERS 04/03/13 Right trigger finger Current Outpatient Medications Medication Sig amoxicillin-clavulanate potassium (AUGMENTIN) 875-125 mg per tablet Take 1 tablet by mouth every 12 hours. hydrALAZINE (APRESOLINE) 25 mg tablet Take 1 tablet by mouth three times a day. Hold thismedication if BP less than 140 systolic pravastatin (PRAVACHOL) 10 mg tablet Take 1 tablet by mouth daily at bedtime. losartan (COZAAR) 50 mg tablet Take 1 tablet by mouth once daily. metoprolol succinate ER (TOPROL XL) 100 mg Take 1 tablet by mouth once daily. Take in addition to 25 mg XL once a day metoprolol succinate ER (TOPROL XL) 25 mg 24 hr tablet Take 1 tablet by mouth once daily. Take in addition to 100 mg XL once a day levothyroxine (SYNTHROID) 100 mcg tablet Take 1 tablet by mouth once daily. valACYclovir (VALTREX) 500 mg tablet Take 1 tablet by mouth once daily. MULTIVITAMIN WITH MINERALS (HAIR,SKIN & NAILS ORAL) Take 1 tablet by mouth once daily. ASPIRIN 81 MG ORAL TAB Take one(1) tablet daily. No current facility-administered medications for this visit. ALLERGIES Allergen Reactions Clonidine Norvasc [Amlodipine* Other: See Comments Hair loss Prednisone Other: See Comments Elevated BP and nausea Social History Tobacco Use Smoking status: Never Smokeless tobacco: Never Vaping Use Vaping status: Never Used Substance Use Topics Alcohol use: No Drug use: No ROS: See HPI PE: BP 190/90[BP zaina 188/91[ Pulse 60 Temp (Src) 97.3 (Left Tympanic) Resp 20 Wt 154 lb (69.9kg) Gen: A&OX3, NAD, non-toxic appearing, cooperative, well dressed HEENT: PERRLA, EOMs intact b/l, nares with posterior drainage, + sinus TTP maxillary b/l, pharynx without erythema, exudate, lesions, or drainage. Uvula midline. MMM, impaired / hearing deficit Neck: No LAD, no thyromegaly, no meningismus. ? Right carotid bruit CV: RRR, 1/6 HSM RUSB soft blowing murmur Lungs: CTA b/l, no wheezing Skin: + actinic keratosis left superior forehead at hair line No edema, normal peripheral pulses ASSESSMENT/PLAN: 1. Uncontrolled hypertension - ICD9: 401.9, ICD10: I10 (primary diagnosis) - Uncontrolled - Factors affecting control: diet adherence and lack of exercise - Recommend home blood pressure monitoring, to bring results to next visit - Encouraged sodium restriction, DASH or Mediterranean diet - Recommend regular aerobic exercise Check metoprolol 100 mg to Am and 25 mg to PM, take losartan in AM, take hydralazine 3 times a day (she has only been intermittently taking the hydralazine). Need for secondary work up with testing as ordered. - ECHO - PERFLUTREN LIPID MICROSPHERES 1.1 MG/ML INJECTION IN NS 10 ML - SODIUM CHLORIDE 0.9 % (FLUSH) INJECTION SYRINGE - US CAROTID ARTERIES [facility] - US RENAL ARTERY [facility] 2. Acute non-recurrent maxillary sinusitis - ICD9: 461.0, ICD10: J01.00 - Will begin treatment with as per antibiotic as written, see orders - AMOXICILLIN 875 MG-POTASSIUM CLAVULANATE 125 MG TABLET 3. Essential hypertension - ICD9: 401.9, ICD10: I10 - Uncontrolled - Factors affecting control: diet adherence and lack of exercise - Recommend home blood pressure monitoring, to bring results to next visit - Encouraged sodium restriction, DASH or Mediterranean diet - Recommend regular aerobic exercise Check metoprolol 100 mg to Am and 25 mg to PM, take losartan in AM, take hydralazine 3 times a day (she has only been intermittently taking the hydralazine). Need for secondary work up with testing as ordered. - ECHO - PERFLUTREN LIPID MICROSPHERES 1.1 MG/ML INJECTION IN NS 10 ML - SODIUM CHLORIDE 0.9 % (FLUSH) INJECTION SYRINGE - US CAROTID ARTERIES [facility] - US RENAL ARTERY [facility] 4. Cardiac murmur, previously undiagnosed - ICD9: 785.2, ICD10: R01.1 Echo as ordered. - ECHO - PERFLUTREN LIPID MICROSPHERES 1.1 MG/ML INJECTION IN NS 10 ML - SODIUM CHLORIDE 0.9 % (FLUSH) INJECTION SYRINGE - US CAROTID ARTERIES [facility] - US RENAL ARTERY [facility] - ECG COMPLETE 5. Right carotid bruit - ICD9: 785.9, ICD10: R09.89 - Uncontrolled - Factors affecting control: diet adherence and lack of exercise - Recommend home blood pressure monitoring, to bring results to next visit - Encouraged sodium restriction, DASH or Mediterranean diet - Recommend regular aerobic exercise Check metoprolol 100 mg to Am and 25 mg to PM, take losartan in AM, take hydralazine 3 times a day (she has only been intermittently taking the hydralazine). Need for secondary work up with testing as ordered. - ECHO - PERFLUTREN LIPID MICROSPHERES 1.1 MG/ML INJECTION IN NS 10 ML - SODIUM CHLORIDE 0.9 % (FLUSH) INJECTION SYRINGE - US CAROTID ARTERIES [facility] - US RENAL ARTERY [facility] - US CAROTID ARTERIES [facility] - ECG COMPLETE 6. Dysuria - ICD9: 788.1, ICD10: R30.0 acute - Patient education for prevention given - UA DIP, URINE (POC) 7. Actinic keratosis - ICD9: 702.0, ICD10: L57.0 Treated with cryotherapy x 1 as above, tolerated well, no complications. 8. Secondary hyperparathyroidism (HCC) - ICD9: 588.81, ICD10: N25.81 - Uncontrolled - Factors affecting control: diet adherence and lack of exercise - Recommend home blood pressure monitoring, to bring results to next visit - Encouraged sodium restriction, DASH or Mediterranean diet - Recommend regular aerobic exercise Check metoprolol 100 mg to Am and 25 mg to PM, take losartan in AM, take hydralazine 3 times a day (she has only been intermittently taking the hydralazine). Need for secondary work up with testing as ordered. - ECHO - PERFLUTREN LIPID MICROSPHERES 1.1 MG/ML INJECTION IN NS 10 ML - SODIUM CHLORIDE 0.9 % (FLUSH) INJECTION SYRINGE - US CAROTID ARTERIES [facility] - US RENAL ARTERY [facility] 9. Chronic kidney disease, stage 3b (HCC) - ICD9: 585.3, ICD10: N18.32 F/u with [facility]. 10. 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 Tuan Luo DO Return if no improvement. Follow up with Tuan Luo DO. To ER if develops chest pain, shortness of breath. Discussed risks, benefits, alternatives, and potential side effects of medications. Patient/Guardian expressed understanding and agreed with the plan. See patient instructions. Tuan Luo DO [id number] [place] [address] documented in this encounter [facility] 03-27-2025 Note HNO ID: [id number] Author: MARILEE TOLEDO CPhT Service: ? Author Type: Sleep Technician Type: Progress Notes Filed: 03/27/2025 11:11 Note Text: Patient is identified through a medication adherence outreach initiative based on pharmacy claims data from: [facility] Medication Adherence Category: Statins Second Attempt Medication(s) Pravastatin 10 mg Outreach to patient: Outreach to patient: Attempted Voicemail, VM full/not setup What was primary intervention? No intervention Patient identified by name and Med Adherence Concern: No adherence concerns What was primary intervention? Filled 03/19/25 for 90 days Marilee Toledo CPhT [facility] Pharm[facility] Team [facility] 03-18-2025 Telephone encounter Note Patient reviewed for Population Health Medication Adherence Pended the following prescription(s) for review. Requested Prescriptions Pending Prescriptions Disp Refills pravastatin (PRAVACHOL) 10 mg tablet 90 tablet 3 Sig: Take 1 tablet by mouth daily at bedtime. Future Appointments Date Time Provider Department Center 04/15/2025 10:00 AM [facility] review and refill if appropriate. Thank you. Marilee Toledo CPhT March 18, 2025 3:[address] [facility] 03-18-2025 Miscellaneous Notes Patient reviewed for Population Health Medication Adherence Pended the following prescription(s) for review. Requested Prescriptions Pending Prescriptions Disp Refills pravastatin (PRAVACHOL) 10 mg tablet 90 tablet 3 Sig: Take 1 tablet by mouth daily at bedtime. Future Appointments Date Time Provider Department Center 04/15/2025 10:00 AM Tuan Luo DO [facility] Please review and refill if appropriate. Thank you. Marilee Toledo CPhT March 18, 2025 3:15 PM documented in this encounter [facility] 03-18-2025 Note HNO ID: [id number] Author: MARILEE TOLEDO CPhT Service: ? Author Type: Sleep Technician Type: Progress Notes Filed: 03/18/2025 15:16 Note Text: Patient is identified through a medication adherence outreach initiative based on pharmacy claims data from: [facility] Medication Adherence Category: Statins First Review Attribution Status: Correct Attribution Medication(s) Pravastatin 10 mg Medication Status per portal/Epic Reconcile Dispense: Not filled - Outreach patient Medication Status per Profile Review: No issues per profile review Patient appropriate for outreach? No Reason patient not appropriate for outreach: Rx , pended request Marilee Toledo CPhT [facility] 03-18-2025 History of Present illness Narrative Patient is identified through a medication adherence outreach initiative based on pharmacy claims data from: [facility] Medication Adherence Category: Statins First Review Attribution Status: Correct Attribution Medication(s) Pravastatin 10 mg Medication Status per portal/Epic Reconcile Dispense: Not filled - Outreach patient Medication Status per Profile Review: No issues per profile review Patient appropriate for outreach? No Reason patient not appropriate for outreach: Rx , pended request Marilee Toledo CPhT [facility] Team documented in this encounter [facility] 03-18-2025 Note Patient Outreach (PH POHE) RACHEAL JAMES ([id number]) 1940 F NFR Date Time Provider Department 03/18/25 [facility] During your visit today, we recorded the following information about you: Marilee Toledo CPhT 03/18/2025 3:16 PM Signed Patient is identified through a medication adherence outreach initiative based on pharmacy claims data from: [facility] Medication Adherence Category: Statins First Review Attribution Status: Correct Attribution Medication(s) Pravastatin 10 mg Medication Status per portal/Epic Reconcile Dispense: Not filled - Outreach patient Medication Status per Profile Review: No issues per profile review Patient appropriate for outreach? No Reason patient not appropriate for outreach: Rx , pended request Marilee Toledo CPhT [facility] Team Marilee Toledo CPhT 03/27/2025 11:11 AM Signed Patient is identified through a medication adherence outreach initiative based on pharmacy claims data from: [facility] Medication Adherence Category: Statins Second Attempt Medication(s) Pravastatin 10 mg Outreach to patient: Outreach to patient: Attempted Voicemail, MACKENZIE full/not setup What was primary intervention? No intervention Patient identified by name and Med Adherence Concern: No adherence concerns What was primary intervention? Filled 03/19/25 for 90 days Marilee Toledo CPhT [facility] Team Allergies As of Date: 03/18/2025 Noted Allergy Reaction CLONIDINE 07/07/2005 NORVASC (AMLODIPINE BESYLATE) 07/15/2011 14 - Other: See Comments Comments: Hair loss PREDNISONE 02/18/2013 14 - Other: See Comments Comments: Elevated BP and nausea Date Reviewed: 01/13/2025 Reviewed by: Luis Koch LPN - Fully Assessed Reason for Visit: Allied Health Visit [5] Cmt: Medication Adherence Outreach Prescriptions as of 03/27/2025 - pravastatin (PRAVACHOL) 10 mg tablet Take 1 tablet by mouth daily at bedtime. - hydrALAZINE (APRESOLINE) 25 mg tablet Take 1 tablet by mouth three times a day. Hold hydralazine if BP less than 140 systolic - losartan (COZAAR) 50 mg tablet Take 1 tablet by mouth once daily. - metoprolol succinate ER (TOPROL XL) 100 mg Take 1 tablet by mouth once daily. Take in addition to 25 mg XL once a day - metoprolol succinate ER (TOPROL XL) 25 mg 24 hr tablet Take 1 tablet by mouth once daily. Take in addition to 100 mg XL once a day - levothyroxine (SYNTHROID) 100 mcg tablet Take 1 tablet by mouth once daily. - valACYclovir (VALTREX) 500 mg tablet Take 1 tablet by mouth once daily. - MULTIVITAMIN WITH MINERALS (HAIR,SKIN AND NAILS ORAL) Take 1 tablet by mouth once daily. - ASPIRIN 81 MG ORAL TAB Take one(1) tablet daily. Meds Comments as of 05/28/2015: Problem List As Of Date 03/18/2025 Noted Resolved NONTOX NODUL GOITER NOS [E04.9] 10/20/2005 Post-Surgical Hypothyroidism [E89.0] 10/20/2005 Hypertensive chronic kidney disease with stage *10/20/2005 ABNORMAL XRAY G.U. TRACT [R93.89] 01/24/2006 05/09/2017 Secondary hyperparathyroidism, non-renal (HCC) *04/04/2006 04/16/2020 BENIGN NEOPLASM LG BOWEL [D12.6] 04/05/2006 DIVERTICULOSIS OF COLON W/O BLEED [K57.30] 04/05/2006 EXT HEMORRHOID W/O COMPL [K64.4] 04/05/2006 01/14/2009 Genital herpes [A60.00] 04/12/2006 ABNORMAL PAP SMEAR OF CERVIX NEC AND HPV [R89.6]07/07/2008 2015 ALOPECIA NOS [L65.9] 08/20/2008 01/14/2009 ASTHMA UNSPECIFIED [J45.909] 12/17/2008 Hyperparathyroidism, unspecified (HCC) [E21.3] 01/14/2009 04/16/2020 Headache(784.0) [R51] 01/14/2009 05/09/2017 LUMBAGO [M54.50] 04/14/2009 05/04/2009 Hyperlipidemia [E78.5] 02/09/2010 Chronic renal insufficiency [N18.9] 03/12/2010 04/16/2020 Rotator cuff impingement syndrome [M75.40] 03/04/2011 Carpal tunnel syndrome [G56.00] 03/04/2011 Abnormal mammogram [R92.8] 08/28/2014 05/09/2017 Chronic kidney disease, stage 4, severely decre*09/23/2015 04/16/2020 Secondary hyperparathyroidism (HCC) [N25.81] 04/17/2018 Other hyperlipidemia [E78.49] 04/17/2018 Chronic renal impairment, stage 4 (severe) (HCC*04/17/2018 04/16/2020 Overweight (BMI 25.0-29.9) [E66.3] 04/17/2018 Screening for breast cancer [Z12.39] 04/17/2019 Chronic kidney disease, stage 3b (HCC) [N18.32] 04/17/2019 Actinic keratosis [L57.0] 10/20/2020 Mallet finger of right finger(s) [M20.011] 04/20/2021 Essential hypertension [I10] 04/20/2021 Localized swelling of right foot [R22.41] 04/20/2021 Foot pain, right [M79.671] 04/20/2021 Acute bilateral low back pain with bilateral sc*04/20/2021 Finger injury, right, initial encounter [S69.91*04/20/2021 Vitamin D deficiency [E55.9] 04/20/2021 Hyperuricemia [E79.0] Gout of foot [M10.9] 07/30/2021 Weakness of low back due to inactivity [R29.898]02/01/2023 CKD stage G3b/A1, GFR 30-44 and albumin creatin*06/07/2023 Hypercalcemia [E83.52] 03/08/2024 Non-healing (more content not included)... [facility] 02-24-2025 Telephone encounter Note Prescription Refill Information The patient has been identified by name and date of : Yes Caregiver verified no other encounters exist for this prescription request: Yes Caregiver confirmed with patient/requestor that no other refills are due, in the near future, with this provider at this time: Yes The last office visit in the department: 01-13-25 Does the patient have a future office visit with this provider/department: Yes Requested Prescriptions Pending Prescriptions Disp Refills hydrALAZINE (APRESOLINE) 25 mg tablet 90 tablet 1 Sig: Take 1 tablet by mouth three times a day. Hold hydralazine if BP less than 140 systolic Oly Alexandra February 24, 2025 10:[address] [facility] 02-24-2025 Miscellaneous Notes Prescription Refill Information The patient has been identified by name and date of : Yes Caregiver verified no other encounters exist for this prescription request: Yes Caregiver confirmed with patient/requestor that no other refills are due, in the near future, with this provider at this time: Yes The last office visit in the department: 01-13-25 Does the patient have a future office visit with this provider/department: Yes Requested Prescriptions Pending Prescriptions Disp Refills hydrALAZINE (APRESOLINE) 25 mg tablet 90 tablet 1 Sig: Take 1 tablet by mouth three times a day. Hold hydralazine if BP less than 140 systolic Oly Alexandra February 24, 2025 10:21 AM documented in this encounter [facility] 01-13-2025 Telephone encounter Note Pt wanted medication sent to [facility]. Put this in her pharmacy list and made it the main pharmacy. The patient has been identified by name and date of : Yes Caregiver verified no other encounters exist for this prescription request: Yes Caregiver confirmed with patient/requestor that no other refills are due, in the near future, with this provider at this time: Yes The last office visit in the department: 01/13/2025 Does the patient have a future office visit with this provider/department: Yes 04/15/2025 Requested Prescriptions Pending Prescriptions Disp Refills losartan (COZAAR) 50 mg tablet 90 tablet 3 Sig: Take 1 tablet by mouth once daily. metoprolol succinate ER (TOPROL XL) 100 mg 90 tablet 3 Sig: Take 1 tablet by mouth once daily. Take in addition to 25 mg XL once a day metoprolol succinate ER (TOPROL XL) 25 mg 24 hr tablet 90 tablet 3 Sig: Take 1 tablet by mouth once daily. Take in addition to 100 mg XL once a day Maryuri Ayala RN January 13, 2025 1:[address] [facility] 01-13-2025 Miscellaneous Notes Pt wanted medication sent to [facility]. Put this in her pharmacy list and made it the main pharmacy. The patient has been identified by name and date of : Yes Caregiver verified no other encounters exist for this prescription request: Yes Caregiver confirmed with patient/requestor that no other refills are due, in the near future, with this provider at this time: Yes The last office visit in the department: 01/13/2025 Does the patient have a future office visit with this provider/department: Yes 04/15/2025 Requested Prescriptions Pending Prescriptions Disp Refills losartan (COZAAR) 50 mg tablet 90 tablet 3 Sig: Take 1 tablet by mouth once daily. metoprolol succinate ER (TOPROL XL) 100 mg 90 tablet 3 Sig: Take 1 tablet by mouth once daily. Take in addition to 25 mg XL once a day metoprolol succinate ER (TOPROL XL) 25 mg 24 hr tablet 90 tablet 3 Sig: Take 1 tablet by mouth once daily. Take in addition to 100 mg XL once a day Maryuri Ayala RN January 13, 2025 1:14 PM documented in this encounter [facility] 01-13-2025 Note HNO ID: [id number] Author: TUAN LUO, DO Service: ? Author Type: Physician Type: Progress Notes Filed: 01/13/2025 12:15 Note Text: CC: Racheal James is a 84 year old female who presents to the office for follow up HPI: BLOOD PRESSURE seems overall to be better regulated. Typical range of 130s/80s. Lows of 120s / 80s. Monitors her BLOOD PRESSURE at home. Denies any CP or dyspnea or dizziness/Lh symptoms No CP or dyspnea or dizziness/Lh. No recent falls. She has her granddaughter helping her with mowing and outdoor work in the Spring and summer. Currently her son is also helping her with meals/food Low back pain, DJD and DDD lumbar spine. Has had an epidural injection in the lumbar spine by Dr. Bryson without relief. Then had an alternative type of injection with some relief which will be repeated upcoming. Avoids NSAIDs. She does take tylenol up to 500 mg twice a day for pain, no new bowel or bladder loss of control. She felt that the gabapentin given caused her to have insomnia. She has now been given rx for Tramadol by Dr. Bryson but hasn't started this yet. CKD stage 3, hypertensive kidney disease, has been seen in the past by Dr. Danni Jimenez Nephrology, levels are stable, asymptomatic Chronic intermittent constipation, overall has been stable Glucose (mg/dL) Date Value 01/09/2025 96 06/14/2021 102 Potassium (mmol/L) Date Value 01/09/2025 4.0 06/14/2021 4.3 Sodium (mmol/L) Date Value 01/09/2025 140 06/14/2021 138 Chloride (mmol/L) Date Value 01/09/2025 107 06/14/2021 104 CO2 (mmol/L) Date Value 01/09/2025 20 06/14/2021 21 Creatinine (mg/dL) Date Value 01/09/2025 1.22 06/14/2021 1.25 BUN (mg/dL) Date Value 01/09/2025 29 06/14/2021 23 Anion Gap (mmol/L) Date Value 01/09/2025 13 06/14/2021 13 Calcium (mg/dL) Date Value 06/14/2021 10.0 Calcium, Total (mg/dL) Date Value 01/09/2025 10.0 Protein, Total (g/dL) Date Value 01/09/2025 6.9 06/08/2021 7.5 Albumin (g/dL) Date Value 01/09/2025 4.1 06/08/2021 3.9 Bilirubin, Total (mg/dL) Date Value 01/09/2025 0.9 06/08/2021 1.0 Alkaline Phosphatase (U/L) Date Value 01/09/2025 53 06/08/2021 63 AST (U/L) Date Value 01/09/2025 23 06/08/2021 25 ALT (U/L) Date Value 01/09/2025 19 06/08/2021 14 Hemoglobin (g/dL) Date Value 01/09/2025 13.6 04/21/2021 14.3 Hematocrit (%) Date Value 01/09/2025 42.0 04/21/2021 42.6 WBC (k/uL) Date Value 01/09/2025 8.24 04/21/2021 7.06 PAST MEDICAL HISTORY Diagnosis Date Advance directive discussed with patient 01/28/2022 DPOA Conor her son Benign neoplasm of colon FHx of colon cancer Carpal tunnel syndrome Chronic renal insufficiency stage 4 CKD stage G3b/A1, GFR 30-44 and albumin creatinine ratio <30 mg/g (HCC) Diverticulosis of colon (without mention of hemorrhage) Essential hypertension, benign White coat effect Hyperlipidemia Hyperuricemia 04/2021 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 Byers COLONOSCOPY W/BIOPSY 05/31/16 diverticulosis, polyp COLONOSCOPY FLX DX W/COLLJ SPEC WHEN PFRMD 03/09/2001 Colonoscopy COLONOSCOPY FLX DX W/COLLJ SPEC WHEN PFRMD 04/05/2006 Colonoscopy COLONOSCOPY FLX DX W/COLLJ SPEC WHEN PFRMD 05/06/2011 Colonoscopy LIG/TRNSXJ FLP TUBE ABDL/VAG APPR UNI/BI Tubal ligation TOTAL THYROID LOBECTOMY UNI W/WO ISTHMUSECTOMY 04/01/08 RIGHT THYROID UNLISTED PROCEDURE HANDS/FINGERS 04/03/13 Right trigger finger Social History: Social History Tobacco Use Smoking status: Never Smokeless tobacco: Never Vaping Use Vaping status: Never Used Substance Use Topics Alcohol use: No Drug use: No FAMILY HISTORY Problem Relation Age of Onset Colon Cancer Mother Hypertension Mother Cancer Sister thyroid Breast Cancer Sister Cancer Maternal Grandmother Stroke Paternal Grandfather Psychiatry Son suicide Current Outpatient prescriptions: losartan (COZAAR) 50 mg tablet Take 1 tablet by mouth once daily. metoprolol succinate ER (TOPROL XL) 100 mg Take 1 tablet by mouth once daily. Take in addition to 25 mg XL once a day metoprolol succinate ER (TOPROL XL) 25 mg 24 hr tablet Take 1 tablet by mouth once daily. Take in addition to 100 mg XL once a day levothyroxine (SYNTHROID) 100 mcg tablet Take 1 tablet by mouth once daily. valACYclovir (VALTREX) 500 mg tablet Take 1 tablet by mouth once daily. hydrALAZINE (APRESOLINE) 25 mg tablet Take 1 tablet by mouth three times a day. Hold (more content not included)... [facility] 01-13-2025 History of Present illness Narrative CC: Racheal James is a 84 year old female who presents to the office for follow up HPI: BLOOD PRESSURE seems overall to be better regulated. Typical range of 130s/80s. Lows of 120s / 80s. Monitors her BLOOD PRESSURE at home. Denies any CP or dyspnea or dizziness/Lh symptoms No CP or dyspnea or dizziness/Lh. No recent falls. She has her granddaughter helping her with mowing and outdoor work in the Spring and summer. Currently her son is also helping her with meals/food Low back pain, DJD and DDD lumbar spine. Has had an epidural injection in the lumbar spine by Dr. Bryson without relief. Then had an alternative type of injection with some relief which will be repeated upcoming. Avoids NSAIDs. She does take tylenol up to 500 mg twice a day for pain, no new bowel or bladder loss of control. She felt that the gabapentin given caused her to have insomnia. She has now been given rx for Tramadol by Dr. Bryson but hasn't started this yet. CKD stage 3, hypertensive kidney disease, has been seen in the past by Dr. Danni Jimenez Nephrology, levels are stable, asymptomatic Chronic intermittent constipation, overall has been stable Glucose (mg/dL) Date Value 01/09/2025 96 06/14/2021 102 Potassium (mmol/L) Date Value 01/09/2025 4.0 06/14/2021 4.3 Sodium (mmol/L) Date Value 01/09/2025 140 06/14/2021 138 Chloride (mmol/L) Date Value 01/09/2025 107 06/14/2021 104 CO2 (mmol/L) Date Value 01/09/2025 20 06/14/2021 21 Creatinine (mg/dL) Date Value 01/09/2025 1.22 06/14/2021 1.25 BUN (mg/dL) Date Value 01/09/2025 29 06/14/2021 23 Anion Gap (mmol/L) Date Value 01/09/2025 13 06/14/2021 13 Calcium (mg/dL) Date Value 06/14/2021 10.0 Calcium, Total (mg/dL) Date Value 01/09/2025 10.0 Protein, Total (g/dL) Date Value 01/09/2025 6.9 06/08/2021 7.5 Albumin (g/dL) Date Value 01/09/2025 4.1 06/08/2021 3.9 Bilirubin, Total (mg/dL) Date Value 01/09/2025 0.9 06/08/2021 1.0 Alkaline Phosphatase (U/L) Date Value 01/09/2025 53 06/08/2021 63 AST (U/L) Date Value 01/09/2025 23 06/08/2021 25 ALT (U/L) Date Value 01/09/2025 19 06/08/2021 14 Hemoglobin (g/dL) Date Value 01/09/2025 13.6 04/21/2021 14.3 Hematocrit (%) Date Value 01/09/2025 42.0 04/21/2021 42.6 WBC (k/uL) Date Value 01/09/2025 8.24 04/21/2021 7.06 PAST MEDICAL HISTORY Diagnosis Date Advance directive discussed with patient 01/28/2022 DPOA Conor her son Benign neoplasm of colon FHx of colon cancer Carpal tunnel syndrome Chronic renal insufficiency stage 4 CKD stage G3b/A1, GFR 30-44 and albumin creatinine ratio <30 mg/g (HCC) Diverticulosis of colon (without mention of hemorrhage) Essential hypertension, benign White coat effect Hyperlipidemia Hyperuricemia 04/2021 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 Byers COLONOSCOPY W/BIOPSY 05/31/16 diverticulosis, polyp COLONOSCOPY FLX DX W/COLLJ SPEC WHEN PFRMD 03/09/2001 Colonoscopy COLONOSCOPY FLX DX W/COLLJ SPEC WHEN PFRMD 04/05/2006 Colonoscopy COLONOSCOPY FLX DX W/COLLJ SPEC WHEN PFRMD 05/06/2011 Colonoscopy LIG/TRNSXJ FLP TUBE ABDL/VAG APPR UNI/BI Tubal ligation TOTAL THYROID LOBECTOMY UNI W/WO ISTHMUSECTOMY 04/01/08 RIGHT THYROID UNLISTED PROCEDURE HANDS/FINGERS 04/03/13 Right trigger finger Social History: Social History Tobacco Use Smoking status: Never Smokeless tobacco: Never Vaping Use Vaping status: Never Used Substance Use Topics Alcohol use: No Drug use: No FAMILY HISTORY Problem Relation Age of Onset Colon Cancer Mother Hypertension Mother Cancer Sister thyroid Breast Cancer Sister Cancer Maternal Grandmother Stroke Paternal Grandfather Psychiatry Son suicide Current Outpatient prescriptions: losartan (COZAAR) 50 mg tablet Take 1 tablet by mouth once daily. metoprolol succinate ER (TOPROL XL) 100 mg Take 1 tablet by mouth once daily. Take in addition to 25 mg XL once a day metoprolol succinate ER (TOPROL XL) 25 mg 24 hr tablet Take 1 tablet by mouth once daily. Take in addition to 100 mg XL once a day levothyroxine (SYNTHROID) 100 mcg tablet Take 1 tablet by mouth once daily. valACYclovir (VALTREX) 500 mg tablet Take 1 tablet by mouth once daily. hydrALAZINE (APRESOLINE) 25 mg tablet Take 1 tablet by mouth three times a day. Hold hydralazine if BP less than 140 systolic pravastatin (PRAVACHOL) 10 mg tablet Take 1 tablet by mouth daily at bedtime. MULTIVITAMIN WITH MINERALS (HAIR,SKIN & NAILS ORAL) Take 1 tablet by mouth once daily. ASPIRIN 81 MG ORAL TAB Take one(1) tablet daily. Allergies: ALLERGIES Allergen Reactions Clonidine Norvasc [Amlodipine* Other: See Comments Hair loss Prednisone Other: See Comments Elevated BP and nausea ROS: See HPI PE: 01/13/25 1037 BP: 144/88 Pulse: 64 Resp: 20 Temp: (!) 35.7 C (96.2 F) TempSrc: Tympanic Weight: 69.9 kg (154 lb) Gen: A&OX3, NAD, non-toxic appearing, hard of hearing HEENT: PERRLA, EOMs intact b/l, nares without drainage, pharynx without erythema, exudate, lesions, or drainage. Uvula midline. MMM Neck: No LAD, no thyromegaly, no meningismus. CV: RRR, no murmur, normal S1S2 Lungs: coughing, no wheezing or rhonchi or crackles. No respiratory distress No edema, normal pulses Reduced ROM lumbar spine secondary to pain and muscle tension Normal pulses Skin: scattered angiomas and solar lentigos Gait with use of a walker today is slowed ASSESSMENT/PLAN: 1. Essential hypertension - ICD9: 401.9, ICD10: I10 (primary diagnosis) - Controlled - Improving control - Continue current medications - Recommend home blood pressure monitoring, to bring results to next visit - Encouraged sodium restriction, DASH or Mediterranean diet - Recommend regular aerobic exercise - LOSARTAN 50 MG TABLET - METOPROLOL SUCCINATE ER 100 MG TABLET,EXTENDED RELEASE 24 HR 2. 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 - COMPREHENSIVE METABOLIC PANEL - COMPLETE BLOOD COUNT - THYROID STIMULATING HORMONE 3. Vitamin B12 deficiency - ICD9: 266.2, ICD10: E53.8 Stable Continue supplement 4. Chronic kidney disease, stage 3b (HCC) - ICD9: 585.3, ICD10: N18.32 - eGFR: 44 Improving - Counseled on avoiding NSAIDs, adequate hydration - Counseled on low sodium diet 5. Other hyperlipidemia - ICD9: 272.4, ICD10: E78.49 Stable Continue healthy diet 6. Secondary hyperparathyroidism (HCC) - ICD9: 588.81, ICD10: N25.81 stable 7. Vitamin D deficiency - ICD9: 268.9, ICD10: E55.9 stable 8. Osteoarthritis of spine with radiculopathy, lumbar region - ICD9: 721.3, ICD10: M47.26 F/u with Dr. Bryson Had SE with gabapentin Hasn't started prescribed tramadol yet 9. Hypomagnesemia - ICD9: 275.2, ICD10: E83.42 Hold supplement for now, levels are slightly high - MAGNESIUM Tuan Luo DO To ER if develops chest pain, shortness of breath, or severe worsening of symptoms. Discussed risks, benefits, alternatives, and potential side effects of medications. Patient expressed understanding and agreed with the plan. Tuan Luo DO [address] [place] [address] documented in this encounter [facility] 11-27-2024 Telephone encounter Note The patient has been identified by name and date of : Yes Caregiver verified no other encounters exist for this prescription request: Yes Caregiver confirmed with patient/requestor that no other refills are due, in the near future, with this provider at this time: Yes The last office visit in the department: 10/08/2024 Does the patient have a future office visit with this provider/department: Yes 01/13/2025 Requested Prescriptions Pending Prescriptions Disp Refills levothyroxine (SYNTHROID) 100 mcg tablet 90 tablet 3 Sig: Take 1 tablet by mouth once daily. Refused Prescriptions Disp Refills levothyroxine (SYNTHROID) 100 mcg tablet 90 tablet 3 Sig: Take 1 tablet by mouth once daily. Refused By: JULIO DO Reason for Refusal: Records indicate that there is a valid prescription at the pharmacy Julio Do LPN November 27, 2024 8:[address] [facility] 11-27-2024 Miscellaneous Notes The patient has been identified by name and date of : Yes Caregiver verified no other encounters exist for this prescription request: Yes Caregiver confirmed with patient/requestor that no other refills are due, in the near future, with this provider at this time: Yes The last office visit in the department: 10/08/2024 Does the patient have a future office visit with this provider/department: Yes 01/13/2025 Requested Prescriptions Pending Prescriptions Disp Refills levothyroxine (SYNTHROID) 100 mcg tablet 90 tablet 3 Sig: Take 1 tablet by mouth once daily. Refused Prescriptions Disp Refills levothyroxine (SYNTHROID) 100 mcg tablet 90 tablet 3 Sig: Take 1 tablet by mouth once daily. Refused By: JULIO OD Reason for Refusal: Records indicate that there is a valid prescription at the pharmacy Julio Do LPN November 27, 2024 8:37 AM Prescription Refill Information The patient has been identified by name and date of : Yes Caregiver verified no other encounters exist for this prescription request: Yes Caregiver confirmed with patient/requestor that no other refills are due, in the near future, with this provider at this time: Yes The last office visit in the department: Does the patient have a future office visit with this provider/department: Yes Requested Prescriptions Pending Prescriptions Disp Refills levothyroxine (SYNTHROID) 100 mcg tablet 90 tablet 3 Sig: Take 1 tablet by mouth once daily. Miya Alexandra November 27, 2024 8:19 AM documented in this encounter [facility] 11-27-2024 Telephone encounter Note Prescription Refill Information The patient has been identified by name and date of : Yes Caregiver verified no other encounters exist for this prescription request: Yes Caregiver confirmed with patient/requestor that no other refills are due, in the near future, with this provider at this time: Yes The last office visit in the department: Does the patient have a future office visit with this provider/department: Yes Requested Prescriptions Pending Prescriptions Disp Refills levothyroxine (SYNTHROID) 100 mcg tablet 90 tablet 3 Sig: Take 1 tablet by mouth once daily. Miya Alexandra November 27, 2024 8:[address] [facility] 10-08-2024 Note HNO ID: [id number] Author: TUAN LUO, DO Service: ? Author Type: Physician Type: Progress Notes Filed: 10/08/2024 10:47 Note Text: CC: Racheal James is a 84 year old female who presents to the office for follow up HPI: BLOOD PRESSURE seems overall to be better regulated. Typical range of 130s/80s. Lows of 120s / 80s. No CP or dyspnea or dizziness/Lh. No recent falls. She has her granddaughter helping her with mowing and outdoor work in the Spring and summer. Currently her son is also helping her with meals/food Low back pain, DJD and DDD lumbar spine. Has had an epidural injection in the lumbar spine by Dr. Bryson without relief. Then had an alternative type of injection with some relief. Avoids NSAIDs. She does take tylenol up to 500 mg twice a day for pain, no new bowel or bladder loss of control CKD stage 3, hypertensive kidney disease, has been seen in the past by Dr. Danni Jimenez Nephrology, levels are stable, asymptomatic Chronic intermittent constipation, overall has been stable Recently diagnosed on 09/17 with acute covid 19 infection. She was treated with mucinex and rest and increased fluid intake and tessalon perles. She is still struggling with fatigue, intermittent hot and cold feeling and sweats in the middle of the night. This is getting a little better but her cough and chest congestion continues with increased mucous production and sputum of a yellow discoloration. No obvious fevers. PAST MEDICAL HISTORY Diagnosis Date Advance directive discussed with patient 01/28/2022 KAMRAN Perdomo her son Benign neoplasm of colon FHx of colon cancer Carpal tunnel syndrome Chronic renal insufficiency stage 4 CKD stage G3b/A1, GFR 30-44 and albumin creatinine ratio <30 mg/g (HCC) Diverticulosis of colon (without mention of hemorrhage) Essential hypertension, benign White coat effect Hyperlipidemia Hyperuricemia 04/2021 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 Byers COLONOSCOPY W/BIOPSY 05/31/16 diverticulosis, polyp COLONOSCOPY FLX DX W/COLLJ SPEC WHEN PFRMD 03/09/2001 Colonoscopy COLONOSCOPY FLX DX W/COLLJ SPEC WHEN PFRMD 04/05/2006 Colonoscopy COLONOSCOPY FLX DX W/COLLJ SPEC WHEN PFRMD 05/06/2011 Colonoscopy LIG/TRNSXJ FLP TUBE ABDL/VAG APPR UNI/BI Tubal ligation TOTAL THYROID LOBECTOMY UNI W/WO ISTHMUSECTOMY 04/01/08 RIGHT THYROID UNLISTED PROCEDURE HANDS/FINGERS 04/03/13 Right trigger finger Current Outpatient Medications Medication Sig valACYclovir (VALTREX) 500 mg tablet Take 1 tablet by mouth once daily. doxycycline (VIBRA-TABS) 100 mg tablet Take 1 tablet by mouth two times a day for 10 days. methylPREDNISolone (MEDROL, CHALO,) 4 mg Dose-Pack Follow dosing instructions, take with food. hydrALAZINE (APRESOLINE) 25 mg tablet Take 1 tablet by mouth three times a day. Hold hydralazine if BP less than 140 systolic losartan (COZAAR) 50 mg tablet Take 1 tablet by mouth once daily. pravastatin (PRAVACHOL) 10 mg tablet Take 1 tablet by mouth daily at bedtime. metoprolol succinate ER (TOPROL XL) 25 mg 24 hr tablet Take 1 tablet by mouth once daily. Take in addition to 100 mg XL once a day metoprolol succinate ER (TOPROL XL) 100 mg Take 1 tablet by mouth once daily. Take in addition to 25 mg XL once a day levothyroxine (SYNTHROID) 100 mcg tablet Take 1 tablet by mouth once daily. MULTIVITAMIN WITH MINERALS (HAIR,SKIN AND NAILS ORAL) Take 1 tablet by mouth once daily. ASPIRIN 81 MG ORAL TAB Take one(1) tablet daily. No current facility-administered medications for this visit. ALLERGIES Allergen Reactions Clonidine Norvasc [Amlodipine* Other: See Comments Hair loss Prednisone Other: See Comments Elevated BP and nausea Social History Tobacco Use Smoking status: Never Smokeless tobacco: Never Vaping Use Vaping status: Never Used Substance Use Topics Alcohol use: No Drug use: No ROS: See HPI PE: BP 154/90 Pulse 72 Temp (Src) 97 (Left Tympanic) Resp 16 Wt 156 lb 8.4 oz (71.0kg) Gen: AANDOX3, NAD, non-toxic appearing, hard of hearing HEENT: PERRLA, EOMs intact b/l, nares without drainage, pharynx without erythema, exudate, lesions, or drainage. Uvula midline. MMM Neck: No LAD, no thyromegaly, no meningismus. CV: RRR, no murmur, normal S1S2 Lungs: coughing, no wheezing or rhonchi or crackles. No respiratory distress No edema, normal pulses Reduced ROM lumbar spine secondary to pain and muscle tension Normal pulses Skin: scattered angiomas and mark (more content not included)... [facility] 10-08-2024 History of Present illness Narrative CC: Racheal James is a 84 year old female who presents to the office for follow up HPI: BLOOD PRESSURE seems overall to be better regulated. Typical range of 130s/80s. Lows of 120s / 80s. No CP or dyspnea or dizziness/Lh. No recent falls. She has her granddaughter helping her with mowing and outdoor work in the Spring and summer. Currently her son is also helping her with meals/food Low back pain, DJD and DDD lumbar spine. Has had an epidural injection in the lumbar spine by Dr. Bryson without relief. Then had an alternative type of injection with some relief. Avoids NSAIDs. She does take tylenol up to 500 mg twice a day for pain, no new bowel or bladder loss of control CKD stage 3, hypertensive kidney disease, has been seen in the past by Dr. Danni Jimenez Nephrology, levels are stable, asymptomatic Chronic intermittent constipation, overall has been stable Recently diagnosed on 09/17 with acute covid 19 infection. She was treated with mucinex and rest and increased fluid intake and tessalon perles. She is still struggling with fatigue, intermittent hot and cold feeling and sweats in the middle of the night. This is getting a little better but her cough and chest congestion continues with increased mucous production and sputum of a yellow discoloration. No obvious fevers. PAST MEDICAL HISTORY Diagnosis Date Advance directive discussed with patient 01/28/2022 KAMRAN Perdomo her son Benign neoplasm of colon FHx of colon cancer Carpal tunnel syndrome Chronic renal insufficiency stage 4 CKD stage G3b/A1, GFR 30-44 and albumin creatinine ratio <30 mg/g (HCC) Diverticulosis of colon (without mention of hemorrhage) Essential hypertension, benign White coat effect Hyperlipidemia Hyperuricemia 04/2021 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 Byers COLONOSCOPY W/BIOPSY 05/31/16 diverticulosis, polyp COLONOSCOPY FLX DX W/COLLJ SPEC WHEN PFRMD 03/09/2001 Colonoscopy COLONOSCOPY FLX DX W/COLLJ SPEC WHEN PFRMD 04/05/2006 Colonoscopy COLONOSCOPY FLX DX W/COLLJ SPEC WHEN PFRMD 05/06/2011 Colonoscopy LIG/TRNSXJ FLP TUBE ABDL/VAG APPR UNI/BI Tubal ligation TOTAL THYROID LOBECTOMY UNI W/WO ISTHMUSECTOMY 04/01/08 RIGHT THYROID UNLISTED PROCEDURE HANDS/FINGERS 04/03/13 Right trigger finger Current Outpatient Medications Medication Sig valACYclovir (VALTREX) 500 mg tablet Take 1 tablet by mouth once daily. doxycycline (VIBRA-TABS) 100 mg tablet Take 1 tablet by mouth two times a day for 10 days. methylPREDNISolone (MEDROL, CHALO,) 4 mg Dose-Pack Follow dosing instructions, take with food. hydrALAZINE (APRESOLINE) 25 mg tablet Take 1 tablet by mouth three times a day. Hold hydralazine if BP less than 140 systolic losartan (COZAAR) 50 mg tablet Take 1 tablet by mouth once daily. pravastatin (PRAVACHOL) 10 mg tablet Take 1 tablet by mouth daily at bedtime. metoprolol succinate ER (TOPROL XL) 25 mg 24 hr tablet Take 1 tablet by mouth once daily. Take in addition to 100 mg XL once a day metoprolol succinate ER (TOPROL XL) 100 mg Take 1 tablet by mouth once daily. Take in addition to 25 mg XL once a day levothyroxine (SYNTHROID) 100 mcg tablet Take 1 tablet by mouth once daily. MULTIVITAMIN WITH MINERALS (HAIR,SKIN & NAILS ORAL) Take 1 tablet by mouth once daily. ASPIRIN 81 MG ORAL TAB Take one(1) tablet daily. No current facility-administered medications for this visit. ALLERGIES Allergen Reactions Clonidine Norvasc [Amlodipine* Other: See Comments Hair loss Prednisone Other: See Comments Elevated BP and nausea Social History Tobacco Use Smoking status: Never Smokeless tobacco: Never Vaping Use Vaping status: Never Used Substance Use Topics Alcohol use: No Drug use: No ROS: See HPI PE: BP 154/90 Pulse 72 Temp (Src) 97 (Left Tympanic) Resp 16 Wt 156 lb 8.4 oz (71.0kg) Gen: A&OX3, NAD, non-toxic appearing, hard of hearing HEENT: PERRLA, EOMs intact b/l, nares without drainage, pharynx without erythema, exudate, lesions, or drainage. Uvula midline. MMM Neck: No LAD, no thyromegaly, no meningismus. CV: RRR, no murmur, normal S1S2 Lungs: coughing, no wheezing or rhonchi or crackles. No respiratory distress No edema, normal pulses Reduced ROM lumbar spine secondary to pain and muscle tension Normal pulses Skin: scattered angiomas and solar lentigos ASSESSMENT/PLAN: 1. Acute bronchitis, unspecified organism - ICD9: 466.0, ICD10: J20.9 (primary diagnosis) Continue mucinex Start antibiotic and prednisone rx Continue supportive care - DOXYCYCLINE HYCLATE 100 MG TABLET - METHYLPREDNISOLONE 4 MG TABLETS IN A DOSE PACK 2. COVID-19 - ICD9: 079.89, ICD10: U07.1 Continue mucinex Start antibiotic and prednisone rx Continue supportive care - DOXYCYCLINE HYCLATE 100 MG TABLET - METHYLPREDNISOLONE 4 MG TABLETS IN A DOSE PACK 3. Secondary hyperparathyroidism (HCC) - ICD9: 588.81, ICD10: N25.81 Stable, secondary to kidney disease. 4. Vitamin D deficiency - ICD9: 268.9, ICD10: E55.9 Continue supplement 5. 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 6. Vitamin B12 deficiency - ICD9: 266.2, ICD10: E53.8 Continue supplement 7. Chronic kidney disease, stage 3b (HCC) - ICD9: 585.3, ICD10: N18.32 - eGFR: 37 Stable - Counseled on avoiding NSAIDs, adequate hydration Okay to continue follow up with [facility] - Counseled on low sodium diet - IRON AND TIBC - MAGNESIUM - VITAMIN B12 8. Essential hypertension - ICD9: 401.9, ICD10: I10 - Controlled - Continue current medications - Recommend home blood pressure monitoring, to bring results to next visit - Encouraged sodium restriction, DASH or Mediterranean diet - Recommend regular aerobic exercise - Discussed need for and benefit of weight loss. BMI 28.63 kg/(m^2) 9. Hyperglycemia - ICD9: 790.29, ICD10: R73.9 stable 10. Hypercalcemia - ICD9: 275.42, ICD10: E83.52 stable - COMPREHENSIVE METABOLIC PANEL - COMPLETE BLOOD COUNT - MAGNESIUM 11. Other hyperlipidemia - ICD9: 272.4, ICD10: E78.49 stable - LIPID PANEL BASIC - COMPREHENSIVE METABOLIC PANEL - COMPLETE BLOOD COUNT Tuan L Luo, DO Return if no improvement. Follow up with Tuan Luo DO. To ER if develops chest pain, shortness of breath. Discussed risks, benefits, alternatives, and potential side effects of medications. Patient/Guardian expressed understanding and agreed with the plan. See patient instructions. Tuan Luo DO [address] [place] [address] documented in this encounter [facility] 10-03-2024 Telephone encounter Note Phoned patient went over notes below from Dr Luo. Patient said she may not get the labs done to the morning of her appt since it is difficult for her to get around. Advised she did not have to be fasting to get the lab work done. [facility] 10-03-2024 Miscellaneous Notes Phoned patient went over notes below from Dr Luo. Patient said she may not get the labs done to the morning of her appt since it is difficult for her to get around. Advised she did not have to be fasting to get the lab work done. Orders placed for labs Please notify patient Tuan Luo DO Pt requesting lab orders. Reports she was supposed to have labs rechecked. Nothing ordered. Please advise. Contact patient when ordered. Molly Duncan MA documented in this encounter [facility] 10-02-2024 Telephone encounter Note Orders placed for labs Please notify patient Tuan Luo DO [facility] 10-02-2024 Telephone encounter Note Pt requesting lab orders. Reports she was supposed to have labs rechecked. Nothing ordered. Please advise. Contact patient when ordered. Molly Duncan MA [facility] 09-18-2024 Telephone encounter Note Pt returned call and given provider's message below with verbalized understanding. Per pt permission also given message to Conor goodman. Both agreeable. [facility] 09-18-2024 Miscellaneous Notes Pt returned call and given provider's message below with verbalized understanding. Per pt permission also given message to Conor goodman. Both agreeable. Son returned missed call on behalf of patient who was sleeping. Unable to disclose provider's message due to no documentation in chart of patient authorizing others to receive medical information. PSS requested son to advise patient to call back. Please ask patient to list who is authorized to receive medical information/schedule appointments on her behalf then document in patient's demographics. Left message for patient to return call. Ida Ayala MA Patient is positive for COVID. Please treat symptoms and do supportive care at home. And is negative for flu and RSV please notify documented in this encounter [facility] 09-18-2024 Telephone encounter Note Son returned missed call on behalf of patient who was sleeping. Unable to disclose provider's message due to no documentation in chart of patient authorizing others to receive medical information. PSS requested son to advise patient to call back. Please ask patient to list who is authorized to receive medical information/schedule appointments on her behalf then document in patient's demographics. [facility] 09-18-2024 Telephone encounter Note Left message for patient to return call. Ida Ayala MA [facility] 09-18-2024 Telephone encounter Note Patient is positive for COVID. Please treat symptoms and do supportive care at home. And is negative for flu and RSV please notify [facility] Work Phone: 09-17-2024 Note HNO ID: [id number] Author: EMILY HO, ? Service: ? Author Type: Patient Comber Tender Type: Progress Notes Filed: 09/17/2024 13:29 Note Text: POPULATION HEALTH NAVIGATION OUTREACH Action/FYI ACM Spoke to to p[patient has appt does not feel the need to come in sooner Reason for Outreach Community Monitoring/Network Navigator Pools AND Phone Line: ACM Patient Contacted: Spoke to patient/parent/or legal guardian Patient identified by name and : Yes Community Monitoring/Network Navigator Pools AND Phone Line actions taken: Patient already scheduled Updated appointment note Navigation Signature: Emily Ho Population Health Navigator September 17, 2024 1:25 PM [facility] 09-17-2024 History of Present illness Narrative POPULATION HEALTH NAVIGATION OUTREACH Action/FYI ACM Spoke to to p[patient has appt does not feel the need to come in sooner Reason for Outreach Community Monitoring/Network Navigator Pools & Phone Line: ACM Patient Contacted: Spoke to patient/parent/or legal guardian Patient identified by name and : Yes Community Monitoring/Network Navigator Pools & Phone Line actions taken: Patient already scheduled Updated appointment note Navigation Signature: Emily Ho Population Health Navigator September 17, 2024 1:25 PM ACM SUE RN Patient identified by name and date of . Reason for review or outreach: Chart Review Sue Priority Emergency Department Utilization REQUESTED ACTION/FYI: A follow-up appointment is not noted in patient's record. We are forwarding this patient to [facility] to schedule a follow-up appointment. Navigation Team: Ms. James was seen in the ED 09-13-24 for constipation. Please call and offer her an ED follow up with her PCP team. Exclusion Criteria Does not meet exclusion criteria Utilization in past 6 months: # Occurrences Date Last Occurrence Hospital Admission 0 Not applicable Hospital Observation 0 Not applicable ED 1 09-13-24 SNF / Acute Rehab / LTAC 0 Not applicable ED DIAGNOSES/REASON(S) FOR ED USE: 09-13-24: Constipation No scheduled follow up thus far. OTHER FINDINGS/SUMMARY: None Patient Attributed To: QAE Payer: Taina LOZANO Action Taken: Referrals/Routed: Population Health Navigation: Appointment. Router to [facility] [[id number]] Contact made with patient: No, Chart review only. Signature: Luis Reyes RN documented in this encounter [facility] 09-17-2024 Note HNO ID: [id number] Author: LUIS REYES RN Service: ? Author Type: Registered Nurse Type: Progress Notes Filed: 09/17/2024 13:19 Note Text: M SUE RN Patient identified by name and date of . Reason for review or outreach: Chart Review Sue [facility] Emergency Department Utilization REQUESTED ACTION/FYI: A follow-up appointment is not noted in patient's record. We are forwarding this patient to [facility] to schedule a follow-up appointment. Navigation Team: Ms. James was seen in the ED 09-13-24 for constipation. Please call and offer her an ED follow up with her PCP team. Exclusion Criteria Does not meet exclusion criteria Utilization in past 6 months: # Occurrences Date Last Occurrence Hospital Admission 0 Not applicable Hospital Observation 0 Not applicable ED 1 09-13-24 SNF / Acute Rehab / LTAC 0 Not applicable ED DIAGNOSES/REASON(S) FOR ED USE: 09-13-24: Constipation No scheduled follow up thus far. OTHER FINDINGS/SUMMARY: None Patient Attributed To: QAE Payer: Taina LOZANO Action Taken: Referrals/Routed: Population Health Navigation: Appointment. Router to [facility] [[id number]] Contact made with patient: No, Chart review only. Signature: Luis Reyes RN [facility] 09-17-2024 Note Addended by: SOLO MONTES on: 09/17/2024 12:37 PM Modules accepted: Orders [facility] 09-17-2024 Miscellaneous Notes Addended by: SOLO REYES on: 09/17/2024 12:37 PM Modules accepted: Orders documented in this encounter [facility] 09-17-2024 Note IMPRESSION: Limited evaluation due to leftward patient rotation as described. Mild linear opacity at the right base, likely atelectasis. Engine Generator Assembler: SEMAJ Transcribe Date/Time: Sep 17 2024 12:01P Dictated by : SRAVAN THORNTON MD This examination was interpreted and the report reviewed and electronically signed by: SRAVAN THORNTON MD on Sep 17 2024 12:02PM EST DIVISION OF RADIOLOGY 09-17-2024 History of Present illness Narrative Radiology Service Progress Note PATIENT NAME: Racheal James DATE OF SERVICE: September 17, 2024 TIME: 11:42 AM PATIENT IDENTITY VERIFICATION COMPLETED USING TWO (2) IDENTIFIERS: Name and Date of confirmed by patient verbally. FALL SCREENING: Has the patient had 2 falls in the last year or 1 fall with injury or currently using an Ambulatory Assistive Device (Walker, Cane, Wheelchair, Crutches, etc.)? Yes, Patient High Risk for Falls What interventions were put in place to prevent falls during this visit? Offered Assistance with Transfers/Clothing, Instructed Patient to Remain Seated (Not on Exam Table) Until Exam, and Increased Observations by Caregivers PATIENT GENDER DATA: Female. status: : No status: NO. PATIENT RELEVANT IMPLANT DATA REVIEWED: Yes PATIENT PRESENTS WITH AN IMPLANTABLE OR ATTACHED SOUND EQUIPMENT MECHANIC: No RADIOLOGY DEPARTMENT: General X-ray: Exam(s) Completed: Chest X-Ray PERIPHERAL IV DATA: Not applicable SIGNED BY: RT Monisha(Miguelito) September 17, 2024 11:42 AM documented in this encounter [facility] 09-17-2024 Note HNO ID: [id number] Author: MIKEL COHEN RT(R) Service: ? Author Type: Inbound Customer Service Agent Type: Progress Notes Filed: 09/17/2024 11:58 Note Text: Radiology Service Progress Note PATIENT NAME: Racheal James DATE OF SERVICE: September 17, 2024 TIME: 11:42 AM PATIENT IDENTITY VERIFICATION COMPLETED USING TWO (2) IDENTIFIERS: Name and Date of confirmed by patient verbally. FALL SCREENING: Has the patient had 2 falls in the last year or 1 fall with injury or currently using an Ambulatory Assistive Device (Walker, Cane, Wheelchair, Crutches, etc.)? Yes, Patient High Risk for Falls What interventions were put in place to prevent falls during this visit? Offered Assistance with Transfers/Clothing, Instructed Patient to Remain Seated (Not on Exam Table) Until Exam, and Increased Observations by Caregivers PATIENT GENDER DATA: Female. status: : No status: NO. PATIENT RELEVANT IMPLANT DATA REVIEWED: Yes PATIENT PRESENTS WITH AN IMPLANTABLE OR ATTACHED SOUND EQUIPMENT MECHANIC: No RADIOLOGY DEPARTMENT: General X-ray: Exam(s) Completed: Chest X-Ray PERIPHERAL IV DATA: Not applicable SIGNED BY: RT Monisha(Miguelito) September 17, 2024 11:42 AM [facility] 09-17-2024 Note HNO ID: [id number] Author: SOLO REYES APRN.NURSING SERVICES MANAGER Service: ? Author Type: Nurse Practitioner Type: Progress Notes Filed: 09/17/2024 12:13 Note Text: Subjective HPI Nontoxic-appearing female presents urgent care chief plaint flulike symptoms. Duration of symptoms 3 days. Associated symptoms sore throat fever headache body aches chills fatigue cough. Most prominent symptom today is cough. Son sick similar signs symptoms OTC medication use none. Denies any chest pain hemoptysis high fevers vomiting abdominal pain. Past medical history prescription medications allergies reviewed. 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 Byers COLONOSCOPY W/BIOPSY 05/31/16 diverticulosis, polyp COLONOSCOPY FLX DX W/COLLJ SPEC WHEN PFRMD 03/09/2001 Colonoscopy COLONOSCOPY FLX DX W/COLLJ SPEC WHEN PFRMD 04/05/2006 Colonoscopy COLONOSCOPY FLX DX W/COLLJ SPEC WHEN PFRMD 05/06/2011 Colonoscopy LIG/TRNSXJ FLP TUBE ABDL/VAG APPR UNI/BI Tubal ligation TOTAL THYROID LOBECTOMY UNI W/WO ISTHMUSECTOMY 04/01/08 RIGHT THYROID UNLISTED PROCEDURE HANDS/FINGERS 04/03/13 Right trigger finger ALLERGIES Clonidine, Norvasc [Amlodipine Besylate], and Prednisone MEDICATIONS valACYclovir (VALTREX) 500 mg tablet Take 1 tablet by mouth once daily. hydrALAZINE (APRESOLINE) 25 mg tablet Take 1 tablet by mouth three times a day. Hold hydralazine if BP less than 140 systolic losartan (COZAAR) 50 mg tablet Take 1 tablet by mouth once daily. pravastatin (PRAVACHOL) 10 mg tablet Take 1 tablet by mouth daily at bedtime. metoprolol succinate ER (TOPROL XL) 25 mg 24 hr tablet Take 1 tablet by mouth once daily. Take in addition to 100 mg XL once a day metoprolol succinate ER (TOPROL XL) 100 mg Take 1 tablet by mouth once daily. Take in addition to 25 mg XL once a day levothyroxine (SYNTHROID) 100 mcg tablet Take 1 tablet by mouth once daily. MULTIVITAMIN WITH MINERALS (HAIR,SKIN AND NAILS ORAL) Take 1 tablet by mouth once daily. ASPIRIN 81 MG ORAL TAB Take one(1) tablet daily. FAMILY HISTORY Problem Relation Age of Onset Colon Cancer Mother Hypertension Mother Cancer Sister thyroid Breast Cancer Sister Cancer Maternal Grandmother Stroke Paternal Grandfather Psychiatry Son suicide Social History Tobacco Use Smoking status: Never Smokeless tobacco: Never Vaping Use Vaping status: Never Used Substance Use Topics Alcohol use: No Drug use: No BP 168/92 Pulse 72 Temp 37.5 ?C (99.5 ?F) Resp 22 Wt 71 kg (156 lb 8.4 oz) SpO2 96% BMI 28.63 kg/m? Resp 18 Review of Systems Constitutional: Positive for chills, fever and malaise/fatigue. HENT: Positive for congestion and sore throat. Negative for ear discharge, ear pain and sinus pain. Eyes: Negative for blurred vision, pain, discharge and redness. Respiratory: Positive for cough and shortness of breath. Negative for hemoptysis, sputum production, wheezing and stridor. Cardiovascular: Negative for chest pain. Gastrointestinal: Negative for abdominal pain, diarrhea, nausea and vomiting. Musculoskeletal: Positive for myalgias. Skin: Negative for itching and rash. Neurological: Negative for dizziness and headaches. Objective Physical Exam Constitutional: General: She is not in acute distress. Appearance: She is not diaphoretic. HENT: Head: Normocephalic. Jaw: No trismus, tenderness, swelling or pain on movement. Nose: Congestion present. Mouth/Throat: Mouth: Mucous membranes are moist. Pharynx: Oropharynx is clear. Uvula midline. No pharyngeal swelling, oropharyngeal exudate, posterior oropharyngeal erythema or uvula swelling. Eyes: Conjunctiva/sclera: Conjunctivae normal. Pupils: Pupils are equal, round, and reactive to light. Cardiovascular: Rate and Rhythm: Normal rate and regular rhythm. Heart sounds: Normal heart sounds. Pulmonary: Effort: Pulmonary effort is normal. No tachypnea, accessory muscle usage or respirat (more content not included)... [facility] 09-17-2024 History of Present illness Narrative Subjective HPI Nontoxic-appearing female presents urgent care chief plaint flulike symptoms. Duration of symptoms 3 days. Associated symptoms sore throat fever headache body aches chills fatigue cough. Most prominent symptom today is cough. Son sick similar signs symptoms OTC medication use none. Denies any chest pain hemoptysis high fevers vomiting abdominal pain. Past medical history prescription medications allergies reviewed. 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 Byers COLONOSCOPY W/BIOPSY 05/31/16 diverticulosis, polyp COLONOSCOPY FLX DX W/COLLJ SPEC WHEN PFRMD 03/09/2001 Colonoscopy COLONOSCOPY FLX DX W/COLLJ SPEC WHEN PFRMD 04/05/2006 Colonoscopy COLONOSCOPY FLX DX W/COLLJ SPEC WHEN PFRMD 05/06/2011 Colonoscopy LIG/TRNSXJ FLP TUBE ABDL/VAG APPR UNI/BI Tubal ligation TOTAL THYROID LOBECTOMY UNI W/WO ISTHMUSECTOMY 04/01/08 RIGHT THYROID UNLISTED PROCEDURE HANDS/FINGERS 04/03/13 Right trigger finger ALLERGIES Clonidine, Norvasc [Amlodipine Besylate], and Prednisone MEDICATIONS valACYclovir (VALTREX) 500 mg tablet Take 1 tablet by mouth once daily. hydrALAZINE (APRESOLINE) 25 mg tablet Take 1 tablet by mouth three times a day. Hold hydralazine if BP less than 140 systolic losartan (COZAAR) 50 mg tablet Take 1 tablet by mouth once daily. pravastatin (PRAVACHOL) 10 mg tablet Take 1 tablet by mouth daily at bedtime. metoprolol succinate ER (TOPROL XL) 25 mg 24 hr tablet Take 1 tablet by mouth once daily. Take in addition to 100 mg XL once a day metoprolol succinate ER (TOPROL XL) 100 mg Take 1 tablet by mouth once daily. Take in addition to 25 mg XL once a day levothyroxine (SYNTHROID) 100 mcg tablet Take 1 tablet by mouth once daily. MULTIVITAMIN WITH MINERALS (HAIR,SKIN & NAILS ORAL) Take 1 tablet by mouth once daily. ASPIRIN 81 MG ORAL TAB Take one(1) tablet daily. FAMILY HISTORY Problem Relation Age of Onset Colon Cancer Mother Hypertension Mother Cancer Sister thyroid Breast Cancer Sister Cancer Maternal Grandmother Stroke Paternal Grandfather Psychiatry Son suicide Social History Tobacco Use Smoking status: Never Smokeless tobacco: Never Vaping Use Vaping status: Never Used Substance Use Topics Alcohol use: No Drug use: No BP 168/92 Pulse 72 Temp 37.5 C (99.5 F) Resp 22 Wt 71 kg (156 lb 8.4 oz) SpO2 96% BMI 28.63 kg/m Resp 18 Review of Systems Constitutional: Positive for chills, fever and malaise/fatigue. HENT: Positive for congestion and sore throat. Negative for ear discharge, ear pain and sinus pain. Eyes: Negative for blurred vision, pain, discharge and redness. Respiratory: Positive for cough and shortness of breath. Negative for hemoptysis, sputum production, wheezing and stridor. Cardiovascular: Negative for chest pain. Gastrointestinal: Negative for abdominal pain, diarrhea, nausea and vomiting. Musculoskeletal: Positive for myalgias. Skin: Negative for itching and rash. Neurological: Negative for dizziness and headaches. Objective Physical Exam Constitutional: General: She is not in acute distress. Appearance: She is not diaphoretic. HENT: Head: Normocephalic. Jaw: No trismus, tenderness, swelling or pain on movement. Nose: Congestion present. Mouth/Throat: Mouth: Mucous membranes are moist. Pharynx: Oropharynx is clear. Uvula midline. No pharyngeal swelling, oropharyngeal exudate, posterior oropharyngeal erythema or uvula swelling. Eyes: Conjunctiva/sclera: Conjunctivae normal. Pupils: Pupils are equal, round, and reactive to light. Cardiovascular: Rate and Rhythm: Normal rate and regular rhythm. Heart sounds: Normal heart sounds. Pulmonary: Effort: Pulmonary effort is normal. No tachypnea, accessory muscle usage or respiratory distress. Breath sounds: Normal breath sounds. No stridor. No wheezing, rhonchi or rales. Abdominal: General: There is no distension. Palpations: Abdomen is soft. Tenderness: There is no abdominal tenderness. There is no guarding or rebound. Musculoskeletal: Cervical back: Normal range of motion and neck supple. No edema, erythema, rigidity or tenderness. No pain with movement. Normal range of motion. Lymphadenopathy: Cervical: No cervical adenopathy. Skin: General: Skin is warm and dry. Neurological: Mental Status: She is alert and oriented to person, place, and time. ASSESSMENT/PLAN: 1. Acute cough - ICD9: 786.2, ICD10: R05.1 (primary diagnosis) - XR CHEST 2V FRONTAL/LAT 2. Viral illness - ICD9: 079.99, ICD10: B34.9 IMPRESSION: Limited evaluation due to leftward patient rotation as described. Mild linear opacity at the right base, likely atelectasis. Patient nontoxic-appearing. Son sick similar signs symptoms. Suspicious of viral etiology. X-ray indicated atelectasis. No infiltrates noted. Test for COVID-19. If positive patient is a candidate for antiviral therapy. Supportive therapies sent to pharmacy. Patient was educated on supportive therapies. Patient will follow up with primary care provider 2 to 3 days symptoms do not improve. Patient was instructed to immediately proceed to emergency room for any new, worsening, or symptoms lasting longer than anticipated. The patient's clinical presentation is otherwise unremarkable at this time. Based on exam and clinical finding, the patient is stable for discharge. Plan of care was discussed with patient. Patient verbalizes understanding and agrees to plan of care. This note was generated using [employer] software. It may contain errors in wording, punctuation, or spelling. Solo Reyes APRN.ANNA documented in this encounter [facility] 09-17-2024 Note Patient Outreach [place] [facility] [place] JAMESRACHEAL J ([id number]) 1940 F NFR Date Time Provider Department 09/17/24 LUIS REYES [facility] [place] visit today, we recorded the following information about you: Luis Reyes RN 09/17/2024 1:19 PM Signed ACM SUE RN Patient identified by name and date of . Reason for review or outreach: Chart Review Sue Priority Emergency Department Utilization REQUESTED ACTION/FYI: A follow-up appointment is not noted in patient's record. We are forwarding this patient to Network Navigation to schedule a follow-up appointment. Navigation Team: Ms. James was seen in the ED 09-13-24 for constipation. Please call and offer her an ED follow up with her PCP team. Exclusion Criteria Does not meet exclusion criteria Utilization in past 6 months: # Occurrences Date Last Occurrence Hospital Admission 0 Not applicable Hospital Observation 0 Not applicable ED 1 09-13-24 SNF / Acute Rehab / LTAC 0 Not applicable ED DIAGNOSES/REASON(S) FOR ED USE: 09-13-24: Constipation No scheduled follow up thus far. OTHER FINDINGS/SUMMARY: None Patient Attributed To: QAE Payer: Taina LOZANO Action Taken: Referrals/Routed: Population Health Navigation: Appointment. Router to [facility] [[id number]] Contact made with patient: No, Chart review only. Signature: ELDON Gresham Nancy 09/17/2024 1:29 PM Signed POPULATION HEALTH NAVIGATION OUTREACH Action/FYI ACM Spoke to to p[patient has appt 10-08--2023 does not feel the need to come in sooner Reason for Outreach Community Monitoring/Network Navigator [employer] Phone Line: CIRO Patient Contacted: Spoke to patient/parent/or legal guardian Patient identified by name and : Yes Community Monitoring/Network Navigator [employer] Phone Line actions taken: Patient already scheduled Updated appointment note Navigation Signature: Emily Ho Population Health Navigator September 17, 2024 1:25 PM Allergies As of Date: 09/17/2024 Noted Allergy Reaction CLONIDINE 07/07/2005 NORVASC (AMLODIPINE BESYLATE) 07/15/2011 14 - Other: See Comments Comments: Hair loss PREDNISONE 02/18/2013 14 - Other: See Comments Comments: Elevated BP and nausea Date Reviewed: 09/17/2024 Reviewed by: Solo Reyes APRN.NURSING SERVICES MANAGER - Fully Assessed Reason for Visit: CIRO SUE RN [[id number]] Cmt: ED Utilization Review per request of payor Prescriptions as of 09/19/2024 - valACYclovir (VALTREX) 500 mg tablet Take 1 tablet by mouth once daily. - guaiFENesin (MUCINEX) 600 mg 12 hr tablet Take 1 tablet by mouth two times a day as needed for cold/allergy symptoms (cough) for up to 7 days. - benzonatate (TESSALON PERLE) 100 mg capsule Take 1 capsule by mouth three times a day as needed for cough for up to 7 days. - hydrALAZINE (APRESOLINE) 25 mg tablet Take 1 tablet by mouth three times a day. Hold hydralazine if BP less than 140 systolic - losartan (COZAAR) 50 mg tablet Take 1 tablet by mouth once daily. - pravastatin (PRAVACHOL) 10 mg tablet Take 1 tablet by mouth daily at bedtime. - metoprolol succinate ER (TOPROL XL) 25 mg 24 hr tablet Take 1 tablet by mouth once daily. Take in addition to 100 mg XL once a day - metoprolol succinate ER (TOPROL XL) 100 mg Take 1 tablet by mouth once daily. Take in addition to 25 mg XL once a day - levothyroxine (SYNTHROID) 100 mcg tablet Take 1 tablet by mouth once daily. - MULTIVITAMIN WITH MINERALS (HAIR,SKIN AND NAILS ORAL) Take 1 tablet by mouth once daily. - ASPIRIN 81 MG ORAL TAB Take one(1) tablet daily. Meds Comments as of 05/28/2015: Problem List As Of Date 09/17/2024 Noted Resolved NONTOX NODUL GOITER NOS [E04.9] 10/20/2005 Post-Surgical Hypothyroidism [E89.0] 10/20/2005 Hypertensive chronic kidney disease with stage *10/20/2005 ABNORMAL XRAY G.U. TRACT [R93.89] 01/24/2006 05/09/2017 Secondary hyperparathyroidism, non-renal (HCC) *04/04/2006 04/16/2020 BENIGN NEOPLASM LG BOWEL [D12.6] 04/05/2006 DIVERTICULOSIS OF COLON W/O BLEED [K57.30] 04/05/2006 EXT HEMORRHOID W/O COMPL [K64.4] 04/05/2006 01/14/2009 Genital herpes [A60.00] 04/12/2006 ABNORMAL PAP SMEAR OF CERVIX NEC AND HPV [R89.6]07/07/2008 2015 ALOPECIA NOS [L65.9] 08/20/2008 01/14/2009 ASTHMA UNSPECIFIED [J45.909] 12/17/2008 Hyperparathyroidism, unspecified (HCC) [E21.3] 01/14/2009 04/16/2020 Headache(784.0) [R51] 01/14/2009 05/09/2017 LUMBAGO [M54.50] 04/14/2009 05/04/2009 Hyperlipidemia [E78.5] 02/09/2010 Chronic renal insufficiency [N18.9] 03/12/2010 04/16/2020 Rotator cuff impingement syndrome [M75.40] 03/04/2011 Carpal tunnel syndrome [G56.00] 03/04/2011 Abnormal mammogram [R92.8] 08/28/2014 05/09/2017 Chronic kidney disease, stage 4, severely decre*09/23/2015 04/16/2020 Secondary hyperparathyroidism (HCC) [N25.81] 04/17/2018 Other hyperli (more content not included)... [facility] 07-08-2024 Note HNO ID: [id number] Author: TUAN LUO, DO Service: ? Author Type: Physician Type: Progress Notes Filed: 07/08/2024 16:47 Note Text: CC: Racheal James is a 83 year old female who presents to the office for follow up HPI: BLOOD PRESSURE seems overall to be better regulated. Typical range of 130s/80s. Lows of 120s / 80s. No CP or dyspnea or dizziness/Lh. No recent falls. She has her granddaughter helping her with mowing and outdoor work Low back pain, DJD and DDD lumbar spine. Has had an epidural injection in the lumbar spine by Dr. Bryson without relief. Then had an alternative type of injection with some relief. Avoids NSAIDs. She does take tylenol up to 500 mg twice a day for pain, no new bowel or bladder loss of control CKD stage 3, hypertensive kidney disease, has been seen recently by Dr. Danni Jimenez Nephrology, levels are stable, asymptomatic Occasional blood when wiping after having a bowel movement. No obvious blood in stool . No abdominal pain PAST MEDICAL HISTORY 01/28/2022: Advance directive discussed with patient Comment: KAMRAN Conor her son No date: Benign neoplasm of colon Comment: FHx of colon cancer No date: Carpal tunnel syndrome No date: Chronic renal insufficiency Comment: stage 4 No date: CKD stage G3b/A1, GFR 30-44 and albumin creatinine ratio <30 mg/g (HCC) No date: Diverticulosis of colon (without mention of hemorrhage) No date: Essential hypertension, benign Comment: White coat effect No date: Hyperlipidemia 04/2021: Hyperuricemia 10/20/2005: Post-surgical hypothyroidism No date: SEC HYPERPARATHYROID, NON-RENAL No date: Trigger finger No date: Unspecified nontoxic nodular goiter PAST SURGICAL HISTORY No date: APPENDECTOMY 08/2003, 2009: ARTHRP ACETBLR/PROX FEM PROSTC AGRFT/ALGRFT Comment: Hip replacement, total x2 05/28/15: BIOPSY BREAST OPEN INCISIONAL Comment: Bx of breast, left 08/28/14: BX BREAST W/DEVICE 1ST LESION STEREOTACTIC GUID Comment: right, benign 04/03/13: CARPAL TUNNEL Comment: right No date: CATARACT EXT; [facility]YE[facility]ICS IOL SYS Comment: Dr. Modesta rinaldi 05/31/16: COLONOSCOPY W/BIOPSY Comment: diverticulosis, polyp 03/09/2001: COLONOSCOPY FLX DX W/COLLJ SPEC WHEN PFRMD Comment: Colonoscopy 04/05/2006: COLONOSCOPY FLX DX W/COLLJ SPEC WHEN PFRMD Comment: Colonoscopy 05/06/2011: COLONOSCOPY FLX DX W/COLLJ SPEC WHEN PFRMD Comment: Colonoscopy No date: LIG/TRNSXJ FLP TUBE ABDL/VAG APPR UNI/BI Comment: Tubal ligation 04/01/08: TOTAL THYROID LOBECTOMY UNI W/WO ISTHMUSECTOMY Comment: RIGHT THYROID 04/03/13: UNLISTED PROCEDURE HANDS/FINGERS Comment: Right trigger finger Current Outpatient Medications Medication Sig hydrALAZINE (APRESOLINE) 25 mg tablet Take 1 tablet by mouth three times a day. Hold hydralazine if BP less than 140 systolic hydrocortisone (ANUSOL-HC) 2.5 % rectal cream by RECTAL route two times a day. As needed for hemorrhoids losartan (COZAAR) 50 mg tablet Take 1 tablet by mouth once daily. pravastatin (PRAVACHOL) 10 mg tablet Take 1 tablet by mouth daily at bedtime. metoprolol succinate ER (TOPROL XL) 25 mg 24 hr tablet Take 1 tablet by mouth once daily. Take in addition to 100 mg XL once a day metoprolol succinate ER (TOPROL XL) 100 mg Take 1 tablet by mouth once daily. Take in addition to 25 mg XL once a day levothyroxine (SYNTHROID) 100 mcg tablet Take 1 tablet by mouth once daily. colchicine 0.6 mg tablet Take 1 tablet by mouth one time only for 1 dose. MULTIVITAMIN WITH MINERALS (HAIR,SKIN AND NAILS ORAL) Take 1 tablet by mouth once daily. ASPIRIN 81 MG ORAL TAB Take one(1) tablet daily. No current facility-administered medications for this visit. ALLERGIES Allergen Reactions Clonidine Norvasc [Amlodipine* Other: See Comments Hair loss Prednisone Other: See Comments Elevated BP and nausea Social History Tobacco Use Smoking status: Never Smokeless tobacco: Never Vaping Use Vaping status: Never Used Substance Use Topics Alcohol use: No Drug use: No ROS: See HPI PE: BP 128/78 Pulse 68 Temp (Src) 98.7 (Left Tympanic) Resp 16 Wt 161 lb (73.0kg) Gen: AANDOX3, NAD, non-toxic appearing, hard of hearing HEENT: PERRLA, EOMs intact b/l, nares without drainage, pharynx without erythema, exudate, lesions, or drainage. Uvula midline. MMM Neck: No LAD, no thyromegaly, no meningismus. CV: RRR, no murmur, normal S1S2 Lungs: CTA b/l, no wheezing No edema, normal pulses Reduced ROM lumbar spine secondary to pain and muscle tension Normal pulses Skin: scattered angiomas and solar lentigos External hemorrhoids with inflammation without signs of active bleeding or thrombosis ASSESSMENT/PLAN: 1. Essential hypertension - ICD9: 401.9, ICD10: I10 (primary diagnosis) - Controlled - Continue current medications - Recommend home blood pressure monitoring, to bring results to next visit - Encouraged sodium restriction, DASH or Mediterrane (more content not included)... [facility] 07-08-2024 History of Present illness Narrative CC: Racheal James is a 83 year old female who presents to the office for follow up HPI: BLOOD PRESSURE seems overall to be better regulated. Typical range of 130s/80s. Lows of 120s / 80s. No CP or dyspnea or dizziness/Lh. No recent falls. She has her granddaughter helping her with mowing and outdoor work Low back pain, DJD and DDD lumbar spine. Has had an epidural injection in the lumbar spine by Dr. Bryson without relief. Then had an alternative type of injection with some relief. Avoids NSAIDs. She does take tylenol up to 500 mg twice a day for pain, no new bowel or bladder loss of control CKD stage 3, hypertensive kidney disease, has been seen recently by Dr. Danni Jimenez Nephrology, levels are stable, asymptomatic Occasional blood when wiping after having a bowel movement. No obvious blood in stool . No abdominal pain PAST MEDICAL HISTORY 01/28/2022: Advance directive discussed with patient Comment: KAMRAN Perdomo her son No date: Benign neoplasm of colon Comment: FHx of colon cancer No date: Carpal tunnel syndrome No date: Chronic renal insufficiency Comment: stage 4 No date: CKD stage G3b/A1, GFR 30-44 and albumin creatinine ratio <30 mg/g (HCC) No date: Diverticulosis of colon (without mention of hemorrhage) No date: Essential hypertension, benign Comment: White coat effect No date: Hyperlipidemia 04/2021: Hyperuricemia 10/20/2005: Post-surgical hypothyroidism No date: SEC HYPERPARATHYROID, NON-RENAL No date: Trigger finger No date: Unspecified nontoxic nodular goiter PAST SURGICAL HISTORY No date: APPENDECTOMY 08/2003, 2009: ARTHRP ACETBLR/PROX FEM PROSTC AGRFT/ALGRFT Comment: Hip replacement, total x2 05/28/15: BIOPSY BREAST OPEN INCISIONAL Comment: Bx of breast, left 08/28/14: BX BREAST W/DEVICE 1ST LESION STEREOTACTIC GUID Comment: right, benign 04/03/13: CARPAL TUNNEL Comment: right No date: CATARACT EXT; EYEONICS IOL SYS Comment: right, Dr. Byers 05/31/16: COLONOSCOPY W/BIOPSY Comment: diverticulosis, polyp 03/09/2001: COLONOSCOPY FLX DX W/COLLJ SPEC WHEN PFRMD Comment: Colonoscopy 04/05/2006: COLONOSCOPY FLX DX W/COLLJ SPEC WHEN PFRMD Comment: Colonoscopy 05/06/2011: COLONOSCOPY FLX DX W/COLLJ SPEC WHEN PFRMD Comment: Colonoscopy No date: LIG/TRNSXJ FLP TUBE ABDL/VAG APPR UNI/BI Comment: Tubal ligation 04/01/08: TOTAL THYROID LOBECTOMY UNI W/WO ISTHMUSECTOMY Comment: RIGHT THYROID 04/03/13: UNLISTED PROCEDURE HANDS/FINGERS Comment: Right trigger finger Current Outpatient Medications Medication Sig hydrALAZINE (APRESOLINE) 25 mg tablet Take 1 tablet by mouth three times a day. Hold hydralazine if BP less than 140 systolic hydrocortisone (ANUSOL-HC) 2.5 % rectal cream by RECTAL route two times a day. As needed for hemorrhoids losartan (COZAAR) 50 mg tablet Take 1 tablet by mouth once daily. pravastatin (PRAVACHOL) 10 mg tablet Take 1 tablet by mouth daily at bedtime. metoprolol succinate ER (TOPROL XL) 25 mg 24 hr tablet Take 1 tablet by mouth once daily. Take in addition to 100 mg XL once a day metoprolol succinate ER (TOPROL XL) 100 mg Take 1 tablet by mouth once daily. Take in addition to 25 mg XL once a day levothyroxine (SYNTHROID) 100 mcg tablet Take 1 tablet by mouth once daily. colchicine 0.6 mg tablet Take 1 tablet by mouth one time only for 1 dose. MULTIVITAMIN WITH MINERALS (HAIR,SKIN & NAILS ORAL) Take 1 tablet by mouth once daily. ASPIRIN 81 MG ORAL TAB Take one(1) tablet daily. No current facility-administered medications for this visit. ALLERGIES Allergen Reactions Clonidine Norvasc [Amlodipine* Other: See Comments Hair loss Prednisone Other: See Comments Elevated BP and nausea Social History Tobacco Use Smoking status: Never Smokeless tobacco: Never Vaping Use Vaping status: Never Used Substance Use Topics Alcohol use: No Drug use: No ROS: See HPI PE: BP 128/78 Pulse 68 Temp (Src) 98.7 (Left Tympanic) Resp 16 Wt 161 lb (73.0kg) Gen: A&OX3, NAD, non-toxic appearing, hard of hearing HEENT: PERRLA, EOMs intact b/l, nares without drainage, pharynx without erythema, exudate, lesions, or drainage. Uvula midline. MMM Neck: No LAD, no thyromegaly, no meningismus. CV: RRR, no murmur, normal S1S2 Lungs: CTA b/l, no wheezing No edema, normal pulses Reduced ROM lumbar spine secondary to pain and muscle tension Normal pulses Skin: scattered angiomas and solar lentigos External hemorrhoids with inflammation without signs of active bleeding or thrombosis ASSESSMENT/PLAN: 1. Essential hypertension - ICD9: 401.9, ICD10: I10 (primary diagnosis) - Controlled - Continue current medications - Recommend home blood pressure monitoring, to bring results to next visit - Encouraged sodium restriction, DASH or Mediterranean diet - Recommend regular aerobic exercise - Discussed need for and benefit of weight loss. BMI 29.45 kg/(m^2) - HYDRALAZINE 25 MG TABLET 2. 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 - Decrease Synthroid dose to - COMPREHENSIVE METABOLIC PANEL - COMPLETE BLOOD COUNT AND DIFFERENTIAL - THYROID STIMULATING HORMONE - T4 FREE/FREE THYROXINE 3. Vitamin B12 deficiency - ICD9: 266.2, ICD10: E53.8 Recheck labs Continue supplement - VITAMIN B12 4. External hemorrhoid - ICD9: 455.3, ICD10: K64.4 rx prn F/u with surgeon if symptoms worsen, for removal, as d/w her today - HYDROCORTISONE 2.5 % TOPICAL CREAM WITH PERINEAL APPLICATOR 5. Other hyperlipidemia - ICD9: 272.4, ICD10: E78.49 stable 6. Hypertensive chronic kidney disease with stage 1 through stage 4 chronic kidney disease, or unspecified chronic kidney disease - ICD9: 403.90, ICD10: I12.9 - Improving control - Continue current medications - Recommend home blood pressure monitoring, to bring results to next visit - Encouraged sodium restriction, DASH or Mediterranean diet - Recommend regular aerobic exercise - Discussed need for and benefit of weight loss. BMI 29.45 kg/(m^2) Tuan Luo DO Return if no improvement. Follow up with Tuan Luo DO. To ER if develops chest pain, shortness of breath. Discussed risks, benefits, alternatives, and potential side effects of medications. Patient/Guardian expressed understanding and agreed with the plan. See patient instructions. Tuan Luo DO [address] [place] [address] documented in this encounter [facility] 05-15-2024 Telephone encounter Note Prescription Refill Information The patient has been identified by name and date of : Yes Caregiver verified no other encounters exist for this prescription request: Yes Caregiver confirmed with patient/requestor that no other refills are due, in the near future, with this provider at this time: Yes The last office visit in the department: 03-08-24 Does the patient have a future office visit with this provider/department: Yes Requested Prescriptions Pending Prescriptions Disp Refills hydrALAZINE (APRESOLINE) 25 mg tablet 90 tablet 0 Sig: Take 1 tablet by mouth three times a day. Hold hydralazine if BP less than 140 systolic Miya Alexandra May 15, 2024 3:[address] [facility] 05-15-2024 Miscellaneous Notes Prescription Refill Information The patient has been identified by name and date of : Yes Caregiver verified no other encounters exist for this prescription request: Yes Caregiver confirmed with patient/requestor that no other refills are due, in the near future, with this provider at this time: Yes The last office visit in the department: 03-08-24 Does the patient have a future office visit with this provider/department: Yes Requested Prescriptions Pending Prescriptions Disp Refills hydrALAZINE (APRESOLINE) 25 mg tablet 90 tablet 0 Sig: Take 1 tablet by mouth three times a day. Hold hydralazine if BP less than 140 systolic Miya Alexandra May 15, 2024 3:53 PM documented in this encounter [facility] 04-15-2024 Telephone encounter Note My chart message sent. [facility] 04-15-2024 Miscellaneous Notes My chart message sent. Please inform patient that her calcium levels are back to a normal range. Tuan Luo DO documented in this encounter [facility] 04-15-2024 Telephone encounter Note Please inform patient that her calcium levels are back to a normal range. Tuan Luo DO [facility] 03-21-2024 Telephone encounter Note [facility] 03/08/[address] [facility] 03-21-2024 Miscellaneous Notes [facility]- 03/08/2024 Molly Duncan MA Patient has been identified by name and date of : Yes Requested Prescriptions Pending Prescriptions Disp Refills hydrALAZINE (APRESOLINE) 25 mg tablet 90 tablet 0 Sig: Take 1 tablet by mouth three times a day. Hold hydralazine if BP less than 140 systolic RX INSTRUCTIONS: Patient aware RX will be sent to pharmacy. No need to notify patient. Daisy Alexandra documented in this encounter [facility] 03-20-2024 Telephone encounter Note Patient has been identified by name and date of : Yes Requested Prescriptions Pending Prescriptions Disp Refills hydrALAZINE (APRESOLINE) 25 mg tablet 90 tablet 0 Sig: Take 1 tablet by mouth three times a day. Hold hydralazine if BP less than 140 systolic RX INSTRUCTIONS: Patient aware RX will be sent to pharmacy. No need to notify patient. Daisy Alexandra [facility] 03-12-2024 Telephone encounter Note Patient notified results and recommendations. Patient verbalized understanding. Shira Shah LPN [facility] Work Phone: 03-12-2024 Miscellaneous Notes Patient notified results and recommendations. Patient verbalized understanding. Shira Shah LPN Message left for pt to call back for results. Zeynep Stanley MA Please let patient know that her calcium is still slightly elevated. Her Vitamin D and PTH levels are within normal range. Please check with patient to see if she is taking any supplements-calcium supplements? If yes, stop. I would recommend repeating he CMP in 1 month to recheck the calcium level. If remain elevated can discuss a further work up including a possible bone scan. Her AST at the upper limit of normal-recheck with CMP in 1 month,. The rest of her labs were stable. Belkys Silva PA-C 03/12/2024 documented in this encounter [facility] 03-12-2024 Telephone encounter Note Message left for pt to call back for results. Zeynep Stanley MA [facility] 03-12-2024 Telephone encounter Note Please let patient know that her calcium is still slightly elevated. Her Vitamin D and PTH levels are within normal range. Please check with patient to see if she is taking any supplements-calcium supplements? If yes, stop. I would recommend repeating he CMP in 1 month to recheck the calcium level. If remain elevated can discuss a further work up including a possible bone scan. Her AST at the upper limit of normal-recheck with CMP in 1 month,. The rest of her labs were stable. Belkys Silva PA-C 03/12/2024 [facility] [facility] 03[facility]24 Instructions Tuan Luo DO - 03/08/2024 11:22 AM EDT Please get fasting labs before your next appointment- 1 week prior. These are already ordered. Please fast Turmeric- curcumin supplement can help joint pain. Can take 500-1000 mg once a day with a meal Dr. Fredis Guillen [employer] Work[employer] Call for an appointment for your nose Address: [address] [place] [address] B, [place] [address] documented in this encounter [facility] 03-08-2024 History of Present illness Narrative CC: Racheal James is a 83 year old female who presents to the office for follow up HPI: Pt was seen in office by me on 12/20/23 d/t elevated BP: ASSESSMENT/PLAN: 1. Essential hypertension - ICD9: 401.9, ICD10: I10 (primary diagnosis) - Uncontrolled - Continue current medications - Start hydrochlorothiazide low dose 12.5 mg daily. RTO in 4 weeks to reassess. Need to monitor uric acid and kidney function while on this. If any complications, will switch regimen at follow-up if needed. May need to just increase metoprolol if no improvement. Unable to increase losartan regimen due to poor kidney function. Pt has intolerance to amlodipine. HCTZ was tried in [id number] with good BP control but looks like from chart it was discontinued due to gout flare-up. Pt willing to retry due to no recent gout symptoms. - Recommend home blood pressure monitoring, to bring results to next visit - Encouraged sodium restriction, DASH or Mediterranean diet - Recommend regular aerobic exercise - Follow up in 4 weeks for hypertension visit - COMP METABOLIC PANEL - CBC + DIFF - LIPID PANEL BASIC - HGB A1C - HYDROCHLOROTHIAZIDE 12.5 MG CAPSULE - URIC ACID BLOOD Pt was then seend by NOELLE Hyatt on 01/02 due to elevated BP as well: ASSESSMENT/PLAN: 1. Essential hypertension - ICD9: 401.9, ICD10: I10 (primary diagnosis) - Uncontrolled - Continue current medications - Increase hydralazine - Recommend home blood pressure monitoring, to bring results to next visit - Encouraged sodium restriction, DASH or Mediterranean diet - Recommend regular aerobic exercise - Discussed need for and benefit of weight loss. BMI 29.08 kg/(m^2) - HYDRALAZINE 25 MG TABLET At follow up in office in January 2024 as below Pt reports she stopped hctz because she read on package that elderly should not be on this medication. Pt is taking metoprolol, losartan, and now hydralazine 25 mg TID as prescribed at last visit. Pt has been checking BP 3 x per day d/t hydralazine regimen, 8am, 1pm, and 7pm. 8am (taking BP prior to medication) averages: 150s/80s 1pm average BP: 130s/80s 7pm average: 130s/80s She denies chest pain, shortness of breath, palpitations, dizziness, leg edema, headaches, or vision changes. Currently BLOOD PRESSURE seems overall to be better regulated. Highs of 150s/80s. Lows of 120s / 80s. No CP or dyspnea or dizziness/Lh. No recent falls. She has her granddaughter helping her with mowing and outdoor work Low back pain, DJD and DDD lumbar spine. Has had an epidural injection in the lumbar spine by Dr. Bryson without relief. Is now approved by insurance to try an alternative injection and is waiting to be scheduled for this. Avoids NSAIDs. She does take tylenol up to 500 mg twice a day for pain, no new bowel or bladder loss of control PAST MEDICAL HISTORY Diagnosis Date Advance directive discussed with patient 01/28/2022 KAMRAN Conor her son Benign neoplasm of colon FHx of colon cancer Carpal tunnel syndrome Chronic renal insufficiency stage 4 CKD stage G3b/A1, GFR 30-44 and albumin creatinine ratio <30 mg/g (HCC) Diverticulosis of colon (without mention of hemorrhage) Essential hypertension, benign White coat effect Hyperlipidemia Hyperuricemia 04/2021 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 Byers COLONOSCOPY W/BIOPSY 05/31/16 diverticulosis, polyp COLONOSCOPY FLX DX W/COLLJ SPEC WHEN PFRMD 03/09/2001 Colonoscopy COLONOSCOPY FLX DX W/COLLJ SPEC WHEN PFRMD 04/05/2006 Colonoscopy COLONOSCOPY FLX DX W/COLLJ SPEC WHEN PFRMD 05/06/2011 Colonoscopy LIG/TRNSXJ FLP TUBE ABDL/VAG APPR UNI/BI Tubal ligation TOTAL THYROID LOBECTOMY UNI W/WO ISTHMUSECTOMY 04/01/08 RIGHT THYROID UNLISTED PROCEDURE HANDS/FINGERS 04/03/13 Right trigger finger Current Outpatient Medications Medication Sig metoprolol succinate ER (TOPROL XL) 25 mg 24 hr tablet Take 1 tablet by mouth once daily. metoprolol succinate ER (TOPROL XL) 100 mg Take 1 tablet by mouth once daily. hydrALAZINE (APRESOLINE) 25 mg tablet Take 1 tablet by mouth three times a day. Hold hydralazine if BP less than 140 systolic levothyroxine (SYNTHROID) 100 mcg tablet Take 1 tablet by mouth once daily. pravastatin (PRAVACHOL) 10 mg tablet Take 1 tablet by mouth daily at bedtime. losartan (COZAAR) 50 mg tablet Take 1 tablet by mouth once daily. colchicine 0.6 mg tablet Take 1 tablet by mouth one time only for 1 dose. MULTIVITAMIN WITH MINERALS (HAIR,SKIN & NAILS ORAL) Take 1 tablet by mouth once daily. ASPIRIN 81 MG ORAL TAB Take one(1) tablet daily. valACYclovir (VALTREX) 500 mg tablet Take 1 tablet by mouth two times a day. No current facility-administered medications for this visit. ALLERGIES Allergen Reactions Clonidine Norvasc [Amlodipine* Other: See Comments Hair loss Prednisone Other: See Comments Elevated BP and nausea Social History Tobacco Use Smoking status: Never Smokeless tobacco: Never Vaping Use Vaping Use: Never used Substance Use Topics Alcohol use: No Drug use: No ROS: See HPI PE: BP 150/80 Pulse 64 Temp (Src) 97.6 (Left Tympanic) Resp 20 Wt 162 lb (73.5kg) Gen: A&OX3, NAD, non-toxic appearing, hard of hearing HEENT: PERRLA, EOMs intact b/l, nares without drainage, pharynx without erythema, exudate, lesions, or drainage. Uvula midline. MMM Neck: No LAD, no thyromegaly, no meningismus. CV: RRR, no murmur, normal S1S2 Lungs: CTA b/l, no wheezing No edema, normal pulses Reduced ROM lumbar spine secondary to pain and muscle tension Normal pulses Skin: papular skin change mid nose without signs of infection ASSESSMENT/PLAN: 1. Post-surgical hypothyroidism - ICD9: 244.0, ICD10: E89.0 (primary diagnosis) - Instructed patient on importance of taking on an empty stomach either first thing in the morning or at bedtime. - continue current dose of Synthroid - THYROID STIMULATING HORMONE - T4 FREE/FREE THYROXINE - T3, FREE 2. Essential hypertension - ICD9: 401.9, ICD10: I10 - Controlled - Improving control - Continue current medications - Recommend home blood pressure monitoring, to bring results to next visit - Encouraged sodium restriction, DASH or Mediterranean diet - Recommend regular aerobic exercise - LOSARTAN 50 MG TABLET - METOPROLOL SUCCINATE ER 100 MG TABLET,EXTENDED RELEASE 24 HR - COMPREHENSIVE METABOLIC PANEL - COMPLETE BLOOD COUNT AND DIFFERENTIAL 3. Hypercalcemia - ICD9: 275.42, ICD10: E83.52 Recheck labs - PTH INTACT - VITAMIN D 25 HYDROXY 4. Non-healing skin lesion of nose - ICD9: 709.9, ICD10: L98.9 - CONSULT TO DERMATOLOGY 5. CKD stage G3b/A1, GFR 30-44 and albumin creatinine ratio <30 mg/g (HCC) - ICD9: 585.3, ICD10: N18.32 - eGFR: 40 Stable - Counseled on avoiding NSAIDs, adequate hydration - Counseled on low sodium diet 6. Vitamin D deficiency - ICD9: 268.9, ICD10: E55.9 Continue supplement 7. Acute bilateral low back pain with bilateral sciatica - ICD9: 724.2, 724.3, ICD10: M54.42, M54.41 Chronic low back pain - Ice for localized tenderness - Warm moist heat for 20 min three times a day Tuan Luo DO Return if no improvement. Follow up with Tuan Luo DO. To ER if develops chest pain, shortness of breath. Discussed risks, benefits, alternatives, and potential side effects of medications. Patient/Guardian expressed understanding and agreed with the plan. See patient instructions. Tuan Luo DO [address] [place] [address] documented [address] this encounter [facility] 02-06-2024 Miscellaneous Notes Patient has been identified by name and date of : Yes Requested Prescriptions Pending Prescriptions Disp Refills metoprolol succinate ER (TOPROL XL) 25 mg 24 hr tablet 90 tablet 1 Sig: Take 1 tablet by mouth once daily. metoprolol succinate ER (TOPROL XL) 100 mg 30 tablet 0 Sig: Take 1 tablet by mouth once daily. RX INSTRUCTIONS: Patient aware RX escripted to mail away pharmacy. No need to notify patient. Daisy Briones Pss documented in this encounter [facility] 02-01-2024 Miscellaneous Notes Pt notified. Zeynep Stanley MA I am happy with these readings. Continue on current regimen and we will reassess at follow-up appointment in 4 weeks. Thank you, Divina Louis APRN.NURSING SERVICES MANAGER Pt calling with blood pressure readings 3-7-24 141/80 P 65 3-8-24 144/83 P 58 3-9-24 148/83 P56 3-10-24 134/79 P 56 3-11-24 137/74 P60 3-12-24 147/80 P 60 3-13-24 145/83 P 65 3-14-24 133/70 P 63 3-15-24 148/76 P60 3-16-24 137/72 P 60 3-17-24 135/81 P 56 3-18-24 135/82 P 65 3-19-24 135/77 P 57 3-20-24 117/77 P 63 3-21-24 126/67 P 67 Pt has been taking her medications. Julio Do LPN documented in this encounter [facility] 01-17-2024 Miscellaneous Notes Order faxed to [phone] as below Please fax consult as ordered during appointment to number below. Thank you, Divina Louis APRN.NURSING SERVICES MANAGER Patient calls and wanted provider to know that the chiropractor name is Danie Segundo, phone number is [phone]. [facility] Olivia Alejandra RN documented in this encounter [facility] 01-17-2024 Instructions Divina Louis APRN.CNP - 01/17/2024 10:30 AM EST Images from the original note were not included. Call office in 2 weeks and give me at home BP readings of 2 weeks, 1 hour after taking morning BP mediations documented in this encounter [facility] 01-17-2024 History of Present illness Narrative Chief Complaint Patient presents with: b/p check HPI Racheal James is a 83 year old female who presents here today for Above Complaints. Racheal is an established patient of Dr. Valerio DO and myself. Concerns today... Pt was seen in office by me on 12/20/23 d/t elevated BP: ASSESSMENT/PLAN: 1. Essential hypertension - ICD9: 401.9, ICD10: I10 (primary diagnosis) - Uncontrolled - Continue current medications - Start hydrochlorothiazide low dose 12.5 mg daily. RTO in 4 weeks to reassess. Need to monitor uric acid and kidney function while on this. If any complications, will switch regimen at follow-up if needed. May need to just increase metoprolol if no improvement. Unable to increase losartan regimen due to poor kidney function. Pt has intolerance to amlodipine. HCTZ was tried in [id number] with good BP control but looks like from chart it was discontinued due to gout flare-up. Pt willing to retry due to no recent gout symptoms. - Recommend home blood pressure monitoring, to bring results to next visit - Encouraged sodium restriction, DASH or Mediterranean diet - Recommend regular aerobic exercise - Follow up in 4 weeks for hypertension visit - COMP METABOLIC PANEL - CBC + DIFF - LIPID PANEL BASIC - HGB A1C - HYDROCHLOROTHIAZIDE 12.5 MG CAPSULE - URIC ACID BLOOD Pt was then seend by NOELLE Hyatt on 01/02 due to elevated BP as well: ASSESSMENT/PLAN: 1. Essential hypertension - ICD9: 401.9, ICD10: I10 (primary diagnosis) - Uncontrolled - Continue current medications - Increase hydralazine - Recommend home blood pressure monitoring, to bring results to next visit - Encouraged sodium restriction, DASH or Mediterranean diet - Recommend regular aerobic exercise - Discussed need for and benefit of weight loss. BMI 29.08 kg/(m^2) - HYDRALAZINE 25 MG TABLET Today in office --- Pt reports she stopped hctz because she read on package that elderly should not be on this medication. Pt is taking metoprolol, losartan, and now hydralazine 25 mg TID as prescribed at last visit. Pt has been checking BP 3 x per day d/t hydralazine regimen, 8am, 1pm, and 7pm. 8am (taking BP prior to medication) averages: 150s/80s 1pm average BP: 130s/80s 7pm average: 130s/80s She denies chest pain, shortness of breath, palpitations, dizziness, leg edema, headaches, or vision changes. Reports dizziness is improving. Last 14 Encounter BP Readings: Date: BP: 01/17/2024 146/86 01/02/2024 168/98[manual[ 12/20/2023 150/90 09/06/2023 138/80 06/02/2023 160/90 02/22/2023 190/98[Pt reports white coat syndrome but earlier today at home it was 130/77.[ 01/31/2023 138/84 08/01/2022 146/90 01/28/2022 150/90 01/13/2022 169/80[BP Zaina average[ 01/03/2022 182/98 12/27/2021 182/100 07/30/2021 138/82 06/29/2021 142/90 Chronic low back pain w/ sciatica-- Has chiropractor she wants to start going to, needs referral. Past medical history, appointments, medications, allergies reviewed. Previous Medical History PAST MEDICAL HISTORY Diagnosis Date Advance directive discussed with patient 01/28/2022 DPJOYCE Perdomo her son Benign neoplasm of colon FHx of colon cancer Carpal tunnel syndrome Chronic renal insufficiency stage 4 CKD stage G3b/A1, GFR 30-44 and albumin creatinine ratio <30 mg/g (HCC) Diverticulosis of colon (without mention of hemorrhage) Essential hypertension, benign White coat effect Hyperlipidemia Hyperuricemia 04/2021 Post-surgical hypothyroidism 10/20/2005 SEC HYPERPARATHYROID, NON-RENAL Trigger finger Unspecified nontoxic nodular goiter Previous Surgical History PAST SURGICAL HISTORY Procedure Laterality Date APPENDECTOMY ARTHRP ACETBLR/PROX FEM PROSTC AGRFT/ALGRFT 08/2003, 2008 Hip replacement, total x2 BIOPSY BREAST OPEN INCISIONAL 05/28/15 Bx of breast, left BX BREAST W/DEVICE 1ST LESION STEREOTACTIC GUID 08/28/14 right, benign CARPAL TUNNEL 04/03/13 right CATARACT EXT; EYEONICS IOL SYS right, Dr. Byers COLONOSCOPY W/BIOPSY 05/31/16 diverticulosis, polyp COLONOSCOPY FLX DX W/COLLJ SPEC WHEN PFRMD 03/09/2001 Colonoscopy COLONOSCOPY FLX DX W/COLLJ SPEC WHEN PFRMD 04/05/2006 Colonoscopy COLONOSCOPY FLX DX W/COLLJ SPEC WHEN PFRMD 05/06/2011 Colonoscopy LIG/TRNSXJ FLP TUBE ABDL/VAG APPR UNI/BI Tubal ligation TOTAL THYROID LOBECTOMY UNI W/WO ISTHMUSECTOMY 04/01/08 RIGHT THYROID UNLISTED PROCEDURE HANDS/FINGERS 04/03/13 Right trigger finger Family History FAMILY HISTORY Problem Relation Age of Onset Colon Cancer Mother Hypertension Mother Cancer Sister thyroid Breast Cancer Sister Cancer Maternal Grandmother Stroke Paternal Grandfather Psychiatry Son suicide Patient Allergies ALLERGIES Allergen Reactions Clonidine Norvasc [Amlodipine* Other: See Comments Hair loss Prednisone Other: See Comments Elevated BP and nausea Current Medications Current Outpatient Medications on File Prior to Visit Medication Sig hydrALAZINE (APRESOLINE) 25 mg tablet Take 1 tablet by mouth three times a day. Hold hydralazine if BP less than 140 systolic metoprolol succinate ER (TOPROL XL) 25 mg 24 hr tablet Take 1 tablet by mouth once daily. levothyroxine (SYNTHROID) 100 mcg tablet Take 1 tablet by mouth once daily. pravastatin (PRAVACHOL) 10 mg tablet Take 1 tablet by mouth daily at bedtime. metoprolol succinate ER (TOPROL XL) 100 mg Take 1 tablet by mouth once daily. valACYclovir (VALTREX) 500 mg tablet Take 1 tablet by mouth two times a day. losartan (COZAAR) 50 mg tablet Take 1 tablet by mouth once daily. MULTIVITAMIN WITH MINERALS (HAIR,SKIN & NAILS ORAL) Take 1 tablet by mouth once daily. ASPIRIN 81 MG ORAL TAB Take one(1) tablet daily. colchicine 0.6 mg tablet Take 1 tablet by mouth one time only for 1 dose. No current facility-administered medications on file prior to visit. Social History Social History Tobacco Use Smoking status: Never Smokeless tobacco: Never Vaping Use Vaping Use: Never used Substance Use Topics Alcohol use: No Drug use: No REVIEW OF SYSTEMS: as above Reviewed relevant PMHx, PSHx, Social Hx, current medications and allergies. Review of Symptoms REVIEW OF SYSTEMS See HPI. EXAM: BP 146/86 Pulse 68 Resp 16 Wt 73.7 kg (162 lb 6.4 oz) BMI 29.70 kg/m General Appearance: Well appearing, alert, in no acute distress, well-hydrated, well nourished.. Skin: Skin color, texture, turgor normal, no suspicious rashes or lesions. Head: Normocephalic, no masses, lesions, tenderness or abnormalities. Lungs: Lungs clear to auscultation. No wheezing, rhonchi, rales.. Heart: RRR without murmur, gallop, or rubs. No ectopy. Health Maintenance List Depression Assessment due on 11/12/2024 RSV Vaccine(1 - 1-dose 60+ series) due on 12/20/2024 Shingrix Vaccine(1 of 2) due on 12/20/2024 DTaP,Tdap,Td Vaccine(3 - Tdap) due on 06/02/2024 Diabetes Screening due on 01/02/2027 Bone Density Screening Completed Influenza Vaccine Completed Covid-19 Vaccine Completed Pneumococcal Vaccine: 65+ Completed Colonoscopy Discontinued Advance Directive Discussion Discontinued ASSESSMENT/PLAN: 1. Essential hypertension - ICD9: 401.9, ICD10: I10 (primary diagnosis) - Improving control - Continue current medications - check BP about 1 hour AFTER taking BP medication in the morning and call office in 2 weeks with daily readings. Midday and evening readings look good/WNL. Continue on current regimen for now. - Recommend home blood pressure monitoring, to bring results to next visit - Encouraged sodium restriction, DASH or Mediterranean diet - Recommend regular aerobic exercise - Follow up in 1.5 months as scheduled for hypertension visit 2. Acute bilateral low back pain with bilateral sciatica - ICD9: 724.2, 724.3, ICD10: M54.42, M54.41 Printed sciatica stretches. Will fax referral to chiropractor as pt preference. - CONSULT TO CHIROPRACTOR RTO in 1--2 months as scheduled, sooner if needed. Prescription instructions reviewed with patient as applicable. Potential red flag symptoms discussed with the patient. Reviewed appropriate action plan to take if red flag symptoms occur. Patient agreeable to treatment plan. Divina Reed APRN.NURSING SERVICES MANAGER [address] [place] [address] Rcaheal Luo, Reason for blood pressure check: Medication adjustment Current Outpatient Medications Medication Sig hydrALAZINE (APRESOLINE) 25 mg tablet Take 1 tablet by mouth three times a day. Hold hydralazine if BP less than 140 systolic metoprolol succinate ER (TOPROL XL) 25 mg 24 hr tablet Take 1 tablet by mouth once daily. levothyroxine (SYNTHROID) 100 mcg tablet Take 1 tablet by mouth once daily. pravastatin (PRAVACHOL) 10 mg tablet Take 1 tablet by mouth daily at bedtime. metoprolol succinate ER (TOPROL XL) 100 mg Take 1 tablet by mouth once daily. valACYclovir (VALTREX) 500 mg tablet Take 1 tablet by mouth two times a day. losartan (COZAAR) 50 mg tablet Take 1 tablet by mouth once daily. colchicine 0.6 mg tablet Take 1 tablet by mouth one time only for 1 dose. MULTIVITAMIN WITH MINERALS (HAIR,SKIN & NAILS ORAL) Take 1 tablet by mouth once daily. ASPIRIN 81 MG ORAL TAB Take one(1) tablet daily. No current facility-administered medications for this visit. Medications Reviewed: Yes Took BP medication today: Yes What time was last dose 6am If no, date/time medication last taken: na Patients home BP machine compared to office reading: No Patients Home BP readings: na Experiencing side effects: No BP readings from today's visit: 150/80 Last Encounter BP Readings: Last 3 Encounter BP Readings: Date: BP: 01/02/2024 168/98[manual[ 12/20/2023 150/90 09/06/2023 138/80 Potassium Date Value Ref Range Status 01/02/2024 4.6 3.7 - 5.1 mmol/L Final 12/21/2023 4.6 3.7 - 5.1 mmol/L Final BUN Date Value Ref Range Status 01/02/2024 28 (H) 7 - 21 mg/dL Final 12/21/2023 30 (H) 7 - 21 mg/dL Final Creatinine Date Value Ref Range Status 01/02/2024 1.32 (H) 0.58 - 0.96 mg/dL Final 12/21/2023 1.48 (H) 0.58 - 0.96 mg/dL Final documented in this encounter [facility] 01-02-2024 Miscellaneous Notes Pt active on [employer], message sent Asia Mosquera Cma Please let patient know their labs are stable. documented in this encounter [facility] 01-02-2024 History of Present illness Narrative Chief Complaint Patient presents with: Dizziness HPI Racheal James is a 83 year old female who presents here today for Above Complaints.. Feels fatigued and dizzy. Feels that left side of head is congested. Unsure how long symptoms have been going on. Worse with activity. Feels that gait is unsteady and not able to walk straight. Does not recall any other instance that this has happened. Has been taking 125 mg metoprolol. Last took hctz about four days ago. Drinks about 80oz water a day. No syncope or falls. No memory problems. Denies cough, N/V/D, fever, CP, SOB Past medical history, appointments, medications, allergies reviewed. Previous Medical History PAST MEDICAL HISTORY Diagnosis Date Advance directive discussed with patient 01/28/2022 DPJOYCE Conor her son Benign neoplasm of colon FHx of colon cancer Carpal tunnel syndrome Chronic renal insufficiency stage 4 CKD stage G3b/A1, GFR 30-44 and albumin creatinine ratio <30 mg/g (HCC) Diverticulosis of colon (without mention of hemorrhage) Essential hypertension, benign White coat effect Hyperlipidemia Hyperuricemia 04/2021 Post-surgical hypothyroidism 10/20/2005 SEC HYPERPARATHYROID, NON-RENAL Trigger finger Unspecified nontoxic nodular goiter Previous Surgical History PAST SURGICAL HISTORY Procedure Laterality Date APPENDECTOMY ARTHRP ACETBLR/PROX FEM PROSTC AGRFT/ALGRFT 08/2003, 2008 Hip replacement, total x2 BIOPSY BREAST OPEN INCISIONAL 05/28/15 Bx of breast, left BX BREAST W/DEVICE 1ST LESION STEREOTACTIC GUID 08/28/14 right, benign CARPAL TUNNEL 04/03/13 right CATARACT EXT; EYEONICS IOL SYS right, Dr. Byers COLONOSCOPY W/BIOPSY 05/31/16 diverticulosis, polyp COLONOSCOPY FLX DX W/COLLJ SPEC WHEN PFRMD 03/09/2001 Colonoscopy COLONOSCOPY FLX DX W/COLLJ SPEC WHEN PFRMD 04/05/2006 Colonoscopy COLONOSCOPY FLX DX W/COLLJ SPEC WHEN PFRMD 05/06/2011 Colonoscopy LIG/TRNSXJ FLP TUBE ABDL/VAG APPR UNI/BI Tubal ligation TOTAL THYROID LOBECTOMY UNI W/WO ISTHMUSECTOMY 04/01/08 RIGHT THYROID UNLISTED PROCEDURE HANDS/FINGERS 04/03/13 Right trigger finger Family History FAMILY HISTORY Problem Relation Age of Onset Colon Cancer Mother Hypertension Mother Cancer Sister thyroid Breast Cancer Sister Cancer Maternal Grandmother Stroke Paternal Grandfather Psychiatry Son suicide Patient Allergies ALLERGIES Allergen Reactions Clonidine Norvasc [Amlodipine* Other: See Comments Hair loss Prednisone Other: See Comments Elevated BP and nausea Current Medications Current Outpatient Medications on File Prior to Visit Medication Sig metoprolol succinate ER (TOPROL XL) 25 mg 24 hr tablet Take 1 tablet by mouth once daily. hydroCHLOROthiazide 12.5 mg capsule Take 1 capsule by mouth once daily. levothyroxine (SYNTHROID) 100 mcg tablet Take 1 tablet by mouth once daily. pravastatin (PRAVACHOL) 10 mg tablet Take 1 tablet by mouth daily at bedtime. metoprolol succinate ER (TOPROL XL) 100 mg Take 1 tablet by mouth once daily. valACYclovir (VALTREX) 500 mg tablet Take 1 tablet by mouth two times a day. losartan (COZAAR) 50 mg tablet Take 1 tablet by mouth once daily. colchicine 0.6 mg tablet Take 1 tablet by mouth one time only for 1 dose. MULTIVITAMIN WITH MINERALS (HAIR,SKIN & NAILS ORAL) Take 1 tablet by mouth once daily. ASPIRIN 81 MG ORAL TAB Take one(1) tablet daily. No current facility-administered medications on file prior to visit. Social History Social History Tobacco Use Smoking status: Never Smokeless tobacco: Never Vaping Use Vaping Use: Never used Substance Use Topics Alcohol use: No Drug use: No Review of Symptoms REVIEW OF SYSTEMS See HPI EXAM: BP 168/98 (BP Site: Right Arm, BP Position: Sitting) Pulse 66 Resp 14 Wt 72.1 kg (159 lb) SpO2 98% BMI 29.08 kg/m General Appearance: Well appearing, alert, in no acute distress, well-hydrated, well nourished.. Eyes: Anicteric sclera. Pupils are equally round and reactive to light. Extraocular movements are intact. . Lungs: Lungs clear to auscultation. No wheezing, rhonchi, rales.. Heart: RRR without murmur, gallop, or rubs. No ectopy. Neurologic: Slow gait. Unsteady. Sensation grossly intact. Health Maintenance List Depression Assessment due on 11/12/2024 RSV Vaccine(1 - 1-dose 60+ series) due on 12/20/2024 Shingrix Vaccine(1 of 2) due on 12/20/2024 DTaP,Tdap,Td Vaccine(3 - Tdap) due on 06/02/2024 Diabetes Screening due on 12/21/2026 Bone Density Screening Completed Influenza Vaccine Completed Covid-19 Vaccine Completed Pneumococcal Vaccine: 65+ Completed Colonoscopy Discontinued Advance Directive Discussion Discontinued ASSESSMENT/PLAN: 1. Essential hypertension - ICD9: 401.9, ICD10: I10 (primary diagnosis) - Uncontrolled - Continue current medications - Increase hydralazine - Recommend home blood pressure monitoring, to bring results to next visit - Encouraged sodium restriction, DASH or Mediterranean diet - Recommend regular aerobic exercise - Discussed need for and benefit of weight loss. BMI 29.08 kg/(m^2) - HYDRALAZINE 25 MG TABLET 2. Medication management - ICD9: V58.69, ICD10: Z79.899 - CBC + DIFF - COMP METABOLIC PANEL I have personally seen and examined the patient and performed the medical-decision making components. I have reviewed the Advanced Practice Registered Nurse (DIRECTIONAL DRILL OPERATOR) student's documentation and verified the findings in the note as written. Any additions or changes are noted in bold/italics. Fatoumata Gloria APRN.NURSING SERVICES MANAGER documented in this encounter [facility] 01-01-2024 Miscellaneous Notes Patient calls for dizziness. Nurse triage completed. Protocol recommends see provider within 24 hours. Patient agreeable. Scheduled with available provider. Care advice reviewed. Patient verbalizes understanding. Reason for Disposition [1] MODERATE dizziness (e.g., interferes with normal activities) AND [2] has NOT been evaluated by doctor (or TYPE SOLDERING MACHINE TENDER/PA) for this (Exception: Dizziness caused by heat exposure, sudden standing, or poor fluid intake.) Answer Assessment - Initial Assessment Questions 1. DESCRIPTION: Patient reports that she quit taking HCTZ because it was causing her to be light-headed (swaying in the wind). She last took medication on 12/28/2023 and continues to have the dizziness. BP 182/101. Recheck 164/102. HR 64. 2. LIGHTHEADED: Woozy and weak upon standing. Reports it as a swaying in the wind when she stands up. 3. VERTIGO: No 4. SEVERITY:- MODERATE: Feels unsteady when walking, but not falling; interferes with normal activities (e.g., school, work). 5. ONSET: Right around the same time she took her first dose of hydrochlorothiazide. 6. AGGRAVATING FACTORS:Standing makes it worse. 7. HEART RATE: HR is 64 8. CAUSE: Patient believes it to be related to the HCTZ. 9. RECURRENT SYMPTOM: Patient not really certain. 10. OTHER SYMPTOMS: Denies fever, chest pain, vomiting, diarrhea, and bleeding Protocols used: Dizziness - [id number] documented in this encounter [facility] 12-22-2023 Miscellaneous Notes Pt informed, verbalized understanding. Molly Duncan Please call patient and let her know that lab work results overall look good. TSH is slightly low, but T4 is normal. I would recommend staying at current synthroid regimen unless pt is symptomatic. Kidney function remains stable. CKD stage 3b. Lipids and cholesterol levels look great! HgA1c remains stable. Uric acid level also remains stable. Continue with HCTZ medication for HTN and RTO in 4 weeks for follow-up. With this medication, have patient look out for gout flare. If this happens, we will have to change regimen. Thank you, Divina Louis APRN.NURSING SERVICES MANAGER documented in this encounter [facility] 12-20-2023 History of Present illness Narrative Chief Complaint Patient presents with: 3 month f/up HPI Racheal James is a 83 year old female who presents here today for Above Complaints. Racheal is an established patient of Dr. Valerio DO. She is a new patient to me today. Concerns today... Sinus trouble --- Ongoing sinus tenderness and drainage since August. Was treated with Augmentin antibiotic x 7 days in July but then symptoms returned. Pt denies any SOB, cough, or wheezing. Symptoms are all sinus pressure and head congestion. HTN --- She states compliant with current blood pressure medication(s): metoprolol 125 mg daily and losartan 50 mg daily. She does check BP at home. Average home readings: 160s/90s. She denies chest pain, shortness of breath, palpitations, dizziness, leg edema, headaches, or vision changes. Last 14 Encounter BP Readings: Date: BP: 12/20/2023 162/94 09/06/2023 138/80 06/02/2023 160/90 02/22/2023 190/98[Pt reports white coat syndrome but earlier today at home it was 130/77.[ 01/31/2023 138/84 08/01/2022 146/90 01/28/2022 150/90 01/13/2022 169/80[BP Zaina average[ 01/03/2022 182/98 12/27/2021 182/100 07/30/2021 138/82 06/29/2021 142/90 06/08/2021 128/80 04/20/2021 150/90 Hypothyroidism -- Prescribed 100 mcg of levothroxine daily. Takes routinely. Tolerating well. No recent hypothyroid symptoms. HLD -- On pravastatin 10 mg daily. No other concerns or complaints. Past medical history, appointments, medications, allergies reviewed. Previous Medical History PAST MEDICAL HISTORY Diagnosis Date Advance directive discussed with patient 01/28/2022 DPOA Conor her son Benign neoplasm of colon FHx of colon cancer Carpal tunnel syndrome Chronic renal insufficiency stage 4 CKD stage G3b/A1, GFR 30-44 and albumin creatinine ratio <30 mg/g (HCC) Diverticulosis of colon (without mention of hemorrhage) Essential hypertension, benign White coat effect Hyperlipidemia Hyperuricemia 04/2021 Post-surgical hypothyroidism 10/20/2005 SEC HYPERPARATHYROID, NON-RENAL Trigger finger Unspecified nontoxic nodular goiter Previous Surgical History PAST SURGICAL HISTORY Procedure Laterality Date APPENDECTOMY ARTHRP ACETBLR/PROX FEM PROSTC AGRFT/ALGRFT 08/2003, 2008 Hip replacement, total x2 BIOPSY BREAST OPEN INCISIONAL 05/28/15 Bx of breast, left BX BREAST W/DEVICE 1ST LESION STEREOTACTIC GUID 08/28/14 right, benign CARPAL TUNNEL 04/03/13 right CATARACT EXT; EYEONICS IOL SYS right, Dr. Byers COLONOSCOPY W/BIOPSY 05/31/16 diverticulosis, polyp COLONOSCOPY FLX DX W/COLLJ SPEC WHEN PFRMD 03/09/2001 Colonoscopy COLONOSCOPY FLX DX W/COLLJ SPEC WHEN PFRMD 04/05/2006 Colonoscopy COLONOSCOPY FLX DX W/COLLJ SPEC WHEN PFRMD 05/06/2011 Colonoscopy LIG/TRNSXJ FLP TUBE ABDL/VAG APPR UNI/BI Tubal ligation TOTAL THYROID LOBECTOMY UNI W/WO ISTHMUSECTOMY 04/01/08 RIGHT THYROID UNLISTED PROCEDURE HANDS/FINGERS 04/03/13 Right trigger finger Family History FAMILY HISTORY Problem Relation Age of Onset Colon Cancer Mother Hypertension Mother Cancer Sister thyroid Breast Cancer Sister Cancer Maternal Grandmother Stroke Paternal Grandfather Psychiatry Son suicide Patient Allergies ALLERGIES Allergen Reactions Clonidine Norvasc [Amlodipine* Other: See Comments Hair loss Prednisone Other: See Comments Elevated BP and nausea Zesteretic [Other] Cough Current Medications Current Outpatient Medications on File Prior to Visit Medication Sig metoprolol succinate ER (TOPROL XL) 25 mg 24 hr tablet Take 1 tablet by mouth once daily. In the morning if BLOOD PRESSURE is 140/90 or higher levothyroxine (SYNTHROID) 100 mcg tablet Take 1 tablet by mouth once daily. pravastatin (PRAVACHOL) 10 mg tablet Take 1 tablet by mouth daily at bedtime. metoprolol succinate ER (TOPROL XL) 100 mg Take 1 tablet by mouth once daily. valACYclovir (VALTREX) 500 mg tablet Take 1 tablet by mouth two times a day. losartan (COZAAR) 50 mg tablet Take 1 tablet by mouth once daily. MULTIVITAMIN WITH MINERALS (HAIR,SKIN & NAILS ORAL) Take 1 tablet by mouth once daily. ASPIRIN 81 MG ORAL TAB Take one(1) tablet daily. metoprolol succinate ER (TOPROL XL) 100 mg Take 1 tablet by mouth once daily. (Patient not taking: Reported on 12/20/2023) ketoconazole (NIZORAL) 2 % cream Apply 1 application to affected area twice daily. (Patient not taking: Reported on 12/20/2023) colchicine 0.6 mg tablet Take 1 tablet by mouth one time only for 1 dose. No current facility-administered medications on file prior to visit. Social History Social History Tobacco Use Smoking status: Never Smokeless tobacco: Never Vaping Use Vaping Use: Never used Substance Use Topics Alcohol use: No Drug use: No REVIEW OF SYSTEMS: as above Reviewed relevant PMHx, PSHx, Social Hx, current medications and allergies. Review of Symptoms REVIEW OF SYSTEMS See HPI. EXAM: Wt 72.5 kg (159 lb 12.8 oz) BMI 29.23 kg/m General Appearance: Well appearing, alert, in no acute distress, well-hydrated, well nourished.. Skin: Skin color, texture, turgor normal, no suspicious rashes or lesions. Head: Normocephalic, no masses, lesions, tenderness or abnormalities. Ears: External ears normal, canals clear. Nose/Sinuses: Nares normal, septum midline, mucosa normal, no drainage or sinus tenderness. Oropharynx: Lips, mucosa, and tongue normal, teeth and gums normal, oropharynx normal and Positive findings: mild oropharyngeal erythema. Lungs: Lungs clear to auscultation. No wheezing, rhonchi, rales.. Heart: RRR without murmur, gallop, or rubs. No ectopy. Health Maintenance List Depression Assessment due on 11/13/2023 RSV Vaccine(1 - 1-dose 60+ series) due on 12/20/2024 Shingrix Vaccine(1 of 2) due on 12/20/2024 DTaP,Tdap,Td Vaccine(3 - Tdap) due on 06/02/2024 Diabetes Screening due on 05/25/2026 Bone Density Screening Completed Influenza Vaccine Completed Covid-19 Vaccine Completed Pneumococcal Vaccine: 65+ Completed Colonoscopy Discontinued Advance Directive Discussion Discontinued ASSESSMENT/PLAN: 1. Essential hypertension - ICD9: 401.9, ICD10: I10 (primary diagnosis) - Uncontrolled - Continue current medications - Start hydrochlorothiazide low dose 12.5 mg daily. RTO in 4 weeks to reassess. Need to monitor uric acid and kidney function while on this. If any complications, will switch regimen at follow-up if needed. May need to just increase metoprolol if no improvement. Unable to increase losartan regimen due to poor kidney function. Pt has intolerance to amlodipine. HCTZ was tried in [id number] with good BP control but looks like from chart it was discontinued due to gout flare-up. Pt willing to retry due to no recent gout symptoms. - Recommend home blood pressure monitoring, to bring results to next visit - Encouraged sodium restriction, DASH or Mediterranean diet - Recommend regular aerobic exercise - Follow up in 4 weeks for hypertension visit - COMP METABOLIC PANEL - CBC + DIFF - LIPID PANEL BASIC - HGB A1C - HYDROCHLOROTHIAZIDE 12.5 MG CAPSULE - URIC ACID BLOOD 2. 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 - check TSH, free T4, and T3 today - continue current dose of Synthroid - TSH BLD - T4 FREE/FREE THYROX 3. 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 4. Vitamin D deficiency - ICD9: 268.9, ICD10: E55.9 Recheck - VITAMIN D 25 HYDROXY 5. Bacterial sinusitis - ICD9: 473.9, 041.9, ICD10: J32.9, B96.89 - Will begin treatment with as per antibiotic as written, see orders - The patient should also be given OTC decongestants prn, OTC cough and cold meds as needed, warm salt water gargles, throat lozenges and/or OTC throat spray as needed, and nasal saline gtts and suction prn for the first 5-7 days of treatment. - Supportive care with plenty of fluids, rest, and analgesia prn. - Follow up in 3-5 days if symptoms persist or worsen. - DOXYCYCLINE HYCLATE 100 MG TABLET RTO in 3-4 weeks, sooner if needed, for BP check, kidney function, and gout assessment. Prescription instructions reviewed with patient as applicable. Potential red flag symptoms discussed with the patient. Reviewed appropriate action plan to take if red flag symptoms occur. Patient agreeable to treatment plan. Divina Reed APRN.NURSING SERVICES MANAGER [id number] [place] [address] documented in this encounter [facility] 10-23-2023 Miscellaneous Notes Patient has been identified by name and date of : Yes, Provider Dr. Luo Date 10/23 Time 1400 Patient phones for refill(s): Requested Prescriptions Pending Prescriptions Disp Refills pravastatin (PRAVACHOL) 10 mg tablet 90 tablet 3 Sig: Take 1 tablet by mouth daily at bedtime. Date of last office visit in primary care: 09/06/2023 Date of next office visit in primary care: 12/07/2023 Last 2 Encounter Wt Readings: Date: Wt: 09/06/2023 73.5 kg (162 lb) 06/02/2023 72.1 kg (159 lb) Previous labs/tests for medication: Cholesterol: HDL Cholesterol (mg/dL) Date Value 05/25/2023 47 04/21/2021 43 LDL Cholesterol (mg/dL) Date Value 05/25/2023 95 04/21/2021 99 ALT (U/L) Date Value 05/25/2023 22 06/08/2021 14 Non HDL Cholesterol (mg/dL) Date Value 05/25/2023 126 04/21/2021 124 Please advise. Thank you. Amara Best RN. documented in this encounter [facility] 10-17-2023 Miscellaneous Notes Left a detailed message with information listed below. Julio Do LPN Please let patient know that her prescription refills were sent. The following approved medication requests have been transmitted electronically. Requested Prescriptions Signed Prescriptions Disp Refills metoprolol succinate ER (TOPROL XL) 100 mg 30 tablet 0 Sig: Take 1 tablet by mouth once daily. Authorizing Provider: BELKYS SILVA metoprolol succinate ER (TOPROL XL) 100 mg 90 tablet 3 Sig: Take 1 tablet by mouth once daily. Authorizing Provider: BELKYS SILVA PA-C Pt calling in stating she called [facility] for refill and advised medication was discontinued. Pt frustrated because this is not true. Advised pt that she is due for a refill on this. Pt is completely out of medication. Advised pt would send refill to [facility] and send short term supply to [facility]. Pt verbalizes understanding. Please call pt when rx has been sent. Pt has ov 12/07/23. Karla Mauro LPN documented in this encounter [facility] 07-27-2023 Miscellaneous Notes Patient has been identified by name and date of : Yes, Provider Date Time Patient phones for refill(s): Requested Prescriptions Pending Prescriptions Disp Refills losartan (COZAAR) 50 mg tablet 90 tablet 3 Sig: Take 1 tablet by mouth once daily. Date of last office visit with pcp: 06/02/23 Date of last office visit in primary care: Last 2 Encounter Wt Readings: Date: Wt: 06/02/2023 72.1 kg (159 lb) 01/31/2023 72.1 kg (159 lb) Previous labs/tests for medication: Blood Pressure: BUN (mg/dL) Date Value 05/25/2023 29 06/14/2021 23 Sodium (mmol/L) Date Value 05/25/2023 137 06/14/2021 138 Last 1 Encounter BP Readings: Date: BP: 06/02/2023 160/90 Please advise. Thank you. Ekta Snell RN documented in this encounter [facility] 03-23-2023 History of Present illness Narrative Episode Visit Count: 9 Therapist That Will Accept/Oversee The Plan Of Care: Bernardino Sharma PT Start of Care Date: 02/22/23 Onset Date: 09/24/22 Plan of Care Certification Date: 02/22/23 Next Certification Due Date: 03/29/23 Patient Identified by Name and Date of : Yes REHABILITATION AND SPORTS THERAPY PHYSICAL THERAPY DISCONTINUANCE OF CARE PLAN OF CARE UPDATE: Assessment: Racheal Otilio James is discontinued from Physical Therapy services due to goal achievement. and Patient/Clinician mutual decision to discontinue current plan of care.. Patient was seen for 9 visits from Start of Care Date: 02/22/23 to 03/23/2023 and treatment included: Therapeutic exercise, Self-retirement management, and Patient/Family/Caregiver Education. Updated: 03/23/23 Goals for Episode of Care: created on 02/22/23 through 03/29/23 Independent in home exercises. - MET Patient will decrease pain to 0/10 at rest and with functional activities to allow patient to improve standing tolerance for ADLs. - MET Restore pain-free lumbar ROM to WFL to allow for improved functional movement tolerance. - MET Stand / Walk without limitations, without pain/symptoms. - MET Patient will be able to tolerate prolonged standing, walking, bending and cooking without increased symptoms. - MET Patient will increase strength of core/postural muscles to WFL to allow for increased standing tolerance for household activities. - MET Patient Goals: decrease pain in low back and LEs - MET SUBJECTIVE: Patient Reason for Visit: Pt reports that overall she is doing well and getting progressively better. She reports compliance with HEP 2x day and she denies any pain to start today. 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 She also reports increased standing tolerance. Pain: Pain Pain Level: 0 Pain Location: Low Back/Lumbar Spine - Right, Low Back/Lumbar Spine - Left, Leg - Right, Leg - Left Description: (pt denied any pain to start today) Frequency: Intermittent (no pain currently) Post Treatment Pain Post Treatment Pain Level: No Change Post Treatment Pain Location: Low Back/Lumbar Spine - Left, Low Back/Lumbar Spine - Right, Low Back/Lumbar Spine- Midline PROMIS Scales Higher is Better 03/23/2023 02/22/2023 Phys Func - Score 44 (mild dysfunction) 38 (moderate dysfunction) Phys Func - Percentile 27 % 12 % Self-Eff Symptom - Score 42 (Average) 41 (Average) Self-Eff Symptom - Percentile 21 % 18 % T-scores: mean of general population = 50. 5 points is clinically meaningfully difference Percentiles provide an indication of how the patient's score ranks in relation to the general population. Higher percentile rankings indicate better function/quality of life. 50th percentile is the average of the general population and indicates half of respondents had a worse score. OBJECTIVE MEASURES WITH LEVEL OF FUNCTION: Lumbar Spine AROM Lumbar Flexion: Normal Lumbar Extension: Normal Lumbar R Side-Bend: Normal Lumbar L Side-Bend: Normal Lumbar R Rotation: Normal Lumbar L Rotation: Normal LE Strength Trunk Strength: improving functionally with increased position and activity tolerance. TREATMENT: Therapeutic Exercise: 1: [employer] StepOne seat #10 x6 minutes (Pt provided an update on her condition and plan reviewed) 2: supine LTR 2x10 3: crunches in small range 2x10 4: Hooklying PPT 2x10 5: HEP was reviewed and continuation encouraged to tolerance. She is to continue using pain as her guide at all times and call with any future questions or concerns. 6: Bridging 2x15 7: back extension machine 50# 3x10 8: Seated scapular retraction at hoist 1 plate plus 3 round 3x10 9: stirring the pot at Hoist 1 plate x10 CW and x10 CCW facing both lateral directions. 10: Seated at Hoist pull downs with constance overhead and elbows held in extension 1 plate plus 3 round 3x10 Skilled Intervention: Patient was educated in proper exercise technique and purpose for exercises. Skilled judgment was provided in selection of appropriate interventions. Correct performance of therapeutic exercises was facilitated with verbal, visual, and tactile cuing. Patient education as noted. Billing Therapeutic Exercise Treatment Minutes: 40 Total Treatment Time Minutes (timed/untimed): 40 Bernardino Sharma PT documented in this encounter [facility] 03-20-2023 History of Present illness Narrative Episode Visit Count: 8 Therapist That Will Accept/Oversee The Plan Of Care: Bernardino Sharma PT Start of Care Date: 02/22/23 Onset Date: 09/24/22 Plan of Care Certification Date: 02/22/23 Next Certification Due Date: 03/29/23 Patient Identified by Name and Date of : Yes REHABILITATION AND SPORTS THERAPY PHYSICAL THERAPY TREATMENT NOTE ASSESSMENT: Racheal James tolerated the session with fatigue and no issues. She demonstrated difficulty with Stir the Pot at the Hoist machine. The patient will continue to benefit from ongoing skilled physical therapy to progress toward set goals. PLAN FOR NEXT VISIT: Progress note and possibly d/c per evaluating therapist. SUBJECTIVE: Patient Reason for Visit: Pt reports that her back is feeling okay today. Pain: Pain Pain Level: 0 Pain Location: Low Back/Lumbar Spine - Right, Low Back/Lumbar Spine - Left, Leg - Right, Leg - Left (posterior aspect of LEs) Post Treatment Pain Post Treatment Pain Location: Low Back/Lumbar Spine - Left, Low Back/Lumbar Spine - Right, Low Back/Lumbar Spine- Midline OBJECTIVE MEASURES WITH LEVEL OF FUNCTION: TREATMENT: Therapeutic Exercise: 1: [employer] StepOne seat #10 x6 minutes (Pt provided an update on her condition and plan reviewed) 2: supine LTR 2x10 3: crunches in small range 2x10 4: Hooklying PPT 2x10 5: Hooklying with TA activation with pushing into plinth 2x10 6: Bridging 2x15 7: back extension machine 50# 3x10 8: Seated scapular retraction at hoist 1 plate plus 3 round 3x10 9: stirring the pot at Hoist 1 plate x10 CW and x10 CCW facing both lateral directions. 10: Seated at Hoist pull downs with constance overhead and elbows held in extension 1 plate plus 3 round 3x10 Skilled Intervention: Patient was educated in proper exercise technique and purpose for exercises. Skilled judgment was provided in selection of appropriate interventions. Correct performance of therapeutic exercises was facilitated with verbal and visual cuing. Billing Therapeutic Exercise Treatment Minutes: 40 Total Treatment Time Minutes (timed/untimed): 40 HARRY Malhotra PT documented in this encounter [facility] 03-16-2023 History of Present illness Narrative Episode Visit Count: 7 Therapist That Will Accept/Oversee The Plan Of Care: Bernardino Sharma PT Start of Care Date: 02/22/23 Onset Date: 09/24/22 Plan of Care Certification Date: 02/22/23 Next Certification Due Date: 03/29/23 Patient Identified by Name and Date of : Yes REHABILITATION AND SPORTS THERAPY PHYSICAL THERAPY TREATMENT NOTE ASSESSMENT: Racheal James tolerated the session with fatigue, decreased symptoms, and no issues. She demonstrated improvements in pain and exercise tolerance. The patient will continue to benefit from ongoing skilled physical therapy to progress toward set goals. PLAN FOR NEXT VISIT: Continue with active therex with flexion directional preference to increase postural/core strength. Consider progression of HEP in preparation for likely d/c 03/23/23. SUBJECTIVE: Patient Reason for Visit: Pt reports that overall she is doing well and getting progressively better. She reports compliance with HEP 2x day and denies any pain or problems with therex done in previous PT. She denies any pain to start today. Pain: Pain Pain Level: 0 Description: (no pain to start today) Frequency: Intermittent Post Treatment Pain Post Treatment Pain Level: 0 Post Treatment Symptoms: After session pt stated, I don't hurt. OBJECTIVE MEASURES WITH LEVEL OF FUNCTION: TREATMENT: Therapeutic Exercise: 1: [email or web address] StepOne seat #10 x6 minutes (Pt provided an update on her condition and plan reviewed) 2: supine LTR 2x10 3: crunches in small range 2x10 4: Hooklying PPT 2x10 5: Hooklying with TA activation with pushing into plinth 2x10 6: Bridging 2x15 7: back extension machine 50# 3x10 8: Seated scapular retraction at hoist 1 plate plus 3 round 3x10 9: stirring the pot at Hoist 1 plate x10 CW and x10 CCW facing both lateral directions. 10: Seated at Hoist pull downs with constance overhead and elbows held in extension 1 plate plus 3 round 3x10 Skilled Intervention: Patient was educated in proper exercise technique and purpose for exercises. Skilled judgment was provided in selection of appropriate interventions. Correct performance of therapeutic exercises was facilitated with verbal and visual cuing. Patient education as noted. Billing Therapeutic Exercise Treatment Minutes: 30 Total Treatment Time Minutes (timed/untimed): 30 Bernardino Sharma PT documented in this encounter [facility] 03-14-2023 History of Present illness Narrative Episode Visit Count: 6 Therapist That Will Accept/Oversee The Plan Of Care: Bernardino Sharma PT Start of Care Date: 02/22/23 Onset Date: 09/24/22 Plan of Care Certification Date: 02/22/23 Next Certification Due Date: 03/29/23 Patient Identified by Name and Date of : Yes REHABILITATION AND SPORTS THERAPY PHYSICAL THERAPY TREATMENT NOTE ASSESSMENT: Racheal James tolerated the session with fatigue. She demonstrated difficulty with stir the pot at hoist machine . The patient will continue to benefit from ongoing skilled physical therapy to progress toward set goals. PLAN FOR NEXT VISIT: Continue with seated and standing core exercises. SUBJECTIVE: Patient Reason for Visit: Pt reports that she is feeling great today. Pt denies any pain to start todays session. Pain: Pain Pain Level: 0 Pain Location: Low Back/Lumbar Spine - Right, Low Back/Lumbar Spine - Left, Leg - Right, Leg - Left (posterior aspect of LEs) OBJECTIVE MEASURES WITH LEVEL OF FUNCTION: Increased postural awareness noted with seated scapular retractions at hoist. TREATMENT: Therapeutic Exercise: 1: SciFit StepOne seat #10 x6 minutes (Pt provided an update on her condition and plan reviewed) 2: supine LTR 2x10 3: crunches in small range 2x10 4: Hooklying PPT 2x10 5: Hooklying with TA activation with pushing into physioball 2x10 6: Bridging 2x12 7: back extension machine 40# 3x10 8: Seated scapular retraction at hoist 1 plate plus 3 round 3x10 (emphasis on postural alignment) 9: stirring the pot at Hoist 1 plate x10 CW and x10 CCW facing both lateral directions. 10: Seated isometric abdominals with 2 second holds 2x10 Skilled Intervention: Patient was educated in proper exercise technique and purpose for exercises. Skilled judgment was provided in selection of appropriate interventions. Correct performance of therapeutic exercises was facilitated with verbal and visual cuing. Billing Therapeutic Exercise Treatment Minutes: 40 Total Treatment Time Minutes (timed/untimed): 40 HARRY Malhotra PT documented in this encounter [facility] 03-10-2023 History of Present illness Narrative Episode Visit Count: 5 Therapist That Will Accept/Oversee The Plan Of Care: Bernardino Sharma PT Start of Care Date: 02/22/23 Onset Date: 09/24/22 Plan of Care Certification Date: 02/22/23 Next Certification Due Date: 03/29/23 Patient Identified by Name and Date of : Yes REHABILITATION AND SPORTS THERAPY PHYSICAL THERAPY TREATMENT NOTE ASSESSMENT: Racheal James tolerated the session with fatigue and no issues. She demonstrated improvements in pain and exercise tolerance. The patient will continue to benefit from ongoing skilled physical therapy to progress toward set goals. PLAN FOR NEXT VISIT: Continue with postural stretching and strengthening with flexion directional preference. progress to tolerance and add more upright strengthening therex. SUBJECTIVE: Patient Reason for Visit: Pt reports that overall she is better. She reports that LE symptoms are nearly abolished. She reports short duration pain in posterior hips and thighs but this resolves quickly after she gets up. Overall, LE pains are much less. She denies any pain to start today. She reports compliance with HEP 2x day as instructed. Pain: Pain Pain Level: 0 Description: (no pain to start today) Frequency: Intermittent Post Treatment Pain Post Treatment Pain Level: No Change Post Treatment Symptoms: Pt did not report any increase in pain during or after session today. OBJECTIVE MEASURES WITH LEVEL OF FUNCTION: TREATMENT: Therapeutic Exercise: 1: SciFit StepOne seat #10 x6 minutes (Pt provided an update on her condition and plan reviewed) 2: supine LTR 2x10 3: crunches in small range 2x10 4: Hooklying PPT 2x10 6: Bridging 2x12 7: back extension machine 30# 3x10 8: Seated scapular retraction at hoist 1 plate plus 3 round 3x10 (emphasis on postural alignment) 9: stirring the pot at Hoist 1 plate x10 CW and x10 CCW facing both lateral directions. Skilled Intervention: Patient was educated in proper exercise technique and purpose for exercises. Skilled judgment was provided in selection of appropriate interventions. Correct performance of therapeutic exercises was facilitated with verbal, visual, and tactile cuing. Patient education as noted. Billing Therapeutic Exercise Treatment Minutes: 45 Total Treatment Time Minutes (timed/untimed): 45 Bernardino Sharma PT documented in this encounter [facility] 03-07-2023 History of Present illness Narrative Episode Visit Count: 4 Therapist That Will Accept/Oversee The Plan Of Care: Bernardino Sharma PT Start of Care Date: 02/22/23 Onset Date: 09/24/22 Plan of Care Certification Date: 02/22/23 Next Certification Due Date: 03/29/23 Patient Identified by Name and Date of : Yes REHABILITATION AND SPORTS THERAPY PHYSICAL THERAPY TREATMENT NOTE ASSESSMENT: Racheal James tolerated the session with fatigue. She demonstrated difficulty with scapular retractions, but improvements noted with verbal, visual, and tactile cueing and good form demonstrated. The patient will continue to benefit from ongoing skilled physical therapy to progress toward set goals. PLAN FOR NEXT VISIT: Condsider adding hooklying physioball push downs. SUBJECTIVE: Patient Reason for Visit: Pt reports that her back is about the same, she doesn't feel it hurting yet today. Pt states compliance with HEP 2x/day. Pain: Pain Pain Level: 0 Pain Location: Low Back/Lumbar Spine - Right, Low Back/Lumbar Spine - Left, Leg - Right, Leg - Left (posterior aspect of LEs) Post Treatment Pain Post Treatment Pain Level: No Change Post Treatment Pain Location: Low Back/Lumbar Spine - Left, Low Back/Lumbar Spine - Right, Low Back/Lumbar Spine- Midline OBJECTIVE MEASURES WITH LEVEL OF FUNCTION: Good technique with hooklying PPT. TREATMENT: Therapeutic Exercise: 1: SciFit StepOne seat #10 x5 minutes (Pt provided an update on her condition) 2: supine LTR 2x10 3: crunches in small range 2x10 4: Hooklying PPT 2x10 5: Hooklying PPT with alt marches 2x5 B 6: Bridging 2x12 7: back extension machine 30# 2x10 8: *Seated scapular retractions with GTB 2x10 (verbal, visual, and tactile cueing for technique) Skilled Intervention: Patient was educated in proper exercise technique and purpose for exercises. Reviewed and educated patient on additions/changes for home exercise program as above (*). Skilled judgment was provided in selection of appropriate interventions. Provided written instruction for home exercise program to facilitate proper performance and compliance. Correct performance of therapeutic exercises was facilitated with verbal and visual cuing. Billing Therapeutic Exercise Treatment Minutes: 45 Total Treatment Time Minutes (timed/untimed): 45 Sandra Reece, HARRY Sharma PT documented in this encounter [facility] 03-03-2023 History of Present illness Narrative Episode Visit Count: 3 Therapist That Will Accept/Oversee The Plan Of Care: Bernardino Sharma PT Start of Care Date: 02/22/23 Onset Date: 09/24/22 Plan of Care Certification Date: 02/22/23 Next Certification Due Date: 03/29/23 REHABILITATION AND SPORTS THERAPY PHYSICAL THERAPY TREATMENT NOTE ASSESSMENT: Racheal James tolerated the session with fatigue and expected muscle soreness. She demonstrated difficulty with seated isometrics and scapular retractions. The patient will continue to benefit from ongoing skilled physical therapy to progress toward set goals. PLAN FOR NEXT VISIT: Give t-band for scapular retractions. SUBJECTIVE: Patient Reason for Visit: Pt reports that she is felling a little sore today from completing the exercises at home. Pain: Pain Pain Level: 0 Pain Location: Low Back/Lumbar Spine - Right, Low Back/Lumbar Spine - Left, Leg - Right, Leg - Left (posterior aspect of LEs) Frequency: Intermittent Post Treatment Pain Post Treatment Pain Level: No Change Post Treatment Pain Location: Low Back/Lumbar Spine - Left, Low Back/Lumbar Spine - Right, Low Back/Lumbar Spine- Midline OBJECTIVE MEASURES WITH LEVEL OF FUNCTION: Good core stabilization noted with band perturbations. TREATMENT: Therapeutic Exercise: 1: SciFit StepOne seat #10 x5 minutes (Pt provided an update on her condition and plan of care updated.) 2: supine LTR 2x10 3: crunches in small range 2x10 4: supine isometric abdominal exercise via shoulder extension 2 second holds 2x10 5: Seated isometric abdominals 2x10 6: seated at side of plinth blue t-band perturbations right, left and forward 3x15 7: seated at side of plinth, blue t-band pallof press 2x10 B lateral directions. 8: seated at side of plinth blue t-band scapular retraction 3x10 (verbal cues for technique) 9: back extension machine 30# 2x10 Skilled Intervention: Patient was educated in proper exercise technique and purpose for exercises. Skilled judgment was provided in selection of appropriate interventions. Correct performance of therapeutic exercises was facilitated with verbal and visual cuing. Billing Therapeutic Exercise Treatment Minutes: 40 Total Treatment Time Minutes (timed/untimed): 40 Sandra Reece, HARRY Sharma PT documented in this encounter [facility] 02-27-2023 History of Present illness Narrative Episode Visit Count: 2 Therapist That Will Accept/Oversee The Plan Of Care: Bernardino Sharma PT Start of Care Date: 02/22/23 Onset Date: 09/24/22 Plan of Care Certification Date: 02/22/23 Next Certification Due Date: 03/29/23 Patient Identified by Name and Date of : Yes REHABILITATION AND SPORTS THERAPY PHYSICAL THERAPY TREATMENT NOTE ASSESSMENT: Racheal James tolerated the session with fatigue, expected muscle soreness, and no issues. She demonstrated difficulty with following instructions for therex. The patient will continue to benefit from ongoing skilled physical therapy to progress toward set goals. PLAN FOR NEXT VISIT: Continue with therex for core/postural strengthening, progressing to tolerance. No traction at this time. Progress HEP to tolerance. SUBJECTIVE: Patient Reason for Visit: Pt reports that overall she is feeling approximately the same. She denies any pain to start today. She reports compliance with HEP 2x day without any pain or problems. Pain: Pain Pain Level: 0 Description: (no pain to start today) Frequency: Intermittent Post Treatment Pain Post Treatment Pain Level: 0 Post Treatment Pain Description: (no change or increase in pain, just fatigue) Post Treatment Symptoms: During and after session she reported fatigue from a good workout but she denied any increase in pain. OBJECTIVE MEASURES WITH LEVEL OF FUNCTION: TREATMENT: Therapeutic Exercise: 1: SciFit StepOne seat #10 x5 minutes (Pt provided an update on her condition and plan of care updated.) 2: supine LTR 2x10 3: supine isometric abdominal exercise via shoulder extension 2 second holds 2x10 4: crunches in small range 2x10 5: bridging 2x10 6: seated at side of plinth blue t-band perturbations right, left and forward 3x15 7: seated at side of plinth, blue t-band pallof press 2x10 B lateral directions. 8: seated at side of plinth blue t-band scapular retraction 3x10 9: back extension machine 30# 2x10 10: HEP reviewed, corrected and continuation encouraged but not additions today. Skilled Intervention: Patient was educated in proper exercise technique and purpose for exercises. Skilled judgment was provided in selection of appropriate interventions. Correct performance of therapeutic exercises was facilitated with verbal, visual, and tactile cuing. Patient education as noted. Billing Therapeutic Exercise Treatment Minutes: 40 Total Treatment Time Minutes (timed/untimed): 40 Bernardino Sharma PT documented in this encounter [facility] 02-22-2023 History of Present illness Narrative Episode Visit Count: 1 Therapist That Will Accept/Oversee The Plan Of Care: Bernardino Sharma PT Start of Care Date: 02/22/23 Onset Date: 09/24/22 Plan of Care Certification Date: 02/22/23 Next Certification Due Date: 03/29/23 Patient Identified by Name and Date of : Yes REHABILITATION AND SPORTS THERAPY PHYSICAL THERAPY EVALUATION PLAN OF CARE: Assessment: Racheal James presents with chief complaint of B low back pain with intermittent posterior B LE radiculopathy that interferes with bending, cooking, cleaning (gardening, prolonged standing). She presents with impairments in ADL's, gait, independence in exercise, overall function, posture, range of motion, strength, and symptom management. PROMIS (Patient-Reported Outcomes Measurement Information System) scores were reviewed and physical function domain identified as a rehabilitation concern. Prognosis for therapy is Excellent due to: current objective clinical presentation, good overall health status, within-session changes. She will benefit from skilled therapy services to meet the goals established for this plan of care as noted below. Classification Low Back Pain Subgroup Classification: Core stabilization subgroup: recommended visits 10. Core Stabilization Subgroup Classification based on: pain with transitional movements (pain with prolonged positions) Goals for Episode of Care: created on 02/22/23 through 03/29/23 Independent in home exercises. Patient will decrease pain to 0/10 at rest and with functional activities to allow patient to improve standing tolerance for ADLs. Restore pain-free lumbar ROM to WFL to allow for improved functional movement tolerance. Stand / Walk without limitations, without pain/symptoms. Patient will be able to tolerate prolonged standing, walking, bending and cooking without increased symptoms. Patient will increase strength of core/postural muscles to WFL to allow for increased standing tolerance for household activities. Patient Goals: decrease pain in low back and LEs Planned Interventions, Frequency, and Duration: Current Frequency: 2x/week Duration: 5 weeks Total Number of Visits Planned: 10 Planned Treatment Interventions: Therapeutic exercise (51045), Neuromuscular re-education (24206), Therapeutic activities (31968), Self-retirement management (63348), Patient/Family/Caregiver Education, Body Mechanics Training PLAN FOR NEXT VISIT: Focus on therex to improve flexibility, decrease pain and most importantly increase strength and stability of lumbar spine. No manual traction at this time, focus on core strengthening with either neutral spine or flexion direction. Patient demonstrates good understanding of plan of care and treatment. The above goals and plan of care were discussed and agreed upon by patient/family. SUBJECTIVE: Racheal James is a 82 year old female seen today for intermittent pain across both sides of low back and down posterior aspects of B LEs at times. She attributes these symptoms to a significant decrease in activity level over the winter. She feels that she has gotten weak. Patient Goals: decrease pain in low back and LEs Functional Limitations: bending, cooking, cleaning (gardening, prolonged standing) Prior Level of Function: Independent without limitations Relevant History Past Relevant Surgical Conditions: Total Hip Replacement-Right, Total Hip Replacement-Left, Comments (CTR May 17 with less than optimal results per pt) Employment: Retired Home Environment Patient Lives With: Self/Alone (son lives across the street) Assistance Available: PRN Home Type: Ranch (basement stairs that she uses with rail) Entry To Home: Stairs, Without Rail Number Of Stairs Into Home: 1 Intake Information: Prescription present Previous Treatment: None Falls Interview: No positive findings with falls interview Red Flags Vertebral Fracture Red Flags: Female, Age >70 Vertebral Fracture Clinical Reasoning: Proceed with caution due to the above (1-2) risk factors Abdominal Aortic Aneurysm Clinical Reasoning: No identified risk factors. Cancer Clinical Reasoning: No identified risk factors. Infection Clinical Reasoning: No identified risk factors. Cauda Equina Syndrome Clinical Reasoning: No identified risk factors. Red Flags - Cervical Cancer Clinical Reasoning: No identified risk factors. Infection Clinical Reasoning: No identified risk factors. Spine History Symptoms Location at Onset: Back Symptoms Since Onset: Unchanging Pain is Worse Always: Bending, Standing, Prolonged positions Pain is Better Sometimes: Rest Previous Episodes: No Sleeping Position: Side lying left Sleep Affected by Pain: Not affected by pain Pain: Pain Pain Level: 6 Pain Location: Low Back/Lumbar Spine - Right, Low Back/Lumbar Spine - Left, Leg - Right, Leg - Left (posterior aspect of LEs) Description: Dull Frequency: Intermittent, Standing Post Treatment Pain Post Treatment Pain Level: No Change PROMIS Scales Higher is Better 02/22/2023 Phys Func - Score 38 (moderate dysfunction) Phys Func - Percentile 12 % Self-Eff Symptom - Score 41 (Average) Self-Eff Symptom - Percentile 18 % T-scores: mean of general population = 50. 5 points is clinically meaningfully difference Percentiles provide an indication of how the patient's score ranks in relation to the general population. Higher percentile rankings indicate better function/quality of life. 50th percentile is the average of the general population and indicates half of respondents had a worse score. OBJECTIVE MEASURES WITH LEVEL OF FUNCTION: Posture / Alignment Posture: Forward head, Increased thoracic kyphosis, Rounded shoulders Reflexes - Lower Extremity R Patellar: Normal L Patellar: Normal Spine Observations R Lumbar Spine Palpation Tenderness: No tenderness noted L Lumbar Spine Palpation Tenderness: No tenderness noted Sensation - Lumbar Sensation: Grossly Intact Lumbar Spine AROM Lumbar Flexion: Normal Lumbar Extension: Major limitation Lumbar R Side-Bend: Normal Lumbar L Side-Bend: Normal Lumbar R Rotation: Normal Lumbar L Rotation: Normal LE Strength Trunk Strength: Pt's reported inactivity, functional difficulties, imaging study results and postural deficits indicate that she will benefit from increased core and postural strength. R LE Strength: No asymmetrical myotomal weakness detected in B LEs at this time. L LE Strength: No asymmetrical myotomal weakness detected in B LEs at this time. Special Tests - Hip and Spine Hip and Spine Special Tests: SLR Test SLR Test: Right Positive, Left Positive Gait Gait Observation: normal Education: Education Learning Preferences: Demonstration, Explanation, Performance, Printed Materials Barriers: Cognitive Limitations, Hearing Deficit Learning/educational needs: Plan of Care, Home exercise program, Posture, Body Mechanics Education Provided: Yes, see treatment interventions for education provided Education Provided To: Patient Education Mode/Type: Demonstration, Explanation/Discussion, Performance, Literature/Printed Materials Response to Education/Teach Back: States/Identifies, Return Demonstration, Requires Review/Additional Education TREATMENT: PT Treatment Interventions: Therapeutic Exercise Evaluation Therapeutic Exercise: 1: Pt was educated on the anatomy of lumbar spine, likely source of her symptoms and rationale for proposed treatment plan. Focus should be on core strengtheing and pt understands. She was repeatedly advised that she should stop any exercise or activity that causes increased pain. She was educated that soreness from fatigue was okay but that increased pain should be avoided. 2: *supine LTR 2x10 3: *supine isometric abdominal exercise via shoulder extension 2 second holds 2x10 4: *crunches in small range 2x10 Skilled Intervention: Patient was educated in proper exercise technique and purpose for exercises. Reviewed and educated patient on additions/changes for home exercise program as above (*). Skilled judgment was provided in selection of appropriate interventions. Provided written instruction for home exercise program to facilitate proper performance and compliance. Correct performance of therapeutic exercises was facilitated with verbal, visual, and tactile cuing. Patient education as noted. Billing * Evaluation Moderate Complexity: 1 Unit Therapeutic Exercise Treatment Minutes: 20 Total Treatment Time Minutes (timed/untimed): 45 Bernardino Sharma PT documented in this encounter [facility] 02-06-2023 Miscellaneous Notes Opened in Error documented in this encounter [facility] 01-31-2023 History of Present illness Narrative CC: Racheal James is a 82 year old female who presents to the office for follow up HPI: CKD stage 4, seeing Dr. Danni Jimenez [facility], recently dose of her losartan was decreased to 50 mg, down from 75 mg once a day, tolerating this well in the last 6 months HTN, BLOOD PRESSURE is well controlled at home, brought in readings today of mostly 110-130/60-70s range, pulse rate 60-70s typically. Denies any chest pressure/pain or dyspnea or edema. Does feel like her verapamil medication is causing her to feel fatigued/lethargic- doesn't feel like she can get up and do anything until about 11 am or 12 noon and I don't like that. She is requesting a medication change Hyperuricemia, admits to still eating occasional sausage and shrimp but only rarely, otherwise mostly only chicken. Uric acid levels are improved to 7's, no recent gout flare ups. Chronic low back pain, long standing, sometimes radiating to b/l lower legs, no numbness or tingling, no falls or injuries. No fevers or chills. Hypothyroidism, taking levoxyl 88 mcg daily, tolerating without concerns., + Fatigue TSH Date Value Ref Range Status 01/25/2023 3.350 0.270 - 4.200 mIU/L Final Free T4 Date Value Ref Range Status 01/25/2023 1.2 0.9 - 1.7 ng/dL Final PAST MEDICAL HISTORY Diagnosis Date Advance directive discussed with patient 01/28/2022 KAMRAN Perdomo her son Benign neoplasm of colon FHx of colon cancer Carpal tunnel syndrome Chronic renal insufficiency stage 4 CKD stage G3b/A1, GFR 30-44 and albumin creatinine ratio <30 mg/g (HCC) Diverticulosis of colon (without mention of hemorrhage) Essential hypertension, benign White coat effect Hyperlipidemia Hyperuricemia 04/2021 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 Byers COLONOSCOPY W/BIOPSY 05/31/16 diverticulosis, polyp COLONOSCOPY FLX DX W/COLLJ SPEC WHEN PFRMD 03/09/2001 Colonoscopy COLONOSCOPY FLX DX W/COLLJ SPEC WHEN PFRMD 04/05/2006 Colonoscopy COLONOSCOPY FLX DX W/COLLJ SPEC WHEN PFRMD 05/06/2011 Colonoscopy LIG/TRNSXJ FLP TUBE ABDL/VAG APPR UNI/BI Tubal ligation TOTAL THYROID LOBECTOMY UNI W/WO ISTHMUSECTOMY 04/01/08 RIGHT THYROID UNLISTED PROCEDURE HANDS/FINGERS 04/03/13 Right trigger finger Current Outpatient Medications Medication Sig levothyroxine (SYNTHROID) 100 mcg tablet Take 1 tablet by mouth once daily. pravastatin (PRAVACHOL) 10 mg tablet Take 1 tablet by mouth daily at bedtime. metoprolol succinate ER (TOPROL XL) 100 mg TAKE 1 TABLET EVERY DAY losartan (COZAAR) 50 mg tablet Take 1 tablet by mouth once daily. ketoconazole (NIZORAL) 2 % cream Apply 1 application to affected area twice daily. colchicine 0.6 mg tablet Take 1 tablet by mouth one time only for 1 dose. MULTIVITAMIN WITH MINERALS (HAIR,SKIN & NAILS ORAL) Take 1 tablet by mouth once daily. ASPIRIN 81 MG ORAL TAB Take one(1) tablet daily. dilTIAZem LA (CARDIZEM LA) 120 mg 24 hr tablet Take 1 tablet by mouth once daily. valACYclovir (VALTREX) 500 mg tablet Take 1 tablet by mouth twice daily. No current facility-administered medications for this visit. ALLERGIES Allergen Reactions Clonidine Norvasc [Amlodipine* Other: See Comments Hair loss Prednisone Other: See Comments Elevated BP and nausea Zesteretic [Other] Cough Social History Tobacco Use Smoking status: Never Smokeless tobacco: Never Vaping Use Vaping Use: Never used Substance Use Topics Alcohol use: No Drug use: No ROS: See HPI PE: BP 138/84 Pulse 76 Temp (Src) 97.3 (Left Tympanic) Resp 20 Wt 159 lb (72.1kg) Gen: A&OX3, NAD, non-toxic appearing HEENT: PERRLA, EOMs intact b/l, nares without drainage, pharynx without erythema, exudate, lesions, or drainage. Uvula midline. MMM Neck: No LAD, no thyromegaly, no meningismus. CV: RRR, no murmur, normal s1s2 Lungs: CTA b/l, no wheezing Skin: No rashes, lesions, or wounds on exposed skin. No edema, normal pulses Hard of hearing ASSESSMENT/PLAN: 1. Acute bilateral low back pain with bilateral sciatica - ICD9: 724.2, 724.3, ICD10: M54.42, M54.41 (primary diagnosis) Chronic low back pain - Ice for localized tenderness - Warm moist heat for 20 min three times a day - PT consult - CONSULT TO PHYSICAL THERAPY 2. Essential hypertension - ICD9: 401.9, ICD10: I10 - good control - Add Diltiazem - Discontinue Verapamil - Encouraged dietary sodium restriction/DASH diet - Recommended regular aerobic exercise. - Recommend home blood pressure monitoring, to bring results in on next visit - Discussed need and benefit for weight loss. - Goal of BP <130/80 3. 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 - Increase Synthroid dose to 0.100 mg - LEVOTHYROXINE 100 MCG TABLET 4. Weakness of low back due to inactivity - ICD9: 728.87, ICD10: R29.898 - CONSULT TO PHYSICAL THERAPY 5. Secondary hyperparathyroidism (HCC) - ICD9: 588.81, ICD10: N25.81 - f/u with [facility] 6. Chronic kidney disease, stage 3b (HCC) - ICD9: 585.3, ICD10: N18.32 - eGFR: Stable - Counseled on avoiding regular use of NSAIDs, adequate hydration, potential risk of IV dye Tuan Luo DO Return if no improvement. Follow up with Tuan Luo DO. To ER if develops chest pain, shortness of breath Discussed risks, benefits, alternatives, and potential side effects of medications. Patient/Guardian expressed understanding and agreed with the plan. See patient instructions. Tuan Luo DO [id number] [place] [address] documented in this encounter [facility] 11-10-2022 Miscellaneous Notes Patient has been identified by name and date of : Yes Patient phones for refill(s): Requested Prescriptions Pending Prescriptions Disp Refills pravastatin (PRAVACHOL) 10 mg tablet 90 tablet 3 Sig: Take 1 tablet by mouth daily at bedtime. Date of last office visit in primary care: 10.27.22 next apt 01/31/23 Last 2 Encounter Wt Readings: Date: Wt: 08/01/2022 69.9 kg (154 lb) 01/28/2022 68.5 kg (151 lb) Previous labs/tests for medication: Cholesterol: HDL Cholesterol (mg/dL) Date Value 07/28/2022 50 04/21/2021 43 LDL Cholesterol (mg/dL) Date Value 07/28/2022 93 04/21/2021 99 ALT (U/L) Date Value 07/28/2022 22 06/08/2021 14 Non HDL Cholesterol (mg/dL) Date Value 07/28/2022 122 04/21/2021 124 Thank you. Julio Do LPN documented in this encounter [facility] 10-26-2022 Miscellaneous Notes Patient has been identified by name and date of : No Pharmacy phones for refill(s): Requested Prescriptions Pending Prescriptions Disp Refills levothyroxine (SYNTHROID) 88 mcg tablet [Pharmacy Med Name: LEVOTHYROXINE SODIUM 88 MCG Tablet] 90 tablet 3 Sig: TAKE 1 TABLET EVERY DAY metoprolol succinate ER (TOPROL XL) 100 mg [Pharmacy Med Name: METOPROLOL SUCCINATE ER 100 MG Tablet Extended Release 24 Hour] 90 tablet 3 Sig: TAKE 1 TABLET EVERY DAY Date of last office visit in primary care: DAMI 08/01/22 Appointment scheduled 01/31/23 Last 2 Encounter Wt Readings: Date: Wt: 08/01/2022 69.9 kg (154 lb) 01/28/2022 68.5 kg (151 lb) Please advise. Thank you. HUSAM Jerez documented in this encounter [facility] 07-22-2022 Miscellaneous Notes DAMI 01/28/22 NOV 08/01/22 Patient has been identified by name and date of : Yes Requested Prescriptions Pending Prescriptions Disp Refills verapamil ER 180 mg 24 hr capsule 90 capsule 1 Sig: Take 1 capsule by mouth daily at bedtime. For Blood pressure RX INSTRUCTIONS: Patient aware RX escripted to mail away pharmacy. No need to notify patient. Larissa Alexandra documented in this encounter [facility] 06-22-2022 Miscellaneous Notes Patient phones requesting refills as follows: Requested Prescriptions Pending Prescriptions Disp Refills losartan (COZAAR) 50 mg tablet [Pharmacy Med Name: LOSARTAN POTASSIUM 50 MG Tablet] 135 tablet 3 Sig: TAKE 1 AND 1/2 TABLETS EVERY DAY DAMI-01/28/22 Labs-07/30/21 NOV-08/01/22 med filled 12/27/21 Please review and advise. Amara Gomez LPN documented in this encounter [facility] 05-06-2022 Miscellaneous Notes Patient has been identified by name and date of : Yes Pending Prescriptions Disp Refills VALACYCLOVIR 500 MG TABLET 180 tablet 1 Sig: Take 1 tablet by mouth twice daily. TABBY: No RX INSTRUCTIONS: Please send today, per patient. Patient aware RX escripted to mail away pharmacy. No need to notify patient. Karolyn Gonzalez Pss documented in this encounter [facility] 04-20-2021 History of Present illness Narrative Radiology Service Progress Note PATIENT NAME: Racheal James DATE OF SERVICE: April 20, 2021 TIME: 12:03 PM PATIENT IDENTITY VERIFICATION COMPLETED USING TWO (2) IDENTIFIERS: Name and Date of confirmed by patient verbally. FALL SCREENING: Has the patient had 2 falls in the last year or 1 fall with injury or currently using an Ambulatory Assistive Device (Walker, Cane, Wheelchair, Crutches, etc.)? No PATIENT GENDER DATA: Female. status: : No status: NO. PATIENT RELEVANT IMPLANT DATA REVIEWED: Yes RADIOLOGY DEPARTMENT: General X-ray: Exam(s) Completed: Spine X-Ray(s): Lumbar AP / LAT / L5-S1 Upper Extremity X-Ray(s): Hand, right PERIPHERAL IV DATA: Not applicable SIGNED BY: RT Lana(R) April 20, 2021 12:03 PM documented in this encounter [facility] 04-17-2018 History of Past i llness Narrative Problem Noted Date Resolved Date Chronic renal impairment, stage 4 (severe) 04/1704/16/2020 Chronic kidney disease, stage 4, severely decrea sed GFR 09/23/2015 04/16/2020 Abnormal mammogram 08/28/2014 05/09/2017 Chronic renal insufficiency 03/12/201002/2020 Lumbago 04/14/2009 05/04/2009 Hyperparathyroidism, unspecified 01/14/2009 04/16/2020 Headache(784.0) 01/14/2009 05/09/2017 Alopecia, unspecified 08/20/2008 01/14/2009 ABNORMAL PAP SMEAR OF CERVIX NEC AND HPV 008 2015 External hemorrhoids without mention of complica tion 04/05/2006 01/14/2009 Secondary hyperparathyroidism, non-renal 006 04/16/2020 Overview: Dr Herron. Treated with high-dose vitamin D. ABNORMAL XRAY G.U. TRACT 01/24/2006 017 documented as of this encounter (statuses as of 03/02/2022) [facility] History of Past illness Narrative* Problem Noted Date Resolved Date Chronic renal impairment, stage 4 (severe) 04/1704/16/2020 Chronic kidney disease, stage 4, severely decrea sed GFR 09/23/2015 04/16/2020 Abnormal mammogram 08/28/2014 05/09/2017 Chronic renal insufficiency 03/12/2010 06/0 02/2020 Lumbago 04/14/2009 05/04/2009 Hyperparathyroidism, unspecified 01/14/2009 04/16/2020 Headache(784.0) 01/14/2009 05/09/2017 Alopecia, unspecified 08/20/2008 01/14/2009 ABNORMAL PAP SMEAR OF CERVIX NEC AND HPV 008 2015 External hemorrhoids without mention of complica tion 04/05/2006 01/14/2009 Secondary hyperparathyroidism, non-renal 006 04/16/2020 Overview: Dr Herron. Treated with high-dose vitamin D. ABNORMAL XRAY G.U. TRACT 01/24/2006 017 documented as of this encounter (statuses as of 05/06/2022) [facility] History of Past illness Narrative* Problem Noted Date Resolved Date Chronic renal impairment, stage 4 (severe) 04/1704/16/2020 Chronic kidney disease, stage 4, severely decrea sed GFR 09/23/2015 04/16/2020 Abnormal mammogram 08/28/2014 05/09/2017 Chronic renal insufficiency 03/12/2010 06/0 02/2020 Lumbago 04/14/2009 05/04/2009 Hyperparathyroidism, unspecified 01/14/2009 04/16/2020 Headache(784.0) 01/14/2009 05/09/2017 Alopecia, unspecified 08/20/2008 01/14/2009 ABNORMAL PAP SMEAR OF CERVIX NEC AND HPV 008 2015 External hemorrhoids without mention of complica tion 04/05/2006 01/14/2009 Secondary hyperparathyroidism, non-renal 006 04/16/2020 Overview: Dr Herron. Treated with high-dose vitamin D. ABNORMAL XRAY G.U. TRACT 01/24/2006 017 documented as of this encounter (statuses as of 06/22/2022) [facility] History of Past illness Narrative* Problem Noted Date Resolved Date Chronic renal impairment, stage 4 (severe) 04/1704/16/2020 Chronic kidney disease, stage 4, severely decrea sed GFR 09/23/2015 04/16/2020 Abnormal mammogram 08/28/2014 05/09/2017 Chronic renal insufficiency 03/12/2010 060 02/2020 Lumbago 04/14/2009 05/04/2009 Hyperparathyroidism, unspecified 01/14/2009 04/16/2020 Headache(784.0) 01/14/2009 05/09/2017 Alopecia, unspecified 08/20/2008 01/14/2009 ABNORMAL PAP SMEAR OF CERVIX NEC AND HPV 008 2015 External hemorrhoids without mention of complica tion 04/05/2006 01/14/2009 Secondary hyperparathyroidism, non-renal 006 04/16/2020 Overview: Dr Herron. Treated with high-dose vitamin D. ABNORMAL XRAY G.U. TRACT 01/24/2006 017 documented as of this encounter (statuses as of 07/23/2022) [facility] History of Past illness Narrative* Problem Noted Date Resolved Date Chronic renal impairment, stage 4 (severe) 04/1704/16/2020 Chronic kidney disease, stage 4, severely decrea sed GFR 09/23/2015 04/16/2020 Abnormal mammogram 08/28/2014 05/09/2017 Chronic renal insufficiency 03/12/2010 060 02/2020 Lumbago 04/14/2009 05/04/2009 Hyperparathyroidism, unspecified 01/14/2009 04/16/2020 Headache(784.0) 01/14/2009 05/09/2017 Alopecia, unspecified 08/20/2008 01/14/2009 ABNORMAL PAP SMEAR OF CERVIX NEC AND HPV 008 2015 External hemorrhoids without mention of complica tion 04/05/2006 01/14/2009 Secondary hyperparathyroidism, non-renal 006 04/16/2020 Overview: Dr Herron. Treated with high-dose vitamin D. ABNORMAL XRAY G.U. TRACT 01/24/2006 017 documented as of this encounter (statuses as of 10/26/2022) [facility] History of Past illness Narrative* Problem Noted Date Resolved Date Chronic renal impairment, stage 4 (severe) 04/1704/16/2020 Chronic kidney disease, stage 4, severely decrea sed GFR 09/23/2015 04/16/2020 Abnormal mammogram 08/28/2014 05/09/2017 Chronic renal insufficiency 03/12/2010 0602/2020 Lumbago 04/14/2009 05/04/2009 Hyperparathyroidism, unspecified 01/14/2009 04/16/2020 Headache(784.0) 01/14/2009 05/09/2017 Alopecia, unspecified 08/20/2008 01/14/2009 ABNORMAL PAP SMEAR OF CERVIX NEC AND HPV 008 2015 External hemorrhoids without mention of complica tion 04/05/2006 01/14/2009 Secondary hyperparathyroidism, non-renal 006 04/16/2020 Overview: Dr Herron. Treated with high-dose vitamin D. ABNORMAL XRAY G.U. TRACT 01/24/2006 017 documented as of this encounter (statuses as of 11/16/2022) [facility] History of Past illness Narrative* Problem Noted Date Resolved Date Chronic renal impairment, stage 4 (severe) 04/1704/16/2020 Chronic kidney disease, stage 4, severely decrea sed GFR 09/23/2015 04/16/2020 Abnormal mammogram 08/28/2014 05/09/2017 Chronic renal insufficiency 03/12/2010 06/0 02/2020 Lumbago 04/14/2009 05/04/2009 Hyperparathyroidism, unspecified 01/14/2009 04/16/2020 Headache(784.0) 01/14/2009 05/09/2017 Alopecia, unspecified 08/20/2008 01/14/2009 ABNORMAL PAP SMEAR OF CERVIX NEC AND HPV 008 2015 External hemorrhoids without mention of complica tion 04/05/2006 01/14/2009 Secondary hyperparathyroidism, non-renal 006 04/16/2020 Overview: Dr Herron. Treated with high-dose vitamin D. ABNORMAL XRAY G.U. TRACT 01/24/2006 017 documented as of this encounter (statuses as of 02/01/2023) [facility] History of Past illness Narrative* Problem Noted Date Resolved Date Chronic renal impairment, stage 4 (severe) 04/1704/16/2020 Chronic kidney disease, stage 4, severely decrea sed GFR 09/23/2015 04/16/2020 Abnormal mammogram 08/28/2014 05/09/2017 Chronic renal insufficiency 03/12/201002/2020 Lumbago 04/14/2009 05/04/2009 Hyperparathyroidism, unspecified 01/14/2009 04/16/2020 Headache(784.0) 01/14/2009 05/09/2017 Alopecia, unspecified 08/20/2008 01/14/2009 ABNORMAL PAP SMEAR OF CERVIX NEC AND HPV 008 2015 External hemorrhoids without mention of complica tion 04/05/2006 01/14/2009 Secondary hyperparathyroidism, non-renal 006 04/16/2020 Overview: Dr Herron. Treated with high-dose vitamin D. ABNORMAL XRAY G.U. TRACT 01/24/2006 017 documented as of this encounter (statuses as of 02/06/2023) [facility] History of Past illness Narrative* Problem Noted Date Resolved Date Chronic renal impairment, stage 4 (severe) 04/1704/16/2020 Chronic kidney disease, stage 4, severely decrea sed GFR 09/23/2015 04/16/2020 Abnormal mammogram 08/28/2014 05/09/2017 Chronic renal insufficiency 03/12/2010 06/0 02/2020 Lumbago 04/14/2009 05/04/2009 Hyperparathyroidism, unspecified 01/14/2009 04/16/2020 Headache(784.0) 01/14/2009 05/09/2017 Alopecia, unspecified 08/20/2008 01/14/2009 ABNORMAL PAP SMEAR OF CERVIX NEC AND HPV 07/07/ 008 2015 External hemorrhoids without mention of complica tion 04/05/2006 01/14/2009 Secondary hyperparathyroidism, non-renal 006 04/16/2020 Overview: Dr Herron. Treated with high-dose vitamin D. ABNORMAL XRAY G.U. TRACT 01/24/2006 017 documented as of this encounter (statuses as of 02/23/2023) [facility] History of Past illness Narrative* Problem Noted Date Resolved Date Chronic renal impairment, stage 4 (severe) 04/1704/16/2020 Chronic kidney disease, stage 4, severely decrea sed GFR 09/23/2015 04/16/2020 Abnormal mammogram 08/28/2014 05/09/2017 Chronic renal insufficiency 03/12/201002/2020 Lumbago 04/14/2009 05/04/2009 Hyperparathyroidism, unspecified 01/14/2009 04/16/2020 Headache(784.0) 01/14/2009 05/09/2017 Alopecia, unspecified 08/20/2008 01/14/2009 ABNORMAL PAP SMEAR OF CERVIX NEC AND HPV 25/2 008 2015 External hemorrhoids without mention of complica tion 04/05/2006 01/14/2009 Secondary hyperparathyroidism, non-renal 006 04/16/2020 Overview: Dr Herron. Treated with high-dose vitamin D. ABNORMAL XRAY G.U. TRACT 01/24/2006 017 documented as of this encounter (statuses as of 02/27/2023) [facility] of Past illness Narrative* Problem Noted Date Resolved Date Chronic renal impairment, stage 4 (severe) 04/1704/16/2020 Chronic kidney disease, stage 4, severely decrea sed GFR 09/23/2015 04/16/2020 Abnormal mammogram 08/28/2014 05/09/2017 Chronic renal insufficiency 03/12/201002/2020 Lumbago 04/14/2009 05/04/2009 Hyperparathyroidism, unspecified 01/14/2009 04/16/2020 Headache(784.0) 01/14/2009 05/09/2017 Alopecia, unspecified 08/20/2008 01/14/2009 ABNORMAL PAP SMEAR OF CERVIX NEC AND HPV 008 2015 External hemorrhoids without mention of complica tion 04/05/2006 01/14/2009 Secondary hyperparathyroidism, non-renal 006 04/16/2020 Overview: Dr Herron. Treated with high-dose vitamin D. ABNORMAL XRAY G.U. TRACT 01/24/2006 017 documented as of this encounter (statuses as of 03/03/2023) [facility] History of Past illness Narrative* Problem Noted Date Resolved Date Chronic renal impairment, stage 4 (severe) 04/1704/16/2020 Chronic kidney disease, stage 4, severely decrea sed GFR 09/23/2015 04/16/2020 Abnormal mammogram 08/28/2014 05/09/2017 Chronic renal insufficiency 03/12/2010 06/0 02/2020 Lumbago 04/14/2009 05/04/2009 Hyperparathyroidism, unspecified 01/14/2009 04/16/2020 Headache(784.0) 01/14/2009 05/09/2017 Alopecia, unspecified 08/20/2008 01/14/2009 ABNORMAL PAP SMEAR OF CERVIX NEC AND HPV 25/2 008 2015 External hemorrhoids without mention of complica tion 04/05/2006 01/14/2009 Secondary hyperparathyroidism, non-renal 006 04/16/2020 Overview: Dr Herron. Treated with high-dose vitamin D. ABNORMAL XRAY G.U. TRACT 01/24/2006 017 documented as of this encounter (statuses as of 03/07/2023) [facility] of Past illness Narrative* Problem Noted Date Resolved Date Chronic renal impairment, stage 4 (severe) 04/1704/16/2020 Chronic kidney disease, stage 4, severely decrea sed GFR 09/23/2015 04/16/2020 Abnormal mammogram 08/28/2014 05/09/2017 Chronic renal insufficiency 03/12/2010 06/0 02/2020 Lumbago 04/14/2009 05/04/2009 Hyperparathyroidism, unspecified 01/14/2009 04/16/2020 Headache(784.0) 01/14/2009 05/09/2017 Alopecia, unspecified 08/20/2008 01/14/2009 ABNORMAL PAP SMEAR OF CERVIX NEC AND HPV 25/2 008 2015 External hemorrhoids without mention of complica tion 04/05/2006 01/14/2009 Secondary hyperparathyroidism, non-renal 006 04/16/2020 Overview: Dr Herron. Treated with high-dose vitamin D. ABNORMAL XRAY G.U. TRACT 01/24/2006 017 documented as of this encounter (statuses as of 03/10/2023) [facility] Past illness Narrative* Problem Noted Date Resolved Date Chronic renal impairment, stage 4 (severe) 04/1704/16/2020 Chronic kidney disease, stage 4, severely decrea sed GFR 09/23/2015 04/16/2020 Abnormal mammogram 08/28/2014 05/09/2017 Chronic renal insufficiency 03/12/2010 06/0 02/2020 Lumbago 04/14/2009 05/04/2009 Hyperparathyroidism, unspecified 01/14/2009 04/16/2020 Headache(784.0) 01/14/2009 05/09/2017 Alopecia, unspecified 08/20/2008 01/14/2009 ABNORMAL PAP SMEAR OF CERVIX NEC AND HPV 25/2 008 2015 External hemorrhoids without mention of complica tion 04/05/2006 01/14/2009 Secondary hyperparathyroidism, non-renal 006 04/16/2020 Overview: Dr Herron. Treated with high-dose vitamin D. ABNORMAL XRAY G.U. TRACT 01/24/2006 017 documented as of this encounter (statuses as of 03/14/2023) [facility] Past illness Narrative* Problem Noted Date Resolved Date Chronic renal impairment, stage 4 (severe) 04/1704/16/2020 Chronic kidney disease, stage 4, severely decrea sed GFR 09/23/2015 04/16/2020 Abnormal mammogram 08/28/2014 05/09/2017 Chronic renal insufficiency 03/12/2010 060 02/2020 Lumbago 04/14/2009 05/04/2009 Hyperparathyroidism, unspecified 01/14/2009 04/16/2020 Headache(784.0) 01/14/2009 05/09/2017 Alopecia, unspecified 08/20/2008 01/14/2009 ABNORMAL PAP SMEAR OF CERVIX NEC AND HPV 008 2015 External hemorrhoids without mention of complica tion 04/05/2006 01/14/2009 Secondary hyperparathyroidism, non-renal 006 04/16/2020 Overview: Dr Herron. Treated with high-dose vitamin D. ABNORMAL XRAY G.U. TRACT 01/24/2006 017 documented as of this encounter (statuses as of 03/16/2023) [facility] Past illness Narrative* Problem Noted Date Resolved Date Chronic renal impairment, stage 4 (severe) 04/1704/16/2020 Chronic kidney disease, stage 4, severely decrea sed GFR 09/23/2015 04/16/2020 Abnormal mammogram 08/28/2014 05/09/2017 Chronic renal insufficiency 03/12/201002/2020 Lumbago 04/14/2009 05/04/2009 Hyperparathyroidism, unspecified 01/14/2009 04/16/2020 Headache(784.0) 01/14/2009 05/09/2017 Alopecia, unspecified 08/20/2008 01/14/2009 ABNORMAL PAP SMEAR OF CERVIX NEC AND HPV 25/2 008 2015 External hemorrhoids without mention of complica tion 04/05/2006 01/14/2009 Secondary hyperparathyroidism, non-renal 006 04/16/2020 Overview: Dr Herron. Treated with high-dose vitamin D. ABNORMAL XRAY G.U. TRACT 01/24/2006 017 documented as of this encounter (statuses as of 03/20/2023) [facility] Past illness Narrative* Problem Noted Date Resolved Date Chronic renal impairment, stage 4 (severe) 04/1704/16/2020 Chronic kidney disease, stage 4, severely decrea sed GFR 09/23/2015 04/16/2020 Abnormal mammogram 08/28/2014 05/09/2017 Chronic renal insufficiency 03/12/2010 06/0 02/2020 Lumbago 04/14/2009 05/04/2009 Hyperparathyroidism, unspecified 01/14/2009 04/16/2020 Headache(784.0) 01/14/2009 05/09/2017 Alopecia, unspecified 08/20/2008 01/14/2009 ABNORMAL PAP SMEAR OF CERVIX NEC AND HPV 008 2015 External hemorrhoids without mention of complica tion 04/05/2006 01/14/2009 Secondary hyperparathyroidism, non-renal 006 04/16/2020 Overview: Dr Herron. Treated with high-dose vitamin D. ABNORMAL XRAY G.U. TRACT 01/24/2006 017 documented as of this encounter (statuses as of 03/23/2023) [facility] Past illness Narrative* Problem Noted Date Diagnosed Date Resolved Date Chronic renal impairment, stage 4 (severe) 04/17/2018 04/16/2020 Chronic kidney disease, stag e 4, severely decreased GFR 09/23/2015 04/16/2020 Abnormal mammogram 08/28/2014 7 Chronic renal insufficiency 03/12/2010 04/16/2020 Lumbago 04/14/2009 05/04/2009 Hyperparathyroidism, unspecified 01/14/2009 04/16/2020 Headache(784.0) 01/14/2009 05/09/2017 Alopecia, unspecified 08/20/20082008 ABNORMAL PAP SMEAR OF CERVIX NEC AND HPV 07/07/2008 2015 External hemorrhoids without mention of complication 04/05/2006 01/14/2009 Secondary hyperparathyroidism, non-renal 04/04/2006 04/16/2020 Overview: Dr Herron. Treated with high-dose vitamin D. ABNORMAL XRAY G.U. TRACT 01/24/2006 documented as of this encounter (statuses as of 07/28/2023) [facility] Narrative* Problem Noted Date Diagnosed Date Resolved Date Chronic renal impairment, stage 4 (severe) 04/17/2018 04/16/2020 Chronic kidney disease, stag e 4, severely decreased GFR 09/23/2015 04/16/2020 Abnormal mammogram 08/28/2014 7 Chronic renal insufficiency 03/12/2010 04/16/2020 Lumbago 04/14/2009 05/04/2009 Hyperparathyroidism, unspecified 01/14/2009 04/16/2020 Headache(784.0) 01/14/2009 05/09/2017 Alopecia, unspecified 08/20/20082008 ABNORMAL PAP SMEAR OF CERVIX NEC AND HPV 07/07/2008 2015 External hemorrhoids without mention of complication 04/05/2006 01/14/2009 Secondary hyperparathyroidism, non-renal 04/04/2006 04/16/2020 Overview: Dr Herron. Treated with high-dose vitamin D. ABNORMAL XRAY G.U. TRACT 01/24/2006 documented as of this encounter (statuses as of 10/17/2023) [facility] Past [facility] Narrative* Problem Noted Date Diagnosed Date Resolved Date Chronic renal impairment, stage 4 (severe) 04/17/2018 04/16/2020 Chronic kidney disease, stag e 4, severely decreased GFR 09/23/2015 04/16/2020 Abnormal mammogram 08/28/2014 7 Chronic renal insufficiency 03/12/2010 04/16/2020 Lumbago 04/14/2009 05/04/2009 Hyperparathyroidism, unspecified 01/14/2009 04/16/2020 Headache(784.0) 01/14/2009 05/09/2017 Alopecia, unspecified 08/20/20082008 ABNORMAL PAP SMEAR OF CERVIX NEC AND HPV 07/07/2008 2015 External hemorrhoids without mention of complication 04/05/2006 01/14/2009 Secondary hyperparathyroidism, non-renal 04/04/2006 04/16/2020 Overview: Dr Herron. Treated with high-dose vitamin D. ABNORMAL XRAY G.U. TRACT 01/24/2006 documented as of this encounter (statuses as of 10/24/2023) [facility] Narrative* Problem Noted Date Diagnosed Date Resolved Date Chronic renal impairment, stage 4 (severe) 04/17/2018 04/16/2020 Chronic kidney disease, stag e 4, severely decreased GFR 09/23/2015 04/16/2020 Abnormal mammogram 08/28/2014 7 Chronic renal insufficiency 03/12/2010 04/16/2020 Lumbago 04/14/2009 05/04/2009 Hyperparathyroidism, unspecified 01/14/2009 04/16/2020 Headache(784.0) 01/14/2009 05/09/2017 Alopecia, unspecified 08/20/20082008 ABNORMAL PAP SMEAR OF CERVIX NEC AND HPV 07/07/2008 2015 External hemorrhoids without mention of complication 04/05/2006 01/14/2009 Secondary hyperparathyroidism, non-renal 04/04/2006 04/16/2020 Overview: Dr Herron. Treated with high-dose vitamin D. ABNORMAL XRAY G.U. TRACT 01/24/2006 documented as of this encounter (statuses as of 12/20/2023) [facility] Narrative* Problem Noted Date Diagnosed Date Resolved Date Chronic renal impairment, stage 4 (severe) 04/17/2018 04/16/2020 Chronic kidney disease, stag e 4, severely decreased GFR 09/23/2015 04/16/2020 Abnormal mammogram 08/28/2014 7 Chronic renal insufficiency 03/12/2010 04/16/2020 Lumbago 04/14/2009 05/04/2009 Hyperparathyroidism, unspecified 01/14/2009 04/16/2020 Headache(784.0) 01/14/2009 05/09/2017 Alopecia, unspecified 08/20/20082008 ABNORMAL PAP SMEAR OF CERVIX NEC AND HPV 07/07/2008 2015 External hemorrhoids without mention of complication 04/05/2006 01/14/2009 Secondary hyperparathyroidism, non-renal 04/04/2006 04/16/2020 Overview: Dr Herron. Treated with high-dose vitamin D. ABNORMAL XRAY G.U. TRACT 01/24/2006 documented as of this encounter (statuses as of 12/22/2023) [facility] Past [facility] Narrative* Problem Noted Date Diagnosed Date Resolved Date Chronic renal impairment, stage 4 (severe) 04/17/2018 04/16/2020 Chronic kidney disease, stag e 4, severely decreased GFR 09/23/2015 04/16/2020 Abnormal mammogram 08/28/2014 7 Chronic renal insufficiency 03/12/2010 04/16/2020 Lumbago 04/14/2009 05/04/2009 Hyperparathyroidism, unspecified 01/14/2009 04/16/2020 Headache(784.0) 01/14/2009 05/09/2017 Alopecia, unspecified 08/20/20082008 ABNORMAL PAP SMEAR OF CERVIX NEC AND HPV 07/07/2008 2015 External hemorrhoids without mention of complication 04/05/2006 01/14/2009 Secondary hyperparathyroidism, non-renal 04/04/2006 04/16/2020 Overview: Dr Herron. Treated with high-dose vitamin D. ABNORMAL XRAY G.U. TRACT 01/24/2006 documented as of this encounter (statuses as of 01/01/2024) [facility] History of Past illness Narrative* Problem Noted Date Diagnosed Date Resolved Date Chronic renal impairment, stage 4 (severe) 04/17/2018 04/16/2020 Chronic kidney disease, stag e 4, severely decreased GFR 09/23/2015 04/16/2020 Abnormal mammogram 08/28/2014 7 Chronic renal insufficiency 03/12/2010 04/16/2020 Lumbago 04/14/2009 05/04/2009 Hyperparathyroidism, unspecified 01/14/2009 04/16/2020 Headache(784.0) 01/14/2009 05/09/2017 Alopecia, unspecified 08/20/20082008 ABNORMAL PAP SMEAR OF CERVIX NEC AND HPV 07/07/2008 2015 External hemorrhoids without mention of complication 04/05/2006 01/14/2009 Secondary hyperparathyroidism, non-renal 04/04/2006 04/16/2020 Overview: Dr Herron. Treated with high-dose vitamin D. ABNORMAL XRAY G.U. TRACT 01/24/2006 documented as of this encounter (statuses as of 01/02/2024) [facility] History of Past illness Narrative* Problem Noted Date Diagnosed Date Resolved Date Chronic renal impairment, stage 4 (severe) 04/17/2018 04/16/2020 Chronic kidney disease, stag e 4, severely decreased GFR 09/23/2015 04/16/2020 Abnormal mammogram 08/28/2014 7 Chronic renal insufficiency 03/12/2010 04/16/2020 Lumbago 04/14/2009 05/04/2009 Hyperparathyroidism, unspecified 01/14/2009 04/16/2020 Headache(784.0) 01/14/2009 05/09/2017 Alopecia, unspecified 08/20/20082008 ABNORMAL PAP SMEAR OF CERVIX NEC AND HPV 07/07/2008 2015 External hemorrhoids without mention of complication 04/05/2006 01/14/2009 Secondary hyperparathyroidism, non-renal 04/04/2006 04/16/2020 Overview: Dr Herron. Treated with high-dose vitamin D. ABNORMAL XRAY G.U. TRACT 01/24/2006 documented as of this encounter (statuses as of 01/02/2024) [facility] History of Past illness Narrative* Problem Noted Date Diagnosed Date Resolved Date Chronic renal impairment, stage 4 (severe) 04/17/2018 04/16/2020 Chronic kidney disease, stag e 4, severely decreased GFR 09/23/2015 04/16/2020 Abnormal mammogram 08/28/2014 7 Chronic renal insufficiency 03/12/2010 04/16/2020 Lumbago 04/14/2009 05/04/2009 Hyperparathyroidism, unspecified 01/14/2009 04/16/2020 Headache(784.0) 01/14/2009 05/09/2017 Alopecia, unspecified 08/20/20082008 ABNORMAL PAP SMEAR OF CERVIX NEC AND HPV 07/07/2008 2015 External hemorrhoids without mention of complication 04/05/2006 01/14/2009 Secondary hyperparathyroidism, non-renal 04/04/2006 04/16/2020 Overview: Dr Herron. Treated with high-dose vitamin D. ABNORMAL XRAY G.U. TRACT 01/24/2006 documented as of this encounter (statuses as of 01/17/2024) [facility] History of Past illness Narrative* Problem Noted Date Diagnosed Date Resolved Date Chronic renal impairment, stage 4 (severe) 04/17/2018 04/16/2020 Chronic kidney disease, stag e 4, severely decreased GFR 09/23/2015 04/16/2020 Abnormal mammogram 08/28/2014 7 Chronic renal insufficiency 03/12/2010 04/16/2020 Lumbago 04/14/2009 05/04/2009 Hyperparathyroidism, unspecified 01/14/2009 04/16/2020 Headache(784.0) 01/14/2009 05/09/2017 Alopecia, unspecified 08/20/20082008 ABNORMAL PAP SMEAR OF CERVIX NEC AND HPV 07/07/2008 2015 External hemorrhoids without mention of complication 04/05/2006 01/14/2009 Secondary hyperparathyroidism, non-renal 04/04/2006 04/16/2020 Overview: Dr Herron. Treated with high-dose vitamin D. ABNORMAL XRAY G.U. TRACT 01/24/2006 documented as of this encounter (statuses as of 01/17/2024) [facility] History of Past illness Narrative* Problem Noted Date Diagnosed Date Resolved Date Chronic renal impairment, stage 4 (severe) 04/17/2018 04/16/2020 Chronic kidney disease, stag e 4, severely decreased GFR 09/23/2015 04/16/2020 Abnormal mammogram 08/28/2014 7 Chronic renal insufficiency 03/12/2010 04/16/2020 Lumbago 04/14/2009 05/04/2009 Hyperparathyroidism, unspecified 01/14/2009 04/16/2020 Headache(784.0) 01/14/2009 05/09/2017 Alopecia, unspecified 08/20/20082008 ABNORMAL PAP SMEAR OF CERVIX NEC AND HPV 07/07/2008 2015 External hemorrhoids without mention of complication 04/05/2006 01/14/2009 Secondary hyperparathyroidism, non-renal 04/04/2006 04/16/2020 Overview: Dr Herron. Treated with high-dose vitamin D. ABNORMAL XRAY G.U. TRACT 01/24/2006 documented as of this encounter (statuses as of 02/01/2024) [facility] History of Past illness Narrative* Problem Noted Date Diagnosed Date Resolved Date Chronic renal impairment, stage 4 (severe) 04/17/2018 04/16/2020 Chronic kidney disease, stag e 4, severely decreased GFR 09/23/2015 04/16/2020 Abnormal mammogram 08/28/2014 7 Chronic renal insufficiency 03/12/2010 04/16/2020 Lumbago 04/14/2009 05/04/2009 Hyperparathyroidism, unspecified 01/14/2009 04/16/2020 Headache(784.0) 01/14/2009 05/09/2017 Alopecia, unspecified 08/20/20082008 ABNORMAL PAP SMEAR OF CERVIX NEC AND HPV 07/07/2008 2015 External hemorrhoids without mention of complication 04/05/2006 01/14/2009 Secondary hyperparathyroidism, non-renal 04/04/2006 04/16/2020 Overview: Dr Herron. Treated with high-dose vitamin D. ABNORMAL XRAY G.U. TRACT 01/24/2006 documented as of this encounter (statuses as of 02/06/2024) [facility] noteNo assessment information availableWDayton [facility] Work Phone: Evaluation note* Diagnosis Genital herpes simplex, unspecified site [facility] Diagnosis Essential hypertension Unspecified essential hypertension [facility] Diagnosis Essential hypertension Unspecified essential hypertension [facility] Diagnosis Post-surgical hypothyroidism Postsurgical hypothyroidism Essential hypertension Unspecified essential hypertension [facility] Diagnosis Acute bilateral low back pain with bilateral sciatica- Primary Essential hypertension Unspecified essential hypertension Post-surgical hypothyroidism Postsurgical hypothyroidism Weakness of low back due to inactivity Muscle weakness (generalized) Secondary hyperparathyroidism (HCC) Secondary hyperparathyroidism (of renal origin) Chronic kidney disease, stage 3b (HCC) Vitamin D deficiency Unspecified vitamin D deficiency Other hyperlipidemia [facility]othyroidism Postsurgical hypothyroidism [facility] Diagnosis Acute bilateral low back pain with bilateral sciatica Weakness of low back due to inactivity Muscle weakness (generalized) [facility] Acute bilateral low back pain with bilateral sciatica- Primary Weakness of low back due to inactivity Muscle weakness (generalized) [facility] Acute bilateral low back pain with bilateral sciatica- Primary Weakness of low back due to inactivity Muscle weakness (generalized) [facility] Acute bilateral low back pain with bilateral sciatica- Primary Weakness of low back due to inactivity Muscle weakness (generalized) [facility] Acute bilateral low back pain with bilateral sciatica- Primary Weakness of low back due to inactivity Muscle weakness (generalized) [facility] Acute bilateral low back pain with bilateral sciatica- Primary Weakness of low back due to inactivity Muscle weakness (generalized) [facility] Acute bilateral low back pain with bilateral sciatica- Primary Weakness of low back due to inactivity Muscle weakness (generalized) [facility] Acute bilateral low back pain with bilateral sciatica- Primary Weakness of low back due to inactivity Muscle weakness (generalized) [facility] Acute bilateral low back pain with bilateral sciatica- Primary Weakness of low back due to inactivity Muscle weakness (generalized) [facility] Essential hypertension Unspecified essential hypertension [facility] Essential hypertension Unspecified essential hypertension [facility] Diagnosis Essential hypertension- Primary Unspecified essential hypertension Post-surgical hypothyroidism Postsurgical hypothyroidism CKD stage G3b/A1, GFR 30-44 and albumin creatinine ratio <30 mg/g (HCC) Vitamin D deficiency Unspecified vitamin D deficiency Bacterial sinusitis Unspecified sinusitis (chronic) Acute non-recurrent maxillary sinusitis Hyperuricemia Other abnormal blood chemistry [facility] Diagnosis Essential hypertension- Primary Unspecified essential hypertension Medication management Encounter for long-term (current) use of other medications [facility] Diagnosis Essential hypertension- Primary Unspecified essential hypertension Acute bilateral low back pain with bilateral sciatica [facility] this [facility] Diagnosis Essential hypertension Unspecified essential hypertension [facility] this [facility]* Diagnosis Post-surgical hypothyroidism- Primary Postsurgical hypothyroidism Essential hypertension Unspecified essential hypertension Hypercalcemia Non-healing skin lesion of nose Other diseases of nasal cavity and sinuses CKD stage G3b/A1, GFR 30-44 and albumin creatinine ratio <30 mg/g (HCC) Vitamin D deficiency Unspecified vitamin D deficiency Acute bilateral low back pain with bilateral sciatica Secondary hyperparathyroidism (HCC) Secondary hyperparathyroidism (of renal origin) [facility] Diagnosis Hypercalcemia- Primary [facility] this [facility] Diagnosis Essential hypertension Unspecified essential hypertension [facility] this [facility] Diagnosis Essential hypertension Unspecified essential hypertension [facility] this [facility] Diagnosis Essential hypertension- Primary Unspecified essential hypertension Post-surgical hypothyroidism Postsurgical hypothyroidism Vitamin B12 deficiency Other B-complex deficiencies External hemorrhoid External hemorrhoids without mention of complication Other hyperlipidemia Hypertensive chronic kidney disease with stage 1 through stage 4 chronic kidney disease, or unspecified chronic kidney disease [facility] this [facility] Diagnosis Acute bilateral low back pain with bilateral sciatica Finger injury, right, initial encounter [facility] this [facility] Diagnosis Acute cough- Primary Viral illness Unspecified viral infection, in conditions classified elsewhere and of unspecified site Acute cough [facility] this [facility]* Diagnosis Acute cough [facility] this [facility]* Diagnosis Essential hypertension- Primary Unspecified essential hypertension Chronic kidney disease, stage 3b (HCC) Post-surgical hypothyroidism Postsurgical hypothyroidism Secondary hyperparathyroidism (HCC) Secondary hyperparathyroidism (of renal origin) Vitamin D deficiency Unspecified vitamin D deficiency Hyperglycemia Other abnormal glucose [facility] this [facility]* Diagnosis Acute bronchitis, unspecified organism- Primary COVID-19 Secondary hyperparathyroidism (HCC) Secondary hyperparathyroidism (of renal origin) Vitamin D deficiency Unspecified vitamin D deficiency Post-surgical hypothyroidism Postsurgical hypothyroidism Vitamin B12 deficiency Other B-complex deficiencies Chronic kidney disease, stage 3b (HCC) Essential hypertension Unspecified essential hypertension Hyperglycemia Other abnormal glucose Hypercalcemia Other hyperlipidemia [facility] this [facility] Diagnosis Post-surgical hypothyroidism Postsurgical hypothyroidism [facility] Diagnosis Essential hypertension- Primary Unspecified essential hypertension Post-surgical hypothyroidism Postsurgical hypothyroidism Vitamin B12 deficiency Other B-complex deficiencies Chronic kidney disease, stage 3b (HCC) Other hyperlipidemia Secondary hyperparathyroidism (HCC) Secondary hyperparathyroidism (of renal origin) Vitamin D deficiency Unspecified vitamin D deficiency Osteoarthritis of spine with radiculopathy, lumbar region Hypomagnesemia Disorders of magnesium metabolism [facility] Diagnosis Essential hypertension Unspecified essential hypertension [facility] Diagnosis Essential hypertension Unspecified essential hypertension [facility] Diagnosis Uncontrolled hypertension- Primary Unspecified essential hypertension Acute non-recurrent maxillary sinusitis Essential hypertension Unspecified essential hypertension Cardiac murmur, previously undiagnosed Undiagnosed cardiac murmurs Right carotid bruit Other symptoms involving cardiovascular system Dysuria Actinic keratosis Secondary hyperparathyroidism (HCC) Secondary hyperparathyroidism (of renal origin) Chronic kidney disease, stage 3b (HCC) Post-surgical hypothyroidism Postsurgical hypothyroidism documented in this encounter [facility] Discharge instructions Additional Instructions Continue oral fluids. Continue your stool softeners. Monitor symptoms and follow-up with your doctor. 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 Advance Directive(s) 05/31/2016 10:54 AM Advance Directive(s) 05/06/2016 2:32 PM Advance Directive Response Recorded Date/ Time Living Will Yes December 18 11:06am Power of Rubber Factory Worker Yes December 18, 2017 11:06am Advance Directive Response Recorded Date/ Time Living Will No July 23, 2022 2:29pm Power of Rubber Factory Worker No July 2:29pm Advance Directive Response Recorded Date/ Time Living Will No July 23, 2022 1:29pm Power of Rubber Factory Worker No July 1:29pm Family History No Family History Records Found Relationship Condition Age at Onset Recorded Date/T gia Unknown Family History?No pe rtinent history Unknown December 17, 2017 4:54pm Family History?No pe rtinent history Unknown December 17, 2017 4:54pm Relationship Condition Age at Onset Recorded Date/T gia Unknown Family History?No pe rtinent history Unknown December 17, 2017 3:54pm Family History?No pe rtinent history Unknown December 17, 2017 3:54pm Chief Complaint and Reason for Visit Chief Complaint CONSTIPATION Chief Complaint Admit Date LABS April 25, 2025 9:38 am Reason for Referral Specialty Diagnoses / Procedures Referred By Contac t Referred To Contact [facility] Diagnoses Acute bilateral low back pain with bilateral sciatica Weakness of low back due to inactivity Procedures CONSULT TO PHYSICAL THERAPY PHYSICAL THERAPY EVALUATION HIGH COMPLEX 45 MINS Tuan Luo, [address] [place] [address] [facility] [address] [address] Referral ID Status Reason Start Date Expiration Date Visits Requested Visits Authorized [id number] Pending Review Auto-Generat ed Referral 01/31/2023 01/31/2024 1 1 Specialty Diagnoses / Procedures Referred By Contac t Referred To Contact Tuan Luo, [address] [place] [id number] Referral ID Status Reason Start Date Expiration Date V isits Requested Visits Authorized [id number] Authorized 11/13/2022 11/12/2023 1 1 Specialty Diagnoses / Procedures Referred By Contac t Referred To Contact [facility] Diagnoses Acute bilateral low back pain with bilateral sciatica Weakness of low back due to inactivity Procedures PT REHAB FOLLOW UP ORDER THERAPEUTIC EXERCISES RE, EA 15 MIN. Tuan Luo, [address] [place] [address] [facility] [address] [address] Referral ID Status Reason Start Date Expiration Date Visits Requested Visits Authorized [id number] Pending Review PCP Requested Referral Auto-Generate d Referral 02/22/2023 05/23/2023 1 1 Specialty Diagnoses / Procedures Referred By Contac t Referred To Contact Diagnoses Acute bilateral low back pain with bilateral sciatica Procedures CONSULT TO CHIROPRACTOR OFFICE/OUTPATIENT NEW LOW MDM 30 MINUTES CHIROPRAC MANIP,SPINAL,5 REGIONS Divina Louis, SARA.NURSING SERVICES MANAGER [address] [place] [address] Referral ID Status Reason Start Date Expiration Date Visits Requested Visits Authorized [id number] Pending Review PCP Requested Referral 01/17/2024 01/16/2025 1 1 Specialty Diagnoses / Procedures Referred By Contac t Referred To Contact Dermatology Diagnoses Non-healing skin lesion of nose Procedures CONSULT TO DERMATOLOGY Tuan Luo DO [address] [place] [address] Referral ID Status Reason Start Date Expiration Date Visits Requested Visits Authorized [id number] Ref Not Required PCP Requested Referral 03/08/2024 03/08/2025 1 1 Summary Purpose Additional Source Comments Source Comments (unrecognize d section and content) In the event this informatio n is protected by the Federal Confidentiality of Alcohol and Drug Abuse Patient Records regulations: The Federal rules restrict any use of the information to criminally investigate or prosecute any alcohol or drug abuse patient.[facility] the event this information is protected by the Federal Confidentiality of Alcohol and Drug Abuse Patient Records regulations: The Federal rules restrict any use of the information to criminally investigate or prosecute any alcohol or drug abuse patient.[facility] the event this information is protected by the Federal Confidentiality of Alcohol and Drug Abuse Patient Records regulations: The Federal rules restrict any use of the information to criminally investigate or prosecute any alcohol or drug abuse patient.[facility] the event this information is protected by the Federal Confidentiality of Alcohol and Drug Abuse Patient Records regulations: The Federal rules restrict any use of the information to criminally investigate or prosecute any alcohol or drug abuse patient.[facility] the event this information is protected by the Federal Confidentiality of Alcohol and Drug Abuse Patient Records regulations: The Federal rules restrict any use of the information to criminally investigate or prosecute any alcohol or drug abuse patient.[facility] the event this information is protected by the Federal Confidentiality of Alcohol and Drug Abuse Patient Records regulations: The Federal rules restrict any use of the information to criminally investigate or prosecute any alcohol or drug abuse patient.[facility] the event this information is protected by the Federal Confidentiality of Alcohol and Drug Abuse Patient Records regulations: The Federal rules restrict any use of the information to criminally investigate or prosecute any alcohol or drug abuse patient.[facility] the event this information is protected by the Federal Confidentiality of Alcohol and Drug Abuse Patient Records regulations: The Federal rules restrict any use of the information to criminally investigate or prosecute any alcohol or drug abuse patient.[facility] the event this information is protected by the Federal Confidentiality of Alcohol and Drug Abuse Patient Records regulations: The Federal rules restrict any use of the information to criminally investigate or prosecute any alcohol or drug abuse patient.[facility] the event this information is protected by the Federal Confidentiality of Alcohol and Drug Abuse Patient Records regulations: The Federal rules restrict any use of the information to criminally investigate or prosecute any alcohol or drug abuse patient.[facility] the event this information is protected by the Federal Confidentiality of Alcohol and Drug Abuse Patient Records regulations: The Federal rules restrict any use of the information to criminally investigate or prosecute any alcohol or drug abuse patient.[facility] the event this information is protected by the Federal Confidentiality of Alcohol and Drug Abuse Patient Records regulations: The Federal rules restrict any use of the information to criminally investigate or prosecute any alcohol or drug abuse patient.[facility] the event this information is protected by the Federal Confidentiality of Alcohol and Drug Abuse Patient Records regulations: The Federal rules restrict any use of the information to criminally investigate or prosecute any alcohol or drug abuse patient.[facility] the event this information is protected by the Federal Confidentiality of Alcohol and Drug Abuse Patient Records regulations: The Federal rules restrict any use of the information to criminally investigate or prosecute any alcohol or drug abuse patient.[facility] the event this information is protected by the Federal Confidentiality of Alcohol and Drug Abuse Patient Records regulations: The Federal rules restrict any use of the information to criminally investigate or prosecute any alcohol or drug abuse patient.[facility] the event this information is protected by the Federal Confidentiality of Alcohol and Drug Abuse Patient Records regulations: The Federal rules restrict any use of the information to criminally investigate or prosecute any alcohol or drug abuse patient.[facility] the event this information is protected by the Federal Confidentiality of Alcohol and Drug Abuse Patient Records regulations: The Federal rules restrict any use of the information to criminally investigate or prosecute any alcohol or drug abuse patient.[facility] the event this information is protected by the Federal Confidentiality of Alcohol and Drug Abuse Patient Records regulations: The Federal rules restrict any use of the information to criminally investigate or prosecute any alcohol or drug abuse patient.[facility] the event this information is protected by the Federal Confidentiality of Alcohol and Drug Abuse Patient Records regulations: The Federal rules restrict any use of the information to criminally investigate or prosecute any alcohol or drug abuse patient.[facility] the event this information is protected by the Federal Confidentiality of Alcohol and Drug Abuse Patient Records regulations: The Federal rules restrict any use of the information to criminally investigate or prosecute any alcohol or drug abuse patient.[facility] HospitalIn the event this information is protected by the Federal Confidentiality of Alcohol and Drug Abuse Patient Records regulations: The Federal rules restrict any use of the information to criminally investigate or prosecute any alcohol or drug abuse patient.[facility] HospitalIn the event this information is protected by the Federal Confidentiality of Alcohol and Drug Abuse Patient Records regulations: The Federal rules restrict any use of the information to criminally investigate or prosecute any alcohol or drug abuse patient.[facility] HospitalIn the event this information is protected by the Federal Confidentiality of Alcohol and Drug Abuse Patient Records regulations: The Federal rules restrict any use of the information to criminally investigate or prosecute any alcohol or drug abuse patient.[facility] HospitalIn the event this information is protected by the Federal Confidentiality of Alcohol and Drug Abuse Patient Records regulations: The Federal rules restrict any use of the information to criminally investigate or prosecute any alcohol or drug abuse patient.[facility] HospitalIn the event this information is protected by the Federal Confidentiality of Alcohol and Drug Abuse Patient Records regulations: The Federal rules restrict any use of the information to criminally investigate or prosecute any alcohol or drug abuse patient.[facility] HospitalIn the event this information is protected by the Federal Confidentiality of Alcohol and Drug Abuse Patient Records regulations: The Federal rules restrict any use of the information to criminally investigate or prosecute any alcohol or drug abuse patient.[facility] HospitalIn the event this information is protected by the Federal Confidentiality of Alcohol and Drug Abuse Patient Records regulations: The Federal rules restrict any use of the information to criminally investigate or prosecute any alcohol or drug abuse patient.[facility] HospitalIn the event this information is protected by the Federal Confidentiality of Alcohol and Drug Abuse Patient Records regulations: The Federal rules restrict any use of the information to criminally investigate or prosecute any alcohol or drug abuse patient.[facility] HospitalIn the event this information is protected by the Federal Confidentiality of Alcohol and Drug Abuse Patient Records regulations: The Federal rules restrict any use of the information to criminally investigate or prosecute any alcohol or drug abuse patient.[facility] HospitalIn the event this information is protected by the Federal Confidentiality of Alcohol and Drug Abuse Patient Records regulations: The Federal rules restrict any use of the information to criminally investigate or prosecute any alcohol or drug abuse patient.[facility] HospitalIn the event this information is protected by the Federal Confidentiality of Alcohol and Drug Abuse Patient Records regulations: The Federal rules restrict any use of the information to criminally investigate or prosecute any alcohol or drug abuse patient.[facility] HospitalIn the event this information is protected by the Federal Confidentiality of Alcohol and Drug Abuse Patient Records regulations: The Federal rules restrict any use of the information to criminally investigate or prosecute any alcohol or drug abuse patient.[facility] HospitalIn the event this information is protected by the Federal Confidentiality of Alcohol and Drug Abuse Patient Records regulations: The Federal rules restrict any use of the information to criminally investigate or prosecute any alcohol or drug abuse patient.[facility] HospitalIn the event this information is protected by the Federal Confidentiality of Alcohol and Drug Abuse Patient Records regulations: The Federal rules restrict any use of the information to criminally investigate or prosecute any alcohol or drug abuse patient.[facility] HospitalIn the event this information is protected by the Federal Confidentiality of Alcohol and Drug Abuse Patient Records regulations: The Federal rules restrict any use of the information to criminally investigate or prosecute any alcohol or drug abuse patient.[facility] HospitalIn the event this information is protected by the Federal Confidentiality of Alcohol and Drug Abuse Patient Records regulations: The Federal rules restrict any use of the information to criminally investigate or prosecute any alcohol or drug abuse patient.[facility] HospitalIn the event this information is protected by the Federal Confidentiality of Alcohol and Drug Abuse Patient Records regulations: The Federal rules restrict any use of the information to criminally investigate or prosecute any alcohol or drug abuse patient.[facility] HospitalIn the event this information is protected by the Federal Confidentiality of Alcohol and Drug Abuse Patient Records regulations: The Federal rules restrict any use of the information to criminally investigate or prosecute any alcohol or drug abuse patient.[facility] HospitalIn the event this information is protected by the Federal Confidentiality of Alcohol and Drug Abuse Patient Records regulations: The Federal rules restrict any use of the information to criminally investigate or prosecute any alcohol or drug abuse patient.[facility] HospitalIn the event this information is protected by the Federal Confidentiality of Alcohol and Drug Abuse Patient Records regulations: The Federal rules restrict any use of the information to criminally investigate or prosecute any alcohol or drug abuse patient.[facility] HospitalIn the event this information is protected by the Federal Confidentiality of Alcohol and Drug Abuse Patient Records regulations: The Federal rules restrict any use of the information to criminally investigate or prosecute any alcohol or drug abuse patient.[facility] HospitalIn the event this information is protected by the Federal Confidentiality of Alcohol and Drug Abuse Patient Records regulations: The Federal rules restrict any use of the information to criminally investigate or prosecute any alcohol or drug abuse patient.[facility] HospitalIn the event this information is protected by the Federal Confidentiality of Alcohol and Drug Abuse Patient Records regulations: The Federal rules restrict any use of the information to criminally investigate or prosecute any alcohol or drug abuse patient.[facility] HospitalIn the event this information is protected by the Federal Confidentiality of Alcohol and Drug Abuse Patient Records regulations: The Federal rules restrict any use of the information to criminally investigate or prosecute any alcohol or drug abuse patient.[facility] HospitalIn the event this information is protected by the Federal Confidentiality of Alcohol and Drug Abuse Patient Records regulations: The Federal rules restrict any use of the information to criminally investigate or prosecute any alcohol or drug abuse patient.[facility] HospitalIn the event this information is protected by the Federal Confidentiality of Alcohol and Drug Abuse Patient Records regulations: The Federal rules restrict any use of the information to criminally investigate or prosecute any alcohol or drug abuse patient.[facility] HospitalIn the event this information is protected by the Federal Confidentiality of Alcohol and Drug Abuse Patient Records regulations: The Federal rules restrict any use of the information to criminally investigate or prosecute any alcohol or drug abuse patient.[facility] HospitalIn the event this information is protected by the Federal Confidentiality of Alcohol and Drug Abuse Patient Records regulations: The Federal rules restrict any use of the information to criminally investigate or prosecute any alcohol or drug abuse patient.[facility] HospitalIn the event this information is protected by the Federal Confidentiality of Alcohol and Drug Abuse Patient Records regulations: The Federal rules restrict any use of the information to criminally investigate or prosecute any alcohol or drug abuse patient.[facility] HospitalIn the event this information is protected by the Federal Confidentiality of Alcohol and Drug Abuse Patient Records regulations: The Federal rules restrict any use of the information to criminally investigate or prosecute any alcohol or drug abuse patient.[facility] HospitalIn the event this information is protected by the Federal Confidentiality of Alcohol and Drug Abuse Patient Records regulations: The Federal rules restrict any use of the information to criminally investigate or prosecute any alcohol or drug abuse patient.[facility] HospitalIn the event this information is protected by the Federal Confidentiality of Alcohol and Drug Abuse Patient Records regulations: The Federal rules restrict any use of the information to criminally investigate or prosecute any alcohol or drug abuse patient.[facility] Reason for Visit (unrecogniz ed section and content) Reason Comments PT Discharge Specialty Diagnoses / Procedures Referred By Contac t Referred To Contact Physical Therapy / PHYSICAL THERAPY Diagnoses Acute bilateral low back pain with bilateral sciatica Weakness of low back due to inactivity Procedures PT REHAB FOLLOW UP ORDER THERAPEUTIC EXERCISES RE, EA 15 MIN. Tuan Luo L, DO [address] [place] [address] Bernardino Sharma, PT [address] [place] [address] Referral ID Status Reason Start Date Expiration Date Visits Requested Visits Authorized [id number] Authorized PCP Requested Referral Auto-Generate d Referral 02/23/2023 05/25/2023 10 10 Reason Comments Opened In Error Reason Onset Date Comments Refill Request 05/06/2022 Reason Comments Refill Request Reason Onset Date Comments Refill Request 07/22/2022 Reason Onset Date Comments Refill Request 11/10/2022 Reason Comments 6 Month Exam Reason Onset Date Comments Opened In Error 02/06/2023 Reason Comments PT Eval Specialty Diagnoses / Procedures Referred By Contac t Referred To Contact PHYSICAL THERAPY Diagnoses Acute bilateral low back pain with bilateral sciatica Weakness of low back due to inactivity Procedures CONSULT TO PHYSICAL THERAPY PHYSICAL THERAPY EVALUATION HIGH COMPLEX 45 MINS Tuan Luo, DO [address] [place] [address] Pt [facility] [address] [place] [address] Referral ID Status Reason Start Date Expiration Date Visits Re quested Visits Authorized [id number] Closed 02/21/2023 11/12/2023 1 1 Reason Comments Physical Therapy Reason Onset Date Comments Refill Request 07/27/2023 Reason Onset Date Comments Refill Request 10/17/2023 Reason Onset Date Comments Refill Request 10/23/2023 Reason Comments 3 month f/up Reason Comments Results Reason Comments Dizziness Reason Comments b/p check Reason Comments Chiropractor Information Reason Comments blood pressure readings Reason Onset Date Comments Refill Request 02/06/2024 Reason Comments Follow Up Reason Onset Date Comments Refill Request 03/20/2024 Reason Onset Date Comments Refill Request 05/15/2024 Reason Comments F/U 3 Month Reason Comments Cough Head and chest conge stion, fever, sore throat, headache SOB x 3 days Reason Onset Date Comments ACM SUE RN 09/17/2024 ED Utilizatio n Review per request of payor Reason Comments Lab Orders Reason Comments Follow Up ED Covid Reason Onset Date Comments Refill Request 11/27/2024 Reason Onset Date Comments Refill Request 01/13/2025 Reason Onset Date Comments Refill Request 02/24/2025 Reason Onset Date Comments Allied Health Visit 03/18/2025 Medication A dherence Outreach Reason Onset Date Comments Refill Request 03/18/2025 Reason Comments F/U 3 Month Reason Onset Date Comments Allied Health Visit 06/16/2025 Medication A dherence Outreach Reason Onset Date Comments Allied Health Visit 07/04/2025 Medication A dherence Outreach Care Teams (unrecognized sec tion and content) Channel Opener Outsoles Relationship Specialty Start Date End Date Tuan Luo, DO [address] [facility] [place] [address] PCP - General Family Practice 09/23/15 Channel Opener Outsoles Relationship Specialty Start Date End Date Tuan Luo DO [address] [place] [address] PCP - General Family Practice 09/23/15 Channel Opener Outsoles Relationship Specialty Start Date End Date Tuan Luo, DO [address] [place] [address] PCP - General Family Medicine 09/23/15 Channel Opener Outsoles Relationship Specialty Start Date End Date Tuan Luo DO [address] [place] [address] PCP - General Family Medicine 09/23/15 Channel Opener Outsoles Relationship Specialty Start Date End Date Tuan Luo DO [address] [place] [address] PCP - General Family Medicine 09/23/15 Channel Opener Outsoles Relationship Specialty Start Date End Date Tuan Luo, DO [address] [place] [address] PCP - General Family Medicine 09/23/15 Channel Opener Outsoles Relationship Specialty Start Date End Date Tuan Luo, DO [address] [place] [address] PCP - General Family Medicine 09/23/15 Channel Opener Outsoles Relationship Specialty Start Date End Date Tuan Luo, DO [address] [place] [address] PCP - General Family Medicine 09/23/15 Channel Opener Outsoles Relationship Specialty Start Date End Date Tuan uLo, DO [address] [place] [address] PCP - General Family Medicine 09/23/15 Channel Opener Outsoles Relationship Specialty Start Date End Date Tuan Luo, DO [address] [place] [address] PCP - General Family Medicine 09/23/15 Channel Opener Outsoles Relationship Specialty Start Date End Date Tuan Luo, DO [address] [place] [address] PCP - General Family Medicine 09/23/15 Channel Opener Outsoles Relationship Specialty Start Date End Date Tuan Luo, DO [address] [place] [address] PCP - General Family Medicine 09/23/15 Channel Opener Outsoles Relationship Specialty Start Date End Date Tuan Luo, DO [address] [place] [address] PCP - General Family Medicine 09/23/15 Team Status: Active Member Role Status Dates Dr. Tuan Luo DO Family Provider Active Dr. Tuan Luo , DO Primary Care Provider Active Team Status: Inactive Member Role Status Dates Dr. Tuan Luo DO Primary Care Provider Active Dr. Danni Jimenez DO Attending Provider, Wesley schwartz Active Channel Opener Outsoles Relationship Specialty Start Date End Date Tuan Luo DO [address] [place] [address] PCP - General Family Medicine 09/23/15 Channel Opener Outsoles Relationship Specialty Start Date End Date Tuan Luo DO [address] [place] [address] PCP - General Family Medicine 09/23/15 Channel Opener Outsoles Relationship Specialty Start Date End Date Tuan Luo DO [address] [place] [address] PCP - General Family Medicine 09/23/15 Channel Opener Outsoles Relationship Specialty Start Date End Date Tuan Luo DO [address] [place] [address] PCP - General Family Medicine 09/23/15 Channel Opener Outsoles Relationship Specialty Start Date End Date Tuan Luo DO [address] [place] [address] PCP - General Family Medicine 09/23/15 Channel Opener Outsoles Relationship Specialty Start Date End Date Tuan Luo DO [address] [place] [address] PCP - General Family Medicine 09/23/15 Channel Opener Outsoles Relationship Specialty Start Date End Date Tuan Luo DO [address] [place] [address] PCP - General Family Medicine 09/23/15 Channel Opener Outsoles Relationship Specialty Start Date End Date Tuan Luo DO [address] [place] [address] PCP - General Family Medicine 09/23/15 Channel Opener Outsoles Relationship Specialty Start Date End Date Tuan Luo DO [address] [place] [address] PCP - General Family Medicine 09/23/15 Channel Opener Outsoles Relationship Specialty Start Date End Date Tuan Luo DO [address] [place] [address] PCP - General Family Medicine 09/23/15 Channel Opener Outsoles Relationship Specialty Start Date End Date Tuan Luo DO [address] [place] [address] PCP - General Family Medicine 09/23/15 Channel Opener Outsoles Relationship Specialty Start Date End Date Tuan Luo DO [address] [place] [address] PCP - General Family Medicine 09/23/15 Channel Opener Outsoles Relationship Specialty Start Date End Date Tuan Luo DO [address] [place] [address] PCP - General Family Medicine 09/23/15 Channel Opener Outsoles Relationship Specialty Start Date End Date Tuan Luo DO [address] [place] [address] PCP - General Family Medicine 09/23/15 Channel Opener Outsoles Relationship Specialty Start Date End Date Tuan Luo DO [address] [place] [address] PCP - General Family Medicine 09/23/15 Channel Opener Outsoles Relationship Specialty Start Date End Date Tuan Luo DO [address] [place] [address] PCP - General Family Medicine 09/23/15 Channel Opener Outsoles Relationship Specialty Start Date End Date Tuan Luo DO [address] [place] [address] PCP - General Family Medicine 09/23/15 Channel Opener Outsoles Relationship Specialty Start Date End Date Tuan Luo DO [address] [place] [address] PCP - General Family Medicine 09/23/15 Divina Louis, DIRECTIONAL DRILL OPERATOR.NURSING SERVICES MANAGER [address] [place] [address] Cloth Worker Family Medicine 10/20/24 Jayda Pereira, DIRECTIONAL DRILL OPERATOR.NURSING SERVICES MANAGER [address] [place] [address] Cloth Worker Family Medicine 10/20/24 Channel Opener Outsoles Relationship Specialty Start Date End Date Tuan Luo DO [address] [place] [address] PCP - General Family Medicine 09/23/15 Divina Louis, DIRECTIONAL DRILL OPERATOR.NURSING SERVICES MANAGER [address] [place] [address] Cloth Worker Family Medicine 10/20/24 Jayda Pereira, DIRECTIONAL DRILL OPERATOR.NURSING SERVICES MANAGER [address] [place] [address] Cloth Worker Family Medicine 10/20/24 Channel Opener Outsoles Relationship Specialty Start Date End Date Tuan Luo DO [address] [place] [address] PCP - General Family Medicine 09/23/15 Divina Louis, DIRECTIONAL DRILL OPERATOR.NURSING SERVICES MANAGER [address] [place] [address] Cloth Worker Family Medicine 10/20/24 Jayda Pereira, DIRECTIONAL DRILL OPERATOR.NURSING SERVICES MANAGER [address] [place] [address] Cloth Worker Family Medicine 10/20/24 Channel Opener Outsoles Relationship Specialty Start Date End Date Tuan Luo DO [address] [place] [address] PCP - General Family Medicine 09/23/15 Jayda Pereira, DIRECTIONAL DRILL OPERATOR.NURSING SERVICES MANAGER [address] [place] [address] Cloth Worker [facility] 10/20/24 Channel Opener Outsoles Relationship Specialty Start Date End Date Tuan Luo DO [address] [place] [address] PCP - General Family Medicine 09/23/15 Jayda Pereira, DIRECTIONAL DRILL OPERATOR.NURSING SERVICES MANAGER [address] [place] [address] [facility] Channel Opener Outsoles Relationship Specialty Start Date End Date Tuan Luo DO [address] [place] [address] PCP - General Family Medicine 09/23/15 Jayda Pereira, DIRECTIONAL DRILL OPERATOR.NURSING SERVICES MANAGER [address] [place] [address] Cloth Worker Family Medicine 10/20/24 Channel Opener Outsoles Relationship Specialty Start Date End Date Tuan Luo DO [address] [place] [address] PCP - General Family Medicine 09/23/15 [facility], DIRECTIONAL DRILL OPERATOR.NURSING SERVICES MANAGER [address] [place] [address] [facility] Team Status: Active Member Role Status Dates Dr. Tuan Luo DO Primary Care Provider Active Team Status: Inactive Member Role Status Dates Dr. Tuan Luo DO Primary Care Provider Active Start: April 25, 2025 End: April 25, 2025 Dr. Danni Jimenez DO Attending Provider Active Start: April 25, 2025 End: April 25, 2025 Dr. Danni Jimenez DO Referring Provider Active Start: April 25, 2025 End: April 25, 2025 Channel Opener Outsoles Relationship Specialty Start Date End Date Tuan Luo DO [address] [place] [address] PCP - General Family Medicine 09/23/15 [facility]Spe[facility], DIRECTIONAL DRILL OPERATOR.NURSING SERVICES MANAGER [address] [place] [address] Cloth Worker [facility] 10/20/24 Maty Hoover, DIRECTIONAL DRILL OPERATOR.NURSING SERVICES MANAGER [address] [facility], [place] [address] [phone] [facility] 04/28/25 Channel Opener Outsoles Relationship Specialty Start Date End Date Tuan Luo DO [address] [place] [address] PCP - General Family Medicine 09/23/15 Jayda Pereira, DIRECTIONAL DRILL OPERATOR.NURSING SERVICES MANAGER [address] [place], [place] [address] [facility] 10/20/24 Kiko Matyevonne Garces, DIRECTIONAL DRILL OPERATOR.NURSING SERVICES MANAGER [address] [place] [address] [facility] 04/28/25 Team Status: Active Member Role/Relationship Status Dates Dr. Tuan Luo DO Primary Care Provider Active Team Status: Inactive Member Role/Relationship Status Dates Dr. Tuan Luo DO Primary Care Provider Active Start: April 25, 2025 End: April 25, 2025 Dr. Danni Jimenez DO Attending Provider Active Start: April 25, 2025 End: April 25, 2025 Dr. Danni Jimenez DO Referring Provider Active Start: April 25, 2025 End: April 25, 2025 Team Status: Inactive Member Role/Relationship Status Dates Dr. Tuan Luo DO Primary Care Provider Active Start: July 03, 2025 End: July 03, 2025 Dr. Danni Jimenez DO Attending Provider Active Start: July 03, 2025 End: July 03, 2025 Goals (unrecognized section and content) Goals may be documented in a n alternate sectionGoals may be documented in an alternate sectionGoals may be documented in an alternate sectionGoals may be documented in an alternate sectionGoals may be documented in an alternate sectionGoals may be documented in an alternate sectionGoals may be documented in an alternate section INFORMATION SOURCE (unrecogn ized section and content) DATE CREATED AUTHOR 07/06/2025 [facility] DATE CREATED AUTHOR AUTHOR'S ORGANIZ ATION 07/12/2025 [facility] FOR RECORDS PERTAINING TO PATIENTS WHO ARE OR HAVE BEEN ENROLLED IN A CHEMICAL DEPENDENCY/SUBSTANCEABUSE PROGRAM, SOME INFORMATION MAY BE OMITTED. This clinical summary was aggregated from multiple sources. Caution should be exercised in using it in the provision of clinical care. This summary normalizes information from multiple sources, and as a consequence, information in this document may materially change the coding, format and clinical context of patient data. In addition, data may be omitted in some cases. CLINICAL DECISIONS SHOULD BE BASED ON THE PRIMARY CLINICAL RECORDS. [facility]. provides no warranty or guarantee of the accuracy or completeness of information in this document.
--- NOTE | 2025-07-13 09:20 | RAD_ITS ---
PROCEDURE: HIP, UNI W/ PELVIS 2-3 VIEWS 07/13/2025 REASON FOR EXAM: PAIN TECHNIQUE: Procedure Code: [facility] Modality: DX Procedure: HIP, UNI W/ PELVIS 2-3 VIEWS Laterality: Right COMPARISON: None. FINDINGS: Bones: Status post bilateral hip replacement. No periprosthetic fractures. No loosening. Joints: Well aligned. Soft tissues: No soft tissue abnormalities. Other: RAD/HIP, UNI W/ Pelvis 2-3 Views IMPRESSION: No acute findings. Reading Location: [id number]
[2025-07-13 12:12] VITALS: BP 208/91; PULSE 64; RESP 17; TEMP 35.8; O2SAT 100
== END 2025-07-13 12:13 | disposition home or self-care (01) ==
PROVIDERS: Emergency Provider Emergency Medicine; PCP Student in an Organized Health Care Education/Training Program; Visit Provider Emergency Medicine
DX: M25.552 Pain in left hip (principal); I10 Essential (primary) hypertension; E78.5 Hyperlipidemia, unspecified; Z96.649 Presence of unspecified artificial hip joint; E03.9 Hypothyroidism, unspecified; Z79.899 Other long term (current) drug therapy; Z79.890 Hormone replacement therapy
CPT/HCPCS: 73502; 99282